=== PATIENT | male | born 1955 | race Caucasian/White ===

== ENCOUNTER 2017-09-20 00:07 | Observation (INO) | payer MEDICARE, OTHER ==
[2017-09-20] MEDS ORDERED: SODIUM CHLORIDE 0.9% 1000 ML INFUS.BAG IV PRN (01:44)
--- NOTE | 2017-09-20 01:44 | PDOC ---
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 The patient reports developing a cough, increased wheezing, and a fever yesterday. The patient denies taking any medication for his fever, however, reportedly took robitussin from his for his cough yesterday with minimal relief. He denies chest pain, shortness of breath, headache and dizziness. He denies chills, nausea, vomit, diarrhea and constipation. He denies dysuria, frequency, urgency and hematuria. Allergies: NKDA <Franny Hilton - Last Filed: 09/20/17 02:02> - General History Source: Spouse <Guy Sahu - Last Filed: 09/20/17 02:47> - General Chief Complaint: SIRS, Suspected/Possible Stated Complaint: FEVER Time Seen by Provider: 09/20/17 01:40 Past History <Franny Hilton - Last Filed: 09/20/17 02:02> - Past Medical History Anemia: No Asthma: Yes Cancer: No Cardiac Disorders: Yes CVA: Yes (APHASIC) COPD: No CHF: No Dementia: No Diabetes: Yes GI Disorders: No Disorders: No HTN: Yes Hypercholesterolemia: No Liver Disease: No Psychiatric Problems: Yes (anxiety) Seizures: Yes Thyroid Disease: No - Surgical History Abdominal Surgery: No Cardiac Surgery: Yes (PACEMAKER) - Suicide/Smoking/Psychosocial Hx Smoking Status: No Smoking History: Never smoked Have you smoked in the past 12 months: No Number of Cigarettes Smoked Daily: 0 If you are a former smoker, when did you quit?: 45YRS Cigars Per Day: 0 Information on smoking cessation initiated: No Hx Alcohol Use: No Drug/Substance Use Hx: No Substance Use Type: None Hx Substance Use Treatment: No <Guy Sahu - Last Filed: 09/20/17 02:47> - Past Medical History Allergies/Adverse Reactions: Allergies Allergy/AdvReac Type Severity Reaction Status Date / Time No Known Allergies Allergy Verified 09/20/17 00:46 Home Medications: Ambulatory Orders Blood Sugar Diagnostic [Truetrack Test Strip] 1 each MC DAILY #60 strip Blood Sugar Diagnostic [True Metrix Glucose Test Strip] 1 each MC DAILY #50 strip 12/28/16 Acetaminophen with Codeine [Tylenol with Codeine #4 Tablet] 1 each PO BID #60 tablet MDD 2 04/25/17 Miscellaneous Medical Supply [Lancets] 1 each MARION ASDIR #1 box 05/16/17 Alcohol Antiseptic Pads [Caretouch Alcohol Prep Pad] 1 each TP BID #1 box Blood Sugar Diagnostic [Contour Next] 1 each MC BID #60 strip 06/27/17 Digoxin Oral Solution [Lanoxin Oral Solution -] 125 mcg PO DAILY #75 ml Erythromycin 0.5% Eye Ointment [Erythromycin 0.5% Eye Ointment -] 1 applic DAILY #1 tube 06/27/17 Fluticasone/Salmeterol [Advair 250-50 Diskus] 1 each IH DAILY #30 blst.w.dev 07/04 Furosemide [Lasix -] 20 mg PO DAILY #30 tablet 06/27/17 Levetiracetam [Keppra -] 750 mg PO BID #60 tablet 06/27/17 Metoprolol Succinate [Toprol XL -] 25 mg PO BID #60 tab.sr.24h 06/27/17 Lorazepam 0.5 mg PO HS PRN #90 tablet MDD 1.5mg 08/09/17 Paroxetine HCl [Paxil -] 10 mg PO DAILY #30 tablet 08/09/17 Abacavir/Dolutegravir/Lamivudi [Triumeq Tablet] 1 each PO DAILY #30 tablet 08/22 Amoxicillin/Potassium Clav [Augmentin 875-125 Tablet] 1 each PO DAILY #14 tablet 08/22/17 Dextromethorphan HBr [Robitussin] 15 mg PO TID #60 capsule 08/22/17 Multivitamins [Multivit ([facility] Formulary)] 1 tab PO DAILY #30 tab 08/29/17 Abacavir/Dolutegravir/Lamivudi [Triumeq Tablet] 1 each PO DAILY #30 tablet 09/19 Bacitracin - [Bacitracin Topical Ointment -] 1 applic TP TID #1 tube 09/19/17 Clotrimazole [Lotrimin 1% Cream -] 1 applic TP BID #1 tube 09/19/17 Guaifenesin Dm [Robitussin Dm] 1 - 2 tsp PO Q4H #1 bottle MDD 8 09/19/17 Levofloxacin [Levaquin -] 500 mg PO DAILY #7 tablet 09/19/17 Multivitamin,Therapeutic [Oncovite] 1 each PO DAILY #30 tablet 09/19/17 Review of Systems - Review of Systems Able to Perform ROS?: Yes Comments:: 09/20/17 02:02 CONSTITUTIONAL: (+) fever, Absent: chills, diaphoresis, generalized weakness, malaise, loss of appetite HEENT: Absent: rhinorrhea, nasal congestion, throat pain, throat swelling, difficulty swallowing, mouth swelling, ear pain, eye pain, visual Changes CARDIOVASCULAR: Absent: chest pain, syncope, palpitations, irregular heart rate, lightheadedness , peripheral edema RESPIRATORY: (+) cough, wheezing, Absent: shortness of breath, dyspnea with exertion, orthopnea,stridor, hemoptysis GASTROINTESTINAL: Absent: abdominal pain, abdominal distension, nausea, vomiting, diarrhea, constipation, melena, hematochezia GENITOURINARY: Absent: dysuria, frequency, urgency, hesitancy, hematuria, flank pain, genital pain MUSCULOSKELETAL: Absent: myalgia, arthralgia, joint swelling SKIN: Absent: rash, itching, pallor HEMATOLOGIC/IMMUNOLOGIC: Absent: easy bleeding, easy bruising, lymphadenopathy, frequent infections ENDOCRINE: Absent: unexplained weight gain, unexplained weight loss, heat intolerance, cold intolerance NEUROLOGIC: Absent: headache, focal weakness or paresthesias, dizziness, unsteady gait, seizure, mental status changes, bladder or bowel incontinence PSYCHIATRIC: Absent: anxiety, depression, suicidal or homicidal ideation, hallucinations. <Franny Hilton - Last Filed: 09/20/17 02:02> *Physical Exam - Vital Signs Last Vital Signs Temp Pulse Resp BP Pulse Ox 101.7 F H 84 14 121/73 94 L 09/20/17 00:47 09/20/17 00:47 09/20/17 00:47 09/20/17 00:47 09/20/17 00:47 - Physical Exam Comments: 09/20/17 02:03 GENERAL: Well developed, well nourished. Awake and alert. No acute distress. HEENT: Normocephalic, atraumatic. PERRLA, EOMI. No conjunctival pallor. Sclera are non- icteric. Moist mucous membranes. Oropharynx is clear. NECK: Supple. Full ROM. No JVD. Carotid pulses 2+ and symmetric, without bruits. No thyromegaly. No lymphadenopathy. CARDIOVASCULAR: (+) tachycardic rate and normal rhythm. No murmurs, rubs, or gallops. Distal pulses are 2+ and symmetric. PULMONARY: (+) wheezing and rhonchi bilaterally (Left greater than right), decreased breath sounds at bilateral bases. No rales. ABDOMINAL: Soft. Non-tender. Non-distended. No rebound or guarding. No organomegaly. Normoactive bowel sounds. MUSCULOSKELETAL Normal range of motion at all joints. No bony deformities or tenderness. No CVA tenderness. EXTREMITIES: No cyanosis. No clubbing. No edema. No calf tenderness. SKIN: Warm and dry. Normal capillary refill. No rashes. No jaundice. NEUROLOGICAL: (+) right upper and lower extremity weakness, 3/5 muscle strength on right versus 5/5 muscle strength on the left upper and lower extremities. Alert, awake , appropriate. Cranial nerves 2-12 intact. Normoreflexic in the upper and lower extremities. Normal speech. Toes are down-going bilaterally. Gait is normal without ataxia. PSYCHIATRIC: Cooperative. Good eye contact. Appropriate mood and affect. <Franny Hilton - Last Filed: 09/20/17 02:02> - Vital Signs Last Vital Signs Temp Pulse Resp BP Pulse Ox 101.7 F H 84 14 121/73 94 L 09/20/17 00:47 09/20/17 00:47 09/20/17 00:47 09/20/17 00:47 09/20/17 00:47 <Guy Sahu - Last Filed: 09/20/17 02:47> ED Treatment Course - LABORATORY CBC & Chemistry Diagram: 09/20/17 01:50 09/20/17 01:50 - ADDITIONAL ORDERS Additional order review: Laboratory Results 09/20/17 01:50 VBG pH 7.43 H POC VBG pCO2 36.4 L D POC VBG pO2 59.1 H D Mixed VBG HCO3 23.5 - Medications Given in the ED: ED Medications Discontinued Medications Generic Name Dose Route Start Last Admin Trade Name Shala PRN Reason Stop Dose Admin Acetaminophen 1,000 mg 09/20/17 01:45 09/20/17 01:54 Ofirmev Injection - IVPB 09/20/17 01:46 1,000 mg ONCE ONE Administration <Franny Hilton - Last Filed: 09/20/17 02:02> - LABORATORY CBC & Chemistry Diagram: 09/20/17 01:50 09/20/17 01:50 <Guy Sahu - Last Filed: 09/20/17 02:47> Medical Decision Making - Medical Decision Making 09/20/17 02:41 Dr. Sahu: The scribe's documentation has been prepared under my direction and personally reviewed by me in its entirery. I confirm that the note above accurately reflects all work, treatment, procedures, and medical decision making performed by me. Pt HIV+ and DM presents with recurrence of bronchitis. Pt's only gave him one dose of antibiotic as he just saw the pcp yesterday. Will admit Rx Levaquin 750mg IVPB <Guy Sahu - Last Filed: 09/20/17 02:47> *DC/Admit/Observation/Transfer - Attestations Scribe Attestion: 09/20/17 02:06 Documentation prepared by Franny Hilton, acting as medical receptionist medical assistant for Guy Sahu DO <Franny Hilton - Last Filed: 09/20/17 02:02> - Discharge Dispostion Admit: Yes <Guy Sahu - Last Filed: 09/20/17 02:47> Diagnosis at time of Disposition: HIV (human immunodeficiency virus infection), Diabetes 1.5, managed as type 2 Acute bronchitis Qualifiers: Bronchitis organism: unspecified organism Qualified Code(s): J20.9 - Acute bronchitis, unspecified - Discharge Dispostion Condition at time of disposition: Stable - Referrals Referrals: Dickson Suazo MD [Primary Care Provider] - - Patient Instructions - Post Discharge Activity
[2017-09-20] MEDS ORDERED: ACETAMINOPHEN 1000 MG/100 ML VIAL (NON FORMULARY) IVPB ONE (01:45)
[2017-09-20] MEDS ORDERED: ACETAMINOPHEN INJECTION 100 ML IVPB ONE (01:55)
[2017-09-20 01:57] LABS: BASO % 0.1 % (0-2.0); EOS % 0.1 % (0-4.5); HEMOGLOBIN 11.6 GM/dL (11.7-16.9); LYMPH % 7.4 % (8-40); MCH 32.6 pg (25.7-33.7); MCHC 34.1 g/dl (32.0-35.9); MEAN CELL VOLUME 95.7 fl (80-96); MEAN PLT VOLUME 7.5 fl (7.5-11.1); NEUT % 83.4 % (42.8-82.8); PLATELET COUNT 107 K/MM3 (134-434); RBC 3.55 M/mm3 (4.00-5.60); RDW 13.9 % (11.9-15.9); WHITE BLOOD COUNT 4.8 K/mm3 (4.0-10.0)
[2017-09-20 01:58] LABS: VENOUS PC02 36.4 mmHg (38-52); VENOUS PH 7.43 (7.32-7.42); VENOUS PO2 59.1 mmHg (28-48)
[2017-09-20 02:09] LABS: INR 1.3 (0.82-1.09); PROTHROMBIN TIME (PATIENT) 14.7 SEC (9.98-11.88)
[2017-09-20 02:12] LABS: ACTIVATED PTT 42.4 SECONDS (26.9-34.4)
[2017-09-20 02:18] LABS: ALBUMIN 3.5 g/dl (3.4-5.0); ANION GAP 10 (8-16); BILIRUBIN,TOTAL 0.9 mg/dL (0.2-1.0); BLOOD UREA NITROGEN 24 mg/dL (7-18); CALCIUM 8.2 mg/dL (8.5-10.1); CHLORIDE 104 mmol/L (98-107); CO2 23 mmol/L (21-32); CREATININE 1.2 mg/dL (0.7-1.3); GLUCOSE,RANDOM 189 mg/dL (74-106); SGOT/AST 30 U/L (15-37); SGPT/ALT 21 U/L (12-78); SODIUM 137 mmol/L (136-145); TOT PROT 7.4 g/dl (6.4-8.2)
[2017-09-20 02:21] LABS: ALK PHOS 97 U/L (45-117)
[2017-09-20] MEDS ORDERED: LEVOFLOXACIN 750 MG IVPB 750 MG/150 ML BAG IVPB ONE ×2 (02:40→02:49)
--- NOTE | 2017-09-20 02:44 | PN ---
Teaching Attending Note Name of Resident: Alcon Pickard ATTENDING PHYSICIAN STATEMENT I saw and evaluated the patient. I reviewed the resident's note and discussed the case with the resident. I agree with the resident's findings and plan as documented. SUBJECTIVE: 62 M with hx. of HIV (CD4 517), Afib (Not on A/C due to fall hx as per ), HTN s/p PPM, DM, Stroke with r. sided hemipheresis and aphasia, and seizure do who presents with cough X2 weeks in duration. Notes fever at home. States he took Robitussin with minimall relief. States his cough has improved. OBJECTIVE: Physical: VS: Vital Signs Period Temp Pulse Resp BP Sys/Barrientos Pulse Ox Last 24 Hr 101.7 F 84 14 121/73 94 GEN: NAD, resting in bed, AA0X3, Aphasic HEENT: NCAT, L. Pupil reactive, throat without erythema or exudates CARD: RRR S1, S2 RESP: Decreased at bases ABD: Bsx4, NTD to palpation EXT: - C/C/E CBCD WBC 4.8 K/mm3 (4.0-10.0) 09/20/17 01:50 RBC 3.55 M/mm3 (4.00-5.60) L 09/20/17 01:50 Hgb 11.6 GM/dL (11.7-16.9) L D 09/20/17 01:50 Hct 34.0 % (35.4-49) L D 09/20/17 01:50 MCV 95.7 fl (80-96) 09/20/17 01:50 MCHC 34.1 g/dl (32.0-35.9) 09/20/17 01:50 RDW 13.9 % (11.9-15.9) 09/20/17 01:50 Plt Count 107 K/MM3 (134-434) L 09/20/17 01:50 MPV 7.5 fl (7.5-11.1) D 09/20/17 01:50 CMP Sodium 137 mmol/L (136-145) 09/20/17 01:50 Potassium 4.0 mmol/L (3.5-5.1) 09/20/17 01:50 Chloride 104 mmol/L (98-107) 09/20/17 01:50 Carbon Dioxide 23 mmol/L (21-32) 09/20/17 01:50 Anion Gap 10 (8-16) 09/20/17 01:50 BUN 24 mg/dL (7-18) H D 09/20/17 01:50 Creatinine 1.2 mg/dL (0.7-1.3) D 09/20/17 01:50 Creat Clearance w eGFR > 60 (>60) 09/20/17 01:50 Random Glucose 189 mg/dL (74-106) H D 09/20/17 01:50 Calcium 8.2 mg/dL (8.5-10.1) L 09/20/17 01:50 Total Bilirubin 0.9 mg/dL (0.2-1.0) 09/20/17 01:50 AST 30 U/L (15-37) D 09/20/17 01:50 ALT 21 U/L (12-78) D 09/20/17 01:50 Alkaline Phosphatase 97 U/L (45-117) 09/20/17 01:50 Total Protein 7.4 g/dl (6.4-8.2) 09/20/17 01:50 Albumin 3.5 g/dl (3.4-5.0) 09/20/17 01:50 CARDIAC ENZYMES Creatine Kinase 146 IU/L (39-308) 09/20/17 01:50 Troponin I < 0.02 ng/ml (0.00-0.05) 09/20/17 01:50 Home Medications Medication Instructions Recorded Acetaminophen with Codeine 1 each PO BID #60 tablet MDD 2 04/25/17 [Tylenol with Codeine #4 Tablet] Digoxin Oral Solution [Lanoxin 125 mcg PO DAILY #75 ml 06/27/17 Oral Solution -] Erythromycin 0.5% Eye Ointment 1 applic DAILY #1 tube 06/27/17 [Erythromycin 0.5% Eye Ointment -] Fluticasone/Salmeterol [Advair 1 each IH DAILY #30 blst.w.dev 06/27/17 250-50 Diskus] Furosemide [Lasix -] 20 mg PO DAILY #30 tablet 06/27/17 Levetiracetam [Keppra -] 750 mg PO BID #60 tablet 06/27/17 Metoprolol Succinate [Toprol XL -] 25 mg PO BID #60 tab.sr.24h 06/27/17 Lorazepam 0.5 mg PO HS PRN #90 tablet MDD 08/09/17 1.5mg Paroxetine HCl [Paxil -] 10 mg PO DAILY #30 tablet 08/09/17 Multivitamins [Multivit ([facility] 1 tab PO DAILY #30 tab 08/29/17 Formulary)] Abacavir/Dolutegravir/Lamivudi 1 each PO DAILY #30 tablet 09/19/17 [Triumeq Tablet] Guaifenesin Dm [Robitussin Dm] 1 - 2 tsp PO Q4H #1 bottle MDD 8 09/19/17 Multivitamin,Therapeutic [Oncovite] 1 each PO DAILY #30 tablet 09/19/17 EKG: Afib 63 CXR- No acute process ASSESSMENT AND PLAN: 62 M with hx. of HIV, HTN s/p PPM, DM, Stroke with r. sided hemipheresis and aphasia, and seizure do who presents with cough X2 weeks in duration, being admitted for Community Aquired Pneumonia 1.) Fever and Cough- Most likely Early Pneumonia vs. Bronchitis - C/W Levaquin - Sputum Cx- - Flu negative - Urine Ags - ID consult - Tylenol for fever 2.) Hx. OF CVA - Recc ASA 3.) HIV - C/W current meds 4.) DM - Fs - RAISS - Diabetic diet 5.) Dvt Ppx - Scds Place in Obs
--- NOTE | 2017-09-20 02:47 | HP ---
CHIEF COMPLAINT:fever, cough PCP: HISTORY OF PRESENT ILLNESS: 62 year old male with PMH of HiV, DMII, HTN, Afib, S/P pacemaker , stroke ( aphasia with right side weakness), seizure , PEG tube who presented to ED with one week h/o productive cough, sob, wheezing and today fever 103.3 (per ) was admitted for further evaluation and treatment. Symptoms started one month ago and he was given Augmentine by his and achieve some improvement. last week suffer from cold weather at home that worsen his cough and start to product white phlegm , tea spoon in amount. She saw Dr.Berky TESFAYE today and she was given Levaquin 500 mg PO daily . Patient developed fever 103.3 around 9 pm that prompted the to bring him to ED. he reports some chest pain and sore throat. but denies any dyspnea or orthopnea. he denies any headache, blurry vision, abdominal pain, N/V/D/C. He denies any leg swelling or urinary symptoms. ER course was notable for: (1) CXR negative for acute process (2)Levaquin 750 IVBP once (3)NS 1L bolus , 50 cc maintenance Recent Travel:denies , denies any sick contact. PAST MEDICAL HISTORY: as per HPI PAST SURGICAL HISTORY: prosthetic left eye, Pacemaker, PEG tube. Social History: Smoking: as teenage 2-3 cig /day Alcohol:sochially 1-2 beer week Drugs: denies Family History: Allergies No Known Allergies Allergy (Verified 09/20/17 00:46) HOME MEDICATIONS: Home Medications Medication Instructions Recorded Acetaminophen with Codeine 1 each PO BID #60 tablet MDD 2 04/25/17 [Tylenol with Codeine #4 Tablet] Digoxin Oral Solution [Lanoxin 125 mcg PO DAILY #75 ml 06/27/17 Oral Solution -] Erythromycin 0.5% Eye Ointment 1 applic DAILY #1 tube 06/27/17 [Erythromycin 0.5% Eye Ointment -] Fluticasone/Salmeterol [Advair 1 each IH DAILY #30 blst.w.dev 06/27/17 250-50 Diskus] Furosemide [Lasix -] 20 mg PO DAILY #30 tablet 06/27/17 Levetiracetam [Keppra -] 750 mg PO BID #60 tablet 06/27/17 Metoprolol Succinate [Toprol XL -] 25 mg PO BID #60 tab.sr.24h 06/27/17 Lorazepam 0.5 mg PO HS PRN #90 tablet MDD 08/09/17 1.5mg Paroxetine HCl [Paxil -] 10 mg PO DAILY #30 tablet 08/09/17 Multivitamins [Multivit ([facility] 1 tab PO DAILY #30 tab 08/29/17 Formulary)] Abacavir/Dolutegravir/Lamivudi 1 each PO DAILY #30 tablet 09/19/17 [Triumeq Tablet] Guaifenesin Dm [Robitussin Dm] 1 - 2 tsp PO Q4H #1 bottle MDD 8 09/19/17 Multivitamin,Therapeutic [Oncovite] 1 each PO DAILY #30 tablet 09/19/17 REVIEW OF SYSTEMS CONSTITUTIONAL: Absent: fever, chills, diaphoresis, generalized weakness, malaise, loss of appetite, weight change HEENT: Absent: rhinorrhea, nasal congestion, throat pain, throat swelling, difficulty swallowing, mouth swelling, ear pain, eye pain, visual changes CARDIOVASCULAR: Absent: chest pain, syncope, palpitations, irregular heart rate, lightheadedness , peripheral edema RESPIRATORY: Absent: cough, shortness of breath, dyspnea with exertion, orthopnea, wheezing, stridor, hemoptysis GASTROINTESTINAL: Absent: abdominal pain, abdominal distension, nausea, vomiting, diarrhea, constipation, melena, hematochezia GENITOURINARY: Absent: dysuria, frequency, urgency, hesitancy, hematuria, flank pain, genital pain MUSCULOSKELETAL: Absent: myalgia, arthralgia, joint swelling, back pain, neck pain SKIN: Absent: rash, itching, pallor HEMATOLOGIC/IMMUNOLOGIC: Absent: easy bleeding, easy bruising, lymphadenopathy, frequent infections ENDOCRINE: Absent: unexplained weight gain, unexplained weight loss, heat intolerance, cold intolerance NEUROLOGIC: Absent: headache, focal weakness or paresthesias, dizziness, unsteady gait, seizure, mental status changes, bladder or bowel incontinence PSYCHIATRIC: Absent: anxiety, depression, suicidal or homicidal ideation, hallucinations. PHYSICAL EXAMINATION Vital Signs - 24 hr 09/20/17 00:47 Temperature 101.7 F H Pulse Rate 84 Respiratory 14 Rate Blood Pressure 121/73 O2 Sat by Pulse 94 L Oximetry (%) GENERAL: Awake, alert, and fully oriented, in no acute distress with aphasia HEAD: Normal with prosthetic left eye and scar of an old trauma . EYES:right Pupils equal, round and reactive to light, right extraocular movements intact,right sclera anicteric, conjunctiva clear. EARS, NOSE, THROAT: Ears normal, nares patent, oropharynx clear without exudates. Moist mucous membranes. NECK: Normal range of motion, supple without lymphadenopathy, JVD, LUNGS: Breath sounds equal, clear to auscultation bilaterally. mild wheezes, and no crackles. No accessory muscle use. HEART: Regular rate and rhythm, normal S1 and S2 without murmur, rub or gallop. ABDOMEN: Soft, nontender, not distended, normoactive bowel sounds, no guarding, no rebound, UPPER EXTREMITIES: 2+ pulses, warm, well-perfused. No cyanosis. No clubbing. No peripheral edema.right side 2/5 strength, left side 5/5 strength LOWER EXTREMITIES: 2+ pulses, warm, well-perfused. No calf tenderness. No peripheral edema. right side 2/5 strength, left side 5/5 strength , right side skin hyperpegmentation with exfoliation. NEUROLOGICAL: aphasia , sensation intact, gait not observed PSYCHIATRIC: Cooperative. Good eye contact. SKIN: Warm, dry, no rashes or lesions noted, Laboratory Results - last 24 hr 09/20/17 09/20/17 09/20/17 01:50 01:50 01:50 WBC 4.8 RBC 3.55 L Hgb 11.6 L D Hct 34.0 L D MCV 95.7 MCH 32.6 MCHC 34.1 RDW 13.9 Plt Count 107 L MPV 7.5 D Neutrophils % 83.4 H D Lymphocytes % 7.4 L D Monocytes % 9.0 Eosinophils % 0.1 D Basophils % 0.1 PT with INR 14.70 H INR 1.30 H PTT (Actin FS) 42.4 H VBG pH 7.43 H POC VBG pCO2 36.4 L D POC VBG pO2 59.1 H D Mixed VBG HCO3 23.5 Sodium Potassium Chloride Carbon Dioxide Anion Gap BUN Creatinine Creat Clearance w eGFR Random Glucose Lactic Acid Calcium Total Bilirubin AST ALT Alkaline Phosphatase Creatine Kinase Troponin I Total Protein Albumin Digoxin 09/20/17 09/20/17 09/20/17 01:50 01:50 01:50 WBC RBC Hgb Hct MCV MCH MCHC RDW Plt Count MPV Neutrophils % Lymphocytes % Monocytes % Eosinophils % Basophils % PT with INR INR PTT (Actin FS) VBG pH POC VBG pCO2 POC VBG pO2 Mixed VBG HCO3 Sodium 137 Potassium 4.0 Chloride 104 Carbon Dioxide 23 Anion Gap 10 BUN 24 H D Creatinine 1.2 D Creat Clearance w eGFR > 60 Random Glucose 189 H D Lactic Acid 1.6 Calcium 8.2 L Total Bilirubin 0.9 AST 30 D ALT 21 D Alkaline Phosphatase 97 Creatine Kinase 146 Troponin I < 0.02 Total Protein 7.4 Albumin 3.5 Digoxin 0.6633 L CBC, BMP 09/20/17 01:50 Current Medications Generic Name Dose Route Start Last Admin Trade Name Freq PRN Reason Stop Dose Admin Aspirin 81 mg 09/20/17 10:00 Asa - PEG DAILY [facility] Budesonide/Formoterol Fumarate 2 puff 09/20/17 10:00 Symbicort 80/4.5mcg - IH BID DUNIA Digoxin 0.125 mg 09/20/17 10:00 Lanoxin - PO DAILY DUNIA Furosemide 20 mg 09/20/17 10:00 Lasix - PO DAILY [facility] Sodium Chloride 1,000 mls @ 50 mls/hr 09/20/17 04:30 09/20/17 04:31 Normal Saline - IV 09/21/17 04:22 50 mls/hr ASDIR DUNIA Administration Insulin Aspart 0 vial 09/20/17 07:00 Novolog Vial Sliding Scale - SQ ACHS DUNIA Protocol Levetiracetam 750 mg 09/20/17 10:00 Keppra - PO BID DUNIA Lorazepam 0.5 mg 09/20/17 03:22 Ativan - PO HS PRN ANXIETY Metoprolol Succinate 25 mg 09/20/17 10:00 Toprol Xl - PO BID DUNIA Multivitamins/Minerals/Vitamin C 1 tab 09/20/17 10:00 Tab-A-Vit - PO DAILY [facility] Non-Formulary Medication 1 each 09/20/17 10:00 Abacavir/Dolutegravir/Lamivudi [Triumeq Tablet] PO DAILY DUNIA Paroxetine HCl 10 mg 09/20/17 10:00 Paxil - PO DAILY DUN[facility] Sodium Chloride 1,000 ml 09/20/17 01:44 09/20/17 01:54 Normal Saline - IV 1,000 ml Q20M PRN Administration MAP<65mm Hg OR SBP <90 CBC, BMP 09/20/17 01:50 09/20/17 01:50 CXR : No acute process EKG: Afib with frequent ventricular pacing rhythm ASSESSMENT/PLAN: 62 year old male with PMH of HiV, DMII, HTN, Afib, S/P pacemaker , stroke ( aphasia with right side weakness), seizure , PEG tube who presented to ED with one week h/o productive cough, sob, wheezing and today fever 103.3 (per ) was admitted for further evaluation and treatment(R/O pneumonia ) # Fever and productive cough likely Acute Bronchitis vcs early Pneumonia * Levaquin 750 IVBP once , * Id consult * CXR no acute process * Influenza A,B negative * urine legionella antigen * Incentive spectrometry * Blood cx, urine cx, sputum cx # HIV * Cd4 count 482 , Viral Load <20 * Continue home meds # Mild JUAN R * BUN/Cr 24/1.2 base line cr 0.6 * Likely 2/2 dehydration 2/2 low oral intake * hold lasix 20 mg today * IV fluids NS @ 50 CC/hr * repeat CMP in AM H/O Afib , * In no acute episode * pacing rhythm * stable * continue home meds Toprol XL 25 mg BID through PEG * hold Lasix for now * # Anemia likely anemia of chronic disease * Low H/H 11.6/34.0 * monitor * No active bleeding * # Thrombocytopenia * PLt 107 on admission * monitor * No active bleeding # Seizure , * continue keppra 750 mg BID # depression, * continue paroxetin 20 mg PO daily # FEN * F: NS @ 50CC/hr * E:WNL , monitor * N: NPO, Dietitian consult , PEG tube # Proph * DVT : SCDs both legs ,ASA 81 mg daily , NO AC due to frequent fall * GI : no need for now # Dispo * Admit to Observation
[2017-09-20] MEDS ORDERED: LORazepam 0.5 MG TABLET PO PRN (03:22)
[2017-09-20] MEDS ORDERED: SODIUM CHLORIDE 1,000 ML IV SCH (04:30)
[2017-09-20 04:53] LABS: ALLENS TEST POSITIVE; ARTERIAL BLOOD GAS PCO2 41.5 mmHg (35-45); ARTERIAL BLOOD GAS PO2 71.4 mmHg (80-100); ARTERIAL BLOOD GAS pH 7.37 (7.35-7.45)
[2017-09-20 05:55] VITALS: BMI 30.9
[2017-09-20] MEDS: INSULIN SLIDING SCALE (NOVOLOG) 1 VIAL SQ SCH ×4 (06:45→23:35)
[2017-09-20] MEDS: ASPIRIN 81 MG CHEWABLE TABLETS PEG SCH (09:43)
[2017-09-20] MEDS: levETIRAcetam 250 MG TABLET (FP) PO SCH ×2 (09:44→23:25)
[2017-09-20] MEDS: MULTIVITAMINS (DAILY MVI) TABLET (FP) PO SCH (09:44)
[2017-09-20] MEDS: BUDESONIDE/FORMETEROL FUMARATE 80/4.5 mcg INHALER IH SCH ×2 (09:44→23:26)
[2017-09-20] MEDS: METOPROLOL SUCCINATE 25 MG TAB.SR.24H (FP) PO SCH ×2 (09:45→23:25)
[2017-09-20] MEDS: PARoxetine HCL 10 MG TABLET (FP) PO SCH (09:45)
[2017-09-20] MEDS: DIGOXIN 0.125 MG TABLET (FP) PO SCH (09:45)
[2017-09-20] MEDS ORDERED: MULTIVITAMIN THERAPEUTIC PO SCH (10:00)
[2017-09-20] MEDS ORDERED: FUROSEMIDE 20 MG TABLET (FP) PO SCH (10:00)
[2017-09-20 10:30] LABS: BASO % 0.2 % (0-2.0); EOS % 0.2 % (0-4.5); HEMATOCRIT 34.3 % (35.4-49); HEMOGLOBIN 11.3 GM/dL (11.7-16.9); LYMPH % 19.4 % (8-40); MCH 31.9 pg (25.7-33.7); MCHC 32.9 g/dl (32.0-35.9); MEAN CELL VOLUME 96.9 fl (80-96); MEAN PLT VOLUME 7.7 fl (7.5-11.1); MONO % 7.9 % (3.8-10.2); NEUT % 72.3 % (42.8-82.8); PLATELET COUNT 102 K/MM3 (134-434); RBC 3.54 M/mm3 (4.00-5.60); RDW 13.8 % (11.9-15.9); WHITE BLOOD COUNT 3.9 K/mm3 (4.0-10.0)
[2017-09-20 10:49] LABS: ALBUMIN 3.4 g/dl (3.4-5.0); ANION GAP 12 (8-16); BLOOD UREA NITROGEN 24 mg/dL (7-18); CHLORIDE 103 mmol/L (98-107); CO2 25 mmol/L (21-32); CREATININE 1.1 mg/dL (0.7-1.3); GLUCOSE,RANDOM 111 mg/dL (74-106); POTASSIUM 3.9 mmol/L (3.5-5.1); SGOT/AST 34 U/L (15-37); SGPT/ALT 24 U/L (12-78); SODIUM 140 mmol/L (136-145)
[2017-09-20 10:51] LABS: ALK PHOS 81 U/L (45-117); BILIRUBIN,TOTAL 0.8 mg/dL (0.2-1.0); TOT PROT 7.4 g/dl (6.4-8.2)
[2017-09-20 13:10] LABS: URINE APPEARANCE CLEAR; URINE BILIRUBIN NEGATIVE (NEGATIVE); URINE BLOOD NEGATIVE (NEGATIVE); URINE COLOR AMBER; URINE GLUCOSE (UA) NEGATIVE (NEGATIVE); URINE KETONE NEGATIVE (NEGATIVE); URINE LEUK ESTERASE NEGATIVE (NEGATIVE); URINE NITRITE NEGATIVE (NEGATIVE); URINE PROTEIN NEGATIVE (NEGATIVE); URINE UROBILINOGEN 4.0 E.U/dl mg/dL (0.2-1.0)
--- NOTE | 2017-09-20 13:11 | PN ---
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 (short form) - Note 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: ID consult dictated [email or web address] 62 year old man stable HIV-cd4 517 history of cva- aphasia and right hemiparesis recent bronchitis in August - treated with Augmentin now with recurrent cough, wheezing and fever- seen at the [facility] and started on Levaquin yesterday, later developed fever and came to ED received levaquin early this am cxray no infiltrate, influenza screen negative now feeling much better bronchitis-improved, f/u cultures, continue po levaquin, reduce dose to 500 mg daily for 7 days stable HIV- we dont have triumeq- will give the components history of CVA with aphasia and right hemiiparesis NIDDM Problem List - Problems (1) Acute bronchitis Code(s): J20.9 - ACUTE BRONCHITIS, UNSPECIFIED Qualifiers: Bronchitis organism: unspecified organism Qualified Code(s): J20.9 - Acute bronchitis, unspecified (2) HIV (human immunodeficiency virus infection) Code(s): Z21 - ASYMPTOMATIC HUMAN IMMUNODEFICIENCY VIRUS INFECTION STATUS (3) Diabetes 1.5, managed as type 2 Code(s): E10.9 - TYPE 1 DIABETES MELLITUS WITHOUT COMPLICATIONS (4) CVA (cerebral vascular accident) Code(s): I63.9 - CEREBRAL INFARCTION, UNSPECIFIED
--- NOTE | 2017-09-20 13:17 | EKG ---
Test Reason : Blood Pressure : / mmHG Vent. Rate : 067 BPM Atrial Rate : 277 BPM P-R Int : 000 ms QRS Dur : 110 ms QT Int : 404 ms P-R-T Axes : 000 008 002 degrees QTc Int : 426 ms ATRIAL FIBRILLATION WITH FREQUENT ventricular-paced complexes RIGHT BUNDLE BRANCH BLOCK T WAVE ABNORMALITY, CONSIDER LATERAL ISCHEMIA ABNORMAL ECG WHEN COMPARED WITH ECG OF 07-MAR-2017 10:24, ELECTRONIC VENTRICULAR PACEMAKER HAS REPLACED ATRIAL FIBRILLATION Confirmed by DREA MURRAY MD ([id number]) on 09/20/2017 1:17:26 PM Referred By: Confirmed By:DREA MURRAY MD
[2017-09-20] MEDS: ACETAMINOPHEN 325 MG TABLET (FP) PO PRN ×3 (13:21→23:26)
[2017-09-20] MEDS ORDERED: lamiVUDine 150 MG TABLET PO SCH (13:33)
--- NOTE | 2017-09-20 14:19 | CONS ---
DATE OF CONSULTATION: DATE OF DICTATION: 09/20/2017 INFECTIOUS DISEASE CONSULTATION REQUESTING PHYSICIAN: The hospitalist service. HISTORY OF PRESENT ILLNESS: This is a 62-year-old man with stable HIV disease. T-cells are 517. 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 He was brought to the emergency room by his last night. He had gone to the [facility] earlier in the day, complaining of a cough that was productive and had been persistent over the last several days. They apparently had had a heating issue in their apartment and had heat only in the bedroom for several days, and the patient began coughing, which has been persistent. He had a similar episode earlier in August, for which he was treated with Augmentin. Yesterday, when he was seen in clinic, he had no fever or chills and was otherwise well. He was given Levaquin and cough medicine, which she states she gave him yesterday. Last night she noticed his face was red. He was coughing more and wheezing. She brought him to the emergency room, where he was noted to have fever, and he was admitted for further evaluation. He was given a dose of Levaquin early this morning. He had a chest x-ray that shows no infiltrate. Currently he is resting comfortably. His fever has resolved, and his cough has subsided. PAST MEDICAL HISTORY: Notable for CVA. He has expressive aphasia. He also has a history of diabetes and hypertension. He has right-sided weakness from his CVA. He has a history of seizures. He is status post pacemaker. [id number] diabetes and hypertension. He has a history of asthma in the past, as well as anxiety. He has had 2 prior feeding tubes and a tracheostomy, all of which have been removed. He also appears to have had some other abdominal surgery of unclear etiology. ALLERGIES: He has no known drug allergies. MEDICATIONS: His medications as an outpatient include Advair, Lasix, Keppra, metoprolol, lorazepam, Paxil, Triumeq, Robitussin, multivitamins, and he was started on Levaquin yesterday. SOCIAL HISTORY: He lives with his significant other. There is no history of any substance use. REVIEW OF SYSTEMS: He apparently has had some dental pain. He saw his dentist recently and is scheduled for extractions. He has no abdominal pain or chest pain at this time, and his cough is improved. There is no history of any travel. PHYSICAL EXAMINATION: General: He is awake and alert Vital Signs: Maximum temperature is 101. Current temperature is 98.9. Pulse 60. Blood pressure 106/62. Respiratory rate is 18. He is saturating 96% on room air. HEENT: He is normocephalic. His eyes are anicteric. He has very poor dentition, with multiple broken teeth. Neck: Supple. Lungs: Clear. Heart: Regular rate and rhythm. Abdomen: Soft and nontender. He has a well-healed midline incision. He has 2 other scars, which were the G-tube sites. Extremities: He has bilateral venous stasis changes. He has multiple scars on his lower legs. He has no edema. DIAGNOSTIC STUDIES: His labs are notable for a white count of 3.9. Hemoglobin is 11.3. Platelets are 102. BUN 24, creatinine 1.1. LFTs are normal. Urinalysis is pending. His T-cells are 517, from June, with a viral load of 170. Influenza screen was done and is negative. Blood cultures are pending. Chest x-ray is negative for acute infiltrate. ASSESSMENT: In summary, this is a 62-year-old man with: 1. Bronchitis, appears improved. Would follow up his cultures. Continue oral Levaquin. Can reduce the dose to 500 a day for 7 days. 2. Stable human immunodeficiency virus. We do not have his current medications, but the components are available, which have been ordered. 3. History of cerebrovascular accident with aphasia and right hemiparesis. 4. [id number] diabetes. Further recommendations to follow. Jodie [id number]
[2017-09-20] MEDS: DOLUTEGRAVIR SODIUM 50 MG TABLET PO SCH (17:40)
[2017-09-20] MEDS: ABACAVIR SULFATE 300 MG TABLET PO SCH (17:41)
--- NOTE | 2017-09-20 18:17 | PN ---
Teaching Attending Note Name of Resident: Charity Paul ATTENDING PHYSICIAN STATEMENT Time of evaluation: 2:30 PM I saw and evaluated the patient. I reviewed the resident's note and discussed the case with the resident. I agree with the resident's findings and plan as documented. SUBJECTIVE: patient seen and examined, aphasic, but able to answer few questions, denies any dyspnea, Reports some vague pain right lateral abdominal area. No toothache currently. OBJECTIVE: Vital Signs Period Temp Pulse Resp BP Sys/Barrientos Pulse Ox Last 24 Hr 98.9 F-101.7 F 60-84 14-22 103-121/62-73 94-96 Intake & Output 09/17/17 09/18/17 09/19/17 09/20/17 23:59 23:59 23:59 23:59 Intake Total 680 Balance 680 Weight 209 lb 0.4 oz General: lying in bed in no acute distress CVS:S1S2 regular Chest: decreased effort, unable to appreciate rales or wheezing abdomen soft, Right lateral tenderness?variable response with exam, no voluntary or involuntary guarding or rigidity, neg Childers's sign, no CVA tenderness Neuro: aphasic, right hemiparesis, RUE 3/5, RLE 4/5 Active Medications Generic Name Dose Route Start Last Admin Trade Name Freq PRN Reason Stop Dose Admin Abacavir Sulfate 600 mg 09/20/17 13:15 09/20/17 17:41 Ziagen - PO 600 mg DAILY DUNIA Administration Acetaminophen 650 mg 09/20/17 13:06 09/20/17 17:41 Tylenol - PO 650 mg Q4H PRN Administration FEVER OR PAIN Aspirin 81 mg 09/20/17 10:00 09/20/17 09:43 Asa - PEG 81 mg DAILY DUNIA Administration Budesonide/Formoterol Fumarate 2 puff 09/20/17 10:00 09/20/17 09:44 Symbicort 80/4.5mcg - IH 2 puff BID DUNIA Administration Digoxin 0.125 mg 09/20/17 10:09/20/17 09:45 Lanoxin - PO 0.125 mg DAILY DUNIA Administration Sodium Chloride 1,000 mls @ 50 mls/hr 09/20/17 04:30 09/20/17 04:31 Normal Saline - IV 09/21/17 04:22 50 mls/hr ASDIR DUNIA Administration Insulin Aspart 1 vial 09/20/17 07:00 09/20/17 17:40 Novolog Vial Sliding Scale - SQ Not Given ACHS [facility] Protocol Lamivudine 300 mg 09/20/17 13:33 Epivir - PO DAILY DUNIA Levetiracetam 750 mg 09/20/17 10:00 09/20/17 09:44 Keppra - PO 750 mg BID DUNIA Administration Levofloxacin 500 mg 09/21/17 07:00 Levaquin - PO AM DUNIA Lorazepam 0.5 mg 09/20/17 03:22 Ativan - PO HS PRN ANXIETY Metoprolol Succinate 25 mg 09/20/17 10:00 09/20/17 09:45 Toprol Xl - PO 25 mg BID DUNIA Administration Multivitamins/Minerals/Vitamin C 1 tab 09/20/17 10:00 09/20/17 09:44 Tab-A-Vit - PO 1 tab DAILY DUNIA Administration Paroxetine HCl 10 mg 09/20/17 10:00 09/20/17 09:45 Paxil - PO 10 mg DAILY DUNIA Administration Sodium Chloride 1,000 ml 09/20/17 01:44 09/20/17 01:54 Normal Saline - IV 1,000 ml Q20M PRN Administration MAP<65mm Hg OR SBP <90 Laboratory Results - last 24 hr 09/20/17 09/20/17 09/20/17 01:50 01:50 01:50 WBC 4.8 RBC 3.55 L Hgb 11.6 L D Hct 34.0 L D MCV 95.7 MCH 32.6 MCHC 34.1 RDW 13.9 Plt Count 107 L MPV 7.5 D Neutrophils % 83.4 H D Lymphocytes % 7.4 L D Monocytes % 9.0 Eosinophils % 0.1 D Basophils % 0.1 PT with INR 14.70 H INR 1.30 H PTT (Actin FS) 42.4 H Puncture Site ABG pH ABG pCO2 at Pt Temp ABG pO2 at Pt Temp ABG HCO3 ABG O2 Sat (Measured) ABG O2 Content ABG Base Excess Saulo Test VBG pH 7.43 H POC VBG pCO2 36.4 L D POC VBG pO2 59.1 H D Mixed VBG HCO3 23.5 Oxygen Flow Rate Sodium Potassium Chloride Carbon Dioxide Anion Gap BUN Creatinine Creat Clearance w eGFR POC Glucometer Random Glucose Lactic Acid Calcium Total Bilirubin AST ALT Alkaline Phosphatase Creatine Kinase Troponin I Total Protein Albumin Urine Color Urine Appearance Urine pH Ur Specific [place] Urine Protein Urine Glucose (UA) Urine Ketones Urine Blood Urine Nitrite Urine Bilirubin Urine Urobilinogen Ur Leukocyte Esterase Digoxin Blood Type Antibody Screen 09/20/17 09/20/17 09/20/17 01:50 01:50 01:50 WBC RBC Hgb Hct MCV MCH MCHC RDW Plt Count MPV Neutrophils % Lymphocytes % Monocytes % Eosinophils % Basophils % PT with INR INR PTT (Actin FS) Puncture Site ABG pH ABG pCO2 at Pt Temp ABG pO2 at Pt Temp ABG HCO3 ABG O2 Sat (Measured) ABG O2 Content ABG Base Excess Saulo Test VBG pH POC VBG pCO2 POC VBG pO2 Mixed VBG HCO3 Oxygen Flow Rate Sodium 137 Potassium 4.0 Chloride 104 Carbon Dioxide 23 Anion Gap 10 BUN 24 H D Creatinine 1.2 D Creat Clearance w eGFR > 60 POC Glucometer Random Glucose 189 H D Lactic Acid 1.6 Calcium 8.2 L Total Bilirubin 0.9 AST 30 D ALT 21 D Alkaline Phosphatase 97 Creatine Kinase 146 Troponin I < 0.02 Total Protein 7.4 Albumin 3.5 Urine Color Urine Appearance Urine pH Ur Specific [place] Urine Protein Urine Glucose (UA) Urine Ketones Urine Blood Urine Nitrite Urine Bilirubin Urine Urobilinogen Ur Leukocyte Esterase Digoxin Blood Type O POSITIVE Antibody Screen Negative 09/20/17 09/20/17 09/20/17 01:50 02:41 06:35 WBC RBC Hgb Hct MCV MCH MCHC RDW Plt Count MPV Neutrophils % Lymphocytes % Monocytes % Eosinophils % Basophils % PT with INR INR PTT (Actin FS) Puncture Site Left brachial ABG pH 7.37 ABG pCO2 at Pt Temp 41.5 ABG pO2 at Pt Temp 71.4 L ABG HCO3 23.6 ABG O2 Sat (Measured) 95.0 ABG O2 Content 14.2 L ABG Base Excess -1.0 Saulo Test Positive VBG pH POC VBG pCO2 POC VBG pO2 Mixed VBG HCO3 Oxygen Flow Rate Room air Sodium Potassium Chloride Carbon Dioxide Anion Gap BUN Creatinine Creat Clearance w eGFR POC Glucometer 86 Random Glucose Lactic Acid Calcium Total Bilirubin AST ALT Alkaline Phosphatase Creatine Kinase Troponin I Total Protein Albumin Urine Color Urine Appearance Urine pH Ur Specific [place] Urine Protein Urine Glucose (UA) Urine Ketones Urine Blood Urine Nitrite Urine Bilirubin Urine Urobilinogen Ur Leukocyte Esterase Digoxin 0.6633 L Blood Type Antibody Screen 09/20/17 09/20/17 09/20/17 10:00 10:00 12:00 WBC 3.9 L RBC 3.54 L Hgb 11.3 L Hct 34.3 L MCV 96.9 H MCH 31.9 MCHC 32.9 RDW 13.8 Plt Count 102 L MPV 7.7 Neutrophils % 72.3 Lymphocytes % 19.4 D Monocytes % 7.9 Eosinophils % 0.2 D Basophils % 0.2 PT with INR INR PTT (Actin FS) Puncture Site ABG pH ABG pCO2 at Pt Temp ABG pO2 at Pt Temp ABG HCO3 ABG O2 Sat (Measured) ABG O2 Content ABG Base Excess Saulo Test VBG pH POC VBG pCO2 POC VBG pO2 Mixed VBG HCO3 Oxygen Flow Rate Sodium 140 Potassium 3.9 Chloride 103 Carbon Dioxide 25 Anion Gap 12 BUN 24 H Creatinine 1.1 Creat Clearance w eGFR > 60 POC Glucometer 97 Random Glucose 111 H D Lactic Acid Calcium 8.0 L Total Bilirubin 0.8 AST 34 ALT 24 Alkaline Phosphatase 81 Creatine Kinase Troponin I Total Protein 7.4 Albumin 3.4 Urine Color Urine Appearance Urine pH Ur Specific [place] Urine Protein Urine Glucose (UA) Urine Ketones Urine Blood Urine Nitrite Urine Bilirubin Urine Urobilinogen Ur Leukocyte Esterase Digoxin Blood Type Antibody Screen 09/20/17 09/20/17 12:30 17:24 WBC RBC Hgb Hct MCV MCH MCHC RDW Plt Count MPV Neutrophils % Lymphocytes % Monocytes % Eosinophils % Basophils % PT with INR INR PTT (Actin FS) Puncture Site ABG pH ABG pCO2 at Pt Temp ABG pO2 at Pt Temp ABG HCO3 ABG O2 Sat (Measured) ABG O2 Content ABG Base Excess Saulo Test VBG pH POC VBG pCO2 POC VBG pO2 Mixed VBG HCO3 Oxygen Flow Rate Sodium Potassium Chloride Carbon Dioxide Anion Gap BUN Creatinine Creat Clearance w eGFR POC Glucometer 105 Random Glucose Lactic Acid Calcium Total Bilirubin AST ALT Alkaline Phosphatase Creatine Kinase Troponin I Total Protein Albumin Urine Color Chery Urine Appearance Clear Urine pH 5.0 Ur Specific [place] 1.020 Urine Protein Negative Urine Glucose (UA) Negative Urine Ketones Negative Urine Blood Negative Urine Nitrite Negative Urine Bilirubin Negative Urine Urobilinogen 4.0 e.u/dl Ur Leukocyte Esterase Negative Digoxin Blood Type Antibody Screen Microbiology 09/20/17 12:30 Urine For Antigen Detection Legionella Antigen - Final 09/20/17 12:30 Urine For Antigen Detection Streptococcus pneumoniae Antigen (M - Final 09/20/17 03:00 Nasopharyngeal Swab Influenza Types A,B Antigen (QUIN) - Final 09/20/17 03:00 Nasopharyngeal Swab - Final ASSESSMENT AND PLAN: 62 yom with HIV on HAART, CVA with aphasia and right hemiparesis, DM, Afib s/p PPM, HTN admitted with acute bronchitis vs early pNA -Acute bronchitis vs early PNA -Right lateral abdominal pain -HIV on HAART -CVA with aphasic/right hemiparesis -DM -Afib s/p PPM -HTN PlanL ID input appreciated, emma. Follow up blood cultures Abdominal exam benign, LFTs unremarkable, u/a wnl, no CVA tenderness, monitor for now. Continue HAART and home meds D/c in 24 hours if no further fevers or new events.
[2017-09-20] MEDS ORDERED: PT OWN MED DRAWER 7, Y5N ONE (19:02)
--- NOTE | 2017-09-20 20:06 | PN ---
Physical Exam: SUBJECTIVE: Patient seen and examined. Pt is aphasic, but can answer yes/no questions. Pt denies chest pain, abdominal pain, sob. Pt afebrile after initial presentation. Pt c/o toothache, relieved with Tylenol. Pt reports having an outpt appt to f/u for toothache. OBJECTIVE: Vital Signs Period Temp Pulse Resp BP Sys/Barrientos Pulse Ox Last 24 Hr 98.9 F-101.7 F 60-84 14-22 103-121/62-73 94-96 GENERAL: The patient is aphasic, awake, alert, and fully oriented, in no acute distress. HEAD: Normal with no signs of trauma. LUNGS: Breath sounds equal, clear to auscultation bilaterally, no wheezes, no crackles, no accessory muscle use. HEART: Regular rate and rhythm, S1, S2 without murmur, rub or gallop. ABDOMEN: Soft, nontender, nondistended, no guarding. EXTREMITIES: Warm, well-perfused, no edema. NEUROLOGICAL: Aphasic, Right hemiparesis, RUE 3/5, RLE 4/5. PSYCH: Normal mood, normal affect. SKIN: Warm, dry, normal turgor, no rashes or lesions noted Laboratory Results - last 24 hr 09/20/17 09/20/17 09/20/17 01:50 01:50 01:50 WBC 4.8 RBC 3.55 L Hgb 11.6 L D Hct 34.0 L D MCV 95.7 MCH 32.6 MCHC 34.1 RDW 13.9 Plt Count 107 L MPV 7.5 D Neutrophils % 83.4 H D Lymphocytes % 7.4 L D Monocytes % 9.0 Eosinophils % 0.1 D Basophils % 0.1 PT with INR 14.70 H INR 1.30 H PTT (Actin FS) 42.4 H Puncture Site ABG pH ABG pCO2 at Pt Temp ABG pO2 at Pt Temp ABG HCO3 ABG O2 Sat (Measured) ABG O2 Content ABG Base Excess Saulo Test VBG pH 7.43 H POC VBG pCO2 36.4 L D POC VBG pO2 59.1 H D Mixed VBG HCO3 23.5 Oxygen Flow Rate Sodium Potassium Chloride Carbon Dioxide Anion Gap BUN Creatinine Creat Clearance w eGFR POC Glucometer Random Glucose Lactic Acid Calcium Total Bilirubin AST ALT Alkaline Phosphatase Creatine Kinase Troponin I Total Protein Albumin Urine Color Urine Appearance Urine pH Ur Specific [place] Urine Protein Urine Glucose (UA) Urine Ketones Urine Blood Urine Nitrite Urine Bilirubin Urine Urobilinogen Ur Leukocyte Esterase Digoxin Blood Type Antibody Screen 09/20/17 09/20/17 09/20/17 01:50 01:50 01:50 WBC RBC Hgb Hct MCV MCH MCHC RDW Plt Count MPV Neutrophils % Lymphocytes % Monocytes % Eosinophils % Basophils % PT with INR INR PTT (Actin FS) Puncture Site ABG pH ABG pCO2 at Pt Temp ABG pO2 at Pt Temp ABG HCO3 ABG O2 Sat (Measured) ABG O2 Content ABG Base Excess Saulo Test VBG pH POC VBG pCO2 POC VBG pO2 Mixed VBG HCO3 Oxygen Flow Rate Sodium 137 Potassium 4.0 Chloride 104 Carbon Dioxide 23 Anion Gap 10 BUN 24 H D Creatinine 1.2 D Creat Clearance w eGFR > 60 POC Glucometer Random Glucose 189 H D Lactic Acid 1.6 Calcium 8.2 L Total Bilirubin 0.9 AST 30 D ALT 21 D Alkaline Phosphatase 97 Creatine Kinase 146 Troponin I < 0.02 Total Protein 7.4 Albumin 3.5 Urine Color Urine Appearance Urine pH Ur Specific [place] Urine Protein Urine Glucose (UA) Urine Ketones Urine Blood Urine Nitrite Urine Bilirubin Urine Urobilinogen Ur Leukocyte Esterase Digoxin Blood Type O POSITIVE Antibody Screen Negative 09/20/17 09/20/17 09/20/17 01:50 02:41 06:35 WBC RBC Hgb Hct MCV MCH MCHC RDW Plt Count MPV Neutrophils % Lymphocytes % Monocytes % Eosinophils % Basophils % PT with INR INR PTT (Actin FS) Puncture Site Left brachial ABG pH 7.37 ABG pCO2 at Pt Temp 41.5 ABG pO2 at Pt Temp 71.4 L ABG HCO3 23.6 ABG O2 Sat (Measured) 95.0 ABG O2 Content 14.2 L ABG Base Excess -1.0 Saulo Test Positive VBG pH POC VBG pCO2 POC VBG pO2 Mixed VBG HCO3 Oxygen Flow Rate Room air Sodium Potassium Chloride Carbon Dioxide Anion Gap BUN Creatinine Creat Clearance w eGFR POC Glucometer 86 Random Glucose Lactic Acid Calcium Total Bilirubin AST ALT Alkaline Phosphatase Creatine Kinase Troponin I Total Protein Albumin Urine Color Urine Appearance Urine pH Ur Specific [place] Urine Protein Urine Glucose (UA) Urine Ketones Urine Blood Urine Nitrite Urine Bilirubin Urine Urobilinogen Ur Leukocyte Esterase Digoxin 0.6633 L Blood Type Antibody Screen 09/20/17 09/20/17 09/20/17 10:00 10:00 12:00 WBC 3.9 L RBC 3.54 L Hgb 11.3 L Hct 34.3 L MCV 96.9 H MCH 31.9 MCHC 32.9 RDW 13.8 Plt Count 102 L MPV 7.7 Neutrophils % 72.3 Lymphocytes % 19.4 D Monocytes % 7.9 Eosinophils % 0.2 D Basophils % 0.2 PT with INR INR PTT (Actin FS) Puncture Site ABG pH ABG pCO2 at Pt Temp ABG pO2 at Pt Temp ABG HCO3 ABG O2 Sat (Measured) ABG O2 Content ABG Base Excess Saulo Test VBG pH POC VBG pCO2 POC VBG pO2 Mixed VBG HCO3 Oxygen Flow Rate Sodium 140 Potassium 3.9 Chloride 103 Carbon Dioxide 25 Anion Gap 12 BUN 24 H Creatinine 1.1 Creat Clearance w eGFR > 60 POC Glucometer 97 Random Glucose 111 H D Lactic Acid Calcium 8.0 L Total Bilirubin 0.8 AST 34 ALT 24 Alkaline Phosphatase 81 Creatine Kinase Troponin I Total Protein 7.4 Albumin 3.4 Urine Color Urine Appearance Urine pH Ur Specific [place] Urine Protein Urine Glucose (UA) Urine Ketones Urine Blood Urine Nitrite Urine Bilirubin Urine Urobilinogen Ur Leukocyte Esterase Digoxin Blood Type Antibody Screen 09/20/17 09/20/17 12:30 17:24 WBC RBC Hgb Hct MCV MCH MCHC RDW Plt Count MPV Neutrophils % Lymphocytes % Monocytes % Eosinophils % Basophils % PT with INR INR PTT (Actin FS) Puncture Site ABG pH ABG pCO2 at Pt Temp ABG pO2 at Pt Temp ABG HCO3 ABG O2 Sat (Measured) ABG O2 Content ABG Base Excess Saulo Test VBG pH POC VBG pCO2 POC VBG pO2 Mixed VBG HCO3 Oxygen Flow Rate Sodium Potassium Chloride Carbon Dioxide Anion Gap BUN Creatinine Creat Clearance w eGFR POC Glucometer 105 Random Glucose Lactic Acid Calcium Total Bilirubin AST ALT Alkaline Phosphatase Creatine Kinase Troponin I Total Protein Albumin Urine Color Chery Urine Appearance Clear Urine pH 5.0 Ur Specific [place] 1.020 Urine Protein Negative Urine Glucose (UA) Negative Urine Ketones Negative Urine Blood Negative Urine Nitrite Negative Urine Bilirubin Negative Urine Urobilinogen 4.0 e.u/dl Ur Leukocyte Esterase Negative Digoxin Blood Type Antibody Screen Active Medications Generic Name Dose Route Start Last Admin Trade Name Freq PRN Reason Stop Dose Admin Abacavir Sulfate 600 mg 09/20/17 13:15 09/20/17 17:41 Ziagen - PO 600 mg DAILY DUNIA Administration Acetaminophen 650 mg 09/20/17 13:06 09/20/17 17:41 Tylenol - PO 650 mg Q4H PRN Administration FEVER OR PAIN Aspirin 81 mg 09/20/17 10:00 09/20/17 09:43 Asa - PEG 81 mg DAILY DUNIA Administration Budesonide/Formoterol Fumarate 2 puff 09/20/17 10:00 09/20/17 09:44 Symbicort 80/4.5mcg - IH 2 puff BID DUNIA Administration Digoxin 0.125 mg 09/20/17 10:00 09/20/17 09:45 Lanoxin - PO 0.125 mg DAILY DUNIA Administration Sodium Chloride 1,000 mls @ 50 mls/hr 09/20/17 04:30 09/20/17 04:31 Normal Saline - IV 09/21/17 04:22 50 mls/hr ASDIR DUNIA Administration Insulin Aspart 1 vial 09/20/17 07:00 09/20/17 17:40 Novolog Vial Sliding Scale - SQ Not Given ACHS [facility] Protocol Lamivudine 300 mg 09/20/17 13:33 Epivir - PO DAILY DUNIA Levetiracetam 750 mg 09/20/17 10:00 09/20/17 09:44 Keppra - PO 750 mg BID DUNIA Administration Levofloxacin 500 mg 09/21/17 07:00 Levaquin - PO AM DUNIA Lorazepam 0.5 mg 09/20/17 03:22 Ativan - PO HS PRN ANXIETY Metoprolol Succinate 25 mg 09/20/17 10:00 09/20/17 09:45 Toprol Xl - PO 25 mg BID DUNIA Administration Multivitamins/Minerals/Vitamin C 1 tab 09/20/17 10:00 09/20/17 09:44 Tab-A-Vit - PO 1 tab DAILY DUNIA Administration Paroxetine HCl 10 mg 09/20/17 10:00 09/20/17 09:45 Paxil - PO 10 mg DAILY DUNIA Administration Sodium Chloride 1,000 ml 09/20/17 01:44 09/20/17 01:54 Normal Saline - IV 1,000 ml Q20M PRN Administration MAP<65mm Hg OR SBP <90 IMAGIN09/20/17 CXR -> no acute pulmonary pathology ASSESSMENT/PLAN: 62M with PMH of HIV, htn, afib s/p PPM, DM, CVA with residual Right-sided hemipharesis and aphasia, seizure, presents with fever and cough x 2 weeks, admitted to Observation for Community Acquired Pneumonia. # fever and cough - likely 2/2 early pneumonia vs bronchitis - Levaquin po daily - ID Consult - Influenza A&B (-), Legionella and Strep pneumonia (-) - f/u blood and urine cultures - Tylenol prn for pain or fever - Symbicort BID # afib - continue home meds of Digoxin and Metoprolol for rate control # DM - BGMs - Novolog SSI # htn - continue home med of Metoprolol # Seizure - continue home med of Keppra # CVA - ASA # HIV - continue home medications of Ziagen and Epivir # FEN - Fluids: NS @ 50 ml/hr - Electrolytes: wnl, continue to monitor - Nutrition: diabetic diet # Prophylaxis - DVT ppx with nimisha SCDs, hold pharmalogic ppx 2/2 his of falls Visit type - Emergency Visit Emergency Visit: Yes ED Registration Date: 09/20/17 Care time: The patient presented to the Emergency Department on the above date and was hospitalized for further evaluation of their emergent condition. - New Patient This patient is new to me today: Yes Date on this admission: 09/20/17 - Critical Care Critical Care patient: No
[2017-09-20] MEDS ORDERED: INSULIN (NOVOLOG) ASPART 100 UNITS/ML 10ML VIAL ONE (23:11)
[2017-09-21] MEDS ORDERED: LEVOFLOXACIN 250 MG TABLET (FP) PO SCH (06:00)
[2017-09-21] MEDS: INSULIN SLIDING SCALE (NOVOLOG) 1 VIAL SQ SCH ×2 (06:19→12:05)
[2017-09-21] MEDS: ACETAMINOPHEN 325 MG TABLET (FP) PO PRN ×2 (06:22→11:04)
[2017-09-21] MEDS ORDERED: LEVOFLOXACIN 500 MG TABLET (FP) PO SCH (07:00)
[2017-09-21 07:15] LABS: HEMATOCRIT 37.3 % (35.4-49); HEMOGLOBIN 12.1 GM/dL (11.7-16.9); MCH 31.8 pg (25.7-33.7); MCHC 32.3 g/dl (32.0-35.9); MEAN CELL VOLUME 98.4 fl (80-96); MEAN PLT VOLUME 7.7 fl (7.5-11.1); PLATELET COUNT 99 K/MM3 (134-434); RBC 3.79 M/mm3 (4.00-5.60); RDW 13.8 % (11.9-15.9); WHITE BLOOD COUNT 3.9 K/mm3 (4.0-10.0)
[2017-09-21 07:43] LABS: ANION GAP 7 (8-16); BLOOD UREA NITROGEN 17 mg/dL (7-18); CALCIUM 8.3 mg/dL (8.5-10.1); CHLORIDE 108 mmol/L (98-107); CO2 27 mmol/L (21-32); GLUCOSE,RANDOM 162 mg/dL (74-106); POTASSIUM 4.1 mmol/L (3.5-5.1); SODIUM 142 mmol/L (136-145)
[2017-09-21 08:13] LABS: ALBUMIN 3.2 g/dl (3.4-5.0); BILIRUBIN,DIRECT 0.2 mg/dL (0.0-0.2); BILIRUBIN,TOTAL 0.5 mg/dL (0.2-1.0); TOT PROT 7.3 g/dl (6.4-8.2)
[2017-09-21] MEDS ORDERED: PT OWN MED DRAWER 7, Y5N ONE (09:22)
[2017-09-21] MEDS: DIGOXIN 0.125 MG TABLET (FP) PO SCH (09:41)
[2017-09-21] MEDS: ASPIRIN 81 MG CHEWABLE TABLETS PEG SCH (09:42)
[2017-09-21] MEDS: MULTIVITAMINS (DAILY MVI) TABLET (FP) PO SCH (09:42)
[2017-09-21] MEDS: PARoxetine HCL 10 MG TABLET (FP) PO SCH (09:42)
[2017-09-21] MEDS: levETIRAcetam 250 MG TABLET (FP) PO SCH (09:42)
[2017-09-21] MEDS: METOPROLOL SUCCINATE 25 MG TAB.SR.24H (FP) PO SCH (09:42)
[2017-09-21] MEDS: BUDESONIDE/FORMETEROL FUMARATE 80/4.5 mcg INHALER IH SCH (09:45)
[2017-09-21 09:46] VITALS: PULSE 60
--- NOTE | 2017-09-21 11:35 | PN ---
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 (short form) - Note 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: ID Clinical improvement still couphing Levofloxacin Selected Entries 09/21/17 09/21/17 09/21/17 04:00 06:00 09:41 Temperature 99.0 F Pulse Rate 60 Respiratory 20 Rate Blood Pressure 140/81 O2 Sat by Pulse 97 Oximetry (%) LUng Rhonchi bilaterally Cor S1S2 RR Ext NO CCE Microbiology 09/20/17 12:30 Urine For Antigen Detection Legionella Antigen - Final 09/20/17 12:30 Urine For Antigen Detection Streptococcus pneumoniae Antigen (M - Final 09/20/17 12:30 Urine - Urine Clean Catch Urine Culture - Final NO GROWTH OBTAINED 09/20/17 03:00 Nasopharyngeal Swab Influenza Types A,B Antigen (QUIN) - Final 09/20/17 03:00 Nasopharyngeal Swab - Final 09/20/17 02:00 Blood - Peripheral Venous Blood Culture - Preliminary NO GROWTH OBTAINED AFTER 24 HOURS, INCUBATION TO CONTINUE FOR 4 DAYS. 09/20/17 01:50 Blood - Peripheral Venous Blood Culture - Preliminary NO GROWTH OBTAINED AFTER 24 HOURS, INCUBATION TO CONTINUE FOR 4 DAYS. Laboratory Tests 09/21/17 09/21/17 07:05 07:05 WBC 3.9 L Hgb 12.1 Hct 37.3 Plt Count 99 L BUN 17 D Creatinine 1.0 Assessment Acute bronchitis and HIV positive Plan Discharge planning Gabriele DONAHUE
[2017-09-21] MEDS: ABACAVIR SULFATE 300 MG TABLET PO SCH (12:11)
[2017-09-21] MEDS: DOLUTEGRAVIR SODIUM 50 MG TABLET PO SCH (12:11)
--- NOTE | 2017-09-21 12:56 | PN ---
Teaching Attending Note Name of Resident: Charity Paul ATTENDING PHYSICIAN STATEMENT Time of evaluation: 10:30 AM I saw and evaluated the patient. I reviewed the resident's note and discussed the case with the resident. I agree with the resident's findings and plan as documented. SUBJECTIVE: Patient seen and examined. no complaints today, eager to go home. OBJECTIVE: Vital Signs Period Temp Pulse Resp BP Sys/Barrientos Pulse Ox Last 24 Hr 97.6 F-99.2 F 60-62 20-22 100-140/64-81 97-97 Intake & Output 09/18/17 09/19/17 09/20/17 09/21/17 23:59 23:59 23:59 23:59 Intake Total 1280 450 Balance 1280 450 Weight 209 lb 0.4 oz General: sitting in bed, in no acute distress CVS:S1s2 regular Abdomen: soft, obese, NT, no CVA tenderness, no voluntary or involuntary guarding or rigidity Extremities: no edema Chest: no rales or wheezing, good air entry bilaterally Active Medications Generic Name Dose Route Start Last Admin Trade Name Freq PRN Reason Stop Dose Admin Abacavir Sulfate 600 mg 09/20/17 13:15 09/21/17 12:11 Ziagen - PO 600 mg DAILY DUNIA Administration Acetaminophen 650 mg 09/20/17 13:06 09/21/17 11:04 Tylenol - PO 650 mg Q4H PRN Administration FEVER OR PAIN Aspirin 81 mg 09/20/17 10:00 09/21/17 09:42 Asa - PEG 81 mg DAILY DUNIA Administration Budesonide/Formoterol Fumarate 2 puff 09/20/17 10:00 09/21/17 09:45 Symbicort 80/4.5mcg - IH 2 puff BID DUNIA Administration Digoxin 0.125 mg 09/20/17 10:00 09/21/17 09:41 Lanoxin - PO 0.125 mg DAILY DUNIA Administration Insulin Aspart 1 vial 09/20/17 07:00 09/21/17 12:05 Novolog Vial Sliding Scale - SQ Not Given ACHS DUNIA Protocol Lamivudine 300 mg 09/20/17 13:33 09/21/17 09:45 Epivir - PO 300 mg DAILY DUNIA Administration Levetiracetam 750 mg 09/20/17 10:00 09/21/17 09:42 Keppra - PO 750 mg BID DUNIA Administration Levofloxacin 500 mg 09/21/17 07:00 09/21/17 06:16 Levaquin - PO 500 mg AM DUNIA Administration Lorazepam 0.5 mg 09/20/17 03:22 09/20/17 23:25 Ativan - PO 0.5 mg HS PRN Administration ANXIETY Metoprolol Succinate 25 mg 09/20/17 10:00 09/21/17 09:42 Toprol Xl - PO 25 mg BID DUNIA Administration Multivitamins/Minerals/Vitamin C 1 tab 09/20/17 10:00 09/21/17 09:42 Tab-A-Vit - PO 1 tab DAILY DUNIA Administration Paroxetine HCl 10 mg 09/20/17 10:00 09/21/17 09:42 Paxil - PO 10 mg DAILY DUNIA Administration Sodium Chloride 1,000 ml 09/20/17 01:44 09/20/17 01:54 Normal Saline - IV 1,000 ml Q20M PRN Administration MAP<65mm Hg OR SBP <90 Laboratory Results - last 24 hr 09/20/17 09/20/17 09/20/17 12:30 17:24 23:31 WBC RBC Hgb Hct MCV MCH MCHC RDW Plt Count MPV Sodium Potassium Chloride Carbon Dioxide Anion Gap BUN Creatinine POC Glucometer 105 114 Random Glucose Calcium Total Bilirubin Direct Bilirubin AST ALT Alkaline Phosphatase Total Protein Albumin Urine Color Chery Urine Appearance Clear Urine pH 5.0 Ur Specific [place] 1.020 Urine Protein Negative Urine Glucose (UA) Negative Urine Ketones Negative Urine Blood Negative Urine Nitrite Negative Urine Bilirubin Negative Urine Urobilinogen 4.0 e.u/dl Ur Leukocyte Esterase Negative 09/21/17 09/21/17 09/21/17 06:14 07:05 07:05 WBC 3.9 L RBC 3.79 L Hgb 12.1 Hct 37.3 MCV 98.4 H MCH 31.8 MCHC 32.3 RDW 13.8 Plt Count 99 L MPV 7.7 Sodium 142 Potassium 4.1 Chloride 108 H Carbon Dioxide 27 Anion Gap 7 L BUN 17 D Creatinine 1.0 POC Glucometer 194 Random Glucose 162 H D Calcium 8.3 L Total Bilirubin Direct Bilirubin AST ALT Alkaline Phosphatase Total Protein Albumin Urine Color Urine Appearance Urine pH Ur Specific [place] Urine Protein Urine Glucose (UA) Urine Ketones Urine Blood Urine Nitrite Urine Bilirubin Urine Urobilinogen Ur Leukocyte Esterase 09/21/17 09/21/17 07:05 11:59 WBC RBC Hgb Hct MCV MCH MCHC RDW Plt Count MPV Sodium Potassium Chloride Carbon Dioxide Anion Gap BUN Creatinine POC Glucometer 128 Random Glucose Calcium Total Bilirubin 0.5 D Direct Bilirubin 0.2 D AST 30 ALT 24 Alkaline Phosphatase 111 D Total Protein 7.3 Albumin 3.2 L Urine Color Urine Appearance Urine pH Ur Specific [place] Urine Protein Urine Glucose (UA) Urine Ketones Urine Blood Urine Nitrite Urine Bilirubin Urine Urobilinogen Ur Leukocyte Esterase Microbiology 09/20/17 12:30 Urine - Urine Clean Catch Urine Culture - Final NO GROWTH OBTAINED 09/20/17 01:50 Blood - Peripheral Venous Blood Culture - Preliminary NO GROWTH OBTAINED AFTER 24 HOURS, INCUBATION TO CONTINUE FOR 4 DAYS. 09/20/17 02:00 Blood - Peripheral Venous Blood Culture - Preliminary NO GROWTH OBTAINED AFTER 24 HOURS, INCUBATION TO CONTINUE FOR 4 DAYS. 09/20/17 12:30 Urine For Antigen Detection Legionella Antigen - Final 09/20/17 12:30 Urine For Antigen Detection Streptococcus pneumoniae Antigen (M - Final 09/20/17 03:00 Nasopharyngeal Swab Influenza Types A,B Antigen (QUIN) - Final 09/20/17 03:00 Nasopharyngeal Swab - Final ASSESSMENT AND PLAN: 62 yom with HIV on HAART, CVA with aphasia and right hemiparesis, DM, Afib s/p PPM, HTN admitted with acute bronchitis vs early pNA -Acute bronchitis vs early PNA -Right lateral abdominal pain -HIV on HAART -CVA with aphasic/right hemiparesis -DM -Afib s/p PPM -HTN PlanL Clinically improved, afebriles, cultures neg so far. NO respiratory or abdominal concerns. Discussed with Dr. Suazo, Terryaquin for a week course. Discussed with , resume home levaquin 500 mg. Dc home today. PLan discussed with patient and in detail, all questions answered.
[2017-09-21 16:12] VITALS: BP 116/72; TEMP 98.4
--- NOTE | 2017-09-21 18:46 | DS ---
Physical Exam: SUBJECTIVE: Patient seen and examined. Pt is aphasic, but can answer yes/no questions. Pt denies chest pain, abdominal pain, sob. Pt feeling better and ready to go home. OBJECTIVE: Vital Signs Period Temp Pulse Resp BP Sys/Barrientos Pulse Ox Last 24 Hr 97.6 F-99.0 F 60-62 18-20 104-140/67-81 97-98 PHYSICAL EXAM GENERAL: The patient is aphasic, awake, alert, and fully oriented, in no acute distress. LUNGS: Breath sounds equal, clear to auscultation bilaterally, no wheezes, no crackles, no accessory muscle use. HEART: Regular rate and rhythm, S1, S2 without murmur, rub or gallop. ABDOMEN: Soft, nontender, nondistended. EXTREMITIES: Warm, well-perfused, no edema. PSYCH: Normal mood, normal affect. SKIN: Warm, dry, normal turgor, no rashes LABS Laboratory Results - last 24 hr 09/20/17 09/21/17 09/21/17 23:31 06:14 07:05 WBC 3.9 L RBC 3.79 L Hgb 12.1 Hct 37.3 MCV 98.4 H MCH 31.8 MCHC 32.3 RDW 13.8 Plt Count 99 L MPV 7.7 Sodium Potassium Chloride Carbon Dioxide Anion Gap BUN Creatinine POC Glucometer 114 194 Random Glucose Calcium Total Bilirubin Direct Bilirubin AST ALT Alkaline Phosphatase Total Protein Albumin 09/21/17 09/21/17 09/21/17 07:05 07:05 11:59 WBC RBC Hgb Hct MCV MCH MCHC RDW Plt Count MPV Sodium 142 Potassium 4.1 Chloride 108 H Carbon Dioxide 27 Anion Gap 7 L BUN 17 D Creatinine 1.0 POC Glucometer 128 Random Glucose 162 H D Calcium 8.3 L Total Bilirubin 0.5 D Direct Bilirubin 0.2 D AST 30 ALT 24 Alkaline Phosphatase 111 D Total Protein 7.3 Albumin 3.2 L HOSPITAL COURSE: Date of Admission:09/20/17 Date of Discharge: 09/21/17 62M with PMH of HIV, htn, afib s/p PPM, DM, CVA with residual Right-sided hemipharesis and aphasia, seizure, presents with fever and cough x 2 weeks, admitted to Observation for Community Acquired Pneumonia. Pt taking po antibiotics and continued home medications for chronic conditions. 09/20/17 CXR -> no acute pulmonary pathology Microbiology 09/20/17 12:30 Urine - Urine Clean Catch Urine Culture - Final NO GROWTH OBTAINED 09/20/17 01:50 Blood - Peripheral Venous Blood Culture - Preliminary NO GROWTH OBTAINED AFTER 24 HOURS, INCUBATION TO CONTINUE FOR 4 DAYS. 09/20/17 02:00 Blood - Peripheral Venous Blood Culture - Preliminary NO GROWTH OBTAINED AFTER 24 HOURS, INCUBATION TO CONTINUE FOR 4 DAYS. 09/20/17 12:30 Urine For Antigen Detection Legionella Antigen - Final 09/20/17 12:30 Urine For Antigen Detection Streptococcus pneumoniae Antigen (M - Final 09/20/17 03:00 Nasopharyngeal Swab Influenza Types A,B Antigen (QUIN) - Final 09/20/17 03:00 Nasopharyngeal Swab - Final Pt walked 300 ft with PT. Pt is stable for discharge home with . Minutes to complete discharge: 35 Discharge Summary Reason For Visit: TYPE 2 DIABETES MELITUS,HUMAN IMMUNODEFIENCY VIRUS Current Active Problems Laceration of penis (Acute) Condition: Improved - Instructions Diet, Activity, Other Instructions: You were treated for pneumonia. Please continue your antibiotic, Levaquin 500mg , once daily for 4 more days (end on 09/25/17). Your blood cultures were sent which are negative so far. But final report takes upto 5 days. Please have your doctor follow up on the same. You will be notified of abnormal results. Please continue your other home medications as prescribed. Follow-ups: - with your Primary Care Doctor (Dr. Suazo) in 1 week. Please return to the hospital immediately if you experience persistent or increased fever, difficulty breathing, or for any medical emergency. Referrals: Dickson Suazo MD [Primary Care Provider] - Disposition: HOME - Home Medications Comprehensive Discharge Medication List: Ambulatory Orders Acetaminophen with Codeine [Tylenol with Codeine #4 Tablet] 1 each PO BID #60 tablet MDD 2 04/25/17 Digoxin Oral Solution [Lanoxin Oral Solution -] 125 mcg PO DAILY #75 ml Erythromycin 0.5% Eye Ointment [Erythromycin 0.5% Eye Ointment -] 1 applic DAILY #1 tube 06/27/17 Fluticasone/Salmeterol [Advair 250-50 Diskus] 1 each IH DAILY #30 blst.w.dev 07/04 Furosemide [Lasix -] 20 mg PO DAILY #30 tablet 06/27/17 Levetiracetam [Keppra -] 750 mg PO BID #60 tablet 06/27/17 Metoprolol Succinate [Toprol XL -] 25 mg PO BID #60 tab.sr.24h 06/27/17 Lorazepam 0.5 mg PO HS PRN #90 tablet MDD 1.5mg 08/09/17 Paroxetine HCl [Paxil -] 10 mg PO DAILY #30 tablet 08/09/17 Abacavir/Dolutegravir/Lamivudi [Triumeq Tablet] 1 each PO DAILY #30 tablet 09/19 Guaifenesin Dm [Robitussin Dm -] 1 - 2 tsp PO Q4H #1 bottle MDD 8 09/19/17 Multivitamin,Therapeutic [Oncovite] 1 each PO DAILY #30 tablet 09/19/17 Acetaminophen [Tylenol .Regular Strength -] 650 mg PO Q4H PRN tablet 09/21/17 Aspirin [ASA -] 81 mg PEG DAILY tab.chew 09/21/17 Levofloxacin [Levaquin -] 500 mg PO AM tablet 09/21/17 This patient is new to me today: No Emergency Visit: Yes ED Registration Date: 09/20/17 Care time: The patient presented to the Emergency Department on the above date and was hospitalized for further evaluation of their emergent condition. Critical Care patient: No - Discharge Referral Referred to [facility] No
== END 2017-09-21 14:19 | disposition home or self-care (01) ==
LOC: JER 00:07 → JERBED 02:39 → J5S 05:19
PROVIDERS: ADMIT Internal Medicine; ATTEND Hospitalist
PROC: 3E03329 Introduction of Other Anti-infective into Peripheral Vein, Percutaneous Approach (ICD-10-PCS; principal; 2017-09-20)
PROC: 3E033GC Introduction of Other Therapeutic Substance into Peripheral Vein, Percutaneous Approach (ICD-10-PCS; 2017-09-20)
PROC: 3E0337Z Introduction of Electrolytic and Water Balance Substance into Peripheral Vein, Percutaneous Approach (ICD-10-PCS; 2017-09-20)
PROC: 3E0F7GC Introduction of Other Therapeutic Substance into Respiratory Tract, Via Natural or Artificial Opening (ICD-10-PCS; 2017-09-20)
DX: J20.9 Acute bronchitis, unspecified (principal); Z21 Asymptomatic human immunodeficiency virus [HIV] infection status; E13.9 Other specified diabetes mellitus without complications; R10.9 Unspecified abdominal pain; N17.9 Acute kidney failure, unspecified; D64.9 Anemia, unspecified; D69.6 Thrombocytopenia, unspecified; I48.91 Unspecified atrial fibrillation; I10 Essential (primary) hypertension; I69.351 Hemiplegia and hemiparesis following cerebral infarction affecting right dominant side; I69.320 Aphasia following cerebral infarction; J45.909 Unspecified asthma, uncomplicated; F41.9 Anxiety disorder, unspecified; G40.909 Epilepsy, unspecified, not intractable, without status epilepticus; Z95.0 Presence of cardiac pacemaker
CPT/HCPCS: 36415; 36600; 71045-TC; 80048; 80053; 80076; 80162; 81003; 82550; 82803; 83605; 84484; 85025; 85027; 85610; 85730; 86850; 86900; 86901; 87040; 87086; 87804; 87899; 93005; 93010; 94640; 96361; 96365; 96375; 97116-GP; 97161-GP; 99285-25; G0378

== ENCOUNTER 2019-10-21 10:50 | Inpatient (IN) | payer SELFPAY ==
--- NOTE | 2019-10-21 12:53 | PDOC ---
History of Present Illness - General Stated Complaint: VOMITING/FEVER/CHILLS Time Seen by Provider: 10/21/19 12:31 - History of Present Illness Initial Comments: History obtained via as pt is non verbal. Mr. Dong is a 64 y/o male with PMH significant for HIV, HTN, HLD, s/p stroke with resulting verbal/right hand/right leg deficits, presenting today with nausea, vomiting, diarrhea for the past week. Reports fever a few days ago. Seen PCP last Monday and last Monday. No blood in the stool. No blood in vomit. Reports chest pain and diffuse abdominal pain. brought him in today because she feels he is not getting any better and getting dehydrated. Past History - Past Medical History Allergies/Adverse Reactions: Allergies Allergy/AdvReac Type Severity Reaction Status Date / Time No Known Allergies Allergy Verified 10/21/19 11:41 Home Medications: Ambulatory Orders Metformin HCl [Glucophage] 1,000 mg PO BID 04/05/18 Digoxin Oral Solution [Lanoxin Oral Solution -] 125 mcg PO DAILY #75 ml Fluticasone/Salmeterol [Advair 250-50 Diskus] 1 each IH DAILY #30 blst.w.dev 01/03 Furosemide [Lasix] 20 mg PO DAILY #30 tablet 06/21/18 Metoprolol Succinate [Toprol XL -] 25 mg PO BID #60 tab.sr.24h 06/21/18 Glyburide 2.5 mg PO DAILY 03/28/19 levETIRAcetam [Keppra -] 500 mg PO BID 03/28/19 Aspirin [ASA -] 81 mg PEG DAILY #30 tab.chew 09/05/19 Multivitamin,Therapeutic [Oncovite] 1 each PO DAILY #30 tablet 09/05/19 Abacavir/Dolutegravir/Lamivudi [Triumeq 600-50-300 mg Tablet] 1 each PO DAILY # 30 tablet 09/17/19 Paroxetine HCl [Paxil -] 10 mg PO DAILY #30 tablet 10/02/19 Lorazepam [Ativan] 0.5 mg PO AM #90 tablet MDD 1 10/10/19 Atorvastatin Ca [Lipitor] 20 mg PO HS 10/21/19 Clotrimazole [Lotrimin 1% Cream -] 1 applic TP DAILY 10/21/19 Anemia: No Asthma: Yes Cancer: No Cardiac Disorders: (PACEMAKER) CVA: Yes (STROKE 2013) COPD: No CHF: No Dementia: No Diabetes: Yes GI Disorders: No Disorders: No HTN: Yes Hypercholesterolemia: Yes Liver Disease: No Psychiatric Problems: (ANXIETY) Seizures: Yes Thyroid Disease: No - Surgical History Abdominal Surgery: No Cardiac Surgery: Yes (PACEMAKER) Neurologic Surgery: No - Immunization History Immunization Up to Date: Yes - Psycho Social/Smoking Cessation Hx Smoking Status: No Smoking History: Never smoked Have you smoked in the past 12 months: No Number of Cigarettes Smoked Daily: 0 If you are a former smoker, when did you quit?: 45YRS Cigars Per Day: 0 Information on smoking cessation initiated: No Hx Alcohol Use: No Drug/Substance Use Hx: No Substance Use Type: None Hx Substance Use Treatment: No Review of Systems - Review of Systems Comments:: GENERAL/CONSTITUTIONAL: Reports fever. Reports generalized weakness. CARDIOVASCULAR: Reports chest pain. Denies shortness of breath. RESPIRATORY: Denies cough, hemoptysis_ GASTROINTESTINAL: Reports nausea, vomiting, diarrhea. GENITOURINARY: No change in urination. SKIN: No rash_ NEUROLOGIC: No headache. HEMATOLOGIC/LYMPHATIC: No anemia, easy bleeding, or history of blood clots._ ALLERGIC/IMMUNOLOGIC: No hives or skin allergy._ *Physical Exam - Vital Signs Last Vital Signs Temp Pulse Resp BP Pulse Ox 97.8 F 86 19 121/82 97 10/21/19 11:36 10/21/19 11:36 10/21/19 11:36 10/21/19 11:36 10/21/19 11:36 - Physical Exam GENERAL: Awake, alert, non verbal, in no apparent acute distress_ HEAD: No signs of trauma, normocephalic, atraumatic _ EYES: PERRLA, EOMI, sclera anicteric, conjunctiva clear_ ENT: nares patent, oropharynx clear without exudates. No uvular deviation. Moist mucosa_ NECK: Normal ROM, supple, no lymphadenopathy, JVD, or masses_ LUNGS: No distress, speaks in full sentences, clear to auscultation bilaterally _ HEART: Regular rate and rhythm, normal S1 and S2, no murmurs appreciated, peripheral pulses normal and equal bilaterally._ CHEST: No bruising, rash, lesions, or TTP. ABDOMEN: Soft, diffuse TTP, normoactive bowel sounds. No guarding, no rebound. No masses_ EXTREMITIES: Normal inspection, Normal range of motion, no edema. No clubbing or cyanosis_ NEUROLOGICAL: Cranial nerves II through XII grossly intact. Normal speech, normal gait, no focal sensorimotor deficits _ SKIN: Warm, Dry, normal turgor, no rashes or lesions noted_ ED Treatment Course - LABORATORY CBC & Chemistry Diagram: 10/21/19 13:36 10/21/19 13:36 Medical Decision Making - Medical Decision Making 10/21/19 13:25 64M hx of HIV, s/p stroke, nonverbal, RUE/RLE deficits, brought in by for nausea, vomiting, diarrhea. -cbc, cmp, lactic, lipase -ekg, trop, cxr -ua, ucx -ct abd w/o contrast -fluids 10/21/19 15:28 CXR shows pacemaker and enlarged heart otherwise no acute intrathoracic pathology. EKG shows afib, 77 bpm, LAD, no ST elevation. 10/21/19 15:48 NG tube placed. Rpt CXR ordered. 10/21/19 16:08 D/w the hospitalist team who accepts the patient for admission. Labs reviewed. Laboratory Tests 10/21/19 10/21/19 10/21/19 13:36 13:36 13:36 WBC 9.8 RBC 4.65 Hgb 15.2 Hct 44.5 MCV 95.7 MCH 32.8 MCHC 34.2 RDW 12.9 Plt Count 218 MPV 8.0 Absolute Neuts (auto) 7.4 Neutrophils % 75.3 Lymphocytes % 15.6 Monocytes % 8.6 Eosinophils % 0.4 D Basophils % 0.1 Nucleated RBC % 0 Sodium 126 L Potassium 4.0 Chloride 84 L Carbon Dioxide 33 H Anion Gap 10 BUN 56.4 H Creatinine 2.0 H Est GFR (CKD-EPI)AfAm 39.42 Est GFR (CKD-EPI)NonAf 34.01 Random Glucose 201 H Lactic Acid Calcium 9.2 Total Bilirubin 1.4 H AST 53 H ALT 31 Alkaline Phosphatase 96 Creatine Kinase 65 Troponin I < 0.02 Total Protein 8.9 H Albumin 3.7 Lipase 220 10/21/19 13:36 WBC RBC Hgb Hct MCV MCH MCHC RDW Plt Count MPV Absolute Neuts (auto) Neutrophils % Lymphocytes % Monocytes % Eosinophils % Basophils % Nucleated RBC % Sodium Potassium Chloride Carbon Dioxide Anion Gap BUN Creatinine Est GFR (CKD-EPI)AfAm Est GFR (CKD-EPI)NonAf Random Glucose Lactic Acid 2.3 H* Calcium Total Bilirubin AST ALT Alkaline Phosphatase Creatine Kinase Troponin I Total Protein Albumin Lipase 10/21/19 17:06 CT abd show high grade SBO. 10/21/19 17:07 CXR shows NG tube D/w Dr. Acosta who agrees to evaluate the patient. Discharge - Discharge Information Problems reviewed: Yes Clinical Impression/Diagnosis: Small bowel obstruction Condition: Stable - Admission Yes - Follow up/Referral - Patient Discharge Instructions - Post Discharge Activity
[2019-10-21] MEDS ORDERED: SODIUM CHLORIDE 0.9% 500 ML INFUS.BAG IV ONE (13:09)
[2019-10-21] MEDS ORDERED: ONDANSETRON 4 MG/2 ML VIAL ONE (14:06)
[2019-10-21] MEDS ORDERED: FAMOTIDINE 20 MG/50 ML IVPB 20 MG/50 ML MG IVPB ONE ×2 (14:09→17:11)
[2019-10-21] MEDS ORDERED: ONDANSETRON 4 MG/2 ML VIAL IVPUSH ONE (14:09)
[2019-10-21 14:33] LABS: BASO % 0.1 % (0-2.0); EOS % 0.4 % (0-4.5); HEMATOCRIT 44.5 % (35.4-49); HEMOGLOBIN 15.2 GM/dL (11.7-16.9); LYMPH % 15.6 % (8-40); MCH 32.8 pg (25.7-33.7); MCHC 34.2 g/dl (32.0-35.9); MEAN CELL VOLUME 95.7 fl (80-96); MONO % 8.6 % (3.8-10.2); NEUT % 75.3 % (42.8-82.8); PLATELET COUNT 218 K/MM3 (134-434); RBC 4.65 M/mm3 (4.00-5.60); RDW 12.9 % (11.9-15.9); WHITE BLOOD COUNT 9.8 K/mm3 (4.0-10.0)
[2019-10-21 15:01] LABS: ALBUMIN 3.7 g/dl (3.4-5.0); BILIRUBIN,TOTAL 1.4 mg/dL (0.2-1); BLOOD UREA NITROGEN 56.4 mg/dL (7-18); CALCIUM 9.2 mg/dL (8.5-10.1); TOT PROT 8.9 g/dl (6.4-8.2)
[2019-10-21] MEDS ORDERED: SODIUM CHLORIDE 0.9% 1000 ML INFUS.BAG IV ONE (15:07)
--- NOTE | 2019-10-21 15:20 | PDOC ---
Documentation entered by Demi De La Cruz SCRIBE, acting as scribe for Patricia Christine DO. Patricia Christine DO: This documentation has been prepared by the Jono mathis Nirvannie, SCRIBE, under my direction and personally reviewed by me in its entirety. I confirm that the documentation accurately reflects all work, treatment, procedures, and medical decision making performed by me. Attending Attestation - Resident Resident Name: Ang Gomez - ED Attending Attestation I have performed the following: I have examined & evaluated the patient, The case was reviewed & discussed with the resident, I agree w/resident's findings & plan, Exceptions are as noted - HPI HPI: 10/21/19 13:57 he patient is a year old male, with a significant past medical history of CVA ( aphasia, right hand, and RLE deficit), HIV, HTN, HLD, who presents to the emergency department with 1 week of nausea, vomiting, and diarrhea. Patient was evaluated by Dr. Shields 10/17 for his symptoms at which time on lab work he was found to have a 1.7 Creatinine. notes his vomiting resolved but, diarrhea persisted with decreased PO intake, prompting their arrival to the ED. Patients notes one episode of a tactile, subjective fever. denies any recent headache or dizziness. denies any recent chest pain or shortness of breath. denies any recent dysuria, frequency, urgency or hematuria. Allergies: NKDA - Physicial Exam PE: 10/21/19 13:58 Constitutional: +Generally weak-appearing. Awake, alert, oriented. No acute distress. Head: Normocephalic. Atraumatic Eyes: PERRL. EOMI. Conjunctivae are not pale. ENT: + Mucous membranes are dry. Posterior pharynx without exudates or erythema. Uvula midline. Neck: Supple. Full ROM. No lymphadenopathy. Cardiovascular: Regular rate. Regular rhythm. S1, S2 regular. Distal pulses are 2+ and symmetric. Pulmonary/Chest: No evidence of respiratory distress. Clear to auscultation bilaterally No wheezing, rales or rhonchi. Abdominal: +Incisional hernia, easily reducible. No acute tenderness. Soft and non-distended. There is no tenderness. No rebound, guarding or rigidity. No organomegaly. No palpable masses. Good bowel sounds. Back: No CVA tenderness. Musculoskeletal: No edema. No cyanosis. No clubbing. Full range of motion in all extremities. No calf tenderness. Radial/pedal pulses are intact and 2+ bilaterally Skin: Skin is warm and dry. No petechiae. No purpura. Neurological: Alert and oriented to person, place, and time. Cranial nerves II -XII are grossly intact. Normal speech. Strength is grossly symmetric. No sensory deficits. Psychiatric: Good eye contact. Normal interaction, affect and behavior. - Medical Decision Making 10/21/19 15:09 a/p: 64yo male with hx of HIV with a week of n/v/d -pt with vomiting in the ER -c/o abd pain -diffuse mild pain on palpation, reducible incisional hernia -pt nonverbal -pt seen by dr. shields and had labs that showed ekaterina on 10/17 -pt with vomiting of the water he is drinking -will send labs, ivf hydration, ct abd/pelvis 10/21/19 15:19 pt with ekaterina and dehydration pt with sbo on ct pending official read will place NGT pt will need admission 10/21/19 15:55 resident has placed ngt microblog sent for admission 10/21/19 16:08 resident discussed the case with bernabe who accepts pt to service Heart Score/ECG Review - ECG Intrepretation Comment:: 10/21/19 15:20 afib at 77, l axis, bipasic t wave v3, abnl ekg
[2019-10-21] MEDS ORDERED: SODIUM CHLORIDE 1,000 ML IV SCH (17:15)
[2019-10-21] MEDS ORDERED: ACETAMINOPHEN 1000 MG/100 ML VIAL (NON FORMULARY) IVPB PRN (17:22)
--- NOTE | 2019-10-21 17:39 | HP ---
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, Other (dysphagia and dysphasia) Cardiovascular: Yes: AFIB, Other (s/p PPM) Gastrointestinal: Yes: Other (s/p PEG) Infectious Disease: Yes: HIV - Smoking History Smoking history: Never smoked Have you smoked in the past 12 months: No Aproximately how many cigarettes per day: 0 If you are a former smoker, when did you quit?: 45YRS - Alcohol/Substance Use Hx Alcohol Use: No History of Substance Use: reports: None - Social History Usual Living Arrangement: Yes: With Spouse ADL: Support Services Home Medications - Allergies Allergies/Adverse Reactions: Allergies Allergy/AdvReac Type Severity Reaction Status Date / Time No Known Allergies Allergy Verified 10/21/19 11:41 - Home Medications Home Medications: Ambulatory Orders Metformin HCl [Glucophage] 1,000 mg PO BID 04/05/18 Digoxin Oral Solution [Lanoxin Oral Solution -] 125 mcg PO DAILY #75 ml Fluticasone/Salmeterol [Advair 250-50 Diskus] 1 each IH DAILY #30 blst.w.dev 01/03 Furosemide [Lasix] 20 mg PO DAILY #30 tablet 06/21/18 Metoprolol Succinate [Toprol XL -] 25 mg PO BID #60 tab.sr.24h 06/21/18 Ketoconazole 2% Shampoo [Nizoral 2% Shampoo -] 1 applic TP Q72H #1 bottle Atorvastatin Ca [Lipitor] 03/28/19 Glyburide 2.5 mg PO 03/28/19 levETIRAcetam [Keppra -] 500 mg PO BID 03/28/19 Aspirin [ASA -] 81 mg PEG DAILY #30 tab.chew 09/05/19 Multivitamin,Therapeutic [Oncovite] 1 each PO DAILY #30 tablet 09/05/19 Abacavir/Dolutegravir/Lamivudi [Triumeq 600-50-300 mg Tablet] 1 each PO DAILY # 30 tablet 09/17/19 Acetaminophen [Tylenol] 650 mg PO TID PRN #60 tablet 09/17/19 Cefuroxime Axetil [Ceftin -] 500 mg PO Q12H #20 tablet 09/17/19 Guaifenesin/Dextromethorphan [Diabetic Tussin Dm Liquid] 10 ml PO Q6H #1 liquid 09/17/19 LORazepam [Ativan] 0.5 mg PO DAILY #90 tablet MDD 1 10/02/19 Paroxetine HCl [Paxil -] 10 mg PO DAILY #30 tablet 10/02/19 Lorazepam [Ativan] 0.5 mg PO AM #90 tablet MDD 1 10/10/19 Family Medical History Family History: Unable to Obtain Review of Systems Unable to obtain ROS, reason: non verbal, hx from - Review of Systems Constitutional: reports: Fever, Other (as per 1 day ago) Gastrointestinal: reports: Abdominal Pain, Diarrhea, Vomiting Physical Examination Vital Signs: Vital Signs Temperature 97.8 F 10/21/19 11:36 Pulse Rate 86 10/21/19 11:36 Respiratory Rate 19 10/21/19 11:36 Blood Pressure 121/82 10/21/19 11:36 O2 Sat by Pulse Oximetry (%) 97 10/21/19 11:36 Constitutional: Yes: Well Nourished, No Distress, Calm, Mild Distress ( secomdary to abdominal pain) Eyes: Yes: WNL, Conjunctiva Clear, EOM Intact HENT: Yes: WNL, Atraumatic, Normocephalic Neck: Yes: WNL, Supple, Trachea Midline Cardiovascular: Yes: Regular Rate and Rhythm Respiratory: Yes: WNL, Regular, CTA Bilaterally Gastrointestinal: Yes: Soft, Distention (mild distension), Hypoactive Bowel Sounds, Tenderness (TTP diffusely), Vomiting, Other (NHT to right nares to LIWS) ...Rectal Exam: Yes: Deferred Renal/: Yes: Incontinence Breast(s): Yes: WNL Musculoskeletal: Yes: WNL Extremities: Yes: Other (venous statis to LE BL) Peripheral Pulses WNL: Yes Peripheral Pulses: Left Radial: 2+, Right Radial: 2+, Left Doralis Pedis: 2+, Right Dorsalis Pedis: 2+, Left Femoral: 2+, Right Femoral: 2+ Integumentary: Yes: Venous Stasis Changes (BL LE) Neurological: Yes: Aphasia, Weakness (right hemiparesis), Other ...Motor Strength: RUE (wekness sedcondary to CVA, moving LE BL) Psychiatric: Yes: Alert Labs: CBC, BMP 10/21/19 13:36 10/21/19 13:36 Imaging - Results Chest X-ray: Image Reviewed (no acute pathology, NGT notes in stomach) Cat Scan: Report Reviewed (a/p CT: SBO-high grade, no pneumoperitenum) EKG: Image Reviewed (V paced with underlyinf Afib) Problem List - Problems (1) HIV (human immunodeficiency virus infection) Assessment/Plan: HIV + followed by Dr Bautista in [facility] hold antivirals given SBO will resume when able to take PO Code(s): B20 - HUMAN IMMUNODEFICIENCY VIRUS [HIV] DISEASE (2) HTN (hypertension) Assessment/Plan: BP nprmal to low hold metoprolol PO can give IV prn Code(s): I10 - ESSENTIAL (PRIMARY) HYPERTENSION (3) Nausea & vomiting Assessment/Plan: NPO IVF @ 125cc zofran PRN Code(s): R11.2 - NAUSEA WITH VOMITING, UNSPECIFIED (4) Small bowel obstruction Assessment/Plan: SBO with transition point seen on CT scan NGT inserted nitesh LIWS maintain NPO Dr Dave Brooks Sx consulted will convert meds to IV if available Code(s): K56.609 - UNSP INTESTNL OBST, UNSP TO PARTIAL VERSUS COMPLETE OBST (5) AF Atrial fibrillation Assessment/Plan: AF on EKG dig converted to IV while NPO no AC at home sq heparin now Code(s): I48.91 - UNSPECIFIED ATRIAL FIBRILLATION (6) CVA (cerebral vascular accident) Assessment/Plan: right hemeparesis r/t CVA PT requested OOB as tolerated with assistance Code(s): I63.9 - CEREBRAL INFARCTION, UNSPECIFIED (7) Diabetes Assessment/Plan: BGM AC/HS novolog sliding scale NPO Code(s): E11.9 - TYPE 2 DIABETES MELLITUS WITHOUT COMPLICATIONS (8) Seizure disorder Assessment/Plan: on keppra at home will convert to IV BID Code(s): G40.909 - EPILEPSY, UNSP, NOT INTRACTABLE, WITHOUT STATUS EPILEPTICUS (9) HLD (hyperlipidemia) Assessment/Plan: hold statin until taking PO Code(s): E78.5 - HYPERLIPIDEMIA, UNSPECIFIED (10) Pacemaker Assessment/Plan: PPM as per report V paced with underlying AF on EKG Code(s): Z95.0 - PRESENCE OF CARDIAC PACEMAKER (11) Hypothyroid Assessment/Plan: c/w synthroid will convert to IV dose Code(s): E03.9 - HYPOTHYROIDISM, UNSPECIFIED Visit type - Emergency Visit Emergency Visit: Yes Care time: The patient presented to the Emergency Department on the above date and was hospitalized for further evaluation of their emergent condition. - New Patient This patient is new to me today: Yes Date on this admission: 10/21/19 - Critical Care Critical Care patient: No
[2019-10-21] MEDS ORDERED: ONDANSETRON 4 MG/2 ML VIAL IVPUSH PRN (17:55)
[2019-10-21] MEDS: SODIUM CHLORIDE 1,000 ML IV SCH (19:26)
[2019-10-21] MEDS: HEPARIN NA (PORCINE) 5,000 UNITS/ML 1ML VIAL SQ SCH (23:31)
[2019-10-21] MEDS: INSULIN SLIDING SCALE (NOVOLOG) 1 VIAL SQ SCH (23:31)
[2019-10-21] MEDS: levETIRAcetam 500 MG/5 ML INJECTION VIAL IVPB SCH (23:31)
[2019-10-22] MEDS: INSULIN SLIDING SCALE (NOVOLOG) 1 VIAL SQ SCH ×4 (06:45→21:24)
[2019-10-22 08:14] LABS: BASO % 0.2 % (0-2.0); EOS % 0.1 % (0-4.5); HEMATOCRIT 38.4 % (35.4-49); HEMOGLOBIN 13.1 GM/dL (11.7-16.9); LYMPH % 11.4 % (8-40); MCH 32.5 pg (25.7-33.7); MCHC 34.2 g/dl (32.0-35.9); MEAN PLT VOLUME 7.5 fl (7.5-11.1); MONO % 6.6 % (3.8-10.2); NEUT % 81.7 % (42.8-82.8); PLATELET COUNT 180 K/MM3 (134-434); RBC 4.04 M/mm3 (4.00-5.60); RDW 13.2 % (11.9-15.9); WHITE BLOOD COUNT 6.9 K/mm3 (4.0-10.0)
[2019-10-22] MEDS: SODIUM CHLORIDE 1,000 ML IV SCH ×3 (08:18→22:21)
[2019-10-22 08:28] LABS: INR 1.22 (0.83-1.09); PROTHROMBIN TIME (PATIENT) 14.4 SEC (9.7-13.0)
[2019-10-22 08:30] LABS: BILIRUBIN,TOTAL 1.1 mg/dL (0.2-1); BLOOD UREA NITROGEN 40.4 mg/dL (7-18); CALCIUM 8.1 mg/dL (8.5-10.1); CREATININE 1.2 mg/dL (0.55-1.3); POTASSIUM 3.3 mmol/L (3.5-5.1); TOT PROT 7.3 g/dl (6.4-8.2)
--- NOTE | 2019-10-22 09:27 | EKG ---
Test Reason : Blood Pressure : / mmHG Vent. Rate : 077 BPM Atrial Rate : 300 BPM P-R Int : 000 ms QRS Dur : 100 ms QT Int : 476 ms P-R-T Axes : 000 -41 106 degrees QTc Int : 538 ms POOR DATA QUALITY, INTERPRETATION MAY BE ADVERSELY AFFECTED ATRIAL FIBRILLATION LEFT AXIS DEVIATION ABNORMAL ECG WHEN COMPARED WITH ECG OF 20-SEP-2017 01:51, ATRIAL FIBRILLATION HAS REPLACED ELECTRONIC VENTRICULAR PACEMAKER Confirmed by Ang Peter MD ([id number]) on 10/22/2019 9:27:11 AM Referred By: Confirmed By:Ang Peter MD
[2019-10-22] MEDS ORDERED: LEVOTHYROXINE SODIUM 100 MCG VIAL IVPUSH SCH (10:00)
--- NOTE | 2019-10-22 10:20 | CONSULT ---
- Consultation REQUESTING PROVIDER: Junaid Leyva TECHNICAL LEAD CONSULT REQUEST: We have been asked to surgically evaluate this patient for nausea and vomiting and abdominal pain.. PCP:Destiny Cano NP HISTORY OF PRESENT ILLNESS:AILYN who is a 64 year old male who presents to the [facility] ED with 1 week of nausea, vomiting, and ?diarrhea?. Patient was evaluated by Dr. Shields 10/17 for his symptoms at which time on lab work he was found to have a 1.7 Creatinine. notes his vomiting resolved but, diarrhea persisted with decreased PO intake, prompting their arrival to the ED. Patient s notes one episode of a tactile, subjective fever. He cannot provide a hx. PMHx: CVA/HTN/HIV/HLD/seiure disorder/NIDDM PSHx: open gastrostomy Home Medications Medication Instructions Recorded Metformin HCl [Glucophage] 1,000 mg PO BID 04/05/18 Digoxin Oral Solution [Lanoxin 125 mcg PO DAILY #75 ml 06/21/18 Oral Solution -] Fluticasone/Salmeterol [Advair 1 each IH DAILY #30 blst.w.dev 06/21/18 250-50 Diskus] Furosemide [Lasix] 20 mg PO DAILY #30 tablet 06/21/18 Metoprolol Succinate [Toprol XL -] 25 mg PO BID #60 tab.sr.24h 06/21/18 Glyburide 2.5 mg PO DAILY 03/28/19 levETIRAcetam [Keppra -] 500 mg PO BID 03/28/19 Aspirin [ASA -] 81 mg PEG DAILY #30 tab.chew 09/05/19 Multivitamin,Therapeutic [Oncovite] 1 each PO DAILY #30 tablet 09/05/19 Abacavir/Dolutegravir/Lamivudi 1 each PO DAILY #30 tablet 09/17/19 [Triumeq 600-50-300 mg Tablet] Paroxetine HCl [Paxil -] 10 mg PO DAILY #30 tablet 10/02/19 Lorazepam [Ativan] 0.5 mg PO AM #90 tablet MDD 1 10/10/19 Atorvastatin Ca [Lipitor] 20 mg PO HS 10/21/19 Clotrimazole [Lotrimin 1% Cream -] 1 applic TP DAILY 10/21/19 Allergies Allergy/AdvReac Type Severity Reaction Status Date / Time No Known Allergies Allergy Verified 10/21/19 11:41 REVIEW OF SYSTEMS:unable to provide PHYSICAL EXAM: GENERAL: Awake, alert, and fully oriented, in no acute distress. HEAD: Normal with no signs of trauma. EYES: sclera anicteric, conjunctiva clear. NECK: Normal ROM, supple without lymphadenopathy, JVD, or masses. ABDOMEN: Soft, nontender,slightly distended and tympanitic, normoactive bowel sounds, no guarding, no rebound, no masses. No organomegaly. Healed upper midline scar. MUSCULOSKELETAL: Abormal ROM at all joints. No bony deformities or tenderness. No CVA tenderness. UPPER EXTREMITIES: 2+ pulses, warm, well-perfused. No cyanosis. Cap refill <2 seconds. No peripheral edema. LOWER EXTREMITIES: 2+ pulses, warm, well-perfused. No calf tenderness. No peripheral edema. NEUROLOGICAL: Abnormal speech, gait not observed. PSYCH: Cooperative. Good eye contact. Appropriate mood and affect. SKIN: Warm, dry, normal turgor, no rashes or lesions noted. Vital Signs Temperature 99.4 F 10/22/19 06:00 Pulse Rate 88 10/22/19 06:00 Respiratory Rate 18 10/22/19 06:00 Blood Pressure 124/83 10/22/19 06:00 O2 Sat by Pulse Oximetry (%) 93 L 10/21/19 23:00 Lab Results WBC 6.9 K/mm3 (4.0-10.0) 10/22/19 07:28 RBC 4.04 M/mm3 (4.00-5.60) 10/22/19 07:28 Hgb 13.1 GM/dL (11.7-16.9) 10/22/19 07:28 Hct 38.4 % (35.4-49) 10/22/19 07:28 MCV 95.0 fl (80-96) 10/22/19 07:28 MCHC 34.2 g/dl (32.0-35.9) 10/22/19 07:28 RDW 13.2 % (11.9-15.9) 10/22/19 07:28 Plt Count 180 K/MM3 (134-434) 10/22/19 07:28 Sodium 136 mmol/L (136-145) 10/22/19 07:28 Potassium 3.3 mmol/L (3.5-5.1) L 10/22/19 07:28 Chloride 96 mmol/L (98-107) L 10/22/19 07:28 Carbon Dioxide 33 mmol/L (21-32) H 10/22/19 07:28 Anion Gap 7 MMOL/L (8-16) L 10/22/19 07:28 BUN 40.4 mg/dL (7-18) H 10/22/19 07:28 Creatinine 1.2 mg/dL (0.55-1.3) 10/22/19 07:28 Random Glucose 121 mg/dL (74-106) H 10/22/19 07:28 Calcium 8.1 mg/dL (8.5-10.1) L 10/22/19 07:28 INR 1.22 (0.83-1.09) H 10/22/19 07:28 CT scan a/p reviewed and abdominal xrays from today reviewed. IMP: SBO PLAN: NPO/NGT/IVF/correct potassium; serial exams and abdominal xrays; will f/u. Rohan Acosta MD FACS
[2019-10-22] MEDS ORDERED: KCL 10 MEQ IVPB 10 MEQ/100 ML INFUS.BAG IVPB SCH (11:00)
--- NOTE | 2019-10-22 11:00 | PN ---
Physical Exam: SUBJECTIVE: Patient seen and examined at the bedside. in no acute distress. OBJECTIVE: Patient is a 64 year old male with a significant past medical history of CVA ( aphasia, right hand, and RLE deficit), HIV, HTN, HLD, who presents to the ED on 10/21/2019 with 1 week of nausea, vomiting, and diarrhea. Patient was evaluated by Dr. Shields 10/17 for his symptoms at which time on lab work he was found to have a 1.7 Creatinine. notes his vomiting resolved but, diarrhea persisted with decreased PO intake, prompting their arrival to the ED. Patient s notes one episode of a tactile, subjective fever. Vital Signs Period Temp Pulse Resp BP Sys/Barrientos Pulse Ox Last 24 Hr 97.8 F-99.7 F 77-88 18-20 116-134/72-83 90-97 GENERAL: The patient is awake, alert, in no acute distress. HEAD: Normal with no signs of trauma. ngt in place to low int suction. EYES: PERRL, extraocular movements intact, sclera anicteric, conjunctiva clear. No ptosis. ENT: Ears normal, nares patent, oropharynx clear without exudates, moist mucous membranes. NECK: Trachea midline, full range of motion, supple. LUNGS: Breath sounds equal, clear to auscultation bilaterally HEART: Regular rate and rhythm ABDOMEN: soft, non tender, non distended, +hypoactive bowel sounds, on ngt to low int suction. EXTREMITIES: hyperpigmentation of right lower leg, dry slough skin. NEUROLOGICAL: right sided deficity. right arm contracted, right hand contracted Laboratory Results - last 24 hr 10/21/19 10/21/19 10/21/19 13:36 13:36 13:36 WBC 9.8 RBC 4.65 Hgb 15.2 Hct 44.5 MCV 95.7 MCH 32.8 MCHC 34.2 RDW 12.9 Plt Count 218 MPV 8.0 Absolute Neuts (auto) 7.4 Neutrophils % 75.3 Lymphocytes % 15.6 Monocytes % 8.6 Eosinophils % 0.4 D Basophils % 0.1 Nucleated RBC % 0 PT with INR INR Sodium 126 L Potassium 4.0 Chloride 84 L Carbon Dioxide 33 H Anion Gap 10 BUN 56.4 H Creatinine 2.0 H Est GFR (CKD-EPI)AfAm 39.42 Est GFR (CKD-EPI)NonAf 34.01 POC Glucometer Random Glucose 201 H Lactic Acid Calcium 9.2 Magnesium Total Bilirubin 1.4 H AST 53 H ALT 31 Alkaline Phosphatase 96 Creatine Kinase 65 Troponin I < 0.02 Total Protein 8.9 H Albumin 3.7 Lipase 220 10/21/19 10/21/19 10/21/19 13:36 19:46 19:50 WBC RBC Hgb Hct MCV MCH MCHC RDW Plt Count MPV Absolute Neuts (auto) Neutrophils % Lymphocytes % Monocytes % Eosinophils % Basophils % Nucleated RBC % PT with INR INR Sodium Potassium Chloride Carbon Dioxide Anion Gap BUN Creatinine Est GFR (CKD-EPI)AfAm Est GFR (CKD-EPI)NonAf POC Glucometer 187 Random Glucose Lactic Acid 2.3 H* 1.9 Calcium Magnesium Total Bilirubin AST ALT Alkaline Phosphatase Creatine Kinase Troponin I Total Protein Albumin Lipase 10/21/19 10/22/19 10/22/19 23:08 06:34 07:28 WBC 6.9 RBC 4.04 Hgb 13.1 Hct 38.4 MCV 95.0 MCH 32.5 MCHC 34.2 RDW 13.2 Plt Count 180 MPV 7.5 Absolute Neuts (auto) 5.7 Neutrophils % 81.7 Lymphocytes % 11.4 D Monocytes % 6.6 Eosinophils % 0.1 Basophils % 0.2 Nucleated RBC % 0 PT with INR INR Sodium Potassium Chloride Carbon Dioxide Anion Gap BUN Creatinine Est GFR (CKD-EPI)AfAm Est GFR (CKD-EPI)NonAf POC Glucometer 155 113 Random Glucose Lactic Acid Calcium Magnesium Total Bilirubin AST ALT Alkaline Phosphatase Creatine Kinase Troponin I Total Protein Albumin Lipase 10/22/19 10/22/19 07:28 07:28 WBC RBC Hgb Hct MCV MCH MCHC RDW Plt Count MPV Absolute Neuts (auto) Neutrophils % Lymphocytes % Monocytes % Eosinophils % Basophils % Nucleated RBC % PT with INR 14.40 H INR 1.22 H Sodium 136 Potassium 3.3 L Chloride 96 L Carbon Dioxide 33 H Anion Gap 7 L BUN 40.4 H Creatinine 1.2 Est GFR (CKD-EPI)AfAm 73.11 Est GFR (CKD-EPI)NonAf 63.08 POC Glucometer Random Glucose 121 H Lactic Acid Calcium 8.1 L Magnesium 2.0 Total Bilirubin 1.1 H AST 39 H ALT 27 Alkaline Phosphatase 75 Creatine Kinase Troponin I Total Protein 7.3 Albumin 3.0 L Lipase Active Medications Generic Name Dose Route Start Last Admin Trade Name Freq PRN Reason Stop Dose Admin Acetaminophen 1,000 mg 10/21/19 17:22 Ofirmev Injection - IVPB Q8H PRN PAIN LEVEL 4 - 6 Heparin Sodium (Porcine) 5,000 unit 10/21/19 22:00 10/21/19 23:31 Heparin - SQ 5,000 unit BID DUNIA Administration Sodium Chloride 1,000 mls @ 125 mls/hr 10/21/19 17:57 10/22/19 08:18 Normal Saline - IV 125 mls/hr ASDIR DUNIA Administration Potassium Chloride 10 meq in 100 mls @ 100 mls/hr 10/22/19 11:00 Potassium Chloride 10 Meq Premix Ivpb - IVPB 10/22/19 11:59 Q60M DUNIA Insulin Aspart 1 vial 10/21/19 22:00 10/22/19 06:45 Novolog Vial Sliding Scale - SQ Not Given ACHS [facility] Protocol Levetiracetam 500 mg 10/21/19 22:00 10/21/19 23:31 Keppra Injection - IVPB 500 mg BID DUNIA Administration Levothyroxine Sodium 62.5 mcg 10/22/19 10:00 Synthroid Injection - IVPUSH DAILY DUNIA Lorazepam 0.25 mg 10/21/19 17:22 Ativan Injection - IVPUSH BID PRN AGITATION Ondansetron HCl 4 mg 10/21/19 17:55 Zofran Injection IVPUSH Q8H PRN NAUSEA ASSESSMENT/PLAN: Problem List - Problems (1) Small bowel obstruction Assessment/Plan: SBO with transition point seen on CT scan NGT inserted to LIWS maintain NPO Dr Dave Brooks Sx consulted ad following monitor output Code(s): K56.609 - UNSP INTESTNL OBST, UNSP TO PARTIAL VERSUS COMPLETE OBST (2) HIV (human immunodeficiency virus infection) Assessment/Plan: hold HAART therapy while NPO, ID following. Code(s): B20 - HUMAN IMMUNODEFICIENCY VIRUS [HIV] DISEASE (3) HLD (hyperlipidemia) Assessment/Plan: continue home meds when not NPO Code(s): E78.5 - HYPERLIPIDEMIA, UNSPECIFIED (4) HTN (hypertension) Assessment/Plan: stable Code(s): I10 - ESSENTIAL (PRIMARY) HYPERTENSION (5) Nausea & vomiting Assessment/Plan: resolved with ngt placement found to have SBO Code(s): R11.2 - NAUSEA WITH VOMITING, UNSPECIFIED (6) CVA (cerebral vascular accident) Code(s): I63.9 - CEREBRAL INFARCTION, UNSPECIFIED (7) Diabetes Assessment/Plan: monitor bgms while npo Code(s): E11.9 - TYPE 2 DIABETES MELLITUS WITHOUT COMPLICATIONS (8) Eye globe prosthesis Assessment/Plan: supportive care Code(s): Z97.0 - PRESENCE OF ARTIFICIAL EYE (9) HIV (human immunodeficiency virus infection) Assessment/Plan: hiv meds on hold while npo Code(s): Z21 - ASYMPTOMATIC HUMAN IMMUNODEFICIENCY VIRUS INFECTION STATUS (10) Prophylactic measure Code(s): Z29.9 - ENCOUNTER FOR PROPHYLACTIC MEASURES, UNSPECIFIED (11) AF Atrial fibrillation Assessment/Plan: has been off anticoagulation since 2012 secondary to an acute head bleed per . on digoxin for rate control will get digoxin levels on heparin bid Code(s): I48.91 - UNSPECIFIED ATRIAL FIBRILLATION Visit type - Emergency Visit Emergency Visit: Yes ED Registration Date: 10/21/19 Care time: The patient presented to the Emergency Department on the above date and was hospitalized for further evaluation of their emergent condition. - New Patient This patient is new to me today: Yes Date on this admission: 10/22/19 - Critical Care Critical Care patient: No - Discharge Referral Referred to [facility] Med P.C.: No
[2019-10-22] MEDS: levETIRAcetam 500 MG/5 ML INJECTION VIAL IVPB SCH ×2 (11:01→21:13)
[2019-10-22] MEDS: HEPARIN NA (PORCINE) 5,000 UNITS/ML 1ML VIAL SQ SCH ×2 (11:01→21:13)
[2019-10-22] MEDS ORDERED: MINERAL OIL/PETROLAT/WATER TOPICAL CREAM 113 GM JAR TP PRN (11:02)
[2019-10-22 12:40] LABS: HYALINE CASTS 1 /lpf (0-8); PH,URINE 5.5 (5.0-8.0); URINE APPEARANCE CLEAR; URINE BACTERIA 1.5 /hpf (NEGATIVE); URINE BILIRUBIN NEGATIVE (NEGATIVE); URINE COLOR DK YELLOW; URINE GLUCOSE (UA) NEGATIVE (NEGATIVE); URINE KETONE 1+ (NEGATIVE); URINE LEUK ESTERASE NEGATIVE (NEGATIVE); URINE NITRITE NEGATIVE (NEGATIVE); URINE PROTEIN 1+ (NEGATIVE); URINE RBC 1 /hpf (0-4); URINE UROBILINOGEN 0.2 mg/dL (0.2-1.0); URINE WBC 1 /hpf (0-5)
--- NOTE | 2019-10-22 17:15 | PN ---
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 for vomiting diarrhea she brought him to the [facility] on diarrhea had stopped, vomiting had resolved that am was taking clears they were advised er evaluation if vomiting recurred as we could not do any xrays at the clinic she reports he improved over the weekend but got worse Monday am and she brought him to the ER SBO HIV- hold meds s/p CVA secondary to fall and bleed history of afib- was followed in the past by dr moody at [facility] management per surgery Problem List - Problems (1) Small bowel obstruction Code(s): K56.609 - UNSP INTESTNL OBST, UNSP TO PARTIAL VERSUS COMPLETE OBST (2) HIV (human immunodeficiency virus infection) Code(s): B20 - HUMAN IMMUNODEFICIENCY VIRUS [HIV] DISEASE (3) CVA (cerebral vascular accident) Code(s): I63.9 - CEREBRAL INFARCTION, UNSPECIFIED
--- NOTE | 2019-10-22 19:44 | CONS ---
INFECTIOUS DISEASE CONSULTATION DATE OF CONSULTATION: DATE OF DICTATION: 10/22/2019 REQUESTING PHYSICIAN: The hospitalist service. This is a 64-year-old man who I see at the [facility] for HIV care. He gets his routine healthcare at the [facility], and he comes to me for his HIV care. He is a 64-year-old man who lives at home with his . She is his employment representative. 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 He is HIV positive, and he is on medications. He came to clinic last . The had brought him to his primary care provider on Monday for evaluation for diarrhea and vomiting and was told to give him Gatorade and see how he did. His diarrhea resolved, but he continued to vomit, and she brought him to the [facility] on for another opinion. At that time, his vomiting had resolved since early that morning. She was giving him clear Gatorade which he was tolerating. He had normal vital signs. I advised the at that time that if his symptoms recurred or persisted, she needed to take him to the ER as we did not have any imaging modality available at the clinic. Apparently he improved somewhat over the weekend, was tolerating Gatorade until Monday morning when again he started vomiting. She elected to bring him to the hospital where he was found to have a small- bowel obstruction. I am asked to see him for his HIV disease. He has a history of hypertension. 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 He has a history of seizures. He is HIV positive. He has a pacemaker in place. He has had a right ankle fracture, a left foot fracture. He had a G tube and tracheostomy which were all removed. There is a history of asthma in the past. He has a history of coronary artery disease and is on digoxin. He has a history of atrial fibrillation, and he follows up with Dr. Fontana at [facility]. MEDICATIONS AN OUTPATIENT: Include Triumeq, Keppra, Paxil, Oncovite, Toprol, Glucophage, Ativan, glyburide, Lasix, Advair, Lipitor, aspirin. LABORATORY DATA: His labs are notable for a CD4 count most recently was 212 with the viral load of 30. His last TB test in February was negative. SOCIAL HISTORY: He lives at home with his who is now retired and is his primary employment representative. REVIEW OF SYSTEMS: reports that since the NG tube was placed he has been doing much better and is quite comfortable. She reports he has fevers at home, but he has had none in the hospital. PHYSICAL EXAMINATION: General: He is awake and alert. He is resting comfortably. He has an NG tube in place that is draining brown fluid. Vital Signs: His temperature is 99.4. Pulse of 96, blood pressure 120/80. Respiratory rate is 18. He is saturating 93% on room air. HEENT: He is normocephalic. His eyes are anicteric. Lungs: Clear to auscultation. Heart: Regular rate and rhythm. Abdomen: Protuberant, but soft and nontender. Extremities: Without edema. LABORATORY DATA: His white count is 6.9, hemoglobin is 13.1, platelets are 180. BUN is 40 and creatinine 1.2. Urinalysis is negative. T cells were as previously described. IMAGING STUDIES: He had a CT of his abdomen and pelvis done on admission, that showed high-grade small-bowel obstruction, and there was no evidence of pneumoperitoneum or intraabdominal abscess. Cholelithiasis was noted as well. His chest x-ray shows an NG tube with no pathology in the chest, and a left- sided pacemaker. There are no infiltrates. In summary, this is a 64-year-old man admitted with a small-bowel obstruction. Regarding his HIV, would hold his medications. 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 He has a history of atrial fibrillation. Management per Surgery and would hold HIV medicines at present. KELLY RICHARDSON M.D. [id number] [facility] MEM[facility]IAL HOSPITALGopal
[2019-10-23] MEDS: INSULIN SLIDING SCALE (NOVOLOG) 1 VIAL SQ SCH ×4 (06:37→22:48)
[2019-10-23] MEDS: SODIUM CHLORIDE 1,000 ML IV SCH (07:41)
--- NOTE | 2019-10-23 08:47 | PN ---
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 (short form) - Note 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: 64yo M h/o SBO, pt seen and examined at bedside. Pt currently has NGT in place , which has been putting out a lot of bilious drainage. Pt complains of some mild abd pain. afebrile Vital Signs Temp 99.0 F 10/23/19 06:00 Pulse 87 10/23/19 06:00 Resp 18 10/23/19 06:00 BP 122/85 10/23/19 06:00 Pulse Ox 90 L 10/22/19 21:00 Intake & Output 10/22/19 10/22/19 10/23/19 11:59 23:59 11:59 Intake Total 975 1350 1300 Output Total 300 1850 950 Balance 675 -500 350 Weight 198 lb 12.8 oz Intake: IV 875 1350 1200 Normal Saline - 1,000 ml 200 @ 100 mls/hr IV ASDIR DUNIA Rx#:[id number] Normal Saline - 1,000 ml 875 1150 1200 @ 125 mls/hr IV ASDIR DUNIA Rx#:[id number] IVPB 100 100 Oral 0 Output: Gastric Drainage 300 1300 950 Urine 550 Void 550 Other: Voiding Method Urinal Urinal # Unmeasured Voids Void 1 1 1 Bowel Movement No No No Weight Measurement Method Standing Scale CBC, BMP 10/22/19 07:28 10/22/19 07:28 PE: Gen: Alert and oriented to voice Resp: breathing comfortably Abd; NGT in place with bilious drainage, abd soft, nondistended, mild diffuse tenderness. Problem List - Problems (1) Small bowel obstruction Assessment/Plan: Plan -pt continues to appear obstructed, continue npo, NGT, IV fluids -abd x-ray this am -serial abd exams -will follow Code(s): K56.609 - UNSP INTESTNL OBST, UNSP TO PARTIAL VERSUS COMPLETE OBST
[2019-10-23] MEDS ORDERED: KCL 10 MEQ IVPB 10 MEQ/100 ML INFUS.BAG IVPB SCH (09:30)
[2019-10-23] MEDS ORDERED: DIGOXIN 250 MCG/5 ML LIQUID PO SCH (10:00)
--- NOTE | 2019-10-23 11:59 | CON.CARD ---
Consult Consult Specialty:: Cardiology Referred by:: Richie Reason for Consultation:: afib, PPM, preop evaluation - History of Present Illness Chief Complaint: abdominal pain History of Present Illness: Patient is a 64 year old male with a medical history of CVA (aphasia, right hand , and RLE deficit), chronic atrial fibrillation not on AC due to fall and bleed , HIV on HAART, HTN, HLD, who was admitted on 10/21/2019 with 1 week of nausea, vomiting, and diarrhea. Found to have SBO, may need surgery. He cannot give a history. 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, Other (dysphagia and dysphasia) Cardio/Vascular: Yes: AFIB, Other (s/p PPM) Gastrointestinal: Yes: Other (s/p PEG) Infectious Disease: Yes: HIV - Alcohol/Substance Use Hx Alcohol Use: No History of Substance Use: reports: None - Smoking History Smoking history: Never smoked Have you smoked in the past 12 months: No Aproximately how many cigarettes per day: 0 If you are a former smoker, when did you quit?: 45YRS - Social History Usual Living Arrangement: With Significant Other ADL: Support Services Home Medications - Allergies Allergies/Adverse Reactions: Allergies Allergy/AdvReac Type Severity Reaction Status Date / Time No Known Allergies Allergy Verified 10/21/19 11:41 - Home Medications Home Medications: Ambulatory Orders Metformin HCl [Glucophage] 1,000 mg PO BID 04/05/18 Digoxin Oral Solution [Lanoxin Oral Solution -] 125 mcg PO DAILY #75 ml Fluticasone/Salmeterol [Advair 250-50 Diskus] 1 each IH DAILY #30 blst.w.dev 01/03 Furosemide [Lasix] 20 mg PO DAILY #30 tablet 06/21/18 Metoprolol Succinate [Toprol XL -] 25 mg PO BID #60 tab.sr.24h 06/21/18 Glyburide 2.5 mg PO DAILY 03/28/19 levETIRAcetam [Keppra -] 500 mg PO BID 03/28/19 Aspirin [ASA -] 81 mg PEG DAILY #30 tab.chew 09/05/19 Multivitamin,Therapeutic [Oncovite] 1 each PO DAILY #30 tablet 09/05/19 Abacavir/Dolutegravir/Lamivudi [Triumeq 600-50-300 mg Tablet] 1 each PO DAILY # 30 tablet 09/17/19 Paroxetine HCl [Paxil -] 10 mg PO DAILY #30 tablet 10/02/19 Lorazepam [Ativan] 0.5 mg PO AM #90 tablet MDD 1 10/10/19 Atorvastatin Ca [Lipitor] 20 mg PO HS 10/21/19 Clotrimazole [Lotrimin 1% Cream -] 1 applic TP DAILY 10/21/19 Vital Signs: Vital Signs Temperature 99.0 F 10/23/19 06:00 Pulse Rate 87 10/23/19 06:00 Respiratory Rate 18 10/23/19 06:00 Blood Pressure 122/85 10/23/19 06:00 O2 Sat by Pulse Oximetry (%) 90 L 10/22/19 21:00 Constitutional: Yes: No Distress, Calm Eyes: Yes: Conjunctiva Clear, EOM Intact HENT: Yes: Atraumatic, Normocephalic Neck: Yes: Trachea Midline Respiratory: Yes: CTA Bilaterally Gastrointestinal: Yes: Tenderness (diffuse) Cardiovascular: Yes: Pulse Irregular JVD: No Carotid Bruit: No PMI: Non-Displaced Heart Sounds: Yes: S1, S2 Extremities: Yes: WNL Edema: No Peripheral Pulses WNL: Yes - Other Data Labs, Other Data: CBC, BMP 10/22/19 07:28 10/22/19 07:28 INR, PTT INR 1.22 (0.83-1.09) H 10/22/19 07:28 Imaging - Results Chest X-ray: Report Reviewed (rajinder ngt) X-ray: Report Reviewed EKG: Report Reviewed (afib lad) Assessment/Plan Patient is a 64 year old male with a medical history of CVA (aphasia, right hand , and RLE deficit), chronic atrial fibrillation not on AC due to fall and bleed , HIV on HAART, HTN, HLD, who was admitted on 10/21/2019 with 1 week of nausea, vomiting, and diarrhea. Found to have SBO, may need surgery. No chest pain, orthopnea, PND or edema. Preop Cardiac Evaluation -there are no cardiac contraindications to surgery. He is medically optimized and at intermediate risk. PPM -try to get old records, but needs a magnet placed over the pulse generator during surgery. Use unipolar bovie if possible (not crucial) and place bovie pad as far as possible from the pulse generator. Chronic atrial fibrillation -defer AC for now. -rates are controlled.
[2019-10-23] MEDS: HEPARIN NA (PORCINE) 5,000 UNITS/ML 1ML VIAL SQ SCH ×2 (12:05→21:04)
[2019-10-23] MEDS: levETIRAcetam 500 MG/5 ML INJECTION VIAL IVPB SCH ×2 (12:05→21:04)
[2019-10-23] MEDS ORDERED: PT OWN MED DRAWER 7, Y5N ONE (12:19)
--- NOTE | 2019-10-23 12:25 | PN ---
Physical Exam: SUBJECTIVE: Patient seen and examined at the bedside. OBJECTIVE: Patient is a 64 year old male with a significant past medical history of CVA ( aphasia, right hand, and RLE deficit), atiral fibrillation (not on a/c), HIV, HTN, HLD, who presents to the ED on 10/21/2019 with 1 week of nausea, vomiting, and diarrhea. Patient was evaluated by Dr. Shields 10/17 for his symptoms at which time on lab work he was found to have a 1.7 Creatinine. cardiology evaluation for pre op clearance if patient was deemed to have surgery. start on clinimax for prolonged NPO imaging: abdomen flat/upright 10/23/2019: small bowel or high grade partial small bowel obstruction. there is fluid and gas distended bowel loops anterir to the righ hepatic lobe and kidney limiting exam. abdomen u/s 10/23/2019: limited study, non specific echogenic liver parencyma suggestive of fatty infiltration. Vital Signs Period Temp Pulse Resp BP Sys/Barrientos Pulse Ox Last 24 Hr 97.8 F-100.4 F 87-92 18-18 122-145/74-95 90 GENERAL: The patient is awake, alert, in no acute distress. HEAD: Normal with no signs of trauma. ngt in place to low int suction. EYES: PERRL, extraocular movements intact, sclera anicteric, conjunctiva clear. No ptosis. ENT: Ears normal, nares patent, oropharynx clear without exudates, moist mucous membranes. NECK: Trachea midline, full range of motion, supple. LUNGS: Breath sounds equal, clear to auscultation bilaterally HEART: Regular rate and rhythm ABDOMEN: soft, non tender, non distended, +hypoactive bowel sounds, on ngt to low int suction. EXTREMITIES: hyperpigmentation of right lower leg, dry slough skin. NEUROLOGICAL: right sided deficit. right arm contracted, right hand contracted Laboratory Results - last 24 hr 10/22/19 10/22/19 10/22/19 12:00 16:48 21:22 POC Glucometer 146 137 Urine Color Dk yellow Urine Appearance Clear Urine pH 5.5 Ur Specific [place] 1.025 Urine Protein 1+ H Urine Glucose (UA) Negative Urine Ketones 1+ H Urine Blood Negative Urine Nitrite Negative Urine Bilirubin Negative Urine Urobilinogen 0.2 Ur Leukocyte Esterase Negative Urine WBC (Auto) 1 Urine RBC (Auto) 1 Urine Casts (Auto) 1 U Epithel Cells (Auto) 1.0 Urine Bacteria (Auto) 1.5 10/23/19 05:05 POC Glucometer 134 Urine Color Urine Appearance Urine pH Ur Specific [place] Urine Protein Urine Glucose (UA) Urine Ketones Urine Blood Urine Nitrite Urine Bilirubin Urine Urobilinogen Ur Leukocyte Esterase Urine WBC (Auto) Urine RBC (Auto) Urine Casts (Auto) U Epithel Cells (Auto) Urine Bacteria (Auto) Active Medications Generic Name Dose Route Start Last Admin Trade Name Freq PRN Reason Stop Dose Admin Acetaminophen 1,000 mg 10/21/19 17:22 Ofirmev Injection - IVPB Q8H PRN PAIN LEVEL 4 - 6 Digoxin 0.125 mg 10/23/19 10:00 Lanoxin Injection - IVPB DAILY DUNIA Heparin Sodium (Porcine) 5,000 unit 10/21/19 22:00 10/23/19 12:05 Heparin - SQ 5,000 unit BID DUNIA Administration Sodium Chloride 1,000 mls @ 125 mls/hr 10/21/19 17:57 10/23/19 07:41 Normal Saline - IV 125 mls/hr ASDIR DUNIA Administration Insulin Aspart 1 vial 10/21/19 22:00 10/23/19 06:37 Novolog Vial Sliding Scale - SQ Not Given ACHS [facility] Protocol Levetiracetam 500 mg 10/21/19 22:00 10/23/19 12:05 Keppra Injection - IVPB 500 mg BID DUNIA Administration Lorazepam 0.25 mg 10/21/19 17:22 Ativan Injection - IVPUSH BID PRN AGITATION Multi-Ingredient Lotion 1 applic 10/22/19 11:02 Eucerin (Small Jar) - TP BID PRN DRY SKIN Ondansetron HCl 4 mg 10/21/19 17:55 Zofran Injection IVPUSH Q8H PRN NAUSEA ASSESSMENT/PLAN: Problem List - Problems (1) Small bowel obstruction Assessment/Plan: SBO with transition point seen on CT scan NGT inserted to LIWS maintain NPO Dr Dave Brooks Sx consulted and following monitor output abd xray with persistent SBO start on clinimax for prolonged NPO Code(s): K56.609 - UNSP INTESTNL OBST, UNSP TO PARTIAL VERSUS COMPLETE OBST (2) HIV (human immunodeficiency virus infection) Assessment/Plan: hold HAART therapy while NPO, ID following. Code(s): B20 - HUMAN IMMUNODEFICIENCY VIRUS [HIV] DISEASE (3) HLD (hyperlipidemia) Assessment/Plan: continue home meds when not NPO Code(s): E78.5 - HYPERLIPIDEMIA, UNSPECIFIED (4) HTN (hypertension) Assessment/Plan: stable Code(s): I10 - ESSENTIAL (PRIMARY) HYPERTENSION (5) Nausea & vomiting Assessment/Plan: resolved with ngt placement found to have SBO Code(s): R11.2 - NAUSEA WITH VOMITING, UNSPECIFIED (6) CVA (cerebral vascular accident) Code(s): I63.9 - CEREBRAL INFARCTION, UNSPECIFIED (7) Diabetes Assessment/Plan: monitor bgms while npo Code(s): E11.9 - TYPE 2 DIABETES MELLITUS WITHOUT COMPLICATIONS (8) Eye globe prosthesis Assessment/Plan: supportive care Code(s): Z97.0 - PRESENCE OF ARTIFICIAL EYE (9) HIV (human immunodeficiency virus infection) Assessment/Plan: hiv meds on hold while npo Code(s): Z21 - ASYMPTOMATIC HUMAN IMMUNODEFICIENCY VIRUS INFECTION STATUS (10) AF Atrial fibrillation Assessment/Plan: has been off anticoagulation since 2012 secondary to an acute head bleed per . on digoxin for rate control will get digoxin levels on heparin bid Code(s): I48.91 - UNSPECIFIED ATRIAL FIBRILLATION (11) Hyponatremia Assessment/Plan: resolved Code(s): E87.1 - HYPO-OSMOLALITY AND HYPONATREMIA (12) Prophylactic measure Code(s): Z29.9 - ENCOUNTER FOR PROPHYLACTIC MEASURES, UNSPECIFIED Visit type - Emergency Visit Emergency Visit: Yes ED Registration Date: 10/21/19 Care time: The patient presented to the Emergency Department on the above date and was hospitalized for further evaluation of their emergent condition. - New Patient This patient is new to me today: No - Critical Care Critical Care patient: No - Discharge Referral Referred to [facility] Med P.C.: No
[2019-10-23] MEDS: DIGOXIN 0.5 MG/2 ML AMPUL IVPB SCH (13:32)
[2019-10-23] MEDS: AMINO ACIDS 4.25%/D5W 1,000 ML IV SCH (16:09)
--- NOTE | 2019-10-23 17:49 | PN ---
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 (short form) - Note 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: seen earlier today at noon awake NGT with continued drainage Vital Signs Period Temp Pulse Resp BP Sys/Barrientos Pulse Ox Last 24 Hr 97.8 F-99.5 F 75-92 18-18 122-145/75-95 90-96 cor-rrr lungs clear abd soft,mild discomfort to palpation ext no edema CBC, BMP 10/22/19 07:28 10/22/19 07:28 a/p SBO- per surgery HIV- hold meds s/p CVA secondary to fall and bleed history of afib- was followed in the past by dr moody at [facility] d/w hospitalist Problem List - Problems (1) Small bowel obstruction Code(s): K56.609 - UNSP INTESTNL OBST, UNSP TO PARTIAL VERSUS COMPLETE OBST (2) HIV (human immunodeficiency virus infection) Code(s): B20 - HUMAN IMMUNODEFICIENCY VIRUS [HIV] DISEASE (3) CVA (cerebral vascular accident) Code(s): I63.9 - CEREBRAL INFARCTION, UNSPECIFIED
[2019-10-23 20:54] LABS: BASO % 0.3 % (0-2.0); EOS % 0.9 % (0-4.5); HEMATOCRIT 35.1 % (35.4-49); HEMOGLOBIN 11.9 GM/dL (11.7-16.9); LYMPH % 20.6 % (8-40); MCH 33.3 pg (25.7-33.7); MCHC 33.9 g/dl (32.0-35.9); MEAN PLT VOLUME 7.7 fl (7.5-11.1); MONO % 10.5 % (3.8-10.2); NEUT % 67.7 % (42.8-82.8); PLATELET COUNT 132 K/MM3 (134-434); RBC 3.58 M/mm3 (4.00-5.60); RDW 13.1 % (11.9-15.9)
[2019-10-23 21:19] LABS: ALBUMIN 2.5 g/dl (3.4-5.0); BILIRUBIN,TOTAL 0.8 mg/dL (0.2-1); BLOOD UREA NITROGEN 21.5 mg/dL (7-18); CREATININE 0.8 mg/dL (0.55-1.3); MAGNESIUM 1.8 mg/dL (1.8-2.4); POTASSIUM 3.2 mmol/L (3.5-5.1); TOT PROT 6.5 g/dl (6.4-8.2)
[2019-10-24] MEDS: KCL 10 MEQ IVPB 10 MEQ/100 ML INFUS.BAG IVPB SCH ×2 (00:54→02:24)
[2019-10-24] MEDS: AMINO ACIDS 4.25%/D5W 1,000 ML IV SCH ×3 (02:27→12:54)
[2019-10-24] MEDS: INSULIN SLIDING SCALE (NOVOLOG) 1 VIAL SQ SCH ×4 (06:01→23:18)
--- NOTE | 2019-10-24 07:47 | PN ---
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 (short form) - Note 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: 64yo M h/o SBO, pt seen and examined at bedside. Pt currently has NGT in place , which has been putting out less drainage, 300ml overnight according to RN. Pt also having multiple watery episodes of diarrhea yesterday. Pt denies any abdominal pain today. Last Vital Signs Temp Pulse Resp BP Pulse Ox 98.4 F 70 20 137/59 L 90 L 10/24/19 06:00 10/24/19 06:00 10/24/19 06:00 10/24/19 06:00 10/23/19 21:00 CBC, BMP 10/23/19 19:45 10/23/19 19:45 PE: Gen: Alert and oriented to voice Resp: breathing comfortably Abd: NGT in place with minimal bilious drainage, abd soft, nondistended, nontender. Problem List - Problems (1) Small bowel obstruction Assessment/Plan: Plan -f/up AM abd x-ray if improved, will consider removing NGT and starting on clears -IVF -correct electrolytes -will follow Code(s): K56.609 - UNSP INTESTNL OBST, UNSP TO PARTIAL VERSUS COMPLETE OBST
[2019-10-24] MEDS ORDERED: PT OWN MED DRAWER 7, Y5N ONE (10:13)
[2019-10-24 10:42] LABS: BASO % 0.3 % (0-2.0); EOS % 0.6 % (0-4.5); HEMOGLOBIN 12.9 GM/dL (11.7-16.9); LYMPH % 19.6 % (8-40); MCH 32.8 pg (25.7-33.7); MEAN CELL VOLUME 96.5 fl (80-96); MEAN PLT VOLUME 7.4 fl (7.5-11.1); MONO % 8.7 % (3.8-10.2); NEUT % 70.8 % (42.8-82.8); PLATELET COUNT 175 K/MM3 (134-434); RBC 3.94 M/mm3 (4.00-5.60); WHITE BLOOD COUNT 3.5 K/mm3 (4.0-10.0)
[2019-10-24 11:19] LABS: ALBUMIN 2.8 g/dl (3.4-5.0); BILIRUBIN,TOTAL 0.9 mg/dL (0.2-1); BLOOD UREA NITROGEN 17.9 mg/dL (7-18); CALCIUM 8.5 mg/dL (8.5-10.1); CREATININE 0.9 mg/dL (0.55-1.3); MAGNESIUM 1.5 mg/dL (1.8-2.4); POTASSIUM 3.3 mmol/L (3.5-5.1); TOT PROT 7.5 g/dl (6.4-8.2)
[2019-10-24] MEDS: levETIRAcetam 500 MG/5 ML INJECTION VIAL IVPB SCH ×2 (11:59→23:18)
[2019-10-24] MEDS: HEPARIN NA (PORCINE) 5,000 UNITS/ML 1ML VIAL SQ SCH ×2 (12:00→23:18)
[2019-10-24] MEDS: DIGOXIN 0.5 MG/2 ML AMPUL IVPB SCH (12:04)
--- NOTE | 2019-10-24 12:37 | PN ---
Physical Exam: SUBJECTIVE: Patient seen and examined at the bedside. ngt reinserted today. OBJECTIVE: Patient is a 64 year old male with a significant past medical history of CVA ( aphasia, right hand, and RLE deficit), atiral fibrillation (not on a/c), HIV, HTN, HLD, who presents to the ED on 10/21/2019 with 1 week of nausea, vomiting, and diarrhea. Patient was evaluated by Dr. Shields 10/17 for his symptoms at which time on lab work he was found to have a 1.7 Creatinine. cardiology evaluation for pre op clearance if patient was deemed to have surgery. start on clinimax for prolonged NPO imaging: abdomen flat/upright 10/24/2019: small bowel or high grade partial small bowel obstruction. abdomen u/s 10/23/2019: limited study, non specific echogenic liver parencyma suggestive of fatty infiltration. Vital Signs Period Temp Pulse Resp BP Sys/Barrientos Pulse Ox Last 24 Hr 98.3 F-99.5 F 61-88 18-20 102-143/47-81 90 GENERAL: The patient is awake, alert, in no acute distress. HEAD: Normal with no signs of trauma. ngt in place to low int suction. EYES: PERRL, extraocular movements intact, sclera anicteric, conjunctiva clear. No ptosis. ENT: Ears normal, nares patent, oropharynx clear without exudates, moist mucous membranes. NECK: Trachea midline, full range of motion, supple. LUNGS: Breath sounds equal, clear to auscultation bilaterally HEART: Regular rate and rhythm ABDOMEN: soft, non tender, non distended, +hypoactive bowel sounds, on ngt to low int suction. EXTREMITIES: hyperpigmentation of right lower leg, dry slough skin. NEUROLOGICAL: right sided deficit. right arm contracted, right hand contracted Laboratory Results - last 24 hr 10/23/19 10/23/19 10/23/19 16:57 19:45 19:45 WBC 4.0 RBC 3.58 L Hgb 11.9 Hct 35.1 L MCV 98.0 H MCH 33.3 MCHC 33.9 RDW 13.1 Plt Count 132 L D MPV 7.7 Absolute Neuts (auto) 2.7 Neutrophils % 67.7 Lymphocytes % 20.6 D Monocytes % 10.5 H Eosinophils % 0.9 D Basophils % 0.3 Nucleated RBC % 0 Sodium Potassium Chloride Carbon Dioxide Anion Gap BUN Creatinine Est GFR (CKD-EPI)AfAm Est GFR (CKD-EPI)NonAf POC Glucometer 156 Random Glucose Calcium Magnesium Total Bilirubin AST ALT Alkaline Phosphatase Total Protein Albumin Digoxin 1.08 10/23/19 10/23/19 10/24/19 19:45 22:44 05:28 WBC RBC Hgb Hct MCV MCH MCHC RDW Plt Count MPV Absolute Neuts (auto) Neutrophils % Lymphocytes % Monocytes % Eosinophils % Basophils % Nucleated RBC % Sodium 142 Potassium 3.2 L Chloride 104 Carbon Dioxide 35 H Anion Gap 2 L BUN 21.5 H Creatinine 0.8 Est GFR (CKD-EPI)AfAm 108.65 Est GFR (CKD-EPI)NonAf 93.74 POC Glucometer 178 185 Random Glucose 159 H Calcium 8.0 L Magnesium 1.8 Total Bilirubin 0.8 AST 21 ALT 19 Alkaline Phosphatase 57 Total Protein 6.5 Albumin 2.5 L Digoxin 10/24/19 10/24/19 10:05 10:05 WBC 3.5 L RBC 3.94 L Hgb 12.9 Hct 38.0 MCV 96.5 H MCH 32.8 MCHC 34.0 RDW 13.0 Plt Count 175 D MPV 7.4 L Absolute Neuts (auto) 2.5 Neutrophils % 70.8 Lymphocytes % 19.6 Monocytes % 8.7 Eosinophils % 0.6 Basophils % 0.3 Nucleated RBC % 0 Sodium 138 Potassium 3.3 L Chloride 101 Carbon Dioxide 32 Anion Gap 6 L BUN 17.9 Creatinine 0.9 Est GFR (CKD-EPI)AfAm 103.51 Est GFR (CKD-EPI)NonAf 89.31 POC Glucometer Random Glucose 170 H Calcium 8.5 Magnesium 1.5 L Total Bilirubin 0.9 AST 24 ALT 21 Alkaline Phosphatase 63 Total Protein 7.5 Albumin 2.8 L Digoxin Active Medications Generic Name Dose Route Start Last Admin Trade Name Freq PRN Reason Stop Dose Admin Acetaminophen 1,000 mg 10/21/19 17:22 Ofirmev Injection - IVPB Q8H PRN PAIN LEVEL 4 - 6 Digoxin 0.125 mg 10/23/19 10:00 10/24/19 12:04 Lanoxin Injection - IVPB 0.125 mg DAILY DUNIA Administration Heparin Sodium (Porcine) 5,000 unit 10/21/19 22:00 10/24/19 12:00 Heparin - SQ 5,000 unit BID DUNIA Administration Amino Acids 1,000 mls @ 84 mls/hr 10/23/19 13:00 10/24/19 05:32 Clinimix - IV 84 mls/hr Q12H DUNIA Administration Insulin Aspart 1 vial 10/21/19 22:00 10/24/19 06:01 Novolog Vial Sliding Scale - SQ 2 units ACHS DUNIA Administration Protocol Levetiracetam 500 mg 10/21/19 22:00 10/24/19 11:59 Keppra Injection - IVPB 500 mg BID DUNIA Administration Lorazepam 0.25 mg 10/21/19 17:22 Ativan Injection - IVPUSH BID PRN AGITATION Multi-Ingredient Lotion 1 applic 10/22/19 11:02 Eucerin (Small Jar) - TP BID PRN DRY SKIN Ondansetron HCl 4 mg 10/21/19 17:55 Zofran Injection IVPUSH Q8H PRN NAUSEA ASSESSMENT/PLAN: Problem List - Problems (1) Small bowel obstruction Assessment/Plan: SBO with transition point seen on CT scan NGT inserted to LIWS maintain NPO Dr Dave Brooks Sx consulted and following monitor output abd xray with persistent SBO start on clinimax for prolonged NPO Code(s): K56.609 - UNSP INTESTNL OBST, UNSP TO PARTIAL VERSUS COMPLETE OBST (2) HIV (human immunodeficiency virus infection) Assessment/Plan: hold HAART therapy while NPO, ID following. Code(s): B20 - HUMAN IMMUNODEFICIENCY VIRUS [HIV] DISEASE (3) HLD (hyperlipidemia) Assessment/Plan: continue home meds when not NPO Code(s): E78.5 - HYPERLIPIDEMIA, UNSPECIFIED (4) HTN (hypertension) Assessment/Plan: stable Code(s): I10 - ESSENTIAL (PRIMARY) HYPERTENSION (5) Nausea & vomiting Assessment/Plan: resolved with ngt placement found to have SBO Code(s): R11.2 - NAUSEA WITH VOMITING, UNSPECIFIED (6) CVA (cerebral vascular accident) Code(s): I63.9 - CEREBRAL INFARCTION, UNSPECIFIED (7) Diabetes Assessment/Plan: monitor bgms while npo Code(s): E11.9 - TYPE 2 DIABETES MELLITUS WITHOUT COMPLICATIONS (8) Eye globe prosthesis Assessment/Plan: supportive care Code(s): Z97.0 - PRESENCE OF ARTIFICIAL EYE (9) HIV (human immunodeficiency virus infection) Assessment/Plan: hiv meds on hold while npo Code(s): Z21 - ASYMPTOMATIC HUMAN IMMUNODEFICIENCY VIRUS INFECTION STATUS (10) AF Atrial fibrillation Assessment/Plan: has been off anticoagulation since 2012 secondary to an acute head bleed per . on digoxin for rate control will get digoxin levels on heparin bid Code(s): I48.91 - UNSPECIFIED ATRIAL FIBRILLATION (11) Hyponatremia Assessment/Plan: resolved Code(s): E87.1 - HYPO-OSMOLALITY AND HYPONATREMIA (12) Prophylactic measure Code(s): Z29.9 - ENCOUNTER FOR PROPHYLACTIC MEASURES, UNSPECIFIED Visit type - Emergency Visit Emergency Visit: Yes ED Registration Date: 10/21/19 Care time: The patient presented to the Emergency Department on the above date and was hospitalized for further evaluation of their emergent condition. - New Patient This patient is new to me today: No - Critical Care Critical Care patient: No - Discharge Referral Referred to [facility] Med P.C.: No
[2019-10-24] MEDS ORDERED: INSULIN (NOVOLOG) ASPART 100 UNITS/ML 10ML VIAL ONE (12:48)
--- NOTE | 2019-10-24 13:20 | PN ---
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, Physician Chief Complaint: less discomfort History of Present Illness: Patient is a 64 year old male with a medical history of CVA (aphasia, right hand , and RLE deficit), chronic atrial fibrillation not on AC due to fall and bleed , HIV on HAART, HTN, HLD, who was admitted on 10/21/2019 with 1 week of nausea, vomiting, and diarrhea. Found to have SBO, may need surgery. He cannot give a history. - Current Medication List Current Medications: Active Medications Acetaminophen (Ofirmev Injection -) 1,000 mg IVPB Q8H PRN PRN Reason: PAIN LEVEL 4 - 6 Digoxin (Lanoxin Injection -) 0.125 mg IVPB DAILY [facility] Last Admin: 10/24/19 12:04 Dose: 0.125 mg Heparin Sodium (Porcine) (Heparin -) 5,000 unit SQ BID [facility] Last Admin: 10/24/19 12:00 Dose: 5,000 unit Amino Acids (Clinimix -) 1,000 mls @ 84 mls/hr IV Q12H [facility] Last Admin: 10/24/19 12:54 Dose: 84 mls/hr Insulin Aspart (Novolog Vial Sliding Scale -) 1 vial SQ ACHS [facility]; Protocol Last Admin: 10/24/19 12:53 Dose: 4 units Levetiracetam (Keppra Injection -) 500 mg IVPB BID [facility] Last Admin: 10/24/19 11:59 Dose: 500 mg Lorazepam (Ativan Injection -) 0.25 mg IVPUSH BID PRN PRN Reason: AGITATION Multi-Ingredient Lotion (Eucerin (Small Jar) -) 1 applic TP BID PRN PRN Reason: DRY SKIN Ondansetron HCl (Zofran Injection) 4 mg IVPUSH Q8H PRN PRN Reason: NAUSEA - Objective Vital Signs: Vital Signs Temperature 98.9 F 10/24/19 10:00 Pulse Rate 88 10/24/19 12:04 Respiratory Rate 10/24/19 10:00 Blood Pressure 114/61 10/24/19 10:00 O2 Sat by Pulse Oximetry (%) 94 L 10/24/19 09:00 Constitutional: Yes: No Distress, Calm Eyes: Yes: Conjunctiva Clear, EOM Intact HENT: Yes: Atraumatic, Normocephalic Neck: Yes: Trachea Midline Cardiovascular: Yes: Pulse Irregular Respiratory: Yes: CTA Bilaterally Gastrointestinal: Yes: Soft Musculoskeletal: Yes: WNL Extremities: Yes: WNL Edema: No Labs: CBC, BMP 10/24/19 10:05 10/24/19 10:05 INR, PTT INR 1.22 (0.83-1.09) H 10/22/19 07:28 Assessment/Plan Patient is a 64 year old male with a medical history of CVA (aphasia, right hand , and RLE deficit), chronic atrial fibrillation not on AC due to fall and bleed , HIV on HAART, HTN, HLD, who was admitted on 10/21/2019 with 1 week of nausea, vomiting, and diarrhea. Found to have SBO, may need surgery. No chest pain, orthopnea, PND or edema. Preop Cardiac Evaluation -there are no cardiac contraindications to surgery. He is medically optimized and at intermediate risk. PPM -try to get old records, but needs a magnet placed over the pulse generator during surgery. Use unipolar bovie if possible (not crucial) and place bovie pad as far as possible from the pulse generator. Chronic atrial fibrillation -defer AC for now. The patient would benefit from Eliquis if there are no contraindications when stable. He has had falls and bleeding in the past. -rates are controlled. will see as needed.
[2019-10-24] MEDS: LORazepam 2 MG/ML SDV VIAL IVPUSH PRN (14:01)
[2019-10-24] MEDS ORDERED: MAGNESIUM SULF 50% (8.12 MEQ/2 ML-1 GM VIAL) IVPB ONE (16:21)
[2019-10-24] MEDS ORDERED: KCL 10 MEQ IVPB 10 MEQ/100 ML INFUS.BAG IVPB SCH (16:30)
--- NOTE | 2019-10-24 18:44 | PN ---
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 (short form) - Note 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: still with ngt Vital Signs Period Temp Pulse Resp BP Sys/Barrientos Pulse Ox Last 24 Hr 97.8 F-99.5 F 75-92 18-18 122-145/75-95 90-96 cor-rrr lungs clear abd soft,mild discomfort to palpation ext no edema CBC, BMP 10/24/19 10:05 10/24/19 10:05 Microbiology 10/23/19 19:26 Stool Clostridioides difficile Antigen - Final 10/23/19 19:26 Stool Clostridioides difficile Toxin Assay - Final 10/23/19 12:43 Blood - Peripheral Venous Blood Culture - Preliminary NO GROWTH OBTAINED AFTER 24 HOURS, INCUBATION TO CONTINUE FOR 4 DAYS. 10/23/19 12:32 Blood - Peripheral Venous Blood Culture - Preliminary NO GROWTH OBTAINED AFTER 24 HOURS, INCUBATION TO CONTINUE FOR 4 DAYS. a/p SBO- per surgery -no flatus today HIV- hold meds secondary to SBO s/p CVA secondary to fall and bleed history of afib- per cardiology d/w at bedside she is concerned he will need surgery Problem List - Problems (1) Small bowel obstruction Code(s): K56.609 - UNSP INTESTNL OBST, UNSP TO PARTIAL VERSUS COMPLETE OBST (2) HIV (human immunodeficiency virus infection) Code(s): B20 - HUMAN IMMUNODEFICIENCY VIRUS [HIV] DISEASE (3) CVA (cerebral vascular accident) Code(s): I63.9 - CEREBRAL INFARCTION, UNSPECIFIED
[2019-10-25] MEDS: AMINO ACIDS 4.25%/D5W 1,000 ML IV SCH ×2 (01:44→12:47)
[2019-10-25] MEDS: INSULIN SLIDING SCALE (NOVOLOG) 1 VIAL SQ SCH ×4 (06:50→22:38)
[2019-10-25] MEDS: HEPARIN NA (PORCINE) 5,000 UNITS/ML 1ML VIAL SQ SCH ×2 (11:15→22:38)
[2019-10-25] MEDS: levETIRAcetam 500 MG/5 ML INJECTION VIAL IVPB SCH ×2 (11:15→22:38)
[2019-10-25] MEDS: DIGOXIN 0.5 MG/2 ML AMPUL IVPB SCH (11:55)
--- NOTE | 2019-10-25 13:19 | PN ---
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 (short form) - Note 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: still with ngt resting comfortably denies abdominal pain no bm per RN Vital Signs Period Temp Pulse Resp BP Sys/Barrientos Pulse Ox Last 24 Hr 98.2 F-100.3 F 65-86 20-20 121-146/67-87 93 cor-rrr lungs clear abd soft,nt ext no edema +NGT CBC, BMP 10/24/19 10:05 10/24/19 10:05 a/p SBO- per surgery -no flatus today-still awaiting abd xray ordered this am HIV- hold meds secondary to SBO s/p CVA secondary to fall and bleed history of afib- per cardiology to call radiology to expedite the xray labs in am Problem List - Problems (1) Small bowel obstruction Code(s): K56.609 - UNSP INTESTNL OBST, UNSP TO PARTIAL VERSUS COMPLETE OBST (2) HIV (human immunodeficiency virus infection) Code(s): B20 - HUMAN IMMUNODEFICIENCY VIRUS [HIV] DISEASE (3) CVA (cerebral vascular accident) Code(s): I63.9 - CEREBRAL INFARCTION, UNSPECIFIED
[2019-10-25 14:06] LABS: BASO % 0.4 % (0-2.0); EOS % 0.9 % (0-4.5); HEMATOCRIT 36.6 % (35.4-49); HEMOGLOBIN 12.3 GM/dL (11.7-16.9); LYMPH % 26.2 % (8-40); MCH 32.8 pg (25.7-33.7); MCHC 33.7 g/dl (32.0-35.9); MEAN CELL VOLUME 97.3 fl (80-96); MEAN PLT VOLUME 7.4 fl (7.5-11.1); MONO % 11.9 % (3.8-10.2); NEUT % 60.6 % (42.8-82.8); PLATELET COUNT 153 K/MM3 (134-434); RBC 3.76 M/mm3 (4.00-5.60); WHITE BLOOD COUNT 4.8 K/mm3 (4.0-10.0)
[2019-10-25 14:37] LABS: ALBUMIN 2.6 g/dl (3.4-5.0); BILIRUBIN,TOTAL 0.8 mg/dL (0.2-1); BLOOD UREA NITROGEN 14.7 mg/dL (7-18); CALCIUM 8.2 mg/dL (8.5-10.1); CREATININE 0.7 mg/dL (0.55-1.3); MAGNESIUM 1.5 mg/dL (1.8-2.4); POTASSIUM 3.3 mmol/L (3.5-5.1)
[2019-10-25] MEDS ORDERED: TAMSULOSIN HCL 0.4 MG CAP PO SCH (16:00)
--- NOTE | 2019-10-25 17:08 | PN ---
Physical Exam: SUBJECTIVE: Patient seen and examined OBJECTIVE: Patient is a 64 year old male with a significant past medical history of CVA ( aphasia, right hand, and RLE deficit), atiral fibrillation (not on a/c), HIV, HTN, HLD, who presents to the ED on 10/21/2019 with 1 week of nausea, vomiting, and diarrhea. Patient was evaluated by Dr. Shields 10/17 for his symptoms at which time on lab work he was found to have a 1.7 Creatinine. abdomen soft, non distended, non painful. still having apx 200cc from NGT. abd xray today still shows persistent SBO Vital Signs Period Temp Pulse Resp BP Sys/Barrientos Pulse Ox Last 24 Hr 98.2 F-100.3 F 65-86 20-20 121-146/54-87 93-93 GENERAL: The patient is awake, alert, in no acute distress. HEAD: Normal with no signs of trauma. ngt in place to low int suction. EYES: PERRL, extraocular movements intact, sclera anicteric, conjunctiva clear. No ptosis. ENT: Ears normal, nares patent, oropharynx clear without exudates, moist mucous membranes. NECK: Trachea midline, full range of motion, supple. LUNGS: Breath sounds equal, clear to auscultation bilaterally HEART: Regular rate and rhythm ABDOMEN: soft, non tender, non distended, +hypoactive bowel sounds, on ngt to low int suction. EXTREMITIES: hyperpigmentation of right lower leg, dry slough skin. NEUROLOGICAL: right sided deficit. right arm contracted, right hand contracted Laboratory Results - last 24 hr 10/24/19 10/25/19 10/25/19 23:11 02:38 05:38 WBC RBC Hgb Hct MCV MCH MCHC RDW Plt Count MPV Absolute Neuts (auto) Neutrophils % Lymphocytes % Monocytes % Eosinophils % Basophils % Nucleated RBC % Sodium Potassium Chloride Carbon Dioxide Anion Gap BUN Creatinine Est GFR (CKD-EPI)AfAm Est GFR (CKD-EPI)NonAf POC Glucometer 164 176 202 Random Glucose Calcium Magnesium Total Bilirubin AST ALT Alkaline Phosphatase Total Protein Albumin 10/25/19 10/25/19 10/25/19 11:34 13:17 13:17 WBC 4.8 RBC 3.76 L Hgb 12.3 Hct 36.6 MCV 97.3 H MCH 32.8 MCHC 33.7 RDW 13.0 Plt Count 153 MPV 7.4 L Absolute Neuts (auto) 2.9 Neutrophils % 60.6 Lymphocytes % 26.2 D Monocytes % 11.9 H Eosinophils % 0.9 Basophils % 0.4 Nucleated RBC % 0 Sodium 137 Potassium 3.3 L Chloride 102 Carbon Dioxide 29 Anion Gap 6 L BUN 14.7 Creatinine 0.7 Est GFR (CKD-EPI)AfAm 114.78 Est GFR (CKD-EPI)NonAf 99.03 POC Glucometer 141 Random Glucose 145 H Calcium 8.2 L Magnesium 1.5 L Total Bilirubin 0.8 AST 30 ALT 26 Alkaline Phosphatase 65 Total Protein 7.0 Albumin 2.6 L 10/25/19 10/25/19 13:27 16:49 WBC RBC Hgb Hct MCV MCH MCHC RDW Plt Count MPV Absolute Neuts (auto) Neutrophils % Lymphocytes % Monocytes % Eosinophils % Basophils % Nucleated RBC % Sodium Potassium Chloride Carbon Dioxide Anion Gap BUN Creatinine Est GFR (CKD-EPI)AfAm Est GFR (CKD-EPI)NonAf POC Glucometer 151 179 Random Glucose Calcium Magnesium Total Bilirubin AST ALT Alkaline Phosphatase Total Protein Albumin Active Medications Generic Name Dose Route Start Last Admin Trade Name Freq PRN Reason Stop Dose Admin Acetaminophen 1,000 mg 10/21/19 17:22 Ofirmev Injection - IVPB Q8H PRN PAIN LEVEL 4 - 6 Digoxin 0.125 mg 10/23/19 10:00 10/25/19 11:55 Lanoxin Injection - IVPB 0.125 mg DAILY DUNIA Administration Heparin Sodium (Porcine) 5,000 unit 10/21/19 22:00 10/25/19 11:15 Heparin - SQ 5,000 unit BID DUNIA Administration Amino Acids 1,000 mls @ 84 mls/hr 10/23/19 13:00 10/25/19 12:47 Clinimix - IV 84 mls/hr Q12H DUNIA Administration Insulin Aspart 1 vial 10/21/19 22:00 10/25/19 11:55 Novolog Vial Sliding Scale - SQ Not Given ACHS [facility] Protocol Levetiracetam 500 mg 10/21/19 22:00 10/25/19 11:15 Keppra Injection - IVPB 500 mg BID DUNIA Administration Lorazepam 0.25 mg 10/21/19 17:22 10/24/19 14:01 Ativan Injection - IVPUSH 0.25 mg BID PRN Administration AGITATION Multi-Ingredient Lotion 1 applic 10/22/19 11:02 Eucerin (Small Jar) - TP BID PRN DRY SKIN Ondansetron HCl 4 mg 10/21/19 17:55 Zofran Injection IVPUSH Q8H PRN NAUSEA Tamsulosin HCl 0.4 mg 10/25/19 16:00 Flomax - PO DAILY@0830 [facility] ASSESSMENT/PLAN: Problem List - Problems (1) Small bowel obstruction Assessment/Plan: SBO with transition point seen on CT scan NGT inserted to LIWS maintain NPO Dr Dave Brooks Sx consulted and following monitor output abd xray with persistent SBO start on clinimax for prolonged NPO Code(s): K56.609 - UNSP INTESTNL OBST, UNSP TO PARTIAL VERSUS COMPLETE OBST (2) HIV (human immunodeficiency virus infection) Assessment/Plan: hold HAART therapy while NPO, ID following. Code(s): B20 - HUMAN IMMUNODEFICIENCY VIRUS [HIV] DISEASE (3) HLD (hyperlipidemia) Assessment/Plan: continue home meds when not NPO Code(s): E78.5 - HYPERLIPIDEMIA, UNSPECIFIED (4) HTN (hypertension) Assessment/Plan: stable Code(s): I10 - ESSENTIAL (PRIMARY) HYPERTENSION (5) Nausea & vomiting Assessment/Plan: resolved with ngt placement found to have SBO Code(s): R11.2 - NAUSEA WITH VOMITING, UNSPECIFIED (6) CVA (cerebral vascular accident) Code(s): I63.9 - CEREBRAL INFARCTION, UNSPECIFIED (7) Diabetes Assessment/Plan: monitor bgms while npo Code(s): E11.9 - TYPE 2 DIABETES MELLITUS WITHOUT COMPLICATIONS (8) Eye globe prosthesis Assessment/Plan: supportive care Code(s): Z97.0 - PRESENCE OF ARTIFICIAL EYE (9) HIV (human immunodeficiency virus infection) Assessment/Plan: hiv meds on hold while npo Code(s): Z21 - ASYMPTOMATIC HUMAN IMMUNODEFICIENCY VIRUS INFECTION STATUS (10) AF Atrial fibrillation Assessment/Plan: has been off anticoagulation since 2012 secondary to an acute head bleed per . on digoxin for rate control will get digoxin levels on heparin bid Code(s): I48.91 - UNSPECIFIED ATRIAL FIBRILLATION (11) Hyponatremia Assessment/Plan: resolved Code(s): E87.1 - HYPO-OSMOLALITY AND HYPONATREMIA (12) Prophylactic measure Code(s): Z29.9 - ENCOUNTER FOR PROPHYLACTIC MEASURES, UNSPECIFIED Visit type - Emergency Visit Emergency Visit: Yes ED Registration Date: 10/21/19 Care time: The patient presented to the Emergency Department on the above date and was hospitalized for further evaluation of their emergent condition. - New Patient This patient is new to me today: No - Critical Care Critical Care patient: No - Discharge Referral Referred to [facility] Med P.C.: No
[2019-10-26] MEDS: AMINO ACIDS 4.25%/D5W 1,000 ML IV SCH ×2 (01:40→17:53)
[2019-10-26] MEDS: INSULIN SLIDING SCALE (NOVOLOG) 1 VIAL SQ SCH ×4 (06:39→22:34)
[2019-10-26] MEDS: levETIRAcetam 500 MG/5 ML INJECTION VIAL IVPB SCH ×2 (10:44→22:01)
[2019-10-26] MEDS: HEPARIN NA (PORCINE) 5,000 UNITS/ML 1ML VIAL SQ SCH ×2 (10:45→22:34)
--- NOTE | 2019-10-26 11:02 | PN ---
Physical Exam: SUBJECTIVE: Patient seen and examined at the bed side. awake and alert. OBJECTIVE: Patient is a 64 year old male with a significant past medical history of CVA ( aphasia, right hand, and RLE deficit), atiral fibrillation (not on a/c), HIV, HTN, HLD, who presents to the ED on 10/21/2019 with 1 week of nausea, vomiting, and diarrhea. Patient was evaluated by Dr. Shields 10/17 for his symptoms at which time on lab work he was found to have a 1.7 Creatinine. clinically appears improved, no nausea/no vomiting, abdomen soft, non tender with + bowel sounds. however xray shows persistent sbo. total output from ngt 250 in last 24 hours. Vital Signs Period Temp Pulse Resp BP Sys/Barrientos Pulse Ox Last 24 Hr 97.9 F-99.6 F 60-80 20-20 110-133/54-78 94 GENERAL: The patient is awake, alert, in no acute distress. HEAD: Normal with no signs of trauma. ngt in place to low int suction. EYES: PERRL, extraocular movements intact, sclera anicteric, conjunctiva clear. No ptosis. ENT: Ears normal, nares patent, oropharynx clear without exudates, moist mucous membranes. NECK: Trachea midline, full range of motion, supple. LUNGS: Breath sounds equal, clear to auscultation bilaterally HEART: Regular rate and rhythm ABDOMEN: soft, non tender, non distended, +hypoactive bowel sounds, on ngt to low int suction. EXTREMITIES: hyperpigmentation of right lower leg, dry slough skin. NEUROLOGICAL: right sided deficit. right arm contracted, right hand contracted Laboratory Results - last 24 hr 10/25/19 10/25/19 10/25/19 11:34 13:17 13:17 WBC 4.8 RBC 3.76 L Hgb 12.3 Hct 36.6 MCV 97.3 H MCH 32.8 MCHC 33.7 RDW 13.0 Plt Count 153 MPV 7.4 L Absolute Neuts (auto) 2.9 Neutrophils % 60.6 Lymphocytes % 26.2 D Monocytes % 11.9 H Eosinophils % 0.9 Basophils % 0.4 Nucleated RBC % 0 Sodium 137 Potassium 3.3 L Chloride 102 Carbon Dioxide 29 Anion Gap 6 L BUN 14.7 Creatinine 0.7 Est GFR (CKD-EPI)AfAm 114.78 Est GFR (CKD-EPI)NonAf 99.03 POC Glucometer 141 Random Glucose 145 H Calcium 8.2 L Magnesium 1.5 L Total Bilirubin 0.8 AST 30 ALT 26 Alkaline Phosphatase 65 Total Protein 7.0 Albumin 2.6 L 10/25/19 10/25/19 10/25/19 13:27 16:49 22:10 WBC RBC Hgb Hct MCV MCH MCHC RDW Plt Count MPV Absolute Neuts (auto) Neutrophils % Lymphocytes % Monocytes % Eosinophils % Basophils % Nucleated RBC % Sodium Potassium Chloride Carbon Dioxide Anion Gap BUN Creatinine Est GFR (CKD-EPI)AfAm Est GFR (CKD-EPI)NonAf POC Glucometer 151 179 174 Random Glucose Calcium Magnesium Total Bilirubin AST ALT Alkaline Phosphatase Total Protein Albumin 10/26/19 10/26/19 10/26/19 04:12 06:36 10:36 WBC RBC Hgb Hct MCV MCH MCHC RDW Plt Count MPV Absolute Neuts (auto) Neutrophils % Lymphocytes % Monocytes % Eosinophils % Basophils % Nucleated RBC % Sodium Potassium Chloride Carbon Dioxide Anion Gap BUN Creatinine Est GFR (CKD-EPI)AfAm Est GFR (CKD-EPI)NonAf POC Glucometer 164 188 174 Random Glucose Calcium Magnesium Total Bilirubin AST ALT Alkaline Phosphatase Total Protein Albumin Active Medications Generic Name Dose Route Start Last Admin Trade Name Freq PRN Reason Stop Dose Admin Acetaminophen 1,000 mg 10/21/19 17:22 Ofirmev Injection - IVPB Q8H PRN PAIN LEVEL 4 - 6 Digoxin 0.125 mg 10/23/19 10:00 10/25/19 11:55 Lanoxin Injection - IVPB 0.125 mg DAILY DUNIA Administration Heparin Sodium (Porcine) 5,000 unit 10/21/19 22:00 10/25/19 22:38 Heparin - SQ 5,000 unit BID DUNIA Administration Amino Acids 1,000 mls @ 84 mls/hr 10/23/19 13:00 10/26/19 01:40 Clinimix - IV 84 mls/hr Q12H DUNIA Administration Insulin Aspart 1 vial 10/21/19 22:00 10/26/19 06:39 Novolog Vial Sliding Scale - SQ 2 units ACHS DUNIA Administration Protocol Levetiracetam 500 mg 10/21/19 22:00 10/25/19 22:38 Keppra Injection - IVPB 500 mg BID DUNIA Administration Lorazepam 0.25 mg 10/21/19 17:22 10/24/19 14:01 Ativan Injection - IVPUSH 0.25 mg BID PRN Administration AGITATION Multi-Ingredient Lotion 1 applic 10/22/19 11:02 Eucerin (Small Jar) - TP BID PRN DRY SKIN Ondansetron HCl 4 mg 10/21/19 17:55 Zofran Injection IVPUSH Q8H PRN NAUSEA ASSESSMENT/PLAN: Problem List - Problems (1) Small bowel obstruction Assessment/Plan: abd xray with persistent sbo for small bowel series per surgery if sbo persists for abd xray in a.m. clinically appears improved Code(s): K56.609 - UNSP INTESTNL OBST, UNSP TO PARTIAL VERSUS COMPLETE OBST (2) HIV (human immunodeficiency virus infection) Assessment/Plan: hold HAART therapy while NPO, ID following. Code(s): B20 - HUMAN IMMUNODEFICIENCY VIRUS [HIV] DISEASE (3) HLD (hyperlipidemia) Assessment/Plan: continue home meds when not NPO Code(s): E78.5 - HYPERLIPIDEMIA, UNSPECIFIED (4) HTN (hypertension) Assessment/Plan: stable Code(s): I10 - ESSENTIAL (PRIMARY) HYPERTENSION (5) Nausea & vomiting Assessment/Plan: resolved Code(s): R11.2 - NAUSEA WITH VOMITING, UNSPECIFIED (6) CVA (cerebral vascular accident) Assessment/Plan: right sided weakness. PT therapy ordered. Code(s): I63.9 - CEREBRAL INFARCTION, UNSPECIFIED (7) Diabetes Assessment/Plan: monitor bgms while npo Code(s): E11.9 - TYPE 2 DIABETES MELLITUS WITHOUT COMPLICATIONS (8) Eye globe prosthesis Assessment/Plan: supportive care Code(s): Z97.0 - PRESENCE OF ARTIFICIAL EYE (9) HIV (human immunodeficiency virus infection) Assessment/Plan: hiv meds on hold while npo Code(s): Z21 - ASYMPTOMATIC HUMAN IMMUNODEFICIENCY VIRUS INFECTION STATUS (10) AF Atrial fibrillation Assessment/Plan: has been off anticoagulation since 2012 secondary to an acute head bleed per . on digoxin for rate control will get digoxin levels on heparin bid Code(s): I48.91 - UNSPECIFIED ATRIAL FIBRILLATION (11) Hyponatremia Assessment/Plan: resolved Code(s): E87.1 - HYPO-OSMOLALITY AND HYPONATREMIA (12) Prophylactic measure Code(s): Z29.9 - ENCOUNTER FOR PROPHYLACTIC MEASURES, UNSPECIFIED Visit type - Emergency Visit Emergency Visit: Yes ED Registration Date: 10/21/19 Care time: The patient presented to the Emergency Department on the above date and was hospitalized for further evaluation of their emergent condition. - New Patient This patient is new to me today: No - Critical Care Critical Care patient: No - Discharge Referral Referred to [facility] Med P.C.: No
[2019-10-26] MEDS: DIGOXIN 0.5 MG/2 ML AMPUL IVPB SCH (11:34)
--- NOTE | 2019-10-26 11:46 | PN ---
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 (short form) - Note 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: Attending Surgeon Seen in f/u; no flatus or BM NGT is not functioning correctly VSS AF abdo-soft and tympanitic IMP:SBO PLAN: NGT made functional; AXR's tomorrow; if not improved or not clinically improved SBS 10/28/2019. Rohan Acosta MD FACS
[2019-10-26 18:29] LABS: BASO % 0.4 % (0-2.0); EOS % 1.3 % (0-4.5); HEMATOCRIT 37.1 % (35.4-49); HEMOGLOBIN 12.7 GM/dL (11.7-16.9); LYMPH % 24.8 % (8-40); MCH 33.1 pg (25.7-33.7); MCHC 34.2 g/dl (32.0-35.9); MEAN CELL VOLUME 96.8 fl (80-96); MEAN PLT VOLUME 7.9 fl (7.5-11.1); MONO % 9.7 % (3.8-10.2); NEUT % 63.8 % (42.8-82.8); PLATELET COUNT 162 K/MM3 (134-434); RBC 3.83 M/mm3 (4.00-5.60); RDW 13.1 % (11.9-15.9); WHITE BLOOD COUNT 4.8 K/mm3 (4.0-10.0)
[2019-10-26 18:39] LABS: ALBUMIN 2.6 g/dl (3.4-5.0); BILIRUBIN,TOTAL 0.9 mg/dL (0.2-1); CREATININE 0.7 mg/dL (0.55-1.3); MAGNESIUM 1.4 mg/dL (1.8-2.4); POTASSIUM 3.1 mmol/L (3.5-5.1)
[2019-10-26] MEDS ORDERED: MAGNESIUM SULF 50% (8.12 MEQ/2 ML-1 GM VIAL) IVPB ONE (18:45)
[2019-10-26] MEDS: KCL 10 MEQ IVPB 10 MEQ/100 ML INFUS.BAG IVPB SCH (20:33)
[2019-10-26] MEDS: FAT EMULSIONS 250 ML IV SCH (21:01)
[2019-10-26] MEDS ORDERED: FAT EMULSIONS 20% 250 ML PREMIX INFUS.BAG IV SCH (22:00)
[2019-10-27] MEDS: AMINO ACIDS 4.25%/D5W 1,000 ML IV SCH ×3 (01:12→13:12)
[2019-10-27] MEDS: KCL 10 MEQ IVPB 10 MEQ/100 ML INFUS.BAG IVPB SCH ×2 (01:12→02:22)
[2019-10-27] MEDS: INSULIN SLIDING SCALE (NOVOLOG) 1 VIAL SQ SCH ×4 (06:00→22:26)
[2019-10-27] MEDS ORDERED: PT OWN MED DRAWER 7, Y5N ONE ×2 (10:15→17:32)
[2019-10-27] MEDS: levETIRAcetam 500 MG/5 ML INJECTION VIAL IVPB SCH ×2 (10:21→21:01)
[2019-10-27] MEDS: HEPARIN NA (PORCINE) 5,000 UNITS/ML 1ML VIAL SQ SCH ×2 (10:22→21:01)
[2019-10-27] MEDS: DIGOXIN 0.5 MG/2 ML AMPUL IVPB SCH (10:22)
--- NOTE | 2019-10-27 12:03 | PN ---
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 (short form) - Note 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: Attending Surgeon No c/o; no flatus and/or BM VSS AF abdo-soft and non tender; slight tympany AXR today-sbo IMP: SBO PLAN: Continue same ; small bowel series tomorrow. Rohan Acosta MD FACS
--- NOTE | 2019-10-27 17:27 | PN ---
Physical Exam: SUBJECTIVE: Patient seen and examined at the bedside. in no acute distress. OBJECTIVE: Patient is a 64 year old male with a significant past medical history of CVA ( aphasia, right hand, and RLE deficit), atiral fibrillation (not on a/c), HIV, HTN, HLD, who presents to the ED on 10/21/2019 with 1 week of nausea, vomiting, and diarrhea and was found to have a small bowel obstruction. He continues to drain in the NGT as SBO persists. He is for a small bowel series in am. Vital Signs Period Temp Pulse Resp BP Sys/Barrientos Pulse Ox Last 24 Hr 98.6 F-99.3 F 60-84 20-20 102-148/59-77 92-94 GENERAL: The patient is awake, alert, in no acute distress. HEAD: Normal with no signs of trauma. ngt in place to low int suction. EYES: PERRL, extraocular movements intact, sclera anicteric, conjunctiva clear. No ptosis. ENT: Ears normal, nares patent, oropharynx clear without exudates, moist mucous membranes. NECK: Trachea midline, full range of motion, supple. LUNGS: Breath sounds equal, clear to auscultation bilaterally HEART: Regular rate and rhythm ABDOMEN: soft, non tender, non distended, +hypoactive bowel sounds, on ngt to low int suction. EXTREMITIES: hyperpigmentation of right lower leg, dry slough skin. NEUROLOGICAL: right sided deficit. right arm contracted, right hand contracted Laboratory Results - last 24 hr 10/26/19 10/26/19 10/26/19 15:05 15:05 17:42 WBC 4.8 RBC 3.83 L Hgb 12.7 Hct 37.1 MCV 96.8 H MCH 33.1 MCHC 34.2 RDW 13.1 Plt Count 162 MPV 7.9 Absolute Neuts (auto) 3.0 Neutrophils % 63.8 Lymphocytes % 24.8 Monocytes % 9.7 Eosinophils % 1.3 Basophils % 0.4 Nucleated RBC % 0 Sodium 138 Potassium 3.1 L Chloride 104 Carbon Dioxide 26 Anion Gap 7 L BUN 15.0 Creatinine 0.7 Est GFR (CKD-EPI)AfAm 114.78 Est GFR (CKD-EPI)NonAf 99.03 POC Glucometer 143 Random Glucose 141 H Calcium 8.0 L Magnesium 1.4 L Total Bilirubin 0.9 AST 32 ALT 29 Alkaline Phosphatase 61 Total Protein 7.0 Albumin 2.6 L Triglycerides 121 Cholesterol 64 Total LDL Cholesterol 32 HDL Cholesterol 21 L 10/26/19 10/27/19 10/27/19 22:26 05:39 12:51 WBC RBC Hgb Hct MCV MCH MCHC RDW Plt Count MPV Absolute Neuts (auto) Neutrophils % Lymphocytes % Monocytes % Eosinophils % Basophils % Nucleated RBC % Sodium Potassium Chloride Carbon Dioxide Anion Gap BUN Creatinine Est GFR (CKD-EPI)AfAm Est GFR (CKD-EPI)NonAf POC Glucometer 195 206 189 Random Glucose Calcium Magnesium Total Bilirubin AST ALT Alkaline Phosphatase Total Protein Albumin Triglycerides Cholesterol Total LDL Cholesterol HDL Cholesterol 10/27/19 16:53 WBC RBC Hgb Hct MCV MCH MCHC RDW Plt Count MPV Absolute Neuts (auto) Neutrophils % Lymphocytes % Monocytes % Eosinophils % Basophils % Nucleated RBC % Sodium Potassium Chloride Carbon Dioxide Anion Gap BUN Creatinine Est GFR (CKD-EPI)AfAm Est GFR (CKD-EPI)NonAf POC Glucometer 165 Random Glucose Calcium Magnesium Total Bilirubin AST ALT Alkaline Phosphatase Total Protein Albumin Triglycerides Cholesterol Total LDL Cholesterol HDL Cholesterol Active Medications Generic Name Dose Route Start Last Admin Trade Name Freq PRN Reason Stop Dose Admin Acetaminophen 1,000 mg 10/21/19 17:22 Ofirmev Injection - IVPB Q8H PRN PAIN LEVEL 4 - 6 Digoxin 0.125 mg 10/23/19 10:00 10/27/19 10:22 Lanoxin Injection - IVPB 0.125 mg DAILY DUNIA Administration Heparin Sodium (Porcine) 5,000 unit 10/21/19 22:00 10/27/19 10:22 Heparin - SQ 5,000 unit BID DUNIA Administration Amino Acids 1,000 mls @ 84 mls/hr 10/23/19 13:00 10/27/19 13:12 Clinimix - IV 84 mls/hr Q12H DUNIA Administration Fat Emulsion Intravenous 250 mls @ 20.833 mls/hr 10/26/19 22:00 10/26/19 21: 01 Intralipid - IV 20.833 mls/hr DAILY@2200 DUNIA Administration Insulin Aspart 1 vial 10/21/19 22:00 10/27/19 16:57 Novolog Vial Sliding Scale - SQ 2 units ACHS DUNIA Administration Protocol Levetiracetam 500 mg 10/21/19 22:00 10/27/19 10:21 Keppra Injection - IVPB 500 mg BID DUNIA Administration Lorazepam 0.25 mg 10/21/19 17:22 10/24/19 14:01 Ativan Injection - IVPUSH 0.25 mg BID PRN Administration AGITATION Multi-Ingredient Lotion 1 applic 10/22/19 11:02 Eucerin (Small Jar) - TP BID PRN DRY SKIN Ondansetron HCl 4 mg 10/21/19 17:55 Zofran Injection IVPUSH Q8H PRN NAUSEA ASSESSMENT/PLAN: Problem List - Problems (1) Small bowel obstruction Assessment/Plan: abd xray with persistent sbo. for small bowel series per surgery Code(s): K56.609 - UNSP INTESTNL OBST, UNSP TO PARTIAL VERSUS COMPLETE OBST (2) HIV (human immunodeficiency virus infection) Assessment/Plan: PO meds have been held since admission due to persistent SBO Code(s): B20 - HUMAN IMMUNODEFICIENCY VIRUS [HIV] DISEASE (3) HLD (hyperlipidemia) Assessment/Plan: continue home meds when not NPO Code(s): E78.5 - HYPERLIPIDEMIA, UNSPECIFIED (4) HTN (hypertension) Assessment/Plan: stable Code(s): I10 - ESSENTIAL (PRIMARY) HYPERTENSION (5) Nausea & vomiting Assessment/Plan: resolved Code(s): R11.2 - NAUSEA WITH VOMITING, UNSPECIFIED (6) CVA (cerebral vascular accident) Assessment/Plan: right sided weakness. PT therapy ordered. Code(s): I63.9 - CEREBRAL INFARCTION, UNSPECIFIED (7) Diabetes Assessment/Plan: monitor bgms while npo Code(s): E11.9 - TYPE 2 DIABETES MELLITUS WITHOUT COMPLICATIONS (8) Eye globe prosthesis Assessment/Plan: supportive care Code(s): Z97.0 - PRESENCE OF ARTIFICIAL EYE (9) HIV (human immunodeficiency virus infection) Assessment/Plan: hiv meds on hold while npo Code(s): Z21 - ASYMPTOMATIC HUMAN IMMUNODEFICIENCY VIRUS INFECTION STATUS (10) AF Atrial fibrillation Assessment/Plan: has been off anticoagulation since 2012 secondary to an acute head bleed per . on digoxin for rate control on heparin bid Code(s): I48.91 - UNSPECIFIED ATRIAL FIBRILLATION (11) Hyponatremia Assessment/Plan: resolved Code(s): E87.1 - HYPO-OSMOLALITY AND HYPONATREMIA (12) Prophylactic measure Code(s): Z29.9 - ENCOUNTER FOR PROPHYLACTIC MEASURES, UNSPECIFIED Visit type - Emergency Visit Emergency Visit: Yes ED Registration Date: 10/21/19 Care time: The patient presented to the Emergency Department on the above date and was hospitalized for further evaluation of their emergent condition. - New Patient This patient is new to me today: No - Critical Care Critical Care patient: No - Discharge Referral Referred to [facility] Med P.C.: No
[2019-10-27] MEDS: FAT EMULSIONS 250 ML IV SCH (21:00)
[2019-10-27] MEDS ORDERED: INSULIN (NOVOLOG) ASPART 100 UNITS/ML 10ML VIAL ONE (21:48)
[2019-10-28] MEDS: AMINO ACIDS 4.25%/D5W 1,000 ML IV SCH ×2 (03:21→04:03)
[2019-10-28] MEDS: INSULIN SLIDING SCALE (NOVOLOG) 1 VIAL SQ SCH ×4 (06:10→21:27)
[2019-10-28] MEDS ORDERED: PT OWN MED DRAWER 7, Y5N ONE (08:49)
[2019-10-28] MEDS: HEPARIN NA (PORCINE) 5,000 UNITS/ML 1ML VIAL SQ SCH ×2 (09:11→21:26)
[2019-10-28] MEDS: DIGOXIN 0.5 MG/2 ML AMPUL IVPB SCH (09:11)
[2019-10-28] MEDS: levETIRAcetam 500 MG/5 ML INJECTION VIAL IVPB SCH ×2 (09:27→21:26)
--- NOTE | 2019-10-28 09:42 | PN ---
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 (short form) - Note 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: still with ngt resting comfortably for small bowel series today Vital Signs Period Temp Pulse Resp BP Sys/Barrientos Pulse Ox Last 24 Hr 97.2 F-99.3 F 60-86 20-20 102-145/57-86 94-98 +NGT cor-rrr lungs clear abd soft,nt ext no edema CBC, BMP 10/26/19 15:05 10/26/19 15:05 Microbiology 10/23/19 12:43 Blood - Peripheral Venous Blood Culture - Preliminary NO GROWTH OBTAINED AFTER 96 HOURS, INCUBATION TO CONTINUE FOR 1 DAYS. 10/23/19 12:32 Blood - Peripheral Venous Blood Culture - Preliminary NO GROWTH OBTAINED AFTER 96 HOURS, INCUBATION TO CONTINUE FOR 1 DAYS. 10/23/19 19:26 Stool Clostridioides difficile Antigen - Final 10/23/19 19:26 Stool Clostridioides difficile Toxin Assay - Final a/p SBO- per surgery -no flatus today-still awaiting abd xray ordered this am HIV- hold meds secondary to SBO s/p CVA secondary to fall and bleed history of afib- per cardiology for small bowel series today per surgery Problem List - Problems (1) Small bowel obstruction Code(s): K56.609 - UNSP INTESTNL OBST, UNSP TO PARTIAL VERSUS COMPLETE OBST (2) HIV (human immunodeficiency virus infection) Code(s): B20 - HUMAN IMMUNODEFICIENCY VIRUS [HIV] DISEASE (3) CVA (cerebral vascular accident) Code(s): I63.9 - CEREBRAL INFARCTION, UNSPECIFIED
--- NOTE | 2019-10-28 12:22 | PN ---
Physical Exam: SUBJECTIVE: Patient seen and examined at the bedside. patient became restless during attempts at small bowel series and testing could not be completed. OBJECTIVE: Patient is a 64 year old male with a significant past medical history of CVA ( aphasia, right hand, and RLE deficit), atiral fibrillation (not on a/c), HIV, HTN, HLD, who presents to the ED on 10/21/2019 with 1 week of nausea, vomiting, and diarrhea and was found to have a small bowel obstruction. He continues to drain in the NGT as SBO persists. Small bowel series attempted today but patient became restless and testing not completed. Has been NPO day 7, remains on clinimax and lipids. Renal consult for start of TPN, will order central line. potassium and magnesium repleted. Vital Signs Period Temp Pulse Resp BP Sys/Barrientos Pulse Ox Last 24 Hr 97.2 F-99.3 F 60-86 20-20 102-145/57-86 94-98 GENERAL: The patient is awake, alert, in no acute distress. HEAD: Normal with no signs of trauma. ngt in place to low int suction. EYES: PERRL, extraocular movements intact, sclera anicteric, conjunctiva clear. No ptosis. ENT: Ears normal, nares patent, oropharynx clear without exudates, moist mucous membranes. NECK: Trachea midline, full range of motion, supple. LUNGS: Breath sounds equal, clear to auscultation bilaterally HEART: Regular rate and rhythm ABDOMEN: soft, non tender, non distended, +hypoactive bowel sounds, on ngt to low int suction. EXTREMITIES: hyperpigmentation of right lower leg, dry slough skin. NEUROLOGICAL: right sided deficit. right arm contracted, right hand contracted Laboratory Results - last 24 hr 10/27/19 10/27/19 10/27/19 12:51 16:53 21:27 POC Glucometer 189 165 183 10/28/19 05:32 POC Glucometer 217 Active Medications Generic Name Dose Route Start Last Admin Trade Name Freq PRN Reason Stop Dose Admin Acetaminophen 1,000 mg 10/21/19 17:22 Ofirmev Injection - IVPB Q8H PRN PAIN LEVEL 4 - 6 Digoxin 0.125 mg 10/23/19 10:00 10/28/19 09:11 Lanoxin Injection - IVPB 0.125 mg DAILY DUNIA Administration Heparin Sodium (Porcine) 5,000 unit 10/21/19 22:00 10/28/19 09:11 Heparin - SQ 5,000 unit BID DUNIA Administration Fat Emulsion Intravenous 250 mls @ 20.833 mls/hr 10/26/19 22:00 10/27/19 21: 00 Intralipid - IV 20.833 mls/hr DAILY@2200 DUNIA Administration Potassium Chloride 20 meq/ 1,010 mls @ 84 mls/hr 10/28/19 12:19 Amino Acids IVPB Q12H DUNIA Insulin Aspart 1 vial 10/21/19 22:00 10/28/19 06:10 Novolog Vial Sliding Scale - SQ 4 units ACHS DUNIA Administration Protocol Levetiracetam 500 mg 10/21/19 22:00 10/28/19 09:27 Keppra Injection - IVPB 500 mg BID DUNIA Administration Lorazepam 0.25 mg 10/21/19 17:22 10/24/19 14:01 Ativan Injection - IVPUSH 0.25 mg BID PRN Administration AGITATION Multi-Ingredient Lotion 1 applic 10/22/19 11:02 Eucerin (Small Jar) - TP BID PRN DRY SKIN Ondansetron HCl 4 mg 10/21/19 17:55 Zofran Injection IVPUSH Q8H PRN NAUSEA ASSESSMENT/PLAN: Problem List - Problems (1) Small bowel obstruction Assessment/Plan: abd xray with persistent sbo. small bowel series not completed as pt unable to tolerate. per surgery, surgical interventions now being planned with patient's . patient has been cleared for surgery by cardiology. Code(s): K56.609 - UNSP INTESTNL OBST, UNSP TO PARTIAL VERSUS COMPLETE OBST (2) HIV (human immunodeficiency virus infection) Assessment/Plan: PO meds have been held since admission due to persistent SBO Code(s): B20 - HUMAN IMMUNODEFICIENCY VIRUS [HIV] DISEASE (3) HLD (hyperlipidemia) Assessment/Plan: continue home meds when not NPO Code(s): E78.5 - HYPERLIPIDEMIA, UNSPECIFIED (4) HTN (hypertension) Assessment/Plan: stable Code(s): I10 - ESSENTIAL (PRIMARY) HYPERTENSION (5) Nausea & vomiting Assessment/Plan: resolved Code(s): R11.2 - NAUSEA WITH VOMITING, UNSPECIFIED (6) CVA (cerebral vascular accident) Assessment/Plan: right sided weakness. PT therapy ordered. Code(s): I63.9 - CEREBRAL INFARCTION, UNSPECIFIED (7) Diabetes Assessment/Plan: monitor bgms while npo Code(s): E11.9 - TYPE 2 DIABETES MELLITUS WITHOUT COMPLICATIONS (8) Eye globe prosthesis Assessment/Plan: supportive care Code(s): Z97.0 - PRESENCE OF ARTIFICIAL EYE (9) HIV (human immunodeficiency virus infection) Assessment/Plan: hiv meds on hold while npo Code(s): Z21 - ASYMPTOMATIC HUMAN IMMUNODEFICIENCY VIRUS INFECTION STATUS (10) AF Atrial fibrillation Assessment/Plan: has been off anticoagulation since 2012 secondary to an acute head bleed per . on digoxin for rate control on heparin bid cardiology notes reviewed Code(s): I48.91 - UNSPECIFIED ATRIAL FIBRILLATION (11) Hyponatremia Assessment/Plan: resolved Code(s): E87.1 - HYPO-OSMOLALITY AND HYPONATREMIA (12) Prophylactic measure Code(s): Z29.9 - ENCOUNTER FOR PROPHYLACTIC MEASURES, UNSPECIFIED (13) JUAN R (acute kidney injury) Code(s): N17.9 - ACUTE KIDNEY FAILURE, UNSPECIFIED Visit type - Emergency Visit Emergency Visit: Yes ED Registration Date: 10/21/19 Care time: The patient presented to the Emergency Department on the above date and was hospitalized for further evaluation of their emergent condition. - New Patient This patient is new to me today: No - Critical Care Critical Care patient: No - Discharge Referral Referred to [facility] Med P.C.: No
[2019-10-28 13:54] LABS: ALBUMIN 2.8 g/dl (3.4-5.0); BILIRUBIN,TOTAL 1.3 mg/dL (0.2-1); CALCIUM 8.5 mg/dL (8.5-10.1); CREATININE 0.7 mg/dL (0.55-1.3); MAGNESIUM 1.7 mg/dL (1.8-2.4); PHOSPHOROUS 3.1 mg/dL (2.5-4.9); POTASSIUM 3.1 mmol/L (3.5-5.1); TOT PROT 7.6 g/dl (6.4-8.2)
[2019-10-28] MEDS: LORazepam 2 MG/ML SDV VIAL IVPUSH PRN (13:58)
[2019-10-28] MEDS ORDERED: KCL 10 MEQ IVPB 10 MEQ/100 ML INFUS.BAG IVPB SCH (14:00)
[2019-10-28 15:17] LABS: BASO % 0.6 % (0-2.0); EOS % 1.4 % (0-4.5); HEMATOCRIT 36.3 % (35.4-49); HEMOGLOBIN 12.5 GM/dL (11.7-16.9); MCH 32.6 pg (25.7-33.7); MCHC 34.4 g/dl (32.0-35.9); MEAN CELL VOLUME 94.6 fl (80-96); MEAN PLT VOLUME 7.7 fl (7.5-11.1); MONO % 9.1 % (3.8-10.2); NEUT % 68.9 % (42.8-82.8); PLATELET COUNT 182 K/MM3 (134-434); RBC 3.84 M/mm3 (4.00-5.60); RDW 13.3 % (11.9-15.9); WHITE BLOOD COUNT 5.8 K/mm3 (4.0-10.0)
[2019-10-28] MEDS: POTASSIUM CHLORIDE 20 MEQ in AMINO ACIDS 4.25%/D5W 1,000 ML IVPB SCH (15:56)
[2019-10-28] MEDS ORDERED: MAGNESIUM SULF 50% (8.12 MEQ/2 ML-1 GM VIAL) IVPB ONE (16:20)
[2019-10-28] MEDS: FAT EMULSIONS 250 ML IV SCH (21:26)
[2019-10-29] MEDS: POTASSIUM CHLORIDE 20 MEQ in AMINO ACIDS 4.25%/D5W 1,000 ML IVPB SCH ×2 (04:11→17:35)
[2019-10-29] MEDS: INSULIN SLIDING SCALE (NOVOLOG) 1 VIAL SQ SCH ×4 (06:51→22:00)
[2019-10-29] MEDS ORDERED: INSULIN (NOVOLOG) ASPART 100 UNITS/ML 10ML VIAL ONE ×2 (07:13→21:34)
[2019-10-29] MEDS ORDERED: MAGNESIUM SULF 50% (8.12 MEQ/2 ML-1 GM VIAL) IVPB ONE (08:23)
[2019-10-29] MEDS ORDERED: KCL 10 MEQ IVPB 10 MEQ/100 ML INFUS.BAG IVPB SCH (08:30)
--- NOTE | 2019-10-29 08:32 | PN ---
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 (short form) - Note 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: GEneral Surgery: Pt with BM overnight, no abd pain Vital Signs Period Temp Pulse Resp BP Sys/Barrientos Pulse Ox Last 24 Hr 99.2 F-99.6 F 63-86 20-20 103-131/55-78 94 ngt: brown fluid: 200ml GEN: A&0x3, NAD ABD; soft, non-distended, non-tender A/p: 64 yo male with SBO XRAY ordered for this am Continue ngt decompression until XRAY reviewed, if better will remove ngt D/w. Dr. Acosta.
[2019-10-29 09:03] LABS: BASO % 0.4 % (0-2.0); EOS % 1.2 % (0-4.5); HEMATOCRIT 37.3 % (35.4-49); HEMOGLOBIN 12.9 GM/dL (11.7-16.9); LYMPH % 15.1 % (8-40); MCH 32.9 pg (25.7-33.7); MCHC 34.7 g/dl (32.0-35.9); MEAN PLT VOLUME 7.9 fl (7.5-11.1); MONO % 6.8 % (3.8-10.2); NEUT % 76.5 % (42.8-82.8); PLATELET COUNT 196 K/MM3 (134-434); RBC 3.93 M/mm3 (4.00-5.60); RDW 13.2 % (11.9-15.9); WHITE BLOOD COUNT 6.6 K/mm3 (4.0-10.0)
[2019-10-29] MEDS ORDERED: PT OWN MED DRAWER 7, Y5N ONE (09:05)
[2019-10-29] MEDS: levETIRAcetam 500 MG/5 ML INJECTION VIAL IVPB SCH ×2 (09:50→22:00)
[2019-10-29] MEDS: DIGOXIN 0.5 MG/2 ML AMPUL IVPB SCH (09:50)
[2019-10-29] MEDS: HEPARIN NA (PORCINE) 5,000 UNITS/ML 1ML VIAL SQ SCH ×2 (09:50→21:59)
[2019-10-29 10:01] LABS: ALBUMIN 2.8 g/dl (3.4-5.0); BLOOD UREA NITROGEN 16.4 mg/dL (7-18); CALCIUM 8.2 mg/dL (8.5-10.1); CREATININE 0.8 mg/dL (0.55-1.3); MAGNESIUM 1.9 mg/dL (1.8-2.4); PHOSPHOROUS 2.7 mg/dL (2.5-4.9); POTASSIUM 3.5 mmol/L (3.5-5.1); TOT PROT 7.7 g/dl (6.4-8.2)
--- NOTE | 2019-10-29 15:49 | PN ---
Physical Exam: SUBJECTIVE: Patient seen and examined at the bedside. ambulated with PT today, with a RW and steady gait, needs standby assistance. OBJECTIVE: patient had BM this am. abd xray with improvement, shows partial sbo and contrast in the colon. ngt to be removed on clears now, but having some coughing with thin liquids, changed to nectar thick will re start home meds Patient is a 64 year old male with a significant past medical history of CVA ( aphasia, right hand, and RLE deficit), atiral fibrillation (not on a/c), HIV, HTN, HLD, who presents to the ED on 10/21/2019 with 1 week of nausea, vomiting, and diarrhea and was found to have a small bowel obstruction. Abdominal xray shows improvement with a partial sbo, and contrast reaching colon. Started on clears. continue lipids and clinimas until fully tolerating meal. Vital Signs Period Temp Pulse Resp BP Sys/Barrientos Pulse Ox Last 24 Hr 98.2 F-99.6 F 61-71 18-20 103-131/55-82 94-99 GENERAL: The patient is awake, alert, in no acute distress. non verbal at baseline. HEAD: Normal with no signs of trauma. ngt in place to low int suction. EYES: PERRL, extraocular movements intact, sclera anicteric, conjunctiva clear. No ptosis. ENT: Ears normal, nares patent, oropharynx clear without exudates, moist mucous membranes. NECK: Trachea midline, full range of motion, supple. LUNGS: Breath sounds equal, clear to auscultation bilaterally HEART: Regular rate and rhythm ABDOMEN: soft, non tender, non distended, +hypoactive bowel sounds, on ngt to low int suction. EXTREMITIES: hyperpigmentation of right lower leg, dry slough skin. NEUROLOGICAL: right sided deficit. right arm contracted, right hand contracted Laboratory Results - last 24 hr 10/28/19 10/28/19 10/29/19 16:01 21:03 06:07 WBC RBC Hgb Hct MCV MCH MCHC RDW Plt Count MPV Absolute Neuts (auto) Neutrophils % Lymphocytes % Monocytes % Eosinophils % Basophils % Nucleated RBC % Sodium Potassium Chloride Carbon Dioxide Anion Gap BUN Creatinine Est GFR (CKD-EPI)AfAm Est GFR (CKD-EPI)NonAf POC Glucometer 182 197 229 Random Glucose Calcium Phosphorus Magnesium Total Bilirubin AST ALT Alkaline Phosphatase Total Protein Albumin Triglycerides Cholesterol Total LDL Cholesterol HDL Cholesterol Vitamin B12 Serum Folate 10/29/19 10/29/19 10/29/19 07:56 07:56 11:52 WBC 6.6 RBC 3.93 L Hgb 12.9 Hct 37.3 MCV 95.0 MCH 32.9 MCHC 34.7 RDW 13.2 Plt Count 196 MPV 7.9 Absolute Neuts (auto) 5.0 Neutrophils % 76.5 Lymphocytes % 15.1 D Monocytes % 6.8 Eosinophils % 1.2 Basophils % 0.4 Nucleated RBC % 0 Sodium 135 L Potassium 3.5 Chloride 102 Carbon Dioxide 25 Anion Gap 9 BUN 16.4 Creatinine 0.8 Est GFR (CKD-EPI)AfAm 108.65 Est GFR (CKD-EPI)NonAf 93.74 POC Glucometer 227 Random Glucose 234 H Calcium 8.2 L Phosphorus 2.7 Magnesium 1.9 Total Bilirubin 1.0 AST 33 ALT 41 Alkaline Phosphatase 82 Total Protein 7.7 Albumin 2.8 L Triglycerides 189 H Cholesterol 67 Total LDL Cholesterol 32 HDL Cholesterol 18 L Vitamin B12 832 Serum Folate 18 H Active Medications Generic Name Dose Route Start Last Admin Trade Name Freq PRN Reason Stop Dose Admin Acetaminophen 1,000 mg 10/21/19 17:22 Ofirmev Injection - IVPB Q8H PRN PAIN LEVEL 4 - 6 Digoxin 0.125 mg 10/23/19 10:00 10/29/19 09:50 Lanoxin Injection - IVPB 0.125 mg DAILY DUNIA Administration Heparin Sodium (Porcine) 5,000 unit 10/21/19 22:00 10/29/19 09:50 Heparin - SQ 5,000 unit BID DUNIA Administration Fat Emulsion Intravenous 250 mls @ 20.833 mls/hr 10/26/19 22:00 10/28/19 21: 26 Intralipid - IV 20.833 mls/hr DAILY@2200 DUNIA Administration Potassium Chloride 20 meq/ 1,010 mls @ 84 mls/hr 10/28/19 12:19 10/29/19 04: 11 Amino Acids IVPB 84 mls/hr Q12H DUNIA Administration Insulin Aspart 1 vial 10/21/19 22:00 10/29/19 11:55 Novolog Vial Sliding Scale - SQ 4 units ACHS DUNIA Administration Protocol Levetiracetam 500 mg 10/21/19 22:00 10/29/19 09:50 Keppra Injection - IVPB 500 mg BID DUNIA Administration Lorazepam 0.25 mg 10/21/19 17:22 10/28/19 13:58 Ativan Injection - IVPUSH 0.25 mg BID PRN Administration AGITATION Multi-Ingredient Lotion 1 applic 10/22/19 11:02 Eucerin (Small Jar) - TP BID PRN DRY SKIN Ondansetron HCl 4 mg 10/21/19 17:55 Zofran Injection IVPUSH Q8H PRN NAUSEA ASSESSMENT/PLAN: Problem List - Problems (1) Small bowel obstruction Assessment/Plan: abd xray with improvement os SBO, showing partial SBO with contrast reaching the colon. start on clears and monitor surgery following. Code(s): K56.609 - UNSP INTESTNL OBST, UNSP TO PARTIAL VERSUS COMPLETE OBST (2) HIV (human immunodeficiency virus infection) Assessment/Plan: start PO meds Code(s): B20 - HUMAN IMMUNODEFICIENCY VIRUS [HIV] DISEASE (3) HLD (hyperlipidemia) Assessment/Plan: continue home meds Code(s): E78.5 - HYPERLIPIDEMIA, UNSPECIFIED (4) HTN (hypertension) Assessment/Plan: stable Code(s): I10 - ESSENTIAL (PRIMARY) HYPERTENSION (5) Nausea & vomiting Assessment/Plan: resolved Code(s): R11.2 - NAUSEA WITH VOMITING, UNSPECIFIED (6) CVA (cerebral vascular accident) Assessment/Plan: right sided weakness. PT therapy ordered. will order speech and swallow lipitor at hs asa per cardiology, can defer AC for now, however, patient would benefit from Eliquis if there are no contraindications when stable. However, he has had falls with a head bleed in the past. PT following. Code(s): I63.9 - CEREBRAL INFARCTION, UNSPECIFIED (7) Diabetes Assessment/Plan: ac/hs with novolog Code(s): E11.9 - TYPE 2 DIABETES MELLITUS WITHOUT COMPLICATIONS (8) Eye globe prosthesis Assessment/Plan: supportive care Code(s): Z97.0 - PRESENCE OF ARTIFICIAL EYE (9) HIV (human immunodeficiency virus infection) Assessment/Plan: restart home meds Code(s): Z21 - ASYMPTOMATIC HUMAN IMMUNODEFICIENCY VIRUS INFECTION STATUS (10) AF Atrial fibrillation Assessment/Plan: has been off anticoagulation since 2013 secondary to an acute head bleed per . on digoxin for rate control on heparin bid cardiology notes reviewed Code(s): I48.91 - UNSPECIFIED ATRIAL FIBRILLATION (11) Hyponatremia Assessment/Plan: resolved Code(s): E87.1 - HYPO-OSMOLALITY AND HYPONATREMIA (12) JUAN R (acute kidney injury) Code(s): N17.9 - ACUTE KIDNEY FAILURE, UNSPECIFIED (13) Aspiration precautions Assessment/Plan: on clears, can have thin liquids per speech and swallow Code(s): Z91.89 - OTH PERSONAL RISK FACTORS, NOT ELSEWHERE CLASSIFIED (14) Prophylactic measure Assessment/Plan: heparin Code(s): Z29.9 - ENCOUNTER FOR PROPHYLACTIC MEASURES, UNSPECIFIED Visit type - Emergency Visit Emergency Visit: Yes ED Registration Date: 10/21/19 Care time: The patient presented to the Emergency Department on the above date and was hospitalized for further evaluation of their emergent condition. - New Patient This patient is new to me today: No - Critical Care Critical Care patient: No - Discharge Referral Referred to [facility] Med P.C.: No
--- NOTE | 2019-10-29 16:16 | CONSULT ---
Admitting History and Physical - Past Medical History JEWEL HOLE GAUGER: Yes: Seizure, Other (dysphagia and dysphasia) Cardiovascular: Yes: AFIB, Other (s/p PPM) Gastrointestinal: Yes: Other (s/p PEG) Infectious Disease: Yes: HIV - Smoking History Smoking history: Never smoked Have you smoked in the past 12 months: No Aproximately how many cigarettes per day: 0 If you are a former smoker, when did you quit?: 45YRS - Alcohol/Substance Use Hx Alcohol Use: No History of Substance Use: reports: None - Social History ADL: Support Services History - Admission Reason For Visit: ACUTE KIDNEY INJURY Speech Evaluation - Communication Primary Language: FAROESE Communication: Yes: Simple Responses, Language Barrier, Non-Communicable Oral Expression Ability: Yes: Severe Impairment, Non-Verbal - Speech Production Apraxia: Yes Able to Make Needs Known: Yes: Severely Impaired Intelligibility: Yes: Severely Impaired - Speech Characteristics Voice Loudness: Mildly Loud, Excessive Variation Voice Pitch: Yes: Normal Voice Phonatory-based Quality: Yes: Normal Speech Pattern: Normal Nasal Resonance: Normal Articulation: Yes: Imprecise Voice Comment: non-verbal, grunts - Language/Auditory Comprehension Follows: Yes: 1 Stage Simple Commands (wfl) Observation: Able to respond to yes/no queries: Yes (in Faroese ), Yes/No Confusion: No (in Faroese ), Comprehends Conversational Speech: Yes (in Faroese ), Benefits from Slow Speech: No (in Faroese ), Benefits from Repetiton: No (in Faroese ), Benefits from Increased Volume of Speech: No (in Faroese ) - Language/Verbal Expression Able to Respond to Simple Queries: Yes: Severely Impaired Able to Communicate Wants and Needs: Yes: Severely Impaired Functional Communication Status: Yes: Severely Impaired Aware of Errors: Yes Attempts to Correct Errors: No Use of Gestures: Yes Attention: Yes: Intact - Swallow Evaluation/Bedside Assessment Current Nutritional Intake: Clear Liquids (secondary to partial bowel obstruction) Oral Secretions: Yes: WFL Tracheostomy Present: No Patient on Ventilator: No Dentition: Yes: Adequate Facial Symmetry at Rest: Symmetrical Facial Symmetry on Retraction: Symmetrical Facial Movement: Controlled Sensation: Normal Facial Comment: appear WFL Jaw Position: Closed at Rest Against Resistance Opening: Normal Against Resistance Closing: Normal Pucker Lips: Normal Smile: Normal Lips, Comment: appears WFL Lingual Movement: Normal Lingual Speed of Movement: Normal Lingual Movement Strgth Against Opposition: Normal Lingual Movement Characteristics: Normal Lingual Comment: appears WFL Soft Palate Description: Normal Color Hard Palate Description: Normal Color Gag Reflex: Strong Bite Reflex: Present Velopharyngeal Movement: Normal Laryngeal Elevation: WFL Laryngeal Movement: Able to Palpate Needs Assistance: Yes Rate of Intake: WFL Bolus Size: WFL Labial Seal: WFL Chewing: WFL Oral Prep Time: WFL A-P Transit: WFL Timing of Swallow: WFL Coughing/Throat Clear: No Change in Voice: No Other Findings/Remarks: 64 yo male seen at bedside for swallow eval for clear liquids only secondary to partial bowel obstruction. Pt is non-verbal but vocal A&Ox2 with NGT in place. Pt given PO trials of ice chips via spoon,thick and thin liquids via cup with total assistance revealed good acceptance, adequate labial containment / bolus control and, A P transport with a timely pharyngeal swallow (1-2 second average). No change in voicing or respiration after the swallow. Recommendations - Speech Evaluation, Impression/Plan Impression: 64 yo male present with minimal s/s of dysphagia for thicken and thin liquids at bedside at this time. ASSOCIATE DEAN can re-evaluate for solids consistency when medically cleared. Fpc Goals: . Tolerate the least restrictive solid and liquid consistencies without s/s of penetration / aspiration. Short Term Goals: . Tolerate the least restrictive solid and liquid consistencies without s/s of penetration / aspiration. Recommended Frequency for Therapy: Follow Up PRN - Dysphagia Impressions/Plan Swallowing Skills: WF Dysphagia Impressions: No Impairment (for clear liquids), Risk of Aspiration *Silent aspiration: cannot be R/O at bedside Dysphagia Evaluation Summary: Trial po intake nectar thicken liquids at tolerated. Observe standard aspiration precautions. Provide oral care before and after meal meals. Results given verbally to television writer and PCP via chart. ASSOCIATE DEAN to follow up for diet tolerance. - Recommendations Diet Consistency: NPO (until medically clear for solid po trials) Medication Administration: Whole with water Liquids: [place] Thick
[2019-10-29] MEDS: ABACAVIR/DOLUTEGRAVIR/LAMIVUDI (TRIUMEQ) TABLET -NF PO SCH (17:59)
[2019-10-29] MEDS: FAT EMULSIONS 250 ML IV SCH (22:00)
[2019-10-29] MEDS: ATORVASTATIN CA 20 MG TABLET (FP) PO SCH (22:00)
[2019-10-29] MEDS: metoPROLOL SUCCINATE 25 MG TAB.SR.24H (FP) PO SCH (22:01)
[2019-10-30] MEDS: POTASSIUM CHLORIDE 20 MEQ in AMINO ACIDS 4.25%/D5W 1,000 ML IVPB SCH ×4 (06:30→18:54)
[2019-10-30] MEDS: INSULIN SLIDING SCALE (NOVOLOG) 1 VIAL SQ SCH ×4 (06:33→23:16)
--- NOTE | 2019-10-30 07:22 | PN ---
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, Physician History of Present Illness: Patient is a 64 year old male with a significant past medical history of CVA ( aphasia, right hand, and RLE deficit), atiral fibrillation (not on a/c), HIV, HTN, HLD, who presents to the ED on 10/21/2019 with 1 week of nausea, vomiting, and diarrhea and was found to have a small bowel obstruction. Abdominal xray shows improvement with a partial sbo, and contrast reaching colon. Started on clears. - Current Medication List Current Medications: Active Medications Abacavir/Dolutegravir/Lamivudine (Triumeq (Non-Formulary)) 1 each PO DAILY [facility] Last Admin: 10/29/19 17:59 Dose: 1 each Aspirin (Asa -) 81 mg PO DAILY DUNIA Atorvastatin Calcium (Lipitor -) 20 mg PO HS [facility] Last Admin: 10/29/19 22:00 Dose: 20 mg Budesonide/Formoterol Fumarate (Symbicort 80/4.5mcg -) 2 puff IH DAILY [facility] Digoxin (Lanoxin Injection -) 0.125 mg IVPB DAILY [facility] Last Admin: 10/29/19 09:50 Dose: 0.125 mg Furosemide (Lasix -) 20 mg PO DAILY [facility] Heparin Sodium (Porcine) (Heparin -) 5,000 unit SQ BID [facility] Last Admin: 10/29/19 21:59 Dose: 5,000 unit Fat Emulsion Intravenous (Intralipid -) 250 mls @ 20.833 mls/hr IV DAILY@2200 [facility] Last Admin: 10/29/19 22:00 Dose: 20.833 mls/hr Potassium Chloride 20 meq/ (Amino Acids) 1,010 mls @ 84 mls/hr IVPB Q12H [facility] Last Admin: 10/30/19 06:33 Dose: 84 mls/hr Insulin Aspart (Novolog Vial Sliding Scale -) 1 vial SQ ACHS [facility]; Protocol Last Admin: 10/30/19 06:33 Dose: 8 units Levetiracetam (Keppra Injection -) 500 mg IVPB BID [facility] Last Admin: 10/29/19 22:00 Dose: 500 mg Lorazepam (Ativan Injection -) 0.25 mg IVPUSH BID PRN PRN Reason: AGITATION Last Admin: 10/28/19 13:58 Dose: 0.25 mg Metoprolol Succinate (Toprol Xl -) 25 mg PO BID [facility] Last Admin: 10/29/19 22:01 Dose: 25 mg Multi-Ingredient Lotion (Eucerin (Small Jar) -) 1 applic TP BID PRN PRN Reason: DRY SKIN Paroxetine HCl (Paxil -) 10 mg PO DAILY [facility] - Objective Vital Signs: Vital Signs Temperature 98.3 F 10/30/19 05:00 Pulse Rate 63 10/30/19 05:00 Respiratory Rate 18 10/30/19 05:00 Blood Pressure 109/68 10/30/19 05:00 O2 Sat by Pulse Oximetry (%) 94 L 10/29/19 21:00 Labs: CBC, BMP 10/29/19 07:56 10/29/19 07:56 INR, PTT INR 1.22 (0.83-1.09) H 10/22/19 07:28 Problem List - Problems (1) HIV (human immunodeficiency virus infection) Code(s): B20 - HUMAN IMMUNODEFICIENCY VIRUS [HIV] DISEASE (2) HTN (hypertension) Code(s): I10 - ESSENTIAL (PRIMARY) HYPERTENSION (3) Nausea & vomiting Code(s): R11.2 - NAUSEA WITH VOMITING, UNSPECIFIED (4) Small bowel obstruction Code(s): K56.609 - UNSP INTESTNL OBST, UNSP TO PARTIAL VERSUS COMPLETE OBST (5) AF Atrial fibrillation Code(s): I48.91 - UNSPECIFIED ATRIAL FIBRILLATION (6) CVA (cerebral vascular accident) Code(s): I63.9 - CEREBRAL INFARCTION, UNSPECIFIED (7) Diabetes Code(s): E11.9 - TYPE 2 DIABETES MELLITUS WITHOUT COMPLICATIONS (8) Seizure disorder Code(s): G40.909 - EPILEPSY, UNSP, NOT INTRACTABLE, WITHOUT STATUS EPILEPTICUS (9) HLD (hyperlipidemia) Code(s): E78.5 - HYPERLIPIDEMIA, UNSPECIFIED (10) Pacemaker Code(s): Z95.0 - PRESENCE OF CARDIAC PACEMAKER (11) Hypothyroid Code(s): E03.9 - HYPOTHYROIDISM, UNSPECIFIED
[2019-10-30 09:43] LABS: BASO % 0.5 % (0-2.0); EOS % 1.7 % (0-4.5); HEMATOCRIT 36.6 % (35.4-49); HEMOGLOBIN 12.8 GM/dL (11.7-16.9); LYMPH % 17.3 % (8-40); MCH 33.1 pg (25.7-33.7); MCHC 34.9 g/dl (32.0-35.9); MEAN CELL VOLUME 94.8 fl (80-96); MEAN PLT VOLUME 7.9 fl (7.5-11.1); MONO % 6.6 % (3.8-10.2); NEUT % 73.9 % (42.8-82.8); PLATELET COUNT 190 K/MM3 (134-434); RBC 3.86 M/mm3 (4.00-5.60); RDW 12.9 % (11.9-15.9); WHITE BLOOD COUNT 5.7 K/mm3 (4.0-10.0)
[2019-10-30 10:17] LABS: ALBUMIN 2.8 g/dl (3.4-5.0); BILIRUBIN,TOTAL 0.9 mg/dL (0.2-1); BLOOD UREA NITROGEN 15.9 mg/dL (7-18); CALCIUM 8.4 mg/dL (8.5-10.1); CREATININE 0.8 mg/dL (0.55-1.3); MAGNESIUM 1.7 mg/dL (1.8-2.4); POTASSIUM 3.5 mmol/L (3.5-5.1); TOT PROT 7.7 g/dl (6.4-8.2)
[2019-10-30] MEDS ORDERED: PT OWN MED DRAWER 7, Y5N ONE (10:24)
[2019-10-30] MEDS: ASPIRIN 81 MG CHEWABLE TABLETS PO SCH (10:33)
[2019-10-30] MEDS: metoPROLOL SUCCINATE 25 MG TAB.SR.24H (FP) PO SCH ×2 (10:33→23:32)
[2019-10-30] MEDS: HEPARIN NA (PORCINE) 5,000 UNITS/ML 1ML VIAL SQ SCH ×2 (10:33→23:06)
[2019-10-30] MEDS: DIGOXIN 0.5 MG/2 ML AMPUL IVPB SCH (10:33)
[2019-10-30] MEDS: FUROSEMIDE 20 MG TABLET (FP) PO SCH (10:33)
[2019-10-30] MEDS: levETIRAcetam 500 MG/5 ML INJECTION VIAL IVPB SCH ×2 (10:33→23:02)
[2019-10-30] MEDS: PARoxetine HCL 10 MG TABLET PO SCH (10:35)
--- NOTE | 2019-10-30 10:38 | PN ---
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 (short form) - Note 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: GEneral Surgery: Pt with BM again this am, no abd pain Vital Signs Period Temp Pulse Resp BP Sys/Barrientos Pulse Ox Last 24 Hr 98.2 F-98.4 F 61-71 18-18 104-126/68-78 94 GEN: Alert, NAD ABD; soft, non-distended, non-tender CBC, BMP 10/30/19 08:35 10/30/19 08:35 A/p: 64 yo male with SBO, resolved may advance diet as tolerated Wean clinimax D/w. Dr. Acosta.
[2019-10-30] MEDS: ABACAVIR/DOLUTEGRAVIR/LAMIVUDI (TRIUMEQ) TABLET -NF PO SCH (10:39)
[2019-10-30] MEDS: BUDESONIDE/FORMETEROL FUMARATE 80/4.5 mcg INHALER IH SCH (10:39)
--- NOTE | 2019-10-30 16:28 | PN ---
Physical Exam: SUBJECTIVE: Patient seen and examined at the bedside. tolerating clears, mild abdominal bloating without pain or discomfort. had BM today. OBJECTIVE: discontinue lipids d/c clinimax on 10/31/2019 advance diet as tolerated Patient is a 64 year old male with a significant past medical history of CVA ( aphasia, right hand, and RLE deficit), atiral fibrillation (not on a/c), HIV, HTN, HLD, who presents to the ED on 10/21/2019 with 1 week of nausea, vomiting, and diarrhea and was found to have a small bowel obstruction. Abdominal xray 10/29/2019 shows improvement with a partial sbo, and contrast reaching colon. on clears. Vital Signs Period Temp Pulse Resp BP Sys/Barrientos Pulse Ox Last 24 Hr 98.2 F-98.9 F 60-63 18-20 104-113/68-76 94-94 GENERAL: The patient is awake, alert, in no acute distress. non verbal at baseline. HEAD: Normal with no signs of trauma. ngt removed EYES: PERRL, extraocular movements intact, sclera anicteric, conjunctiva clear. No ptosis. ENT: Ears normal, nares patent, oropharynx clear without exudates, moist mucous membranes. NECK: Trachea midline, full range of motion, supple. LUNGS: Breath sounds equal, clear to auscultation bilaterally - diminished at bases HEART: Regular rate and rhythm ABDOMEN: soft, non tender, non distended, bowel sounds + EXTREMITIES: hyperpigmentation of right lower leg, dry slough skin. NEUROLOGICAL: right sided deficit. right arm contracted, right hand contracted Laboratory Results - last 24 hr 10/29/19 10/29/19 10/30/19 17:34 21:20 06:04 WBC RBC Hgb Hct MCV MCH MCHC RDW Plt Count MPV Absolute Neuts (auto) Neutrophils % Lymphocytes % Monocytes % Eosinophils % Basophils % Nucleated RBC % Sodium Potassium Chloride Carbon Dioxide Anion Gap BUN Creatinine Est GFR (CKD-EPI)AfAm Est GFR (CKD-EPI)NonAf POC Glucometer 182 223 318 Random Glucose Calcium Magnesium Total Bilirubin AST ALT Alkaline Phosphatase Total Protein Albumin 10/30/19 10/30/19 08:35 08:35 WBC 5.7 RBC 3.86 L Hgb 12.8 Hct 36.6 MCV 94.8 MCH 33.1 MCHC 34.9 RDW 12.9 Plt Count 190 MPV 7.9 Absolute Neuts (auto) 4.2 Neutrophils % 73.9 Lymphocytes % 17.3 Monocytes % 6.6 Eosinophils % 1.7 Basophils % 0.5 Nucleated RBC % 0 Sodium 136 Potassium 3.5 Chloride 102 Carbon Dioxide 27 Anion Gap 7 L BUN 15.9 Creatinine 0.8 Est GFR (CKD-EPI)AfAm 108.65 Est GFR (CKD-EPI)NonAf 93.74 POC Glucometer Random Glucose 266 H Calcium 8.4 L Magnesium 1.7 L Total Bilirubin 0.9 AST 34 ALT 42 Alkaline Phosphatase 85 Total Protein 7.7 Albumin 2.8 L Active Medications Generic Name Dose Route Start Last Admin Trade Name Freq PRN Reason Stop Dose Admin Abacavir/Dolutegravir/Lamivudine 1 each 10/29/19 16:00 10/30/19 10:39 Triumeq (Non-Formulary) PO 1 each DAILY DUNIA Administration Aspirin 81 mg 10/30/19 10:00 10/30/19 10:33 Asa - PO 81 mg DAILY DUNIA Administration Atorvastatin Calcium 20 mg 10/29/19 22:00 10/29/19 22:00 Lipitor - PO 20 mg HS DUNIA Administration Budesonide/Formoterol Fumarate 2 puff 10/30/19 10:00 10/30/19 10:39 Symbicort 80/4.5mcg - IH 2 puff DAILY DUNIA Administration Digoxin 0.125 mg 10/23/19 10:00 10/30/19 10:33 Lanoxin Injection - IVPB 0.125 mg DAILY DUNIA Administration Furosemide 20 mg 10/30/19 10:00 10/30/19 10:33 Lasix - PO 20 mg DAILY DUNIA Administration Heparin Sodium (Porcine) 5,000 unit 10/21/19 22:00 10/30/19 10:33 Heparin - SQ 5,000 unit BID DUNIA Administration Potassium Chloride 20 meq/ 1,010 mls @ 84 mls/hr 10/28/19 12:19 10/30/19 15: 14 Amino Acids IVPB Not Given Q12H [facility] Insulin Aspart 1 vial 10/21/19 22:00 10/30/19 15:13 Novolog Vial Sliding Scale - SQ Not Given ACHS [facility] Protocol Insulin Detemir 5 units 10/30/19 22:00 Levemir Vial SQ HS DUNIA Levetiracetam 500 mg 10/21/19 22:00 10/30/19 10:33 Keppra Injection - IVPB 500 mg BID DUNIA Administration Lorazepam 0.25 mg 10/21/19 17:22 10/28/19 13:58 Ativan Injection - IVPUSH 0.25 mg BID PRN Administration AGITATION Metoprolol Succinate 25 mg 10/29/19 22:00 10/30/19 10:33 Toprol Xl - PO 25 mg BID DUNIA Administration Multi-Ingredient Lotion 1 applic 10/22/19 11:02 Eucerin (Small Jar) - TP BID PRN DRY SKIN Paroxetine HCl 10 mg 10/30/19 10:00 10/30/19 10:35 Paxil - PO 10 mg DAILY DUNIA Administration ASSESSMENT/PLAN: Problem List - Problems (1) Small bowel obstruction Assessment/Plan: abd xray with improvement of SBO, showing partial SBO with contrast reaching the colon. start on clears liquids with nectar thick fluids, advance to full liquid diet in am. on clinimax, d/c lipids surgery following. Code(s): K56.609 - UNSP INTESTNL OBST, UNSP TO PARTIAL VERSUS COMPLETE OBST (2) HIV (human immunodeficiency virus infection) Assessment/Plan: start PO meds ID following Code(s): B20 - HUMAN IMMUNODEFICIENCY VIRUS [HIV] DISEASE (3) HLD (hyperlipidemia) Assessment/Plan: continue home meds Code(s): E78.5 - HYPERLIPIDEMIA, UNSPECIFIED (4) HTN (hypertension) Assessment/Plan: stable Code(s): I10 - ESSENTIAL (PRIMARY) HYPERTENSION (5) Nausea & vomiting Assessment/Plan: resolved Code(s): R11.2 - NAUSEA WITH VOMITING, UNSPECIFIED (6) CVA (cerebral vascular accident) Assessment/Plan: right sided weakness. PT therapy ordered. will order speech and swallow lipitor at hs asa per cardiology, can defer AC for now, however, patient would benefit from Eliquis if there are no contraindications when stable. However, he has had falls with a head bleed in the past. PT following. Code(s): I63.9 - CEREBRAL INFARCTION, UNSPECIFIED (7) Diabetes Assessment/Plan: ac/hs with novolog elevated bgms now that diet has been started, added levemir 5 Code(s): E11.9 - TYPE 2 DIABETES MELLITUS WITHOUT COMPLICATIONS (8) Eye globe prosthesis Assessment/Plan: supportive care Code(s): Z97.0 - PRESENCE OF ARTIFICIAL EYE (9) HIV (human immunodeficiency virus infection) Assessment/Plan: restart home meds Code(s): Z21 - ASYMPTOMATIC HUMAN IMMUNODEFICIENCY VIRUS INFECTION STATUS (10) AF Atrial fibrillation Assessment/Plan: has been off anticoagulation since 2012 secondary to an acute head bleed per . on digoxin for rate control, on toprol on heparin bid cardiology notes reviewed Code(s): I48.91 - UNSPECIFIED ATRIAL FIBRILLATION (11) Hyponatremia Assessment/Plan: resolved Code(s): E87.1 - HYPO-OSMOLALITY AND HYPONATREMIA (12) JUAN R (acute kidney injury) Assessment/Plan: resolved Code(s): N17.9 - ACUTE KIDNEY FAILURE, UNSPECIFIED (13) Aspiration precautions Assessment/Plan: on clears Code(s): Z91.89 - OTH PERSONAL RISK FACTORS, NOT ELSEWHERE CLASSIFIED (14) Prophylactic measure Assessment/Plan: heparin physical therapy Code(s): Z29.9 - ENCOUNTER FOR PROPHYLACTIC MEASURES, UNSPECIFIED Visit type - Emergency Visit Emergency Visit: Yes ED Registration Date: 10/21/19 Care time: The patient presented to the Emergency Department on the above date and was hospitalized for further evaluation of their emergent condition. - New Patient This patient is new to me today: No - Critical Care Critical Care patient: No - Discharge Referral Referred to [facility] Med P.C.: No
--- NOTE | 2019-10-30 17:11 | PN ---
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, DIRECTOR STARS - Note 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: 64 yo male seen and examined at the bedside. tolerating clears, with reported mild abdominal bloating without pain or discomfort. Significant past medical history of CVA (aphasia, right hand, and RLE deficit), atiral fibrillation (not on a/c), HIV, HTN, HLD, who presents to the ED on 2019 with 1 week of nausea, vomiting, and diarrhea and was found to have a small bowel obstruction. Chart review indicate pt is consuming 75-100% of meals without s/s of aspiration -like behaviors. operations research manager reports good intake at this time. RE: Continue current diet of clear liquids until medically cleared of bowel obstruction Re: continue current diet as tolerated with standard aspiration precautions. Provide oral care after meals. Results given verbally to credit charge authorizer and to PCP via chart
[2019-10-30] MEDS ORDERED: INSULIN (LEVEMIR) 100 UNITS/ML UNITS SQ SCH (22:00)
[2019-10-30] MEDS: ATORVASTATIN CA 20 MG TABLET (FP) PO SCH (23:06)
[2019-10-31] MEDS: POTASSIUM CHLORIDE 20 MEQ in AMINO ACIDS 4.25%/D5W 1,000 ML IVPB SCH (06:03)
[2019-10-31] MEDS: INSULIN SLIDING SCALE (NOVOLOG) 1 VIAL SQ SCH ×4 (06:54→22:09)
--- NOTE | 2019-10-31 09:55 | PN ---
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 (short form) - Note 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: GEneral Surgery: Pt with BM yesterday. On clears. Vital Signs Period Temp Pulse Resp BP Sys/Barrientos Pulse Ox Last 24 Hr 98.1 F-98.9 F 59-62 18-20 102-120/50-76 96 GEN: Alert, NAD ABD; soft, non-distended, non-tender CBC, BMP 10/30/19 08:35 10/30/19 08:35 A/p: 64 yo male with SBO, resolved May advance diet as tolerated, full liquid for breakfast Wean clinimax D/w. Dr. Acosta.
[2019-10-31] MEDS ORDERED: PT OWN MED DRAWER 7, Y5N ONE (09:59)
[2019-10-31] MEDS: ABACAVIR/DOLUTEGRAVIR/LAMIVUDI (TRIUMEQ) TABLET -NF PO SCH (10:23)
[2019-10-31] MEDS: FUROSEMIDE 20 MG TABLET (FP) PO SCH (10:23)
[2019-10-31] MEDS: DIGOXIN 0.5 MG/2 ML AMPUL IVPB SCH (10:24)
[2019-10-31] MEDS: levETIRAcetam 500 MG/5 ML INJECTION VIAL IVPB SCH ×2 (10:28→22:05)
[2019-10-31] MEDS: HEPARIN NA (PORCINE) 5,000 UNITS/ML 1ML VIAL SQ SCH ×2 (10:28→22:05)
[2019-10-31] MEDS: PARoxetine HCL 10 MG TABLET PO SCH (10:28)
[2019-10-31] MEDS: BUDESONIDE/FORMETEROL FUMARATE 80/4.5 mcg INHALER IH SCH (10:28)
[2019-10-31] MEDS: metoPROLOL SUCCINATE 25 MG TAB.SR.24H (FP) PO SCH ×2 (10:28→22:05)
[2019-10-31] MEDS: ASPIRIN 81 MG CHEWABLE TABLETS PO SCH (10:28)
[2019-10-31 10:29] LABS: BASO % 0.5 % (0-2.0); EOS % 1.9 % (0-4.5); HEMATOCRIT 38.5 % (35.4-49); HEMOGLOBIN 13.1 GM/dL (11.7-16.9); LYMPH % 19.4 % (8-40); MCH 32.5 pg (25.7-33.7); MCHC 34.1 g/dl (32.0-35.9); MEAN CELL VOLUME 95.3 fl (80-96); MONO % 6.1 % (3.8-10.2); NEUT % 72.1 % (42.8-82.8); PLATELET COUNT 220 K/MM3 (134-434); RBC 4.04 M/mm3 (4.00-5.60); RDW 13.4 % (11.9-15.9); WHITE BLOOD COUNT 6.4 K/mm3 (4.0-10.0)
--- NOTE | 2019-10-31 10:45 | PN ---
Physical Exam: SUBJECTIVE: Patient seen and examined at the bedside. sitting up watching TV, non verbal at baseline. appears well and per primary RN, patient is tolerating full liquid diet, had 2 loose BMs today. 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 Abdominal xray 10/29/2019 shows improvement with a partial sbo, and contrast reaching colon, patient then started on clears, and advanced to full liquids today. He is tolerating diet. once fully tolerates regular diet, can be discharged home. Vital Signs Period Temp Pulse Resp BP Sys/Barrientos Pulse Ox Last 24 Hr 98.1 F-98.9 F 59-89 20-20 102-120/50-76 96 GENERAL: The patient is awake, alert, in no acute distress. non verbal at baseline. HEAD: Normal with no signs of trauma EYE: prosthetic left eye ENT: Ears normal, nares patent, oropharynx clear without exudates, moist mucous membranes. NECK: Trachea midline, full range of motion, supple. LUNGS: Breath sounds equal, clear to auscultation bilaterally - diminished at bases HEART: Regular rate and rhythm ABDOMEN: soft, non tender, non distended, bowel sounds + EXTREMITIES: hyperpigmentation of right lower leg, dry slough skin. NEUROLOGICAL: right sided deficit. right arm contracted, right hand contracted Laboratory Results - last 24 hr 10/30/19 10/31/19 10/31/19 23:13 06:09 09:37 WBC 6.4 RBC 4.04 Hgb 13.1 Hct 38.5 MCV 95.3 MCH 32.5 MCHC 34.1 RDW 13.4 Plt Count 220 MPV 8.0 Absolute Neuts (auto) 4.6 Neutrophils % 72.1 Lymphocytes % 19.4 Monocytes % 6.1 Eosinophils % 1.9 Basophils % 0.5 Nucleated RBC % 0 POC Glucometer 226 202 Active Medications Generic Name Dose Route Start Last Admin Trade Name Freq PRN Reason Stop Dose Admin Abacavir/Dolutegravir/Lamivudine 1 each 10/29/19 16:00 10/31/19 10:23 Triumeq (Non-Formulary) PO 1 each DAILY DUNIA Administration Aspirin 81 mg 10/30/19 10:00 10/31/19 10:28 Asa - PO 81 mg DAILY DUNIA Administration Atorvastatin Calcium 20 mg 10/29/19 22:00 10/30/19 23:06 Lipitor - PO 20 mg HS DUNIA Administration Budesonide/Formoterol Fumarate 2 puff 10/30/19 10:00 10/31/19 10:28 Symbicort 80/4.5mcg - IH Not Given DAILY DUNIA Digoxin 0.125 mg 10/23/19 10:00 10/31/19 10:24 Lanoxin Injection - IVPB 0.125 mg DAILY DUNIA Administration Furosemide 20 mg 10/30/19 10:00 10/31/19 10:23 Lasix - PO 20 mg DAILY DUNIA Administration Heparin Sodium (Porcine) 5,000 unit 10/21/19 22:00 10/31/19 10:28 Heparin - SQ 5,000 unit BID DUNIA Administration Insulin Aspart 1 vial 10/21/19 22:00 10/31/19 06:54 Novolog Vial Sliding Scale - SQ 4 units ACHS DUNIA Administration Protocol Insulin Detemir 5 units 10/30/19 22:00 10/30/19 23:17 Levemir Vial SQ 5 units HS DUNIA Administration Levetiracetam 500 mg 10/21/19 22:00 10/31/19 10:28 Keppra Injection - IVPB 500 mg BID DUNIA Administration Lorazepam 0.25 mg 10/21/19 17:22 10/28/19 13:58 Ativan Injection - IVPUSH 0.25 mg BID PRN Administration AGITATION Metoprolol Succinate 25 mg 10/29/19 22:00 10/31/19 10:28 Toprol Xl - PO 25 mg BID DUNIA Administration Multi-Ingredient Lotion 1 applic 10/22/19 11:02 Eucerin (Small Jar) - TP BID PRN DRY SKIN Paroxetine HCl 10 mg 10/30/19 10:00 10/31/19 10:28 Paxil - PO 10 mg DAILY DUNIA Administration ASSESSMENT/PLAN: Problem List - Problems (1) Small bowel obstruction Assessment/Plan: abd xray with improvement of SBO, showing partial SBO with contrast reaching the colon. Started on full liquids and tolerating diet. Had two bms overnight , abdomen soft, non distended, non tender. advance diet as tolerated. surgery following. Code(s): K56.609 - UNSP INTESTNL OBST, UNSP TO PARTIAL VERSUS COMPLETE OBST (2) HIV (human immunodeficiency virus infection) Assessment/Plan: start PO meds ID following Code(s): B20 - HUMAN IMMUNODEFICIENCY VIRUS [HIV] DISEASE (3) HLD (hyperlipidemia) Assessment/Plan: continue home meds Code(s): E78.5 - HYPERLIPIDEMIA, UNSPECIFIED (4) HTN (hypertension) Assessment/Plan: stable Code(s): I10 - ESSENTIAL (PRIMARY) HYPERTENSION (5) Nausea & vomiting Assessment/Plan: resolved Code(s): R11.2 - NAUSEA WITH VOMITING, UNSPECIFIED (6) CVA (cerebral vascular accident) Assessment/Plan: right sided weakness. PT therapy ordered. speech and swallow following lipitor at hs asa 81 daily per cardiology, can defer AC for now, however, patient would benefit from Eliquis if there are no contraindications when stable. However, he has had falls with a head bleed in the past. PT following. Code(s): I63.9 - CEREBRAL INFARCTION, UNSPECIFIED (7) Diabetes Assessment/Plan: ac/hs with novolog elevated bgms now that diet has been started, added levemir 5 Code(s): E11.9 - TYPE 2 DIABETES MELLITUS WITHOUT COMPLICATIONS (8) Eye globe prosthesis Assessment/Plan: supportive care Code(s): Z97.0 - PRESENCE OF ARTIFICIAL EYE (9) HIV (human immunodeficiency virus infection) Assessment/Plan: restart home meds Code(s): Z21 - ASYMPTOMATIC HUMAN IMMUNODEFICIENCY VIRUS INFECTION STATUS (10) AF Atrial fibrillation Assessment/Plan: has been off anticoagulation since 2012 secondary to an acute head bleed per . on digoxin for rate control, on toprol on heparin bid cardiology notes reviewed Code(s): I48.91 - UNSPECIFIED ATRIAL FIBRILLATION (11) Hyponatremia Assessment/Plan: resolved Code(s): E87.1 - HYPO-OSMOLALITY AND HYPONATREMIA (12) JUAN R (acute kidney injury) Assessment/Plan: resolved Code(s): N17.9 - ACUTE KIDNEY FAILURE, UNSPECIFIED (13) Aspiration precautions Assessment/Plan: diet advanced maintain aspiration precautions: hob elevated with meals, full liquid/nectar. speech and swallow following. Code(s): Z91.89 - OTH PERSONAL RISK FACTORS, NOT ELSEWHERE CLASSIFIED (14) Prophylactic measure Assessment/Plan: heparin physical therapy Code(s): Z29.9 - ENCOUNTER FOR PROPHYLACTIC MEASURES, UNSPECIFIED Visit type - Emergency Visit Emergency Visit: Yes ED Registration Date: 10/21/19 Care time: The patient presented to the Emergency Department on the above date and was hospitalized for further evaluation of their emergent condition. - New Patient This patient is new to me today: No - Critical Care Critical Care patient: No - Discharge Referral Referred to [facility] Med P.C.: No
[2019-10-31 10:51] LABS: BLOOD UREA NITROGEN 15.2 mg/dL (7-18); CREATININE 0.9 mg/dL (0.55-1.3)
[2019-10-31 10:52] LABS: ALBUMIN 2.9 g/dl (3.4-5.0); BILIRUBIN,TOTAL 0.9 mg/dL (0.2-1); CALCIUM 8.6 mg/dL (8.5-10.1); MAGNESIUM 1.8 mg/dL (1.8-2.4); TOT PROT 8.2 g/dl (6.4-8.2)
[2019-10-31] MEDS ORDERED: INSULIN (LEVEMIR) 100 UNITS/ML UNITS SQ SCH (10:58)
[2019-10-31] MEDS ORDERED: INSULIN (NOVOLOG) ASPART 100 UNITS/ML 10ML VIAL ONE (12:32)
[2019-10-31] MEDS: ATORVASTATIN CA 20 MG TABLET (FP) PO SCH (22:05)
[2019-11-01] MEDS: INSULIN SLIDING SCALE (NOVOLOG) 1 VIAL SQ SCH ×3 (06:33→17:47)
--- NOTE | 2019-11-01 07:57 | PN ---
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 Abdominal xray 10/29/2019 shows improvement with a partial sbo, and contrast reaching colon, patient then started on clears, and advanced to full liquids today. He is tolerating diet. once fully tolerates regular diet, can be discharged home. - Current Medication List Current Medications: Active Medications Abacavir/Dolutegravir/Lamivudine (Triumeq (Non-Formulary)) 1 each PO DAILY [facility] Last Admin: 10/31/19 10:23 Dose: 1 each Aspirin (Asa -) 81 mg PO DAILY [facility] Last Admin: 10/31/19 10:28 Dose: 81 mg Atorvastatin Calcium (Lipitor -) 20 mg PO HS [facility] Last Admin: 10/31/19 22:05 Dose: 20 mg Budesonide/Formoterol Fumarate (Symbicort 80/4.5mcg -) 2 puff IH DAILY [facility] Last Admin: 10/31/19 10:28 Dose: Not Given Digoxin (Lanoxin Injection -) 0.125 mg IVPB DAILY [facility] Last Admin: 10/31/19 10:24 Dose: 0.125 mg Furosemide (Lasix -) 20 mg PO DAILY [facility] Last Admin: 10/31/19 10:23 Dose: 20 mg Heparin Sodium (Porcine) (Heparin -) 5,000 unit SQ BID [facility] Last Admin: 10/31/19 22:05 Dose: 5,000 unit Insulin Aspart (Novolog Vial Sliding Scale -) 1 vial SQ [facility]; Protocol Last Admin: 11/01/19 06:33 Dose: 4 unit Insulin Detemir (Levemir Vial) 10 units SQ [facility] Last Admin: 10/31/19 22:05 Dose: 10 units Levetiracetam (Keppra Injection -) 500 mg IVPB BID [facility] Last Admin: 10/31/19 22:05 Dose: 500 mg Lorazepam (Ativan Injection -) 0.25 mg IVPUSH BID PRN PRN Reason: AGITATION Last Admin: 10/28/19 13:58 Dose: 0.25 mg Metoprolol Succinate (Toprol Xl -) 25 mg PO BID [facility] Last Admin: 10/31/19 22:05 Dose: 25 mg Multi-Ingredient Lotion (Eucerin (Small Jar) -) 1 applic TP BID PRN PRN Reason: DRY SKIN Paroxetine HCl (Paxil -) 10 mg PO DAILY [facility] Last Admin: 10/31/19 10:28 Dose: 10 mg - Objective Vital Signs: Vital Signs Temperature 98.4 F 11/01/19 06:00 Pulse Rate 59 L 11/01/19 06:00 Respiratory Rate 11/01/19 06:00 Blood Pressure 104/66 11/01/19 06:00 O2 Sat by Pulse Oximetry (%) 100 10/31/19 21:00 Integumentary: Yes: Other (hyperpigmentation of LE) Neurological: Yes: Aphasia Labs: CBC, BMP 10/31/19 09:37 10/31/19 06:00 INR, PTT INR 1.22 (0.83-1.09) H 10/22/19 07:28 Problem List - Problems (1) HIV (human immunodeficiency virus infection) Assessment/Plan: HIV + followed by Dr Bautista in [facility] hold antivirals given SBO will resume when able to take PO Code(s): B20 - HUMAN IMMUNODEFICIENCY VIRUS [HIV] DISEASE (2) HTN (hypertension) Assessment/Plan: BP nprmal to low hold metoprolol PO can give IV prn Code(s): I10 - ESSENTIAL (PRIMARY) HYPERTENSION (3) Nausea & vomiting Code(s): R11.2 - NAUSEA WITH VOMITING, UNSPECIFIED (4) Small bowel obstruction Assessment/Plan: SBO with transition point seen on CT scan NGT inserted nitesh LIWS maintain NPO Dr Dave Brooks Sx consulted will convert meds to IV if available Code(s): K56.609 - UNSP INTESTNL OBST, UNSP TO PARTIAL VERSUS COMPLETE OBST (5) AF Atrial fibrillation Assessment/Plan: AF on EKG dig converted to IV while NPO no AC at home sq heparin now Code(s): I48.91 - UNSPECIFIED ATRIAL FIBRILLATION (6) CVA (cerebral vascular accident) Assessment/Plan: right hemeparesis r/t CVA PT requested OOB as tolerated with assistance Code(s): I63.9 - CEREBRAL INFARCTION, UNSPECIFIED (7) Diabetes Assessment/Plan: BGM AC/HS novolog sliding scale NPO Code(s): E11.9 - TYPE 2 DIABETES MELLITUS WITHOUT COMPLICATIONS (8) Seizure disorder Code(s): G40.909 - EPILEPSY, UNSP, NOT INTRACTABLE, WITHOUT STATUS EPILEPTICUS (9) HLD (hyperlipidemia) Code(s): E78.5 - HYPERLIPIDEMIA, UNSPECIFIED (10) Pacemaker Code(s): Z95.0 - PRESENCE OF CARDIAC PACEMAKER (11) Hypothyroid Code(s): E03.9 - HYPOTHYROIDISM, UNSPECIFIED
[2019-11-01] MEDS: ASPIRIN 81 MG CHEWABLE TABLETS PO SCH (10:44)
[2019-11-01] MEDS: PARoxetine HCL 10 MG TABLET PO SCH (10:44)
[2019-11-01] MEDS: metoPROLOL SUCCINATE 25 MG TAB.SR.24H (FP) PO SCH (10:44)
[2019-11-01] MEDS: FUROSEMIDE 20 MG TABLET (FP) PO SCH (10:44)
[2019-11-01] MEDS: HEPARIN NA (PORCINE) 5,000 UNITS/ML 1ML VIAL SQ SCH (10:45)
[2019-11-01] MEDS: levETIRAcetam 500 MG/5 ML INJECTION VIAL IVPB SCH (10:45)
[2019-11-01] MEDS: ABACAVIR/DOLUTEGRAVIR/LAMIVUDI (TRIUMEQ) TABLET -NF PO SCH (10:45)
[2019-11-01] MEDS: DIGOXIN 0.5 MG/2 ML AMPUL IVPB SCH (11:55)
--- NOTE | 2019-11-01 13:09 | PN ---
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, ASSISTANT FOOD SERVICE DIRECTOR - Note 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: Pt advanced to soft, reg diet. His reports that he eats reg food at home, without dentures. He has dentures but is not used to them. She reports not signs of Dysphagia at home. Limited mastication but pt dunked bread in soup and tolerated it. Suggest soft, easy to chew foods.
[2019-11-01] MEDS: BUDESONIDE/FORMETEROL FUMARATE 80/4.5 mcg INHALER IH SCH (15:19)
[2019-11-01 15:26] VITALS: BP 116/81; PULSE 60; TEMP 97.7
[2019-11-01 15:32] VITALS: BMI 28.7
--- NOTE | 2019-11-01 16:55 | DS ---
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 Abdominal xray 10/29/2019 shows improvement with a partial sbo, and contrast reaching colon, patient then started on clears, and advanced to full liquids today. He is tolerating diet and is medically stable for discharge to home OBJECTIVE: Vital Signs Period Temp Pulse Resp BP Sys/Barrientos Pulse Ox Last 24 Hr 97.7 F-99.3 F 59-62 19-20 104-116/66-81 98-100 PHYSICAL EXAM GENERAL: The patient is awake, alert, in no acute distress. non verbal at baseline. HEAD: Normal with no signs of trauma EYE: prosthetic left eye ENT: Ears normal, nares patent, oropharynx clear without exudates, moist mucous membranes. NECK: Trachea midline, full range of motion, supple. LUNGS: Breath sounds equal, clear to auscultation bilaterally - diminished at bases HEART: Regular rate and rhythm ABDOMEN: soft, non tender, non distended, bowel sounds + EXTREMITIES: hyperpigmentation of right lower leg, dry slough skin. NEUROLOGICAL: right sided deficit. right arm contracted, right hand contracted LABS Laboratory Results - last 24 hr 10/31/19 10/31/19 11/01/19 18:20 21:07 06:22 POC Glucometer 171 188 155 11/01/19 11/01/19 11:45 16:40 POC Glucometer 178 153 HOSPITAL COURSE: Date of Admission:10/21/19 Date of Discharge: 11/01/19 Problem List - Problems (1) Small bowel obstruction Assessment/Plan: abd xray with improvement of SBO, showing partial SBO with contrast reaching the colon. Started on full diet and tolerating Having bms abdomen soft, non distended, non tender. Code(s): K56.609 - UNSP INTESTNL OBST, UNSP TO PARTIAL VERSUS COMPLETE OBST (2) HIV (human immunodeficiency virus infection) Assessment/Plan: c/w meds ID following Code(s): B20 - HUMAN IMMUNODEFICIENCY VIRUS [HIV] DISEASE (3) HLD (hyperlipidemia) Assessment/Plan: continue home meds Code(s): E78.5 - HYPERLIPIDEMIA, UNSPECIFIED (4) HTN (hypertension) Assessment/Plan: stable Code(s): I10 - ESSENTIAL (PRIMARY) HYPERTENSION (5) Nausea & vomiting Assessment/Plan: resolved Code(s): R11.2 - NAUSEA WITH VOMITING, UNSPECIFIED (6) CVA (cerebral vascular accident) Assessment/Plan: right sided weakness. PT therapy ordered. speech and swallow following lipitor at hs asa 81 daily per cardiology, can defer AC for now, however, patient would benefit from Eliquis if there are no contraindications when stable. However, he has had falls with a head bleed in the past. PT following. Code(s): I63.9 - CEREBRAL INFARCTION, UNSPECIFIED (7) Diabetes Assessment/Plan: ac/hs with novolog elevated bgms now that diet has been started, added levemir 5 Code(s): E11.9 - TYPE 2 DIABETES MELLITUS WITHOUT COMPLICATIONS (8) Eye globe prosthesis Assessment/Plan: supportive care Code(s): Z97.0 - PRESENCE OF ARTIFICIAL EYE (9) HIV (human immunodeficiency virus infection) Assessment/Plan: restart home meds Code(s): Z21 - ASYMPTOMATIC HUMAN IMMUNODEFICIENCY VIRUS INFECTION STATUS (10) AF Atrial fibrillation Assessment/Plan: has been off anticoagulation since 2012 secondary to an acute head bleed per . on digoxin for rate control, on toprol Code(s): I48.91 - UNSPECIFIED ATRIAL FIBRILLATION (11) Hyponatremia Assessment/Plan: resolved Code(s): E87.1 - HYPO-OSMOLALITY AND HYPONATREMIA (12) JUAN R (acute kidney injury) Assessment/Plan: resolved Code(s): N17.9 - ACUTE KIDNEY FAILURE, UNSPECIFIED (13) Aspiration precautions Assessment/Plan: diet advanced maintain aspiration precautions: hob elevated with meals, full liquid/nectar. speech and swallow following. Code(s): Z91.89 - OTH PERSONAL RISK FACTORS, NOT ELSEWHERE CLASSIFIED (14) Prophylactic measure Assessment/Plan: physical therapy Code(s): Z29.9 - ENCOUNTER FOR PROPHYLACTIC MEASURES, UNSPECIFIED Cleared for discharge to home with Mae Minutes to complete discharge: 45 Discharge Summary Problems reviewed: Yes Reason For Visit: ACUTE KIDNEY INJURY Current Active Problems JUAN R (acute kidney injury) (Acute) Aspiration precautions (Acute) HIV (human immunodeficiency virus infection) (Acute) HLD (hyperlipidemia) (Acute) HTN (hypertension) (Acute) Hyponatremia (Acute) Hypothyroid (Acute) Nausea & vomiting (Acute) Prophylactic measure (Acute) Small bowel obstruction (Acute) Hospital Course: HOSPITAL COURSE: Date of Admission:10/21/19 Date of Discharge: 11/01/19 Problem List - Problems (1) Small bowel obstruction Assessment/Plan: abd xray with improvement of SBO, showing partial SBO with contrast reaching the colon. Started on full diet and tolerating Having bms abdomen soft, non distended, non tender. Code(s): K56.609 - UNSP INTESTNL OBST, UNSP TO PARTIAL VERSUS COMPLETE OBST (2) HIV (human immunodeficiency virus infection) Assessment/Plan: c/w meds ID following Code(s): B20 - HUMAN IMMUNODEFICIENCY VIRUS [HIV] DISEASE (3) HLD (hyperlipidemia) Assessment/Plan: continue home meds Code(s): E78.5 - HYPERLIPIDEMIA, UNSPECIFIED (4) HTN (hypertension) Assessment/Plan: stable Code(s): I10 - ESSENTIAL (PRIMARY) HYPERTENSION (5) Nausea & vomiting Assessment/Plan: resolved Code(s): R11.2 - NAUSEA WITH VOMITING, UNSPECIFIED (6) CVA (cerebral vascular accident) Assessment/Plan: right sided weakness. PT therapy ordered. speech and swallow following lipitor at hs asa 81 daily per cardiology, can defer AC for now, however, patient would benefit from Eliquis if there are no contraindications when stable. However, he has had falls with a head bleed in the past. PT following. Code(s): I63.9 - CEREBRAL INFARCTION, UNSPECIFIED (7) Diabetes Assessment/Plan: ac/hs with novolog elevated bgms now that diet has been started, added levemir 5 Code(s): E11.9 - TYPE 2 DIABETES MELLITUS WITHOUT COMPLICATIONS (8) Eye globe prosthesis Assessment/Plan: supportive care Code(s): Z97.0 - PRESENCE OF ARTIFICIAL EYE (9) HIV (human immunodeficiency virus infection) Assessment/Plan: restart home meds Code(s): Z21 - ASYMPTOMATIC HUMAN IMMUNODEFICIENCY VIRUS INFECTION STATUS (10) AF Atrial fibrillation Assessment/Plan: has been off anticoagulation since 2012 secondary to an acute head bleed per . on digoxin for rate control, on toprol Code(s): I48.91 - UNSPECIFIED ATRIAL FIBRILLATION (11) Hyponatremia Assessment/Plan: resolved Code(s): E87.1 - HYPO-OSMOLALITY AND HYPONATREMIA (12) JUAN R (acute kidney injury) Assessment/Plan: resolved Code(s): N17.9 - ACUTE KIDNEY FAILURE, UNSPECIFIED (13) Aspiration precautions Assessment/Plan: diet advanced maintain aspiration precautions: hob elevated with meals, full liquid/nectar. speech and swallow following. Code(s): Z91.89 - OTH PERSONAL RISK FACTORS, NOT ELSEWHERE CLASSIFIED (14) Prophylactic measure Assessment/Plan: physical therapy Code(s): Z29.9 - ENCOUNTER FOR PROPHYLACTIC MEASURES, UNSPECIFIED Cleared for discharge to home with Mae Condition: Improved - Instructions Diet, Activity, Other Instructions: DISCHARGE YOUR VISIT You came to the hospital because you had a bowel obstruction. You were placed on bowel rest. Xrays were done and slowly improved. Your diet was advanced and you are now tolerating regualr food. The speech pathologist saw you are there are no changes made in your diet. Follow up with Dr Shields in the clinic. MEDICATIONS Please continue to take your home medications as prescribed. There was no changes DIET Continue your home diet ADDITIONAL CARE Please make an appointment to see your primary care provider, Dr Shields 1 week from today. ADDITIONAL INFORMATION Please call 911 or come directly to the emergency department if you experience unusual headache, vision change, shortness of breath, chest pain, numbness, tingling, loss of alertness/awareness, loss of function, unusual bleeding or any alarming symptoms. Thank you for allowing me to care for you. Kimani Henao, MAL, [facility] [phone] Referrals: Laila Shields MD [Primary Care Provider] - 1 Week (call for appointment) Disposition: HOME - Home Medications Comprehensive Discharge Medication List: Ambulatory Orders Metformin HCl [Glucophage] 1,000 mg PO BID 04/05/18 Digoxin Oral Solution [Lanoxin Oral Solution -] 125 mcg PO DAILY #75 ml Fluticasone/Salmeterol [Advair 250-50 Diskus] 1 each IH DAILY #30 blst.w.dev 01/03 Furosemide [Lasix] 20 mg PO DAILY #30 tablet 06/21/18 Metoprolol Succinate [Toprol XL -] 25 mg PO BID #60 tab.sr.24h 06/21/18 Glyburide 2.5 mg PO DAILY 03/28/19 levETIRAcetam [Keppra -] 500 mg PO BID 03/28/19 Aspirin [ASA -] 81 mg PEG DAILY #30 tab.chew 09/05/19 Multivitamin,Therapeutic [Oncovite] 1 each PO DAILY #30 tablet 09/05/19 Abacavir/Dolutegravir/Lamivudi [Triumeq 600-50-300 mg Tablet] 1 each PO DAILY # 30 tablet 09/17/19 Paroxetine HCl [Paxil -] 10 mg PO DAILY #30 tablet 10/02/19 Lorazepam [Ativan] 0.5 mg PO AM #90 tablet MDD 1 10/10/19 Atorvastatin Ca [Lipitor] 20 mg PO HS 10/21/19 Clotrimazole [Lotrimin -] 1 applic TP DAILY 10/21/19 Budesonide/Formeterol Fumarate [SYMBICORT 80/4.5mcg -] 2 puff IH DAILY inhaler 11/01/19 Digoxin [Lanoxin -] 0.125 mg PO DAILY tablet 11/01/19 Metoprolol Succinate [Toprol XL -] 25 mg PO BID tab.sr.24h 11/01/19 levETIRAcetam [Keppra -] 500 mg PO BID tablet 11/01/19 Prescription Drug Monitoring Program (I-STOP) results: I-STOP reviewed and no issues identified Problem List - Problems (1) HIV (human immunodeficiency virus infection) Code(s): B20 - HUMAN IMMUNODEFICIENCY VIRUS [HIV] DISEASE (2) HTN (hypertension) Code(s): I10 - ESSENTIAL (PRIMARY) HYPERTENSION (3) Nausea & vomiting Code(s): R11.2 - NAUSEA WITH VOMITING, UNSPECIFIED (4) Small bowel obstruction Code(s): K56.609 - UNSP INTESTNL OBST, UNSP TO PARTIAL VERSUS COMPLETE OBST (5) AF Atrial fibrillation Code(s): I48.91 - UNSPECIFIED ATRIAL FIBRILLATION (6) CVA (cerebral vascular accident) Code(s): I63.9 - CEREBRAL INFARCTION, UNSPECIFIED (7) Diabetes Code(s): E11.9 - TYPE 2 DIABETES MELLITUS WITHOUT COMPLICATIONS (8) Seizure disorder Code(s): G40.909 - EPILEPSY, UNSP, NOT INTRACTABLE, WITHOUT STATUS EPILEPTICUS (9) HLD (hyperlipidemia) Code(s): E78.5 - HYPERLIPIDEMIA, UNSPECIFIED (10) Pacemaker Code(s): Z95.0 - PRESENCE OF CARDIAC PACEMAKER (11) Hypothyroid Code(s): E03.9 - HYPOTHYROIDISM, UNSPECIFIED This patient is new to me today: No Emergency Visit: Yes ED Registration Date: 10/21/19 Care time: The patient presented to the Emergency Department on the above date and was hospitalized for further evaluation of their emergent condition. Critical Care patient: No - Discharge Referral Referred to [facility] Med [facility] No
[2019-11-01] MEDS ORDERED: levETIRAcetam 500 MG TABLET (FP) PO SCH (22:00)
[2019-11-02] MEDS ORDERED: DIGOXIN 0.125 MG TABLET (FP) PO SCH (10:00)
== END 2019-11-01 18:40 | disposition home or self-care (01) | DRG 247 ==
LOC: SUPCPDRO 10:50 → JER 10:50 → JERBED 15:07 → J5S 21:58
PROVIDERS: ATTEND Nurse Practitioner Acute Care
PROC: 0D9670Z Drainage of Stomach with Drainage Device, Via Natural or Artificial Opening (ICD-10-PCS; principal; 2019-10-22)
DX: K56.609 Unspecified intestinal obstruction, unspecified as to partial versus complete obstruction (principal); R11.2 Nausea with vomiting, unspecified; E78.5 Hyperlipidemia, unspecified; G81.91 Hemiplegia, unspecified affecting right dominant side; N17.9 Acute kidney failure, unspecified; E87.1 Hypo-osmolality and hyponatremia; I10 Essential (primary) hypertension; G40.909 Epilepsy, unspecified, not intractable, without status epilepticus; I48.91 Unspecified atrial fibrillation; Z21 Asymptomatic human immunodeficiency virus [HIV] infection status; I69.320 Aphasia following cerebral infarction; E11.9 Type 2 diabetes mellitus without complications; E03.9 Hypothyroidism, unspecified; Z97.0 Presence of artificial eye; Z95.0 Presence of cardiac pacemaker
CPT/HCPCS: 36415; 71045-TC-FY; 74019-TC-FY; 74176-TC; 74250-TC-FY; 76705-TC; 80053; 80061; 80162; 81003; 82550; 82607; 82746; 82962; 83605; 83690; 83721; 83735; 84100; 84484; 85025; 85610; 87040; 87324; 87449; 93005; 93010; 97116-GP; 97162-GP; 99284-25; J1644; J7030

== ENCOUNTER 2019-11-08 14:00 | Emergency (ER) | payer SELFPAY ==
[2019-11-08] MEDS ORDERED: SODIUM CHLORIDE 1,000 ML IV STA (14:15)
--- NOTE | 2019-11-08 14:15 | PDOC ---
Rapid Medical Evaluation Time Seen by Provider: 11/08/19 14:12 Medical Evaluation: Allergies Allergy/AdvReac Type Severity Reaction Status Date / Time No Known Allergies Allergy Verified 10/21/19 11:41 11/08/19 14:12 CC: No BM x1 week; d/c'd on 11/01 for SBO PE: tympanic abdomen. firm upper abdomen Orders: labs, CTAP, urine Patient will proceed to ED for evaluation. Discharge Disposition - Diagnosis Constipation - Referrals - Patient Instructions - Post Discharge Activity
[2019-11-08 14:17] VITALS: BMI 30.1
--- NOTE | 2019-11-08 14:42 | PDOC ---
History of Present Illness - General Chief Complaint: Constipation Stated Complaint: SENT BY PCP Time Seen by Provider: 11/08/19 14:12 History Source: Significant Other Exam Limitations: Physical Impairment (aphasic) - History of Present Illness Initial Comments: 64M PMH Seizures, AF (not on AC), CVA (aphasic), HTN, HLD, DM, HIV (on HAART) sent from [facility] for evaluation of lack of BMs since 11/01 when he was dc'd from [facility] for SBO (nonsurgically managed). Hx per at bedside; pt able to respond yes/no w/ nods/shake. Small loose nonbloody nonmelanotic stool on 11/06. DC'd with bowel rest and progressive diet; has been eating clear liquids and pureed food w/o issue. No n/v, abd pain, f/c. +passing flatus. Denies cp/sob. Past History - Past Medical History Allergies/Adverse Reactions: Allergies Allergy/AdvReac Type Severity Reaction Status Date / Time No Known Allergies Allergy Verified 11/08/19 14:17 Home Medications: Ambulatory Orders Metformin HCl [Glucophage] 1,000 mg PO BID 04/05/18 Digoxin Oral Solution [Lanoxin Oral Solution -] 125 mcg PO DAILY #75 ml Fluticasone/Salmeterol [Advair 250-50 Diskus] 1 each IH DAILY #30 blst.w.dev 01/03 Furosemide [Lasix] 20 mg PO DAILY #30 tablet 06/21/18 Metoprolol Succinate [Toprol XL -] 25 mg PO BID #60 tab.sr.24h 06/21/18 Glyburide 2.5 mg PO DAILY 03/28/19 levETIRAcetam [Keppra -] 500 mg PO BID 03/28/19 Aspirin [ASA -] 81 mg PEG DAILY #30 tab.chew 09/05/19 Multivitamin,Therapeutic [Oncovite] 1 each PO DAILY #30 tablet 09/05/19 Abacavir/Dolutegravir/Lamivudi [Triumeq 600-50-300 mg Tablet] 1 each PO DAILY # 30 tablet 09/17/19 Paroxetine HCl [Paxil -] 10 mg PO DAILY #30 tablet 10/02/19 Lorazepam [Ativan] 0.5 mg PO AM #90 tablet MDD 1 10/10/19 Atorvastatin Ca [Lipitor] 20 mg PO HS 10/21/19 Clotrimazole [Lotrimin -] 1 applic TP DAILY 10/21/19 Budesonide/Formeterol Fumarate [SYMBICORT 80/4.5mcg -] 2 puff IH DAILY inhaler 11/01/19 Digoxin [Lanoxin -] 0.125 mg PO DAILY tablet 11/01/19 Metoprolol Succinate [Toprol XL -] 25 mg PO BID tab.sr.24h 11/01/19 levETIRAcetam [Keppra -] 500 mg PO BID tablet 11/01/19 Anemia: No Asthma: Yes Cancer: No Cardiac Disorders: (PACEMAKER) CVA: Yes (STROKE 2012) COPD: No CHF: No Dementia: No Diabetes: Yes GI Disorders: No Disorders: No HTN: Yes Hypercholesterolemia: Yes Liver Disease: No Psychiatric Problems: (ANXIETY) Seizures: Yes Thyroid Disease: No - Surgical History Abdominal Surgery: No Cardiac Surgery: Yes (PACEMAKER) Neurologic Surgery: No - Immunization History Immunization Up to Date: Yes - Psycho Social/Smoking Cessation Hx Smoking Status: No Smoking History: Never smoked Have you smoked in the past 12 months: No Number of Cigarettes Smoked Daily: 0 If you are a former smoker, when did you quit?: 45YRS Cigars Per Day: 0 Information on smoking cessation initiated: No Hx Alcohol Use: No Drug/Substance Use Hx: No Substance Use Type: None Hx Substance Use Treatment: No Review of Systems - Review of Systems Able to Perform ROS?: Yes Comments:: CONSTITUTIONAL: Denies F / C HEENT: Aphasic. Denies difficulty swallowing RESP: Denies SOB CARD: Denies chest pain GI: Endorses constipation. Denies N / V / D, abdominal pain, inability to tolerate PO : Denies dysuria SKIN: Denies rashes NEURO: Denies numbness, tingling, weakness MSK: Denies back pain *Physical Exam - Vital Signs Last Vital Signs Temp Pulse Resp BP Pulse Ox 97.8 F 60 18 100/68 98 11/08/19 14:14 11/08/19 14:14 11/08/19 14:14 11/08/19 14:14 11/08/19 14:14 - Physical Exam GEN: Well appearing, NAD, comfortable. AAOx3. HEENT: NC/AT, left eye prosthesis. Supple neck w/ FROM. CV: S1/S2, RRR, no m/r/g LUNG: CTAB, no wheezes, crackles, rales, rhonchi. GI: Soft, ndnt, +BS, no guarding, no rebound. No masses. MSK: No LE edema. No obvious deformities of all extremities. SKIN: Warm, dry, no rashes appreciated. PSYCH: Normal mood and affect. NEURO: Moving all extremities well. ED Treatment Course - LABORATORY CBC & Chemistry Diagram: 11/08/19 15:20 11/08/19 15:20 Medical Decision Making - Medical Decision Making 11/08/19 14:41 64M presenting w/ constipation since 11/01 when he was dc'd for medically managed SBO; passed small BM on 11/06. Passing gas, tolerating PO, no pain, f/c, n/v. DDx - ileus, obstruction, constipation; alternatively pt may not have a significant amount of stool 2/2 pureed diet. - RME Labs, CT - f/u 11/08/19 19:02 CT A/P Persistent although improved distal small bowel obstruction is noted in comparison to a CT exam of 10/21/2019. Interval development of mildly increased fluid is seen within the length of the colon - ? current diarrheal illness. The remainder of the exam appears unchanged. Cholelithiasis. Choledocholithiasis. Possible diffuse hepatic steatosis. Mild splenomegaly. Small midline epigastric ventral hernia containing fat only. Bibasilar discoid atelectasis/scarring. There is partial imaging of an approximately 0.8 cm right lower lobe parenchymal cyst with possible mild wall thickening. Correlation with a dedicated chest CT exam is suggested. Cardiomegaly. Transvenous cardiac pacemaker in place. Discharge home w/ PCP f/u Discharge - Discharge Information Problems reviewed: Yes Clinical Impression/Diagnosis: Constipation Qualifiers: Constipation type: unspecified constipation type Qualified Code(s): K59.00 - Constipation, unspecified Condition: Stable Disposition: HOME - Admission No - Follow up/Referral Referrals: Tami Arce NP [Primary Care Provider] - Ang Portillo MD [Staff Physician] - - Patient Discharge Instructions Patient Printed Discharge Instructions: DI for Small Bowel Obstruction, DI for Constipation Additional Instructions: The CAT scan report was given to you. Progress your diet as tolerated. The lack of bowel movement is likely due to the liquid / soft diet you have been having. Follow up with your primary care doctor in the next 5-7 days. Continue your home medications as prescribed. Return to the nearest Emergency Department if you experience abdominal pain, nausea/vomiting, fevers, lack of gas, or anything that concerns you. You requested the name of an ophthalmology, we referred you to Dr. Portillo. See the information below to schedule an appointment. - Post Discharge Activity
[2019-11-08 15:51] LABS: BASO % 0.6 % (0-2.0); EOS % 2.4 % (0-4.5); HEMATOCRIT 33.8 % (35.4-49); HEMOGLOBIN 11.5 GM/dL (11.7-16.9); LYMPH % 19.2 % (8-40); MCH 32.4 pg (25.7-33.7); MCHC 34.2 g/dl (32.0-35.9); MEAN CELL VOLUME 94.9 fl (80-96); MEAN PLT VOLUME 7.8 fl (7.5-11.1); MONO % 6.6 % (3.8-10.2); NEUT % 71.2 % (42.8-82.8); PLATELET COUNT 216 K/MM3 (134-434); RBC 3.56 M/mm3 (4.00-5.60); RDW 13.3 % (11.9-15.9); WHITE BLOOD COUNT 4.7 K/mm3 (4.0-10.0)
--- NOTE | 2019-11-08 15:57 | PDOC ---
Documentation entered by Danuta Henriquez SCRIBE, acting as scribe for Joie Baxter MD. Joie Baxter MD: This documentation has been prepared by the Florence mathis Adrianna, SCRIBE, under my direction and personally reviewed by me in its entirety. I confirm that the documentation accurately reflects all work, treatment, procedures, and medical decision making performed by me. Attending Attestation - Resident Resident Name: Hermes Li - ED Attending Attestation I have performed the following: I have examined & evaluated the patient, The case was reviewed & discussed with the resident, I agree w/resident's findings & plan, Exceptions are as noted - HPI HPI: 64 year old male, PMH Seizures, Afib (s/p pacemaker, not on AC), CVA (aphasic), HTN, HLD, DM, HIV (on HAART), asthma, and anxiety, presents with constipation for 7 days. Patient was recently discharged from [facility] for non-operative SBO management. He had one small, loose, non-bloody stool 2 days ago, and has been able to pass flatulence. Patient has been able to eat pureed food and drink clear liquids without any complaints. He was seen at the [facility] today for this complaint , and was advised to come to the ED for further evaluation. concerned for recurrent sbo. Allergies: NKA, NKDA Surgical History: pacemaker Social History: Former smoker (quit 45 years ago). No toxic habits PCP: Tami Arce 11/08/19 15:55 - Physicial Exam PE: 11/08/19 15:56 awake alert lungs clear bilat heart rrr no mrg abd soft mult abd scars. no rebound no guarding. ext wwp. no edema. no calf tenderness. upper ext right contracted. - Medical Decision Making 11/08/19 15:56 64 yo male h/o cva hiv htn DM recent sbo here with decreased bm plan ct a/p r/o sbo. labs pt was hypoglycemic in office earlier. repeat gluc here in ED.
[2019-11-08 16:22] LABS: ALBUMIN 3.2 g/dl (3.4-5.0); BILIRUBIN,TOTAL 0.8 mg/dL (0.2-1); BLOOD UREA NITROGEN 11.9 mg/dL (7-18); CALCIUM 8.4 mg/dL (8.5-10.1); CREATININE 1.2 mg/dL (0.55-1.3); POTASSIUM 5.7 mmol/L (3.5-5.1); TOT PROT 8.2 g/dl (6.4-8.2)
[2019-11-08 18:46] VITALS: BP 110/65; PULSE 64; TEMP 98.6
--- NOTE | 2019-11-08 18:58 | PDOC ---
*Physical Exam - Vital Signs Last Vital Signs Temp Pulse Resp BP Pulse Ox 98.6 F 64 18 110/65 96 11/08/19 18:45 11/08/19 18:45 11/08/19 18:45 11/08/19 18:45 11/08/19 18:45 ED Treatment Course - LABORATORY CBC & Chemistry Diagram: 11/08/19 15:20 11/08/19 15:20 - ADDITIONAL ORDERS Additional order review: Laboratory Results 11/08/19 15:20 Sodium 133 L Potassium 5.7 H Chloride 97 L Carbon Dioxide 30 Anion Gap 7 L BUN 11.9 Creatinine 1.2 Est GFR (CKD-EPI)AfAm 73.11 Est GFR (CKD-EPI)NonAf 63.08 Random Glucose 64 L Calcium 8.4 L Total Bilirubin 0.8 AST 91 H ALT 40 Alkaline Phosphatase 211 H Total Protein 8.2 Albumin 3.2 L Lipase 225 11/08/19 15:20 RBC 3.56 L MCV 94.9 MCHC 34.2 RDW 13.3 MPV 7.8 Neutrophils % 71.2 Lymphocytes % 19.2 Monocytes % 6.6 Eosinophils % 2.4 Basophils % 0.6 - Medications Given in the ED: ED Medications Discontinued Medications Generic Name Dose Route Start Last Admin Trade Name Freq PRN Reason Stop Dose Admin Sodium Chloride 1,000 mls @ 1,000 mls/hr 11/08/19 14:15 11/08/19 15:44 Normal Saline - IV 11/08/19 15:14 1,000 mls/hr ASDIR STA Administration Medical Decision Making - Medical Decision Making 11/08/19 18:56 Patient seen as pre-attending with Dr. Li (PGY-1) and Drs. Baxter/Evon ( Attendings) 64 y/o male with PMHx of SBO (non-operative management) as well as DM, HIV, AFib with no BM (+ flatuence) for 7 days Day team ordered CT scan to r/o SBO Patient assessed @ bedside, well appearing, belly soft, (+) bowel sounds 11/08/19 19:21 CT negative for SBO; shows a 0.8 cm R Lower lobe cyst- patient should follow-up as outpatient, given copy of CT scan. Return precautions and d/c Discharge - Discharge Information Problems reviewed: Yes Clinical Impression/Diagnosis: Constipation Qualifiers: Constipation type: unspecified constipation type Qualified Code(s): K59.00 - Constipation, unspecified Condition: Stable Disposition: HOME - Follow up/Referral Referrals: Tami Arce NP [Primary Care Provider] - Ang Portillo MD [Staff Physician] - - Patient Discharge Instructions Patient Printed Discharge Instructions: DI for Small Bowel Obstruction, DI for Constipation Additional Instructions: The CAT scan report was given to you. Progress your diet as tolerated. The lack of bowel movement is likely due to the liquid / soft diet you have been having. Follow up with your primary care doctor in the next 5-7 days. Continue your home medications as prescribed. Return to the nearest Emergency Department if you experience abdominal pain, nausea/vomiting, fevers, lack of gas, or anything that concerns you. You requested the name of an ophthalmology, we referred you to Dr. Portillo. See the information below to schedule an appointment. - Post Discharge Activity
[2019-11-08 21:43] LABS: PH,URINE 5.5 (5.0-8.0); URINE APPEARANCE CLEAR; URINE BILIRUBIN NEGATIVE (NEGATIVE); URINE COLOR YELLOW; URINE GLUCOSE (UA) NEGATIVE (NEGATIVE); URINE KETONE NEGATIVE (NEGATIVE); URINE LEUK ESTERASE NEGATIVE (NEGATIVE); URINE NITRITE NEGATIVE (NEGATIVE); URINE PROTEIN NEGATIVE (NEGATIVE)
== END 2019-11-08 19:56 | disposition home or self-care (01) ==
LOC: JER 14:00
PROC: 3E0337Z Introduction of Electrolytic and Water Balance Substance into Peripheral Vein, Percutaneous Approach (ICD-10-PCS; principal; 2019-11-08)
DX: K59.00 Constipation, unspecified (principal); K56.699 Other intestinal obstruction unspecified as to partial versus complete obstruction; I10 Essential (primary) hypertension; I48.91 Unspecified atrial fibrillation; G40.909 Epilepsy, unspecified, not intractable, without status epilepticus; E11.9 Type 2 diabetes mellitus without complications; Z79.84 Long term (current) use of oral hypoglycemic drugs; E78.5 Hyperlipidemia, unspecified; I69.820 Aphasia following other cerebrovascular disease; J45.909 Unspecified asthma, uncomplicated; F41.9 Anxiety disorder, unspecified; Z95.0 Presence of cardiac pacemaker; Z87.891 Personal history of nicotine dependence; Z87.19 Personal history of other diseases of the digestive system; Z21 Asymptomatic human immunodeficiency virus [HIV] infection status
CPT/HCPCS: 36415; 74177-TC; 80053; 81003; 83690; 85025; 87086; 99285-25; J7030; Q9967

== ENCOUNTER 2020-03-25 13:45 | Inpatient (IN) | payer SELFPAY ==
--- NOTE | 2020-03-25 13:54 | PDOC ---
Rapid Medical Evaluation Chief Complaint: Abnormal Lab Results (Outside) Time Seen by Provider: 03/25/20 13:49 Medical Evaluation: Allergies Allergy/AdvReac Type Severity Reaction Status Date / Time No Known Allergies Allergy Verified 03/25/20 13:49 Vital Signs Temp Pulse Resp BP Pulse Ox 102.4 F H 71 18 114/64 97 03/25/20 13:46 03/25/20 13:46 03/25/20 13:46 03/25/20 13:46 03/25/20 13:46 03/25/20 13:49 I have performed a brief in-person evaluation of this patient. The patient presents with a chief complaint of:Sent by pmd for elevated LFTs. Family also reports T of 102. Pt s/p CVA w/ R sided deficit and non-verbal, HTN, DM, seizure, PPM. Pertinent physical exam findings:T 102.4 I have ordered the following:labs The patient will proceed to the ED for further evaluation. Discharge Disposition - Diagnosis Fever Qualifiers: Fever type: unspecified Qualified Code(s): R50.9 - Fever, unspecified - Referrals - Patient Instructions - Post Discharge Activity
[2020-03-25] MEDS ORDERED: ACETAMINOPHEN 1000 MG/100 ML VIAL (NON FORMULARY) IVPB ONE (14:43)
[2020-03-25] MEDS ORDERED: ACETAMINOPHEN INJECTION 100 ML IVPB ONE (15:59)
--- NOTE | 2020-03-25 16:05 | PDOC ---
History of Present Illness - General Chief Complaint: Abnormal Lab Results (Outside) Stated Complaint: FEVER/ABN LAB RESULTS Time Seen by Provider: 03/25/20 13:49 History Source: Patient Exam Limitations: No Limitations - History of Present Illness Initial Comments: Pt is a 64 yo M, with PMH of HIV (CD4 152), HTN, DM, CVA (R-deficits, aphasic), Afib (no AC, with pacemaker), who is presenting from home by referral from ID doctor (Dr. Shields) for elevated LFTs. Pt is accompanied by his , who states he had loose stool since last night, and has been urinating on himself, which is different from his baseline. Pt has been tolerating PO intake as usual. Pts partner denies any fevers, syncope, SOB, cough, vomiting, rash, or leg swelling. Allergies: NKDA PCP: Dr. Arce ID: Dr. Shields/Dr. Suazo Social: No cigarette, alcohol, or drug use. No recent travel or sick contacts. Surgical: pacemaker placement Family: no relevant history. 03/25/20 17:45 Past History - Travel History Traveled outside of the country in the last 30 days: No Close contact w/someone who was outside of country & ill: No - Medical History Allergies/Adverse Reactions: Allergies Allergy/AdvReac Type Severity Reaction Status Date / Time No Known Allergies Allergy Verified 03/25/20 13:49 Home Medications: Ambulatory Orders Metformin HCl [Glucophage] 1,000 mg PO BID 04/05/18 Digoxin Oral Solution [Lanoxin Oral Solution -] 125 mcg PO DAILY #75 ml 06/21/18 Fluticasone/Salmeterol [Advair 250-50 Diskus] 1 each IH DAILY #30 blst.w.dev 06/21/18 Furosemide [Lasix] 20 mg PO DAILY #30 tablet 06/21/18 Metoprolol Succinate [Toprol XL -] 25 mg PO BID #60 tab.sr.24h 06/21/18 Glyburide 2.5 mg PO DAILY 03/28/19 levETIRAcetam [Keppra -] 500 mg PO BID 03/28/19 Aspirin [ASA -] 81 mg PEG DAILY #30 tab.chew 09/05/19 Atorvastatin Ca [Lipitor] 20 mg PO HS 10/21/19 Clotrimazole [Lotrimin -] 1 applic TP DAILY 10/21/19 Budesonide/Formeterol Fumarate [SYMBICORT 80/4.5mcg -] 2 puff IH DAILY inhaler 11/01/19 Metoprolol Succinate [Toprol XL -] 25 mg PO BID tab.sr.24h 11/01/19 Albuterol Sulfate Inhaler - [Ventolin HFA Inhaler -] 1 - 2 inh PO QID #1 inhaler 12/11/19 Guaifenesin [Tussin Chest Congestion] 10 ml PO QID #1 bottle 12/11/19 Multivitamin,Therapeutic [Oncovite] 1 each PO DAILY #30 tablet 12/11/19 Acetaminophen [Tylenol -] 2 tab PO Q8H #100 tablet 12/25/19 Albuterol 0.083% Nebulizer Yazmin [Ventolin 0.083% Nebulizer Soln -] 1 neb NEB Q4H #1 box 12/25/19 Alcohol Antiseptic Pads [Alcohol Prep Pads] 1 each TP DAILY #1 box 12/25/19 Nebulizer Accessories [A.i.r.s. Nebulizer] 1 each MC DAILY #1 kit 12/25/19 Nebulizer and Compressor [[place] Choice Nebulizer] 1 each MC DAILY #1 each 12/25/19 Guaifenesin [Tussin Chest Congestion] 10 ml PO QID #1 liquid 01/02/20 Guaifenesin/D-Methorphan Hb [Diabetic Tussin Dm Liquid] 10 ml PO Q6H PRN #120 ml 01/09/20 Abacavir/Dolutegravir/Lamivudi [Triumeq 600-50-300 mg Tablet] 1 each PO DAILY #30 tablet 02/19/20 Polyethylene Glycol 3350 [Miralax (For Daily Use) -] 17 gm PO DAILY PRN #1 bottle 02/20/20 Lorazepam [Ativan] 0.5 mg PO AM #30 tablet MDD 1 02/27/20 Paroxetine HCl [Paxil -] 10 mg PO DAILY #30 tablet 02/27/20 Anemia: No Asthma: Yes Cancer: No Cardiac Disorders: (PACEMAKER) CVA: Yes (2012) COPD: No CHF: No Dementia: No Diabetes: Yes GI Disorders: No Disorders: No HTN: Yes Hypercholesterolemia: Yes Liver Disease: No Psychiatric Problems: (ANXIETY) Seizures: Yes Thyroid Disease: No Other medical history: left eye blindness, non verbal - Surgical History Abdominal Surgery: No Cardiac Surgery: Yes (PACEMAKER) Neurologic Surgery: No - Immunization History Immunization Up to Date: Yes - Psycho-Social/Smoking History Smoking Status: No Smoking History: Never smoked Have you smoked in the past 12 months: No Number of Cigarettes Smoked Daily: 0 If you are a former smoker, when did you quit?: 45YRS Cigars Per Day: 0 - Substance Abuse Hx (Audit-C & DAST Scrn) How often the patient has a drink containing alcohol: Never Score: In Men: 4 or > Positive; In Women: 3 or > Positive: 0 Screen Result (Pos requires Nsg. Audit-10AR): Negative Review of Systems - Review of Systems Able to Perform ROS?: No (see HPI, nonverbal) Is the patient limited Ghanaian proficient: No *Physical Exam - Vital Signs Last Vital Signs Temp Pulse Resp BP Pulse Ox 102.4 F H 71 18 114/64 97 03/25/20 13:46 03/25/20 13:46 03/25/20 13:46 03/25/20 13:46 03/25/20 13:46 - Physical Exam Vitals stable, febrile. Pt in NAD, obese body habitus. Pt alert and nods head appropriately to questions. 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 No midline spinal tenderness, step-offs, or crepitus. Head normocephalic, atraumatic. Eyes PERRLA, EOMI. Oropharynx without erythema or exudates, no LAD b/l. No nasal congestion. Hearing intact. Clear heart sounds, S1/S2, no JVD, b/l pedal edema, or heart murmur. Diminished lung sounds at bio respiratory distress, wheezes, crackles, or accessory muscle use. No abdominal or CVA tenderness to palpation, no rebound, no guarding. Abdomen soft, non-distended, and with normoactive bowel sounds. Pt urinated on his clothing. No penile lesions or discharge. Skin without jaundice or rash. Hyperpigmentation RLE (chronic) 03/25/20 18:07 ED Treatment Course - LABORATORY CBC & Chemistry Diagram: 03/25/20 15:20 03/25/20 15:20 - RADIOLOGY Radiology Studies Ordered: Category Date Time Status ABDOMEN & PELVIS CT WITH CONTR [CT] Stat CT Scan 03/25/20 15:09 Ordered CHEST PA & LAT [RAD] Stat Radiology 03/25/20 14:43 Ordered Medical Decision Making - Medical Decision Making Pt was seen at bedside, also will be seen by attending Dr. Murillo. Pt presenting with fever, immunocompromised, recent loose stool, urinary incontinence, elevated LFTs from baseline. Considering COVID vs pneumonia/legionella vs cholangitis vs UTI Provided ofirmev for improvement of fever. Will continue to reassess pt and monitor for symptomatic improvement. ECG: Ventricular-paced rhythm. No TWIs or significant ST segment changes. No significant changes from prior ECG. 03/25/20 18:12 CMP shows improved LFTs from yesterday (element of hemolysis?) Chest x-ray shows RLL pneumonia -- providing rocephin and azithro Pt has been unable to urinate, will provide straight cath 03/25/20 18:25 Pt was taken for CT abd/pelvis, pending read for admission. Pt was signed out to night team for follow-up and admission (Dr. Lombardi) 03/26/20 08:33 Discharge - Discharge Information Problems reviewed: Yes Clinical Impression/Diagnosis: Choledocholithiasis Fever Qualifiers: Fever type: unspecified Qualified Code(s): R50.9 - Fever, unspecified Pneumonia Qualifiers: Pneumonia type: due to unspecified organism Laterality: right Lung location: lower lobe of lung Qualified Code(s): J18.9 - Pneumonia, unspecified organism Condition: Stable - Admission Yes - Follow up/Referral - Patient Discharge Instructions - Post Discharge Activity
--- NOTE | 2020-03-25 16:26 | PDOC ---
Documentation entered by Demi De La Cruz SCRIBE, acting as scribe for Americo Murillo MD. Americo Murillo MD: This documentation has been prepared by the Theo mathis Nirvannie, SCRIBE, under my direction and personally reviewed by me in its entirety. I confirm that the documentation accurately reflects all work, treatment, procedures, and medical decision making performed by me. Attending Attestation - Resident Resident Name: Makayla Sharma - ED Attending Attestation I have performed the following: I have examined & evaluated the patient, The case was reviewed & discussed with the resident, I agree w/resident's findings & plan, Exceptions are as noted - HPI HPI: 03/25/20 15:37 The patient is a 64 year old male with a significant past medical history of Seizures, Afib (s/p pacemaker), CVA (aphasic), HTN, HLD, DM, HIV (on HAART), asthma, and anxiety who presents to the ED with elevated LFTs on outpatient labs. As per patients family, he is also febrile. Allergies: NKDA Primary Care Physician: Dr. Tami Arce - Physicial Exam PE: 03/25/20 16:23 Awake and alert, ill-appearing, in no significant distress Right hemiparesis, a phasic, responds appropriately by nodding Dry mucous membranes Decreased breath sounds at the bases bilaterally RRR Abdomen is soft, nontender, nondistended Right lower extremity hyperpigmentation (old) - Medical Decision Making 03/25/20 16:25 64-year-old male with history of HIV/AIDS, CD4 count of 153, presents with fever and abnormal LFTs. Differential diagnosis includes urosepsis versus pneumonia versus Legionella pneumonia versus COVID versus cholangitis versus hepatitis. Will obtain chest x-ray, CT of abdomen pelvis. Will obtain blood and urine cultures. Will administer appropriate antibiotics, likely admission. Discharge - Discharge Information Problems reviewed: Yes Clinical Impression/Diagnosis: Fever Qualifiers: Fever type: unspecified Qualified Code(s): R50.9 - Fever, unspecified - Follow up/Referral Referrals: Tami Arce, DRY CANS BACK TENDER [Primary Care Provider] - - Patient Discharge Instructions - Post Discharge Activity
[2020-03-25 16:42] LABS: BASO % 0.1 % (0-2.0); EOS % 0.1 % (0-4.5); HEMATOCRIT 35.6 % (35.4-49); HEMOGLOBIN 11.8 GM/dL (11.7-16.9); MCH 32.2 pg (25.7-33.7); MCHC 33.1 g/dl (32.0-35.9); MEAN PLT VOLUME 8.1 fl (7.5-11.1); MONO % 4.5 % (3.8-10.2); NEUT % 88.3 % (42.8-82.8); PLATELET COUNT 88 K/MM3 (134-434); RBC 3.67 M/mm3 (4.00-5.60); RDW 14.9 % (11.9-15.9); WHITE BLOOD COUNT 4.6 K/mm3 (4.0-10.0)
[2020-03-25 17:11] LABS: ALBUMIN 3.4 g/dl (3.4-5.0); BILIRUBIN,TOTAL 2.4 mg/dL (0.2-1); BLOOD UREA NITROGEN 10.7 mg/dL (7-18); CALCIUM 8.4 mg/dL (8.5-10.1); CREATININE 1.2 mg/dL (0.55-1.3); POTASSIUM 3.4 mmol/L (3.5-5.1); TOT PROT 7.8 g/dl (6.4-8.2)
[2020-03-25] MEDS ORDERED: AZITHROMYCIN IVPB 500 MG in DEXTROSE 5%-WATER - 250 ML IVPB ONE (18:25)
[2020-03-25] MEDS ORDERED: CEFTRIAXONE 1,000 MG in DEXTROSE 5%-WATER - 50 ML IVPB ONE (18:25)
[2020-03-25] MEDS ORDERED: AZITHROMYCIN IVPB 500 MG/250 ML BAG IVPB ONE (18:59)
[2020-03-25] MEDS ORDERED: CEFTRIAXONE 1 GM/50 ML BAG ONE (18:59)
--- NOTE | 2020-03-25 19:23 | PDOC ---
*Physical Exam - Vital Signs Last Vital Signs Temp Pulse Resp BP Pulse Ox 102.4 F H 71 18 114/64 97 03/25/20 13:46 03/25/20 13:46 03/25/20 13:46 03/25/20 13:46 03/25/20 13:46 ED Treatment Course - LABORATORY CBC & Chemistry Diagram: 03/25/20 15:20 03/25/20 15:20 - ADDITIONAL ORDERS Additional order review: Laboratory Results 03/25/20 15:20 Sodium 137 Potassium 3.4 L Chloride 102 Carbon Dioxide 27 Anion Gap 8 BUN 10.7 Creatinine 1.2 Est GFR (CKD-EPI)AfAm 73.11 Est GFR (CKD-EPI)NonAf 63.08 Random Glucose 262 H Calcium 8.4 L Total Bilirubin 2.4 H AST 107 H ALT 120 H Alkaline Phosphatase 123 H Creatine Kinase 385 H Creatine Kinase Index 0.7 CK-MB (CK-2) 3.0 Troponin I 0.02 Total Protein 7.8 Albumin 3.4 Lipase 111 03/25/20 15:20 RBC 3.67 L MCV 97.0 H MCHC 33.1 RDW 14.9 MPV 8.1 Neutrophils % 88.3 H Lymphocytes % 7.0 L D Monocytes % 4.5 Eosinophils % 0.1 Basophils % 0.1 - Medications Given in the ED: ED Medications Discontinued Medications Generic Name Dose Route Start Last Admin Trade Name Freq PRN Reason Stop Dose Admin Acetaminophen 1,000 mg 03/25/20 14:43 03/25/20 16:04 Ofirmev Injection - IVPB 03/25/20 14:44 1,000 mg ONCE ONE Administration Ceftriaxone Sodium 1,000 mg/ 50 mls @ 100 mls/hr 03/25/20 18:25 03/25/20 19:06 Dextrose IVPB 03/25/20 18:54 100 mls/hr ONCE ONE Administration Medical Decision Making - Medical Decision Making 03/25/20 19:[address] Sharma. Patient is a 64M with PMH HIV last CD4 152, CVA c/b non-verbal/aphasia, AFIB, sent by Dr. Shields for fever and elevated LFTs for admission. CXR shows RLL infiltrate, being treated with ceftriaxone and azithromycin for PNA. Given Ofirmev. CTAP shows fatty liver, splenomegaly, cholelithiasis with suspected choledocholithiasis, no other acute abdominal pathology. LFTs elevated but not to the extent of yesterday's labs. Concern for GB pathology, getting RUQ US. Plan for admission to hospitalist service for PNA and further MRCP for suspected GB pathology. 03/25/20 21:57 US shows cholelithiasis with CBD dilation to 9mm without visible obstructing stone, concerned for choledocholithiasis but no obvious signs of cholecystitis. Consulting GI, plan to admit for ERCP and further ID evaluation. Per nurse patient a bit hypotensive, giving 1L IV NS, otherwise in NAD. Patient's abdomen remains non-tender and negative Childers's sign. 03/26/20 01:22 Discussed case with PARTITION MAKING MACHINE OPERATOR chiqui Solis for admit to Med/Surg under Dr. Youngblood, plan for AM GI eval. Discharge - Discharge Information Problems reviewed: Yes Clinical Impression/Diagnosis: Choledocholithiasis Fever Qualifiers: Fever type: unspecified Qualified Code(s): R50.9 - Fever, unspecified Condition: Stable - Admission Yes - Follow up/Referral - Patient Discharge Instructions - Post Discharge Activity
[2020-03-25] MEDS ORDERED: SODIUM CHLORIDE 0.9% 500 ML INFUS.BAG IV ONE (20:46)
[2020-03-25 22:07] LABS: URINE COLOR YELLOW
[2020-03-25 22:08] LABS: PH,URINE 5.5 (5.0-8.0); URINE APPEARANCE HAZY; URINE BILIRUBIN SMALL (NEGATIVE); URINE KETONE NEGATIVE (NEGATIVE); URINE NITRITE NEGATIVE (NEGATIVE); URINE PROTEIN TRACE (NEGATIVE)
[2020-03-25 22:09] LABS: EPI CELLS 1.7 /uL (0-25.1); URINE BACTERIA 0.9 /uL (0-1359); URINE LEUK ESTERASE NEGATIVE (NEGATIVE); URINE RBC 7.8 /uL (0-23.9); URINE WBC 2.6 /uL (0-25.8)
--- NOTE | 2020-03-25 23:58 | HP ---
Admitting History and Physical - Primary Care Physician PCP: Tami Arce - Admission Chief Complaint: Abnormal Lab Values, Weakness History of Present Illness: 64 y/o male with a significant PMHx of HIV (CD4 152), HTN, DM, CVA (R-deficits, aphasic), Afib (no AC, s/p Pacemaker), who is presents to the ED from home by referral from ID doctor (Dr. Shields) for elevated LFTs. Per the spouse who is at bedside, patient has been incontinent to stool, urine and generalized weakness x last night which is not his baseline. She reports patient is tolerating PO intake. She denies patient having fever, chills, cough, SOB, dizziness, CARROLL, CP, palpitations, AP, N/V, constipation, dysuria. She denies patient having recent sick contacts or travel. 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, Other (dysphagia and dysphasia) Cardiovascular: Yes: AFIB, Other (s/p PPM) Gastrointestinal: Yes: Other (s/p PEG) Infectious Disease: Yes: HIV - Past Surgical History Past Surgical History: Yes: Permanent Pacemaker - Smoking History Smoking history: Former smoker Have you smoked in the past 12 months: No Aproximately how many cigarettes per day: 0 If you are a former smoker, when did you quit?: 45YRS - Alcohol/Substance Use Hx Alcohol Use: No History of Substance Use: reports: None - Social History Usual Living Arrangement: Yes: With Spouse ADL: Family Assistance History of Recent Travel: No Home Medications - Allergies Allergies/Adverse Reactions: Allergies Allergy/AdvReac Type Severity Reaction Status Date / Time No Known Allergies Allergy Verified 03/25/20 13:49 - Home Medications Home Medications: Ambulatory Orders Metformin HCl [Glucophage] 1,000 mg PO BID 04/05/18 Digoxin Oral Solution [Lanoxin Oral Solution -] 125 mcg PO DAILY #75 ml 06/21/18 Fluticasone/Salmeterol [Advair 250-50 Diskus] 1 each IH DAILY #30 blst.w.dev 06/21/18 Furosemide [Lasix] 20 mg PO DAILY #30 tablet 06/21/18 Metoprolol Succinate [Toprol XL -] 25 mg PO BID #60 tab.sr.24h 06/21/18 Glyburide 2.5 mg PO DAILY 03/28/19 levETIRAcetam [Keppra -] 500 mg PO BID 03/28/19 Aspirin [ASA -] 81 mg PEG DAILY #30 tab.chew 09/05/19 Atorvastatin Ca [Lipitor] 20 mg PO HS 10/21/19 Clotrimazole [Lotrimin -] 1 applic TP DAILY 10/21/19 Budesonide/Formeterol Fumarate [SYMBICORT 80/4.5mcg -] 2 puff IH DAILY inhaler 11/01/19 Digoxin [Lanoxin -] 0.125 mg PO DAILY tablet 11/01/19 Metoprolol Succinate [Toprol XL -] 25 mg PO BID tab.sr.24h 11/01/19 levETIRAcetam [Keppra -] 500 mg PO BID tablet 11/01/19 Albuterol Sulfate Inhaler - [Ventolin HFA Inhaler -] 1 - 2 inh PO QID #1 inhaler 12/11/19 Guaifenesin [Tussin Chest Congestion] 10 ml PO QID #1 bottle 12/11/19 Multivitamin,Therapeutic [Oncovite] 1 each PO DAILY #30 tablet 12/11/19 Acetaminophen [Tylenol -] 2 tab PO Q8H #100 tablet 12/25/19 Albuterol 0.083% Nebulizer Yazmin [Ventolin 0.083% Nebulizer Soln -] 1 neb NEB Q4H #1 box 12/25/19 Alcohol Antiseptic Pads [Alcohol Prep Pads] 1 each TP DAILY #1 box 12/25/19 Azithromycin [Zithromax] 500 mg PO DAILY #6 tablet 12/25/19 Nebulizer Accessories [A.i.r.s. Nebulizer] 1 each MC DAILY #1 kit 12/25/19 Nebulizer and Compressor [[place] Choice Nebulizer] 1 each MC DAILY #1 each 12/25/19 Guaifenesin [Tussin Chest Congestion] 10 ml PO QID #1 liquid 01/02/20 Guaifenesin/D-Methorphan Hb [Diabetic Tussin Dm Liquid] 10 ml PO Q6H PRN #120 ml 01/09/20 Abacavir/Dolutegravir/Lamivudi [Triumeq 600-50-300 mg Tablet] 1 each PO DAILY #30 tablet 02/19/20 Polyethylene Glycol 3350 [Miralax (For Daily Use) -] 17 gm PO DAILY PRN #1 bottle 02/20/20 Lorazepam [Ativan] 0.5 mg PO AM #30 tablet MDD 1 02/27/20 Paroxetine HCl [Paxil -] 10 mg PO DAILY #30 tablet 02/27/20 Family Medical History Family Hx Cancer: Mother (Unknown, ) Review of Systems Unable to obtain ROS, reason: Clinical Condition Physical Examination Vital Signs: Vital Signs Temperature 99.2 F 03/25/20 20:44 Pulse Rate 61 03/25/20 20:44 Respiratory Rate 16 03/25/20 20:44 Blood Pressure 91/60 03/25/20 20:44 O2 Sat by Pulse Oximetry (%) 100 03/25/20 20:44 Constitutional: Yes: No Distress, Calm, Obese Eyes: Yes: Conjunctiva Clear (R- eye), PERRL (R-eye), Other (Left eye-blindness) HENT: Yes: Atraumatic, Normocephalic, Other (Dry Mucous Membranes) Neck: Yes: WNL, Supple, Trachea Midline Cardiovascular: Yes: Regular Rate and Rhythm, S1, S2 Respiratory: Yes: Diminished (R-base), Rhonchi (scattered) Gastrointestinal: Yes: Normal Bowel Sounds, Soft, Abdomen, Obese, Other (surgical scar- well healed) Renal/: Yes: Incontinence Breast(s): Yes: WNL Musculoskeletal: Yes: WNL Edema: No Peripheral Pulses WNL: Yes Integumentary: Yes: Venous Stasis Changes Neurological: Yes: Alert, Aphasia, Pre-Existing Deficit Psychiatric: Yes: Alert Labs: CBC, BMP 03/25/20 15:20 03/25/20 15:20 Laboratory Results - last 24 hr 03/25/20 03/25/20 03/25/20 15:20 15:20 21:35 WBC 4.6 RBC 3.67 L Hgb 11.8 Hct 35.6 MCV 97.0 H MCH 32.2 MCHC 33.1 RDW 14.9 Plt Count 88 L D MPV 8.1 Absolute Neuts (auto) 4.0 Neutrophils % 88.3 H Lymphocytes % 7.0 L D Monocytes % 4.5 Eosinophils % 0.1 Basophils % 0.1 Nucleated RBC % 0 Sodium 137 Potassium 3.4 L Chloride 102 Carbon Dioxide 27 Anion Gap 8 BUN 10.7 Creatinine 1.2 Est GFR (CKD-EPI)AfAm 73.11 Est GFR (CKD-EPI)NonAf 63.08 Random Glucose 262 H Calcium 8.4 L Total Bilirubin 2.4 H Direct Bilirubin 1.5 H AST 107 H ALT 120 H Alkaline Phosphatase 123 H Creatine Kinase 385 H Creatine Kinase Index 0.7 CK-MB (CK-2) 3.0 Troponin I 0.02 Total Protein 7.8 Albumin 3.4 Lipase 111 Urine Color Yellow Urine Appearance Hazy Urine pH 5.5 Ur Specific [place] 1.047 H Urine Protein Trace Urine Glucose (UA) 1000 mg/dl Urine Ketones Negative Urine Blood Negative Urine Nitrite Negative Urine Bilirubin Small Urine Urobilinogen 1.0 Ur Leukocyte Esterase Negative Urine WBC (Auto) 2.6 Urine RBC (Auto) 7.8 U Epithel Cells (Auto) 1.7 Urine Bacteria (Auto) 0.9 Intake & Output 03/23/20 03/24/20 03/25/20 03/26/20 23:59 23:59 23:59 23:59 Weight 99.79 kg Imaging - Results Chest X-ray: Report Reviewed, Image Reviewed Cat Scan: Report Reviewed, Image Reviewed Ultrasound: Report Reviewed, Image Reviewed EKG: Image Reviewed Problem List - Problems (1) Pneumonia Code(s): J18.9 - PNEUMONIA, UNSPECIFIED ORGANISM (2) Choledocholithiasis Code(s): K80.50 - CALCULUS OF BILE DUCT W/O CHOLANGITIS OR CHOLECYST W/O OBST (3) HIV (human immunodeficiency virus infection) Code(s): B20 - HUMAN IMMUNODEFICIENCY VIRUS [HIV] DISEASE (4) Suspected 2019 novel coronavirus infection Code(s): Z20.828 - CONTACT W AND EXPOSURE TO OTH VIRAL COMMUNICABLE DISEASES (5) HLD (hyperlipidemia) Code(s): E78.5 - HYPERLIPIDEMIA, UNSPECIFIED (6) HTN (hypertension) Code(s): I10 - ESSENTIAL (PRIMARY) HYPERTENSION (7) AF Atrial fibrillation Code(s): I48.91 - UNSPECIFIED ATRIAL FIBRILLATION (8) CVA (cerebral vascular accident) Code(s): I63.9 - CEREBRAL INFARCTION, UNSPECIFIED (9) Diabetes Code(s): E11.9 - TYPE 2 DIABETES MELLITUS WITHOUT COMPLICATIONS (10) Seizure disorder Code(s): G40.909 - EPILEPSY, UNSP, NOT INTRACTABLE, WITHOUT STATUS EPILEPTICUS Assessment/Plan 64 y/o male with a PMHx of HIV (CD4 152), HTN, DM, CVA (R-deficits, aphasic), Afib (no AC, s/p Pacemaker). Admitted to M/S for Pneumonia, Cholelithiasis, Transaminitis, Generalized Weakness for further evaluation of their emergent condition. 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 CBD dilatation 9mm Appreciate GI consult Will likely need ERCP Monitor CBC, CMP Digoxin level in am Keppra level NPO Monitor vitals BGMs Gentle IVF Hold po meds for now Keppra IV Lopressor IV Digoxin IV Seizure Precautions Fall Precautions DVT ppx- SCDs Dispo: Requires Inpatient Care Visit type - Emergency Visit Emergency Visit: Yes ED Registration Date: 03/25/20 Care time: The patient presented to the Emergency Department on the above date and was hospitalized for further evaluation of their emergent condition. - New Patient This patient is new to me today: Yes Date on this admission: 03/25/20 - Critical Care Critical Care patient: No
[2020-03-26] MEDS ORDERED: ACETAMINOPHEN 1000 MG/100 ML VIAL (NON FORMULARY) IVPB ONE (01:20)
[2020-03-26 01:56] LABS: BILIRUBIN,DIRECT 1.5 mg/dL (0.0-0.2)
[2020-03-26] MEDS ORDERED: KCL 10 MEQ IVPB 10 MEQ/100 ML INFUS.BAG IVPB SCH ×2 (04:45→14:45)
[2020-03-26] MEDS ORDERED: KCL 10 MEQ IVPB 10 MEQ/100 ML INFUS.BAG IVPB ONE (04:49)
[2020-03-26] MEDS: DEXTROSE 5%-0.45% SALINE 1,000 ML IV SCH (07:27)
[2020-03-26] MEDS ORDERED: levETIRAcetam 500 MG/5 ML INJECTION VIAL IVPB ONE (08:04)
[2020-03-26] MEDS: levETIRAcetam 500 MG/5 ML INJECTION VIAL IVPB SCH ×2 (09:02→22:07)
[2020-03-26] MEDS ORDERED: CEFTRIAXONE 1 GM/50 ML BAG ONE (09:29)
[2020-03-26] MEDS ORDERED: AZITHROMYCIN IVPB 500 MG/250 ML BAG IVPB ONE (09:50)
[2020-03-26] MEDS ORDERED: CEFTRIAXONE 1 GM in DEXTROSE 5%-WATER - 50 ML IVPB SCH (10:00)
[2020-03-26] MEDS ORDERED: AZITHROMYCIN IVPB 500 MG in DEXTROSE 5%-WATER - 250 ML IVPB SCH (10:00)
--- NOTE | 2020-03-26 11:51 | EKG ---
Test Reason : Blood Pressure : / mmHG Vent. Rate : 060 BPM Atrial Rate : 062 BPM P-R Int : 000 ms QRS Dur : 192 ms QT Int : 526 ms P-R-T Axes : 000 002 119 degrees QTc Int : 526 ms Ventricular-paced rhythm WITH OCCASIONAL supraventricular complexes ABNORMAL ECG WHEN COMPARED WITH ECG OF 21-OCT-2019 15:12, ELECTRONIC VENTRICULAR PACEMAKER HAS REPLACED ATRIAL FIBRILLATION Confirmed by RYLEE VILLATORO MD ([id number]) on 03/26/2020 11:50:50 AM Referred By: Confirmed By:RYLEE VILLATORO MD
--- NOTE | 2020-03-26 12:32 | CON.GI ---
Consult Consult Specialty:: GI - History of Present Illness History of Present Illness: 64 y/o male with PMH of HIV (CD4 152), HTN, DM, CVA (R-deficits, aphasic), Afib (no AC, with pacemaker) was sent to ER because of elevated liver enzymes, change in mental status, diarrhea, urinary and fecal incontinence. CT and abdominal ultrasound noted to have dilated CBD suspected to have CBD stone, suggested MRCP . 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, Other (dysphagia and dysphasia) Cardio/Vascular: Yes: AFIB, Other (s/p PPM) Gastrointestinal: Yes: Other (s/p PEG) Infectious Disease: Yes: HIV - Past Surgical History Past Surgical History: Yes: Permanent Pacemaker - Alcohol/Substance Use Hx Alcohol Use: No History of Substance Use: reports: None - Smoking History Smoking history: Former smoker Have you smoked in the past 12 months: No Aproximately how many cigarettes per day: 0 If you are a former smoker, when did you quit?: 45YRS - Social History Usual Living Arrangement: With Significant Other ADL: Family Assistance History of Recent Travel: No Home Medications - Allergies Allergies/Adverse Reactions: Allergies Allergy/AdvReac Type Severity Reaction Status Date / Time No Known Allergies Allergy Verified 03/26/20 09:06 - Home Medications Home Medications: Ambulatory Orders Metformin HCl [Glucophage] 1,000 mg PO BID 04/05/18 Digoxin Oral Solution [Lanoxin Oral Solution -] 125 mcg PO DAILY #75 ml 06/21/18 Fluticasone/Salmeterol [Advair 250-50 Diskus] 1 each IH DAILY #30 blst.w.dev 06/21/18 Furosemide [Lasix] 20 mg PO DAILY #30 tablet 06/21/18 Metoprolol Succinate [Toprol XL -] 25 mg PO BID #60 tab.sr.24h 06/21/18 Glyburide 2.5 mg PO DAILY 03/28/19 levETIRAcetam [Keppra -] 500 mg PO BID 03/28/19 Aspirin [ASA -] 81 mg PEG DAILY #30 tab.chew 09/05/19 Atorvastatin Ca [Lipitor] 20 mg PO HS 10/21/19 Clotrimazole [Lotrimin -] 1 applic TP DAILY 10/21/19 Budesonide/Formeterol Fumarate [SYMBICORT 80/4.5mcg -] 2 puff IH DAILY inhaler 11/01/19 Metoprolol Succinate [Toprol XL -] 25 mg PO BID tab.sr.24h 11/01/19 Albuterol Sulfate Inhaler - [Ventolin HFA Inhaler -] 1 - 2 inh PO QID #1 inhaler 12/11/19 Guaifenesin [Tussin Chest Congestion] 10 ml PO QID #1 bottle 12/11/19 Multivitamin,Therapeutic [Oncovite] 1 each PO DAILY #30 tablet 12/11/19 Acetaminophen [Tylenol -] 2 tab PO Q8H #100 tablet 12/25/19 Albuterol 0.083% Nebulizer Yazmin [Ventolin 0.083% Nebulizer Soln -] 1 neb NEB Q4H #1 box 12/25/19 Alcohol Antiseptic Pads [Alcohol Prep Pads] 1 each TP DAILY #1 box 12/25/19 Nebulizer Accessories [A.i.r.s. Nebulizer] 1 each MC DAILY #1 kit 12/25/19 Nebulizer and Compressor [[place] Choice Nebulizer] 1 each MC DAILY #1 each 12/25/19 Guaifenesin [Tussin Chest Congestion] 10 ml PO QID #1 liquid 01/02/20 Guaifenesin/D-Methorphan Hb [Diabetic Tussin Dm Liquid] 10 ml PO Q6H PRN #120 ml 01/09/20 Abacavir/Dolutegravir/Lamivudi [Triumeq 600-50-300 mg Tablet] 1 each PO DAILY #30 tablet 02/19/20 Polyethylene Glycol 3350 [Miralax (For Daily Use) -] 17 gm PO DAILY PRN #1 bottle 02/20/20 Lorazepam [Ativan] 0.5 mg PO AM #30 tablet MDD 1 03/26/20 Paroxetine HCl [Paxil -] 10 mg PO DAILY #30 tablet 03/26/20 Physical Exam-GI Vital Signs: Vital Signs Temperature 100.6 F H 03/26/20 09:59 Pulse Rate 63 03/26/20 09:59 Respiratory Rate 20 03/26/20 09:59 Blood Pressure 126/73 03/26/20 09:59 O2 Sat by Pulse Oximetry (%) 97 03/26/20 09:59 Constitutional: Yes: Other (not in distress) Eyes: Yes: Sclera Icterus HENT: Yes: Atraumatic Neck: Yes: Supple Cardiovascular: Yes: Regular Rate and Rhythm Respiratory: Yes: CTA Bilaterally ...Palpate: Yes: Soft. No: Firm/Rigid, Guarding, Hepatomegaly, Mass, Pulsatile Mass, Splenomegaly Labs: CBC, BMP 03/25/20 15:20 03/25/20 15:20 CBCD WBC 4.6 K/mm3 (4.0-10.0) 03/25/20 15:20 RBC 3.67 M/mm3 (4.00-5.60) L 03/25/20 15:20 Hgb 11.8 GM/dL (11.7-16.9) 03/25/20 15:20 Hct 35.6 % (35.4-49) 03/25/20 15:20 MCV 97.0 fl (80-96) H 03/25/20 15:20 MCHC 33.1 g/dl (32.0-35.9) 03/25/20 15:20 RDW 14.9 % (11.9-15.9) 03/25/20 15:20 Plt Count 88 K/MM3 (134-434) L D 03/25/20 15:20 MPV 8.1 fl (7.5-11.1) 03/25/20 15:20 CMP Sodium 137 mmol/L (136-145) 03/25/20 15:20 Potassium 3.4 mmol/L (3.5-5.1) L 03/25/20 15:20 Chloride 102 mmol/L (98-107) 03/25/20 15:20 Carbon Dioxide 27 mmol/L (21-32) 03/25/20 15:20 Anion Gap 8 MMOL/L (8-16) 03/25/20 15:20 BUN 10.7 mg/dL (7-18) 03/25/20 15:20 Creatinine 1.2 mg/dL (0.55-1.3) 03/25/20 15:20 Calcium 8.4 mg/dL (8.5-10.1) L 03/25/20 15:20 Total Bilirubin 2.4 mg/dL (0.2-1) H 03/25/20 15:20 AST 107 U/L (15-37) H 03/25/20 15:20 ALT 120 U/L (13-61) H 03/25/20 15:20 Alkaline Phosphatase 123 U/L (45-117) H 03/25/20 15:20 Total Protein 7.8 g/dl (6.4-8.2) 03/25/20 15:20 Albumin 3.4 g/dl (3.4-5.0) 03/25/20 15:20 Problem List - Problems (1) Dilated cbd, acquired Assessment/Plan: R>repeat LFTS in am for possible ERCP pending COVID status will need medical clearance keep NPO Dr Narvaez will follow in am Code(s): K83.8 - OTHER SPECIFIED DISEASES OF BILIARY TRACT
[2020-03-26] MEDS ORDERED: ACETAMINOPHEN 325 MG TABLET (FP) PO PRN (12:35)
--- NOTE | 2020-03-26 12:49 | PN ---
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 (short form) - Note 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: ID consult dictated imp/reccd seen in clinic yesterday for routine labs reported fever at home no other localizing signs covid pcr and routine labs sent found to have abnl lfts, called and advised ER evaluation covid pcr is negative ct scan abd/pelvis, us- +gall stones, ?CBD dilatation BASE OF LUNGS ARE CLEAR biliary sepsis/possible choledocholithiasis ?passed stone with improvement of lfts switch to zosyn d/c rocephin/zith can d/c isolation covid pcr is negative GI f/u- has PPM cannot have MRCP stable HIV- continue triumeq (available in the formulary ) when able to take PO d/w hospitalist Problem List - Problems (1) Biliary sepsis Code(s): K83.09 - OTHER CHOLANGITIS (2) Choledocholithiasis Code(s): K80.50 - CALCULUS OF BILE DUCT W/O CHOLANGITIS OR CHOLECYST W/O OBST (3) HIV (human immunodeficiency virus infection) Code(s): B20 - HUMAN IMMUNODEFICIENCY VIRUS [HIV] DISEASE
[2020-03-26] MEDS ORDERED: ACETAMINOPHEN 1000 MG/100 ML VIAL (NON FORMULARY) IVPB PRN (12:50)
--- NOTE | 2020-03-26 13:09 | CON.CARD ---
Consult Consult Specialty:: Cardiology Reason for Consultation:: Pre-procedure evaluation - History of Present Illness History of Present Illness: This is a 64 year old male with a PMH of HIV on HAART, HTN, DM, CVA with right sided defects, AFIB not on AC, and PPM. He presented with LFT abnormalities and was found to have a CBD stone and may require an ERCP. Presently he is hemodynamically stable and without cardiac complaints. 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, Other (dysphagia and dysphasia) Cardio/Vascular: Yes: AFIB, Other (s/p PPM) Gastrointestinal: Yes: Other (s/p PEG) Infectious Disease: Yes: HIV - Past Surgical History Past Surgical History: Yes: Permanent Pacemaker - Alcohol/Substance Use Hx Alcohol Use: No History of Substance Use: reports: None - Smoking History Smoking history: Former smoker Have you smoked in the past 12 months: No Aproximately how many cigarettes per day: 0 If you are a former smoker, when did you quit?: 45YRS - Social History Usual Living Arrangement: With Significant Other ADL: Family Assistance History of Recent Travel: No Home Medications - Allergies Allergies/Adverse Reactions: Allergies Allergy/AdvReac Type Severity Reaction Status Date / Time No Known Allergies Allergy Verified 03/26/20 09:06 - Home Medications Home Medications: Ambulatory Orders Metformin HCl [Glucophage] 1,000 mg PO BID 04/05/18 Digoxin Oral Solution [Lanoxin Oral Solution -] 125 mcg PO DAILY #75 ml 06/21/18 Fluticasone/Salmeterol [Advair 250-50 Diskus] 1 each IH DAILY #30 blst.w.dev 06/21/18 Furosemide [Lasix] 20 mg PO DAILY #30 tablet 06/21/18 Metoprolol Succinate [Toprol XL -] 25 mg PO BID #60 tab.sr.24h 06/21/18 Glyburide 2.5 mg PO DAILY 03/28/19 levETIRAcetam [Keppra -] 500 mg PO BID 03/28/19 Aspirin [ASA -] 81 mg PEG DAILY #30 tab.chew 09/05/19 Atorvastatin Ca [Lipitor] 20 mg PO HS 10/21/19 Clotrimazole [Lotrimin -] 1 applic TP DAILY 10/21/19 Budesonide/Formeterol Fumarate [SYMBICORT 80/4.5mcg -] 2 puff IH DAILY inhaler 11/01/19 Metoprolol Succinate [Toprol XL -] 25 mg PO BID tab.sr.24h 11/01/19 Albuterol Sulfate Inhaler - [Ventolin HFA Inhaler -] 1 - 2 inh PO QID #1 inhaler 12/11/19 Guaifenesin [Tussin Chest Congestion] 10 ml PO QID #1 bottle 12/11/19 Multivitamin,Therapeutic [Oncovite] 1 each PO DAILY #30 tablet 12/11/19 Acetaminophen [Tylenol -] 2 tab PO Q8H #100 tablet 12/25/19 Albuterol 0.083% Nebulizer Yazmin [Ventolin 0.083% Nebulizer Soln -] 1 neb NEB Q4H #1 box 12/25/19 Alcohol Antiseptic Pads [Alcohol Prep Pads] 1 each TP DAILY #1 box 12/25/19 Nebulizer Accessories [A.i.r.s. Nebulizer] 1 each MC DAILY #1 kit 12/25/19 Nebulizer and Compressor [[place] Choice Nebulizer] 1 each MC DAILY #1 each 12/25/19 Guaifenesin [Tussin Chest Congestion] 10 ml PO QID #1 liquid 01/02/20 Guaifenesin/D-Methorphan Hb [Diabetic Tussin Dm Liquid] 10 ml PO Q6H PRN #120 ml 01/09/20 Abacavir/Dolutegravir/Lamivudi [Triumeq 600-50-300 mg Tablet] 1 each PO DAILY #30 tablet 02/19/20 Polyethylene Glycol 3350 [Miralax (For Daily Use) -] 17 gm PO DAILY PRN #1 bottle 02/20/20 Lorazepam [Ativan] 0.5 mg PO AM #30 tablet MDD 1 03/26/20 Paroxetine HCl [Paxil -] 10 mg PO DAILY #30 tablet 03/26/20 Vital Signs: Vital Signs Temperature 100.6 F H 03/26/20 09:59 Pulse Rate 63 03/26/20 09:59 Respiratory Rate 20 03/26/20 09:59 Blood Pressure 126/73 03/26/20 09:59 O2 Sat by Pulse Oximetry (%) 97 03/26/20 09:59 Constitutional: Yes: No Distress Eyes: Yes: WNL HENT: Yes: WNL Neck: Yes: WNL Respiratory: Yes: CTA Bilaterally Gastrointestinal: Yes: Soft Cardiovascular: Yes: Regular Rate and Rhythm Heart Sounds: Yes: S1, S2 Edema: No Neurological: Yes: Alert - Other Data Labs, Other Data: CBC, BMP 03/25/20 15:20 03/25/20 15:20 Troponin, BNP 03/25/20 15:20 Troponin I 0.02 Troponin, BNP 03/25/20 15:20 Troponin I 0.02 Assessment/Plan 64 year old male with a PMH of HIV on HAART, HTN, DM, CVA with right sided defects, AFIB not on AC, and PPM. He presented with LFT abnormalities and was found to have a CBD stone and may require an ERCP. Presently he is hemodynamically stable and without cardiac complaints. K+ is 3.4 Trop negative EKG is V-Paced with underlying Pre-procedure evaulation There are no cardiac contraindications to GI procedures or surgical interventions. Would replete K+ Would continue metoprolol at his at home dose of 25 mg daily PPM only needs to be checked post op if an electrical cautery or similar device is used near the PPM Unless his PPM can be specifically confirmed to be MRI compatible, would not do an MRI
[2020-03-26] MEDS: INSULIN SLIDING SCALE (NOVOLOG) 1 VIAL SQ SCH ×3 (13:45→22:07)
--- NOTE | 2020-03-26 14:39 | PN ---
Physical Exam: SUBJECTIVE: Patient seen and examined at the beside. he is awake, alert, speech is garbled but appears to be his baseline. having fevers OBJECTIVE: Patient is a 64 year old male with a significant past medical history of CVA (aphasia, right hand, and RLE deficit), stroke traumatic hemorrhage s/p craniotomy residual aphasia and hemiparesis right, atiral fibrillation (not on a/c), HIV, HTN, HLD, who presents to the ED from home by referral from ID doctor (Dr. Shields) for elevated LFTs. A ct scan abd/pelvis and ultrasound shows gall stones, CBD dilatation. Patient being admitted for billiary sepsis. blood and urine cultures pending. covid PCR: negative as of 03/24/2020 (see outpatient emr) imaging: CTAP- cholelithiasis, ?choledolcholithiasis Gallbladder US- cholelithiasis with no definitive choledocholithiasis. CBD dilatation 9mm Vital Signs Period Temp Pulse Resp BP Sys/Barrientos Pulse Ox Last 24 Hr 99.2 F-102.4 F 61-92 16-20 91-156/60-96 95-100 GENERAL: The patient is awake, alert, in no acute distress. non verbal at baseline. HEAD: Normal with no signs of trauma EYE: prosthetic left eye ENT: Ears normal, nares patent, oropharynx clear without exudates, moist mucous membranes. NECK: Trachea midline, full range of motion, supple. LUNGS: Breath sounds equal, clear to auscultation bilaterally - diminished at bases HEART: Regular rate and rhythm ABDOMEN: soft, non tender, non distended, bowel sounds + EXTREMITIES: hyperpigmentation of right lower leg, dry slough skin. NEUROLOGICAL: right sided deficit. right arm contracted, right hand contracted Laboratory Results - last 24 hr 03/25/20 03/25/20 03/25/20 15:20 15:20 21:35 WBC 4.6 RBC 3.67 L Hgb 11.8 Hct 35.6 MCV 97.0 H MCH 32.2 MCHC 33.1 RDW 14.9 Plt Count 88 L D MPV 8.1 Absolute Neuts (auto) 4.0 Neutrophils % 88.3 H Lymphocytes % 7.0 L D Monocytes % 4.5 Eosinophils % 0.1 Basophils % 0.1 Nucleated RBC % 0 Sodium 137 Potassium 3.4 L Chloride 102 Carbon Dioxide 27 Anion Gap 8 BUN 10.7 Creatinine 1.2 Est GFR (CKD-EPI)AfAm 73.11 Est GFR (CKD-EPI)NonAf 63.08 POC Glucometer Random Glucose 262 H Calcium 8.4 L Total Bilirubin 2.4 H Direct Bilirubin 1.5 H AST 107 H ALT 120 H Alkaline Phosphatase 123 H Creatine Kinase 385 H Creatine Kinase Index 0.7 CK-MB (CK-2) 3.0 Troponin I 0.02 Total Protein 7.8 Albumin 3.4 Lipase 111 Urine Color Yellow Urine Appearance Hazy Urine pH 5.5 Ur Specific [place] 1.047 H Urine Protein Trace Urine Glucose (UA) 1000 mg/dl Urine Ketones Negative Urine Blood Negative Urine Nitrite Negative Urine Bilirubin Small Urine Urobilinogen 1.0 Ur Leukocyte Esterase Negative Urine WBC (Auto) 2.6 Urine RBC (Auto) 7.8 U Epithel Cells (Auto) 1.7 Urine Bacteria (Auto) 0.9 Digoxin 03/26/20 03/26/20 03/26/20 07:37 09:09 13:38 WBC RBC Hgb Hct MCV MCH MCHC RDW Plt Count MPV Absolute Neuts (auto) Neutrophils % Lymphocytes % Monocytes % Eosinophils % Basophils % Nucleated RBC % Sodium Potassium Chloride Carbon Dioxide Anion Gap BUN Creatinine Est GFR (CKD-EPI)AfAm Est GFR (CKD-EPI)NonAf POC Glucometer 137 145 Random Glucose Calcium Total Bilirubin Direct Bilirubin AST ALT Alkaline Phosphatase Creatine Kinase Creatine Kinase Index CK-MB (CK-2) Troponin I Total Protein Albumin Lipase Urine Color Urine Appearance Urine pH Ur Specific [place] Urine Protein Urine Glucose (UA) Urine Ketones Urine Blood Urine Nitrite Urine Bilirubin Urine Urobilinogen Ur Leukocyte Esterase Urine WBC (Auto) Urine RBC (Auto) U Epithel Cells (Auto) Urine Bacteria (Auto) Digoxin 0.61 L Active Medications Generic Name Dose Route Start Last Admin Trade Name Freq PRN Reason Stop Dose Admin Acetaminophen 1,000 mg 03/26/20 12:50 03/26/20 13:29 Ofirmev Injection - IVPB 03/27/20 12:49 1,000 mg Q6H PRN Administration PAIN LEVEL 6-10 Ceftriaxone Sodium 1 gm/ 50 mls @ 100 mls/hr 03/26/20 10:00 03/26/20 09:37 Dextrose IVPB 100 mls/hr DAILY DUNIA Administration Protocol Dextrose/Sodium Chloride 1,000 mls @ 42 mls/hr 03/26/20 05:45 03/26/20 07:27 D5-1/2ns - IV 42 mls/hr ASDIR DUNIA Administration Piperacillin Sod/Tazobactam 50 mls @ 100 mls/hr 03/26/20 18:00 Sod 3.375 gm/ Dextrose IVPB Q8H-IV DUNIA Protocol Insulin Aspart 1 vial 03/26/20 11:00 03/26/20 13:45 Novolog Vial Sliding Scale - SQ Not Given ACHS DUNIA Protocol Levetiracetam 500 mg 03/26/20 10:00 03/26/20 09:02 Keppra Injection - IVPB 500 mg BID DUNIA Administration ASSESSMENT/PLAN: Problem List - Problems (1) Sepsis Assessment/Plan: biliary sepsis/possible choledocholithiasis on zosyn Code(s): A41.9 - SEPSIS, UNSPECIFIED ORGANISM (2) Choledocholithiasis Assessment/Plan: no leukocytosis, +neutrophilia. having high grade fevers. On ceftriaxone, azithromycin TMax 103 Appreciate ID consult T Bili 2.4 CTAP- cholelithiasis, ?choledolcholithiasis Gallbladder US- cholelithiasis with no definitive choledocholithiasis. CBD dilatation 9mm Appreciate GI consult Will likely need ERCP Code(s): K80.50 - CALCULUS OF BILE DUCT W/O CHOLANGITIS OR CHOLECYST W/O OBST (3) Dilated cbd, acquired Code(s): K83.8 - OTHER SPECIFIED DISEASES OF BILIARY TRACT (4) Elevated LFTs Assessment/Plan: ct scan abd/pelvis, us- +gall stones, ?CBD dilatation. presented with elevated LFTs. continue to trend, GI following + Transaminitis likely due to choledocholithiasis T Bili 2.4 Code(s): R79.89 - OTHER SPECIFIED ABNORMAL FINDINGS OF BLOOD CHEMISTRY (5) Fever Assessment/Plan: high grade fevers today, avoid tylenol since LFTS elevated. Code(s): R50.9 - FEVER, UNSPECIFIED Qualifiers: Fever type: unspecified Qualified Code(s): R50.9 - Fever, unspecified (6) Dysphagia Assessment/Plan: aspiration precautions maintained Code(s): R13.10 - DYSPHAGIA, UNSPECIFIED (7) Diabetes 1.5, managed as type 2 Assessment/Plan: on novolog SS, monitor BGMs Code(s): E10.9 - TYPE 1 DIABETES MELLITUS WITHOUT COMPLICATIONS (8) HIV (human immunodeficiency virus infection) Assessment/Plan: patient NPO, hold antivirals being followed by Dr. Shields Code(s): B20 - HUMAN IMMUNODEFICIENCY VIRUS [HIV] DISEASE (9) CVA (cerebral vascular accident) Code(s): I63.9 - CEREBRAL INFARCTION, UNSPECIFIED (10) AF Atrial fibrillation Assessment/Plan: has been off anticoagulation since 2012 secondary to an acute head bleed. on digoxin for rate control do not anticoagulate with heparin as pt will likely need surgical intervention. cardiology notes reviewed Code(s): I48.91 - UNSPECIFIED ATRIAL FIBRILLATION (11) CVA (cerebral vascular accident) Assessment/Plan: right sided weakness. PT therapy ordered. Code(s): I63.9 - CEREBRAL INFARCTION, UNSPECIFIED (12) Eye globe prosthesis Assessment/Plan: supportive care Code(s): Z97.0 - PRESENCE OF ARTIFICIAL EYE (13) DVT prophylaxis Assessment/Plan: SCDs Code(s): Z29.9 - ENCOUNTER FOR PROPHYLACTIC MEASURES, UNSPECIFIED Visit type - Emergency Visit Emergency Visit: Yes ED Registration Date: 03/25/20 Care time: The patient presented to the Emergency Department on the above date and was hospitalized for further evaluation of their emergent condition. - New Patient This patient is new to me today: Yes Date on this admission: 03/27/20 - Critical Care Critical Care patient: No - Discharge Referral Referred to [facility] Med P.C.: No
[2020-03-26] MEDS ORDERED: PIPERACILLIN/TAZOBACTAM 3.375 GM VIAL IVPB ONE (18:12)
[2020-03-26] MEDS ORDERED: DEXTROSE 5%-WATER - 50 ML IVPB ONE (18:12)
[2020-03-26] MEDS: PIPERACILLIN/TAZOB 3.375 GM 3.375 GM in DEXTROSE 5%-WATER - 50 ML IVPB SCH (18:23)
[2020-03-27] MEDS ORDERED: PIPERACILLIN/TAZOBACTAM 3.375 GM VIAL IVPB ONE ×2 (02:19→09:26)
[2020-03-27] MEDS ORDERED: DEXTROSE 5%-WATER - 50 ML IVPB ONE ×2 (02:20→09:27)
[2020-03-27] MEDS: PIPERACILLIN/TAZOB 3.375 GM 3.375 GM in DEXTROSE 5%-WATER - 50 ML IVPB SCH ×2 (02:27→09:30)
[2020-03-27] MEDS: DEXTROSE 5%-0.45% SALINE 1,000 ML IV SCH (06:26)
[2020-03-27] MEDS: INSULIN SLIDING SCALE (NOVOLOG) 1 VIAL SQ SCH ×4 (06:40→21:42)
[2020-03-27] MEDS: levETIRAcetam 500 MG/5 ML INJECTION VIAL IVPB SCH ×2 (09:30→21:43)
[2020-03-27 09:38] LABS: BASO % 0.3 % (0-2.0); EOS % 1.4 % (0-4.5); HEMATOCRIT 33.7 % (35.4-49); HEMOGLOBIN 11.4 GM/dL (11.7-16.9); LYMPH % 16.5 % (8-40); MCH 32.2 pg (25.7-33.7); MCHC 33.8 g/dl (32.0-35.9); MEAN CELL VOLUME 95.3 fl (80-96); MONO % 10.2 % (3.8-10.2); NEUT % 71.6 % (42.8-82.8); PLATELET COUNT 71 K/MM3 (134-434); RBC 3.53 M/mm3 (4.00-5.60); RDW 15.1 % (11.9-15.9); WHITE BLOOD COUNT 2.3 K/mm3 (4.0-10.0)
[2020-03-27] MEDS ORDERED: METOPROLOL TARTRATE 5 MG/5 ML VIAL IVPB PRN (10:03)
[2020-03-27 10:08] LABS: ALBUMIN 2.8 g/dl (3.4-5.0); BILIRUBIN,TOTAL 1.2 mg/dL (0.2-1); BLOOD UREA NITROGEN 7.9 mg/dL (7-18); CREATININE 0.7 mg/dL (0.55-1.3); MAGNESIUM 1.7 mg/dL (1.8-2.4); POTASSIUM 3.8 mmol/L (3.5-5.1); TOT PROT 6.5 g/dl (6.4-8.2)
[2020-03-27] MEDS ORDERED: MAGNESIUM SULF 50% (8.12 MEQ/2 ML-1 GM VIAL) IVPB ONE (11:00)
[2020-03-27] MEDS ORDERED: fentaNYL CITRATE 250 MCG/5 ML VIAL ONE (11:16)
[2020-03-27 11:40] LABS: INR 1.32 (0.83-1.09); PROTHROMBIN TIME (PATIENT) 15.6 SEC (9.7-13.0)
[2020-03-27] MEDS ORDERED: IOHEXOL 300 MG/ML INFUS..BTL IV ONE (12:15)
--- NOTE | 2020-03-27 13:36 | PN ---
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 (short form) - Note 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: GI Procedure NOte ( covering the [facility] GI service) : Please see scanned ERCP report. A large proximal common bile duct stone was found. After a sphincterotomy was made attempts were made to extract the stone but it proved too large so a 7Fr x 7cm length double pigtail stent was inserted. I spoke with his and advised that she arrange a consultation with Dr Zack Carmichael at [facility] who can perform ultrasonic lithotripsy. He should have a cholecystectomy in the interim. Need to observe for pancreatitis. Avoid anticoagulation for at least 72 hours.
[2020-03-27] MEDS ORDERED: PHYTONADIONE 10 MG/1 ML AMP IVPB ONE (13:37)
[2020-03-27] MEDS ORDERED: LACTATED RINGERS SOLUTION 1,000 ML/1,000 ML INFUS.BAG IV SCH ×2 (14:15→20:00)
[2020-03-27] MEDS ORDERED: PT OWN MED DRAWER 7, Y5N ONE (14:29)
[2020-03-27] MEDS: DIGOXIN 0.5 MG/2 ML AMPUL IVPB SCH (14:34)
[2020-03-27 14:52] VITALS: BMI 32.2
--- NOTE | 2020-03-27 16:53 | CONSULT ---
- Consultation REQUESTING PROVIDER: Destiny Cano [employer]INEER[employer] PROFESSOR CONSULT REQUEST: We have been asked to surgically evaluate this patient for cholecystectomy. PCP:Destiny Cano NP HISTORY OF PRESENT ILLNESS: AILYN who is a 64 y/o male who was here in 10/2019 w/an SBO which resolved spontaneously w/conservative tx.; he recently was found to have an elevated temp. and LFT's as an outpatient and was admitted an a dx. w/u was done revealing cholelithiasis and choledocholithiasis; he underwent ERCP and related procedures today; a single stone in his CBD was NOT able to be removed; sphincterotomy and stenting were done. ERCP report and w/u to date are reviewed. Hx. obtained from his . PMHx: NIDDM/A fib/COPD/HTN/CHF/seizure disorder/HIV/mood disorder PSHx: h/o TBI/open and percutaneous G-tube(s) Home Medications Medication Instructions Recorded Metformin HCl [Glucophage] 1,000 mg PO BID 04/05/18 Digoxin Oral Solution [Lanoxin 125 mcg PO DAILY #75 ml 06/21/18 Oral Solution -] Fluticasone/Salmeterol [Advair 1 each IH DAILY #30 blst.w.dev 06/21/18 250-50 Diskus] Furosemide [Lasix] 20 mg PO DAILY #30 tablet 06/21/18 Metoprolol Succinate [Toprol XL -] 25 mg PO BID #60 tab.sr.24h 06/21/18 Glyburide 2.5 mg PO DAILY 03/28/19 levETIRAcetam [Keppra -] 500 mg PO BID 03/28/19 Aspirin [ASA -] 81 mg PEG DAILY #30 tab.chew 09/05/19 Atorvastatin Ca [Lipitor] 20 mg PO HS 10/21/19 Clotrimazole [Lotrimin -] 1 applic TP DAILY 10/21/19 Budesonide/Formeterol Fumarate 2 puff IH DAILY inhaler 11/01/19 [SYMBICORT 80/4.5mcg -] Metoprolol Succinate [Toprol XL -] 25 mg PO BID tab.sr.24h 11/01/19 Albuterol Sulfate Inhaler - 1 - 2 inh PO QID #1 inhaler 12/11/19 [Ventolin HFA Inhaler -] Guaifenesin [Tussin Chest 10 ml PO QID #1 bottle 12/11/19 Congestion] Multivitamin,Therapeutic [Oncovite] 1 each PO DAILY #30 tablet 12/11/19 Acetaminophen [Tylenol -] 2 tab PO Q8H #100 tablet 12/25/19 Albuterol 0.083% Nebulizer Yazmin 1 neb NEB Q4H #1 box 12/25/19 [Ventolin 0.083% Nebulizer Soln -] Alcohol Antiseptic Pads [Alcohol 1 each TP DAILY #1 box 12/25/19 Prep Pads] Nebulizer Accessories [A.i.r.s. 1 each MC DAILY #1 kit 12/25/19 Nebulizer] Nebulizer and Compressor [Logan 1 each MC DAILY #1 each 12/25/19 Choice Nebulizer] Guaifenesin [Tussin Chest 10 ml PO QID #1 liquid 01/02/20 Congestion] Guaifenesin/D-Methorphan Hb 10 ml PO Q6H PRN #120 ml 01/09/20 [Diabetic Tussin Dm Liquid] Abacavir/Dolutegravir/Lamivudi 1 each PO DAILY #30 tablet 02/19/20 [Triumeq 600-50-300 mg Tablet] Polyethylene Glycol 3350 [Miralax 17 gm PO DAILY PRN #1 bottle 02/20/20 (For Daily Use) -] Lorazepam [Ativan] 0.5 mg PO AM #30 tablet MDD 1 03/26/20 Paroxetine HCl [Paxil -] 10 mg PO DAILY #30 tablet 03/26/20 Allergies Allergy/AdvReac Type Severity Reaction Status Date / Time No Known Allergies Allergy Verified 03/26/20 09:06 REVIEW OF SYSTEMS: CONSTITUTIONAL: Present: fever, chills, Absent: diaphoresis, generalized weakness, malaise, loss of appetite, weight change CARDIOVASCULAR: Absent: chest pain, syncope, palpitations, irregular heart rate, lightheadedness, peripheral edema RESPIRATORY: Absent: cough, shortness of breath, dyspnea with exertion, wheezing, stridor, hemoptysis GASTROINTESTINAL: Present: abdominal pain, abdominal distension, nausea, vomiting, Absent: diarrhea, constipation, melena, hematochezia GENITOURINARY: Absent: dysuria, frequency, urgency, hesitancy, hematuria, flank pain, genital pain MUSCULOSKELETAL: Absent: myalgia, arthralgia, joint swelling, back pain, neck pain SKIN: Absent: rash, itching, pallor HEMATOLOGIC/IMMUNOLOGIC: Absent: easy bleeding, easy bruising, lymphadenopathy NEUROLOGIC: Absent: headache, Present: focal weakness, paresthesias, dizziness, unsteady gait, seizure, mental status changes, bladder or bowel incontinence PSYCHIATRIC: Absent: anxiety, depression, suicidal or homicidal ideation, hallucinations. PHYSICAL EXAM: GENERAL: Awake, alert, and not fully oriented, in no acute distress. HEAD: Normal with evidence of old head trauma. EYES: sclera anicteric, conjunctiva clear. NECK: Normal ROM, supple without lymphadenopathy, JVD, or masses. LUNGS: Clear to auscultation bilat anteriorly. No wheezes, and no crackles. No accessory muscle use. HEART: Regular rate and rhythm. No murmurs ABDOMEN: Soft, nontender, not distended, normoactive bowel sounds, no guarding, no rebound, no masses. No organomegaly. Healed upper midline scar w/reducible hernia; old GT scars. MUSCULOSKELETAL: Normal ROM at all joints. No bony deformities or tenderness. No CVA tenderness. UPPER EXTREMITIES: 2+ pulses, warm, well-perfused. No cyanosis. Cap refill <2 seconds. No peripheral edema. LOWER EXTREMITIES: 2+ pulses, warm, well-perfused. No calf tenderness. No peripheral edema. NEUROLOGICAL: No verbal, gait not observed. PSYCH: Cooperative. Good eye contact. Appropriate mood and affect. SKIN: Warm, dry, normal turgor, no rashes or lesions noted. Vital Signs Temperature 98.1 F 03/27/20 15:00 Pulse Rate 88 03/27/20 15:00 Respiratory Rate 18 03/27/20 15:00 Blood Pressure 123/80 03/27/20 15:00 O2 Sat by Pulse Oximetry (%) 98 03/27/20 13:55 Lab Results WBC 2.3 K/mm3 (4.0-10.0) L 03/27/20 09:05 RBC 3.53 M/mm3 (4.00-5.60) L 03/27/20 09:05 Hgb 11.4 GM/dL (11.7-16.9) L 03/27/20 09:05 Hct 33.7 % (35.4-49) L 07/10/20 09:05 MCV 95.3 fl (80-96) 03/27/20 09:05 MCHC 33.8 g/dl (32.0-35.9) 03/27/20 09:05 RDW 15.1 % (11.9-15.9) 03/27/20 09:05 Plt Count 71 K/MM3 (134-434) L 03/27/20 09:05 INR 1.32 (0.83-1.09) H 03/27/20 10:33 Sodium 134 mmol/L (136-145) L 03/27/20 09:05 Potassium 3.8 mmol/L (3.5-5.1) 03/27/20 09:05 Chloride 103 mmol/L (98-107) 03/27/20 09:05 Carbon Dioxide 23 mmol/L (21-32) 03/27/20 09:05 Anion Gap 8 MMOL/L (8-16) 03/27/20 09:05 BUN 7.9 mg/dL (7-18) 03/27/20 09:05 Creatinine 0.7 mg/dL (0.55-1.3) 03/27/20 09:05 Random Glucose 206 mg/dL (74-106) H 03/27/20 09:05 Calcium 8.0 mg/dL (8.5-10.1) L 03/27/20 09:05 Blood Type O POSITIVE 03/27/20 10:33 Antibody Screen Negative 03/27/20 10:33 Imaging w/u to date reviewed. IMP: cholelithiasis/choledocholithiasis/s/p ERCP and related procedures. PLAN: Lap oksana possible open 03/30/2020; r/b/t/a's d/w the patients including conversion to an open procedure. Rohan Acosta MD FACS
[2020-03-27] MEDS ORDERED: PIPERACILLIN/TAZOBACTAM 4.5 GM VIAL IVPB ONE (17:58)
[2020-03-27] MEDS ORDERED: DEXTROSE 5%-WATER 100 ML IVPB ONE (17:59)
[2020-03-27] MEDS: PIPERACILLIN/TAZOB 4.5 GM 4.5 GM in DEXTROSE 5%-WATER 100 ML IVPB SCH (18:09)
--- NOTE | 2020-03-27 19:12 | PN ---
Physical Exam: SUBJECTIVE: Patient seen and examined at the bedside. comfortable at rest. OBJECTIVE: Patient is a 64 year old male with a significant past medical history of CVA (aphasia, right hand, and RLE deficit), stroke traumatic hemorrhage s/p craniotomy residual aphasia and hemiparesis right, atiral fibrillation (not on a/c), HIV, HTN, HLD, who presents to the ED on 03/25/2020 from home by referral from ID doctor (Dr. Shields) for elevated LFTs. A ct scan abd/pelvis and ultrasound shows gall stones, CBD dilatation. Patient being admitted for billiary sepsis. blood and urine cultures pending. s/p ERCP today, stone too large to be removed, double pigtail stent placed. patient for possible cholecystectomy per surgery. covid PCR: negative as of 03/24/2020 (see outpatient emr). repeat covid pending imaging: CTAP- cholelithiasis, ?choledolcholithiasis Gallbladder US- cholelithiasis with no definitive choledocholithiasis. CBD dilatation 9mm Period Temp Pulse Resp BP Sys/Barrientos Pulse Ox Last 24 Hr 97.7 F-100 F 61-90 18-19 119-149/76-85 96-100 GENERAL: The patient is awake, alert, in no acute distress. non verbal at baseline. HEAD: Normal with no signs of trauma EYE: prosthetic left eye ENT: Ears normal, nares patent, oropharynx clear without exudates, moist mucous membranes. NECK: Trachea midline, full range of motion, supple. LUNGS: Breath sounds equal, clear to auscultation bilaterally - diminished at bases HEART: Regular rate and rhythm ABDOMEN: soft, non tender, non distended, bowel sounds + EXTREMITIES: hyperpigmentation of right lower leg, dry slough skin. NEUROLOGICAL: right sided deficit. right arm contracted, right hand contracted Laboratory Results - last 24 hr 03/26/20 03/27/20 03/27/20 21:53 06:24 09:05 WBC 2.3 L RBC 3.53 L Hgb 11.4 L Hct 33.7 L MCV 95.3 MCH 32.2 MCHC 33.8 RDW 15.1 Plt Count 71 L MPV 8.0 Absolute Neuts (auto) 1.7 Neutrophils % 71.6 Lymphocytes % 16.5 D Monocytes % 10.2 D Eosinophils % 1.4 D Basophils % 0.3 Nucleated RBC % 0 PT with INR INR Sodium Potassium Chloride Carbon Dioxide Anion Gap BUN Creatinine Est GFR (CKD-EPI)AfAm Est GFR (CKD-EPI)NonAf POC Glucometer 153 211 Random Glucose Calcium Magnesium Total Bilirubin AST ALT Alkaline Phosphatase Total Protein Albumin Blood Type Antibody Screen 03/27/20 03/27/20 03/27/20 09:05 10:33 10:33 WBC RBC Hgb Hct MCV MCH MCHC RDW Plt Count MPV Absolute Neuts (auto) Neutrophils % Lymphocytes % Monocytes % Eosinophils % Basophils % Nucleated RBC % PT with INR 15.60 H INR 1.32 H Sodium 134 L Potassium 3.8 Chloride 103 Carbon Dioxide 23 Anion Gap 8 BUN 7.9 Creatinine 0.7 Est GFR (CKD-EPI)AfAm 114.78 Est GFR (CKD-EPI)NonAf 99.03 POC Glucometer Random Glucose 206 H Calcium 8.0 L Magnesium 1.7 L Total Bilirubin 1.2 H AST 44 H ALT 61 Alkaline Phosphatase 83 Total Protein 6.5 Albumin 2.8 L Blood Type O POSITIVE Antibody Screen Negative 03/27/20 16:53 WBC RBC Hgb Hct MCV MCH MCHC RDW Plt Count MPV Absolute Neuts (auto) Neutrophils % Lymphocytes % Monocytes % Eosinophils % Basophils % Nucleated RBC % PT with INR INR Sodium Potassium Chloride Carbon Dioxide Anion Gap BUN Creatinine Est GFR (CKD-EPI)AfAm Est GFR (CKD-EPI)NonAf POC Glucometer 196 Random Glucose Calcium Magnesium Total Bilirubin AST ALT Alkaline Phosphatase Total Protein Albumin Blood Type Antibody Screen Active Medications Generic Name Dose Route Start Last Admin Trade Name Freq PRN Reason Stop Dose Admin Abacavir/Dolutegravir/Lamivudine 1 each 03/28/20 10:00 Triumeq (Non-Formulary) PO DAILY DUNIA Digoxin 0.125 mg 03/27/20 10:15 03/27/20 14:34 Lanoxin Injection - IVPB 0.125 mg DAILY DUNIA Administration Furosemide 20 mg 03/28/20 10:00 Lasix - PO DAILY DUNIA Lactated Ringer's 1,000 ml in 1,000 mls @ 200 mls/hr 03/27/20 14:15 03/27/20 14:36 Lactated Ringers Solution IV 03/27/20 20:00 200 mls/hr ASDIR DUNIA Administration Lactated Ringer's 1,000 ml in 1,000 mls @ 175 mls/hr 03/27/20 20:00 Lactated Ringers Solution IV 03/28/20 02:00 ASDIR DUNIA Lactated Ringer's 1,000 ml in 1,000 mls @ 150 mls/hr 03/28/20 02:00 Lactated Ringers Solution IV 03/28/20 10:00 ASDIR DUNIA Lactated Ringer's 1,000 ml in 1,000 mls @ 125 mls/hr 03/28/20 10:00 Lactated Ringers Solution IV ASDIR DUNIA Piperacillin Sod/Tazobactam 100 mls @ 200 mls/hr 03/27/20 18:00 03/27/20 18:09 Sod 4.5 gm/ Dextrose IVPB 200 mls/hr Q8H-IV DUNIA Administration Protocol Insulin Aspart 1 vial 03/26/20 11:00 03/27/20 17:10 Novolog Vial Sliding Scale - SQ 2 unit ACHS DUNIA Administration Protocol Levetiracetam 500 mg 03/26/20 10:00 03/27/20 09:30 Keppra Injection - IVPB 500 mg BID DUNIA Administration Metoprolol Succinate 25 mg 03/27/20 22:00 Toprol Xl - PO BID DUNIA ASSESSMENT/PLAN: Problem List - Problems (1) Sepsis Assessment/Plan: biliary sepsis/possible choledocholithiasis on zosyn per ID monitor fever curve Code(s): A41.9 - SEPSIS, UNSPECIFIED ORGANISM (2) Choledocholithiasis Assessment/Plan: s/p ERCP today, stone too large to be removed, double pigtail stent placed. patient for possible cholecystectomy per surgery. Dr. Acosta following for surgery Code(s): K80.50 - CALCULUS OF BILE DUCT W/O CHOLANGITIS OR CHOLECYST W/O OBST (3) Dilated cbd, acquired Code(s): K83.8 - OTHER SPECIFIED DISEASES OF BILIARY TRACT (4) Elevated LFTs Assessment/Plan: improving. + Transaminitis likely due to choledocholithiasis T Bili 2.4>1.2 Code(s): R79.89 - OTHER SPECIFIED ABNORMAL FINDINGS OF BLOOD CHEMISTRY (5) Fever Assessment/Plan: fever curve improving. Code(s): R50.9 - FEVER, UNSPECIFIED Qualifiers: Fever type: unspecified Qualified Code(s): R50.9 - Fever, unspecified (6) Dysphagia Assessment/Plan: aspiration precautions maintained Code(s): R13.10 - DYSPHAGIA, UNSPECIFIED (7) Diabetes 1.5, managed as type 2 Assessment/Plan: on novolog SS, monitor BGMs Code(s): E10.9 - TYPE 1 DIABETES MELLITUS WITHOUT COMPLICATIONS (8) HIV (human immunodeficiency virus infection) Assessment/Plan: on clears, start antivirals being followed by Dr. Shields Code(s): B20 - HUMAN IMMUNODEFICIENCY VIRUS [HIV] DISEASE (9) CVA (cerebral vascular accident) Assessment/Plan: for PT evaluation Code(s): I63.9 - CEREBRAL INFARCTION, UNSPECIFIED (10) AF Atrial fibrillation Assessment/Plan: has been off anticoagulation since 2013 secondary to an acute head bleed. on digoxin for rate control do not anticoagulate with heparin as pt will likely need surgical intervention. cardiology notes reviewed Code(s): I48.91 - UNSPECIFIED ATRIAL FIBRILLATION (11) CVA (cerebral vascular accident) Assessment/Plan: right sided weakness. PT therapy ordered. Code(s): I63.9 - CEREBRAL INFARCTION, UNSPECIFIED (12) Eye globe prosthesis Assessment/Plan: supportive care Code(s): Z97.0 - PRESENCE OF ARTIFICIAL EYE (13) DVT prophylaxis Assessment/Plan: SCDs Code(s): Z29.9 - ENCOUNTER FOR PROPHYLACTIC MEASURES, UNSPECIFIED Visit type - Emergency Visit Emergency Visit: Yes ED Registration Date: 03/25/20 Care time: The patient presented to the Emergency Department on the above date and was hospitalized for further evaluation of their emergent condition. - New Patient This patient is new to me today: No - Critical Care Critical Care patient: No - Discharge Referral Referred to [facility] No
[2020-03-27] MEDS: metoPROLOL SUCCINATE 25 MG TAB.SR.24H (FP) PO SCH (21:42)
[2020-03-27] MEDS ORDERED: HEPARIN NA (PORCINE) 5,000 UNITS/ML 1ML VIAL SQ SCH (22:00)
[2020-03-28] MEDS ORDERED: PIPERACILLIN/TAZOBACTAM 4.5 GM VIAL IVPB ONE ×3 (01:09→17:07)
[2020-03-28] MEDS ORDERED: DEXTROSE 5%-WATER 100 ML IVPB ONE ×3 (01:10→17:08)
[2020-03-28] MEDS: PIPERACILLIN/TAZOB 4.5 GM 4.5 GM in DEXTROSE 5%-WATER 100 ML IVPB SCH ×3 (01:25→17:18)
[2020-03-28] MEDS ORDERED: LACTATED RINGERS SOLUTION 1,000 ML/1,000 ML INFUS.BAG IV SCH ×2 (02:00→10:00)
[2020-03-28] MEDS: INSULIN SLIDING SCALE (NOVOLOG) 1 VIAL SQ SCH ×4 (06:12→21:33)
[2020-03-28 08:18] LABS: BILIRUBIN,DIRECT 0.7 mg/dL (0.0-0.2)
[2020-03-28 08:25] LABS: INR 1.1 (0.83-1.09)
[2020-03-28] MEDS ORDERED: PT OWN MED DRAWER 7, Y5N ONE (09:05)
[2020-03-28] MEDS: levETIRAcetam 500 MG/5 ML INJECTION VIAL IVPB SCH ×2 (09:34→21:34)
[2020-03-28] MEDS: DIGOXIN 0.5 MG/2 ML AMPUL IVPB SCH (09:35)
[2020-03-28] MEDS: metoPROLOL SUCCINATE 25 MG TAB.SR.24H (FP) PO SCH ×2 (09:36→21:33)
[2020-03-28] MEDS: ABACAVIR/DOLUTEGRAVIR/LAMIVUDI (TRIUMEQ) TABLET -NF PO SCH (09:36)
[2020-03-28] MEDS ORDERED: FUROSEMIDE 20 MG TABLET (FP) PO SCH (10:00)
--- NOTE | 2020-03-28 10:06 | PN ---
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 (short form) - Note 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: Attending Surgeon No c/o; tolerating clear liquids VSS AF abdo-soft; non tender IMP; stable PLAN: For lap oksana possible open 03/30/2020 Rohan Acosta MD FACS
--- NOTE | 2020-03-28 11:04 | PN ---
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 (short form) - Note 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: Denies abdominal pain; when asked if he wants to eat, nods yes. Abdomen soft, no tenderness appreciated. WBC normal: CBC WBC 2.3 K/mm3 (4.0-10.0) L 03/27/20 09:05 RBC 3.53 M/mm3 (4.00-5.60) L 03/27/20 09:05 Hgb 11.4 GM/dL (11.7-16.9) L 03/27/20 09:05 Hct 33.7 % (35.4-49) L 03/27/20 09:05 MCV 95.3 fl (80-96) 03/27/20 09:05 MCH 32.2 pg (25.7-33.7) 03/27/20 09:05 MCHC 33.8 g/dl (32.0-35.9) 03/27/20 09:05 RDW 15.1 % (11.9-15.9) 03/27/20 09:05 Plt Count 71 K/MM3 (134-434) L 03/27/20 09:05 MPV 8.0 fl (7.5-11.1) 03/27/20 09:05 Absolute Neuts (auto) 1.7 K/mm3 (1.5-8.0) 03/27/20 09:05 Neutrophils % 71.6 % (42.8-82.8) 03/27/20 09:05 Lymphocytes % 16.5 % (8-40) D 03/27/20 09:05 Monocytes % 10.2 % (3.8-10.2) D 03/27/20 09:05 Eosinophils % 1.4 % (0-4.5) D 03/27/20 09:05 Basophils % 0.3 % (0-2.0) 03/27/20 09:05 Nucleated RBC % 0 % (0-0) 03/27/20 09:05 Amylase, lipase, normal, bilirubin down (liver chemistries pending tdoay): Hepatic Panel Total Bilirubin 1.2 mg/dL (0.2-1) H 03/27/20 09:05 Direct Bilirubin 0.7 mg/dL (0.0-0.2) H 03/28/20 07:00 AST 44 U/L (15-37) H 03/27/20 09:05 ALT 61 U/L (13-61) 03/27/20 09:05 Alkaline Phosphatase 83 U/L (45-117) 03/27/20 09:05 Albumin 2.8 g/dl (3.4-5.0) L 03/27/20 09:05 Amylase 37, lipase 158. Impression: No sign of post-ERCP pancreatitis. To advance diet.
--- NOTE | 2020-03-28 11:35 | EKG ---
Test Reason : Blood Pressure : / mmHG Vent. Rate : 082 BPM Atrial Rate : 227 BPM P-R Int : 000 ms QRS Dur : 110 ms QT Int : 368 ms P-R-T Axes : 000 -72 002 degrees QTc Int : 429 ms ATRIAL FIBRILLATION LEFT ANTERIOR FASCICULAR BLOCK T WAVE ABNORMALITY, CONSIDER ANTERIOR ISCHEMIA ABNORMAL ECG WHEN COMPARED WITH ECG OF 25-MAR-2020 15:54, ATRIAL FIBRILLATION HAS REPLACED ELECTRONIC VENTRICULAR PACEMAKER Confirmed by IRVING DONAHUE, RYLEE ([id number]) on 03/28/2020 11:35:26 AM Referred By: Confirmed By:RYLEE VILLATORO MD
[2020-03-28 11:47] LABS: BASO % 0.4 % (0-2.0); EOS % 3.5 % (0-4.5); HEMATOCRIT 33.1 % (35.4-49); LYMPH % 22.4 % (8-40); MCHC 33.3 g/dl (32.0-35.9); MEAN CELL VOLUME 96.1 fl (80-96); MEAN PLT VOLUME 8.3 fl (7.5-11.1); MONO % 12.2 % (3.8-10.2); NEUT % 61.5 % (42.8-82.8); PLATELET COUNT 73 K/MM3 (134-434); RBC 3.44 M/mm3 (4.00-5.60); RDW 14.7 % (11.9-15.9); WHITE BLOOD COUNT 2.8 K/mm3 (4.0-10.0)
[2020-03-28 12:09] LABS: ALBUMIN 2.6 g/dl (3.4-5.0); BILIRUBIN,TOTAL 1.1 mg/dL (0.2-1); BLOOD UREA NITROGEN 6.2 mg/dL (7-18); CALCIUM 7.8 mg/dL (8.5-10.1); CREATININE 0.9 mg/dL (0.55-1.3); MAGNESIUM 1.9 mg/dL (1.8-2.4); POTASSIUM 3.4 mmol/L (3.5-5.1); TOT PROT 6.2 g/dl (6.4-8.2)
[2020-03-28] MEDS ORDERED: POTASSIUM CHLORIDE TABS 20 MEQ TABLET.ER (FP) PO ONE (13:17)
--- NOTE | 2020-03-28 13:27 | PN ---
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, Physician History of Present Illness: Seen and examined at bedside. Able to shake his head no and nod yes t questions. Afebrile. Denies pain nausea vomiting fever chills chest pain or SOB. LFTs improving Bili trending down Plts increasing although minimal. Leukopenic. ANC 1.7 Advanced to diabetic diet and tolerating it well. no post ERCP pancreatitis. - Current Medication List Current Medications: Active Medications Abacavir/Dolutegravir/Lamivudine (Triumeq (Non-Formulary)) 1 each PO DAILY [facility] Last Admin: 03/28/20 09:36 Dose: 1 each Documented by: Digoxin (Lanoxin Injection -) 0.125 mg IVPB DAILY [facility] Last Admin: 03/28/20 09:35 Dose: 0.125 mg Documented by: Furosemide (Lasix -) 20 mg PO DAILY [facility] Last Admin: 03/28/20 09:36 Dose: 20 mg Documented by: Piperacillin Sod/Tazobactam (Sod 4.5 gm/ Dextrose) 100 mls @ 200 mls/hr IVPB Q8H-IV DUNIA; Protocol Last Admin: 03/28/20 09:36 Dose: 200 mls/hr Documented by: Insulin Aspart (Novolog Vial Sliding Scale -) 1 vial SQ ACHS [facility]; Protocol Last Admin: 03/28/20 11:33 Dose: 6 unit Documented by: Levetiracetam (Keppra Injection -) 500 mg IVPB BID [facility] Last Admin: 03/28/20 09:34 Dose: 500 mg Documented by: Metoprolol Succinate (Toprol Xl -) 25 mg PO BID [facility] Last Admin: 03/28/20 09:36 Dose: 25 mg Documented by: Potassium Chloride (K-Dur -) 40 meq PO ONCE ONE Stop: 03/28/20 13:18 - Objective Vital Signs: Vital Signs Temperature 98.4 F 03/28/20 08:23 Pulse Rate 65 03/28/20 09:35 Respiratory Rate 18 03/28/20 09:00 Blood Pressure 97/55 L 03/28/20 08:23 O2 Sat by Pulse Oximetry (%) 100 03/28/20 09:00 Constitutional: Yes: Well Nourished, No Distress, Calm Eyes: Yes: EOM Intact HENT: Yes: Atraumatic, Other (moist mucous membranes). No: Thrush Neck: Yes: Supple Cardiovascular: Yes: Pulse Irregular Respiratory: Yes: Regular, CTA Bilaterally Gastrointestinal: Yes: Normal Bowel Sounds, Soft, Abdomen, Obese, Hernia (supraumbilical) Extremities: Yes: Other (stasis dermatitis) Edema: Yes Edema: LLE: 1+, RLE: 1+ Neurological: Yes: Aphasia Psychiatric: Yes: Alert Labs: CBC, BMP 03/28/20 10:50 03/28/20 10:50 INR, PTT INR 1.10 (0.83-1.09) H 03/28/20 07:00 Impression/Plan Impression/Plan: Sepsis in the setting of choledocholithiasis /ascending cholangitis POD#1 s/p ER CP with stent placed and sphincterotomy. stone extraction in proximal CBD was not possible as stone was too large. on zosyn per ID monitor fever curve-afebrile Cholecystectomy monday Will need tertiary care center follow up in 3 months for cholangioscopy and lithotripsy with repeat ERCP leukopenic today ANC 1.7 Cultures negative thus far transaminemia/hyperbilirubinemia secondary to above Improving Thrombocytopenia secondary to sepsis should continue to improve. Seems as though the platelets were the lowest yesterday at 71,000 and should start to recover as sepsis resolves/improves Hypokalemia replete now recheck in AM hold Lasix for now HLD restart statin Dysphagia aspiration precautions maintained tolerating diet Diabetes 1.5, managed as type 2 give a one time dose of levemir 4 units now and reasses fingersticks for BGM ISS BGM ACHS diabetic sodium controlled diet HIV (human immunodeficiency virus infection) Continue HAART-On Triumeq daily history of hemorrhagic CVA not on AC for A fib now PT eval Atrial fibrillation s/p PPM has been off anticoagulation since 2012 secondary to hemorrhagic CVA on digoxin and metoprolol for rate control-controlled do not anticoagulate with heparin as pt will likely need surgical intervention. cardiology consult noted and appreciated Eye globe prosthesis outpt follow up Visit type - Emergency Visit Emergency Visit: Yes ED Registration Date: 03/25/20 Care time: The patient presented to the Emergency Department on the above date and was hospitalized for further evaluation of their emergent condition. - New Patient This patient is new to me today: Yes Date on this admission: 03/28/20 - Critical Care Critical Care patient: No
[2020-03-28] MEDS ORDERED: INSULIN (LEVEMIR) 100 UNITS/ML UNITS SQ ONE ×2 (14:10→14:33)
[2020-03-28] MEDS: PARoxetine HCL 10 MG TABLET PO SCH (15:04)
[2020-03-28] MEDS: BUDESONIDE/FORMETEROL FUMARATE 80/4.5 mcg INHALER IH SCH (15:04)
--- NOTE | 2020-03-28 15:15 | PN ---
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 (short form) - Note 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: no complaints no abdominal pain s/p ercp for lap choly on Monday aphasic Microbiology 03/27/20 22:00 Sputum - Expectorated Gram Stain - Final 03/25/20 15:10 Blood - Peripheral Venous Blood Culture - Preliminary NO GROWTH OBTAINED AFTER 48 HOURS, INCUBATION TO CONTINUE FOR 3 DAYS. 03/25/20 15:10 Blood - Peripheral Venous Blood Culture - Preliminary NO GROWTH OBTAINED AFTER 48 HOURS, INCUBATION TO CONTINUE FOR 3 DAYS. 03/25/20 21:35 Urine - Urine Clean Catch Urine Culture - Final NO GROWTH OBTAINED 03/25/20 21:35 Urine - Urine Clean Catch Legionella Antigen - Final 03/25/20 21:35 Urine - Urine Clean Catch Streptococcus pneumoniae Antigen (M - Final Vital Signs Period Temp Pulse Resp BP Sys/Barrientos Pulse Ox Last 24 Hr 98.4 F-99.5 F 60-90 18-18 96-128/55-76 100-100 cor-rrr lungs clear abd soft,nt ext no edema CBC, BMP 03/28/20 10:50 03/28/20 10:50 imp/reccd choledocholithiasis- s/p ercp for lap choly on Monday suspect lelukopenia and thrombocytopenia secondary to biliary sepsis, repeat cbc in am continue zosyn stable hiv- continue triumeq PPM- per cardiology
[2020-03-28] MEDS: ATORVASTATIN CA 20 MG TABLET (FP) PO SCH (21:33)
[2020-03-29] MEDS ORDERED: DEXTROSE 5%-WATER 100 ML IVPB ONE ×3 (00:44→17:43)
[2020-03-29] MEDS ORDERED: PIPERACILLIN/TAZOBACTAM 4.5 GM VIAL IVPB ONE ×3 (00:44→17:43)
[2020-03-29] MEDS: PIPERACILLIN/TAZOB 4.5 GM 4.5 GM in DEXTROSE 5%-WATER 100 ML IVPB SCH ×3 (01:08→17:47)
[2020-03-29] MEDS: INSULIN SLIDING SCALE (NOVOLOG) 1 VIAL SQ SCH ×4 (06:15→21:24)
--- NOTE | 2020-03-29 09:35 | PN ---
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 (short form) - Note 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: Sleeping but easily aroused, alert. Denies abdominal pain when asked. Abdomen: nontender. Bili down to 1.1 yesterday. No fever: Vital Signs Temperature 97.3 F L 03/29/20 06:00 Pulse Rate 60 03/29/20 06:00 Respiratory Rate 18 03/29/20 06:00 Blood Pressure 106/68 03/29/20 06:00 O2 Sat by Pulse Oximetry (%) 100 03/28/20 21:00 INR improved: INR, PTT INR 1.10 (0.83-1.09) H 03/28/20 07:00 No objection to cholecystectomy tomorrow. He is at somewhat increased risk of bleeding with his thrombocytopenia: WBC 2.8 K/mm3 (4.0-10.0) L 03/28/20 10:50 RBC 3.44 M/mm3 (4.00-5.60) L 03/28/20 10:50 Hgb 11.0 GM/dL (11.7-16.9) L 03/28/20 10:50 Hct 33.1 % (35.4-49) L 03/28/20 10:50 MCV 96.1 fl (80-96) H 03/28/20 10:50 MCH 32.0 pg (25.7-33.7) 03/28/20 10:50 MCHC 33.3 g/dl (32.0-35.9) 03/28/20 10:50 RDW 14.7 % (11.9-15.9) 03/28/20 10:50 Plt Count 73 K/MM3 (134-434) L 03/28/20 10:50 MPV 8.3 fl (7.5-11.1) 03/28/20 10:50 Absolute Neuts (auto) 1.7 K/mm3 (1.5-8.0) 03/28/20 10:50 Neutrophils % 61.5 % (42.8-82.8) 03/28/20 10:50 Lymphocytes % 22.4 % (8-40) D 03/28/20 10:50 Monocytes % 12.2 % (3.8-10.2) H 03/28/20 10:50 Eosinophils % 3.5 % (0-4.5) D 03/28/20 10:50 Basophils % 0.4 % (0-2.0) 03/28/20 10:50 Nucleated RBC % 0 % (0-0) 03/28/20 10:50 Today's platelet count pending.
[2020-03-29] MEDS: BUDESONIDE/FORMETEROL FUMARATE 80/4.5 mcg INHALER IH SCH (09:51)
[2020-03-29] MEDS: PARoxetine HCL 10 MG TABLET PO SCH (09:53)
[2020-03-29] MEDS: DIGOXIN 0.5 MG/2 ML AMPUL IVPB SCH (09:54)
[2020-03-29] MEDS: levETIRAcetam 500 MG/5 ML INJECTION VIAL IVPB SCH ×2 (09:54→21:24)
[2020-03-29] MEDS: metoPROLOL SUCCINATE 25 MG TAB.SR.24H (FP) PO SCH ×2 (09:55→21:24)
[2020-03-29] MEDS: ABACAVIR/DOLUTEGRAVIR/LAMIVUDI (TRIUMEQ) TABLET -NF PO SCH (09:55)
--- NOTE | 2020-03-29 10:04 | PN ---
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 (short form) - Note 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: Attending Surgeon For lap oksana possible open 03/30/2020 pending todays platelet count; I am not aware of why he is thrombocytopenic; if the plaelet count is the same or lower he will either need platelets or he will need to be xferred to [facility] where he can have surgery and the advanced biliary lithotripsy he will subsequently require; I discussed this w/his this AM. Rohan Acosta MD FACS
--- NOTE | 2020-03-29 10:26 | PN ---
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 (short form) - Note 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: no complaints no abdominal pain s/p ercp for lap choly on Monday today's labs not yet drawn- nurse notified Vital Signs Period Temp Pulse Resp BP Sys/Barrientos Pulse Ox Last 24 Hr 97.3 F-99.3 F 60-63 16-18 102-130/65-70 100 cor-rrr lungs decreased bs at bases abd soft,nt ext no edema CBC, BMP 03/28/20 10:50 03/28/20 10:50 Microbiology 03/27/20 22:00 Sputum - Expectorated Gram Stain - Final 03/27/20 22:00 Sputum - Expectorated Sputum Culture - Preliminary NORMAL RESPIRATORY MERLINE 03/25/20 15:10 Blood - Peripheral Venous Blood Culture - Preliminary NO GROWTH OBTAINED AFTER 72 HOURS, INCUBATION TO CONTINUE FOR 2 DAYS. 03/25/20 15:10 Blood - Peripheral Venous Blood Culture - Preliminary NO GROWTH OBTAINED AFTER 72 HOURS, INCUBATION TO CONTINUE FOR 2 DAYS. 03/25/20 21:35 Urine - Urine Clean Catch Urine Culture - Final NO GROWTH OBTAINED 03/25/20 21:35 Urine - Urine Clean Catch Legionella Antigen - Final 03/25/20 21:35 Urine - Urine Clean Catch Streptococcus pneumoniae Antigen (M - Final imp/reccd choledocholithiasis- s/p ercp for lap choly on Monday suspect lelukopenia and thrombocytopenia secondary to biliary sepsis, repeat cbc today continue zosyn stable hiv- continue triumeq PPM- per cardiology
--- NOTE | 2020-03-29 14:01 | PN ---
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, Physician History of Present Illness: Seen and examined at bedside. Able to shake his head no and nod yes to questions. Afebrile. Denies pain nausea vomiting fever chills chest pain or SOB. LFTs from today pending. All labs pending Tolerating diabetic diet well. Tmax 99.3 Fahrenheit - Current Medication List Current Medications: Active Medications Abacavir/Dolutegravir/Lamivudine (Triumeq (Non-Formulary)) 1 each PO DAILY [facility] Last Admin: 03/29/20 09:55 Dose: 1 each Documented by: Atorvastatin Calcium (Lipitor -) 20 mg PO HS DUNIA Last Admin: 03/28/20 21:33 Dose: 20 mg Documented by: Budesonide/Formoterol Fumarate (Symbicort 80/4.5mcg -) 2 puff IH DAILY [facility] Last Admin: 03/29/20 09:51 Dose: 2 puff Documented by: Digoxin (Lanoxin Injection -) 0.125 mg IVPB DAILY DUNIA Last Admin: 03/29/20 09:54 Dose: 0.125 mg Documented by: Furosemide (Lasix -) 20 mg PO DAILY [facility] Last Admin: 03/28/20 09:36 Dose: 20 mg Documented by: Piperacillin Sod/Tazobactam (Sod 4.5 gm/ Dextrose) 100 mls @ 200 mls/hr IVPB Q8H-IV [facility]; Protocol Last Admin: 03/29/20 09:00 Dose: 200 mls/hr Documented by: Insulin Aspart (Novolog Vial Sliding Scale -) 1 vial SQ ACHS [facility]; Protocol Last Admin: 03/29/20 11:46 Dose: 4 unit Documented by: Levetiracetam (Keppra Injection -) 500 mg IVPB BID [facility] Last Admin: 03/29/20 09:54 Dose: 500 mg Documented by: Metoprolol Succinate (Toprol Xl -) 25 mg PO BID [facility] Last Admin: 03/29/20 09:55 Dose: 25 mg Documented by: Paroxetine HCl (Paxil -) 10 mg PO DAILY [facility] Last Admin: 03/29/20 09:53 Dose: 10 mg Documented by: - Objective Vital Signs: Vital Signs Temperature 97.7 F 03/29/20 10:00 Pulse Rate 61 03/29/20 10:00 Respiratory Rate 16 03/29/20 10:00 Blood Pressure 105/70 03/29/20 10:00 O2 Sat by Pulse Oximetry (%) 100 03/29/20 09:00 Constitutional: Yes: Well Nourished, No Distress, Calm, sitting on edge of bed. Eyes: Yes: EOM Intact HENT: Yes: Atraumatic, Other (moist mucous membranes). No: Thrush Neck: Yes: Supple Cardiovascular: Yes: Pulse Irregular Respiratory: Yes: Regular, left side crackles at base. right side is clear. Gastrointestinal: Yes: Normal Bowel Sounds, Soft, Abdomen, Obese, Hernia (supraumbilical) Extremities: Yes: Other (stasis dermatitis) Edema: Yes Edema: LLE: Trace, RLE: Trace Neurological: Yes: Aphasia Psychiatric: Yes: Alert Labs: CBC, BMP 03/28/20 10:50 03/28/20 10:50 INR, PTT INR 1.10 (0.83-1.09) H 03/28/20 07:00 Impression/Plan Impression/Plan: Sepsis in the setting of choledocholithiasis /ascending cholangitis POD#2 s/p ERCP with stent placed and sphincterotomy. stone extraction in proximal CBD was not possible as stone was too large. on zosyn per ID monitor fever curve-afebrile Cholecystectomy monday. if Thrombocytopenia worsens may need pplatelets or [facility]. Will need tertiary care center follow up in 3 months for cholangioscopy and lithotripsy with repeat ERCP per GI f/u WBC count cultures NGTD transaminemia/hyperbilirubinemia secondary to above Improving Thrombocytopenia secondary to sepsis should continue to improve. Seems as though the platelets were the lowest yesterday at 71,000 and should start to recover as sepsis resolves/improves. I suspect they are on their way. f/u CBC. Hypokalemia f/u potassium level today after repletion hold Lasix for now HLD Continue statin Dysphagia aspiration precautions maintained tolerating diet Diabetes 1.5, managed as type 2 give another one time dose of levemir 4 units now as it better controlled fingersticks/BGM yesterday ISS BGM ACHS diabetic sodium controlled diet HIV (human immunodeficiency virus infection) Continue HAART-On Triumeq daily history of hemorrhagic CVA not on AC for A fib now PT eval Atrial fibrillation s/p PPM has been off anticoagulation since 2013 secondary to hemorrhagic CVA on digoxin and metoprolol for rate control-controlled do not anticoagulate with heparin as pt will likely need surgical intervention. cardiology consult noted and appreciated Eye globe prosthesis outpt follow up Visit type - Emergency Visit Emergency Visit: Yes ED Registration Date: 03/25/20 Care time: The patient presented to the Emergency Department on the above date and was hospitalized for further evaluation of their emergent condition. - New Patient This patient is new to me today: No - Critical Care Critical Care patient: No
[2020-03-29] MEDS ORDERED: INSULIN (LEVEMIR) 100 UNITS/ML UNITS SQ ONE (14:03)
[2020-03-29 15:59] LABS: BASO % 0.5 % (0-2.0); EOS % 2.7 % (0-4.5); HEMATOCRIT 33.2 % (35.4-49); HEMOGLOBIN 10.9 GM/dL (11.7-16.9); LYMPH % 25.3 % (8-40); MCH 31.1 pg (25.7-33.7); MCHC 32.8 g/dl (32.0-35.9); MEAN CELL VOLUME 94.6 fl (80-96); MEAN PLT VOLUME 8.1 fl (7.5-11.1); MONO % 10.5 % (3.8-10.2); PLATELET COUNT 83 K/MM3 (134-434); RBC 3.51 M/mm3 (4.00-5.60); RDW 14.6 % (11.9-15.9); WHITE BLOOD COUNT 3.2 K/mm3 (4.0-10.0)
[2020-03-29 16:22] LABS: ALBUMIN 2.8 g/dl (3.4-5.0); BLOOD UREA NITROGEN 8.2 mg/dL (7-18); CALCIUM 8.4 mg/dL (8.5-10.1); CREATININE 0.9 mg/dL (0.55-1.3); POTASSIUM 3.6 mmol/L (3.5-5.1); TOT PROT 6.6 g/dl (6.4-8.2)
[2020-03-29 19:04] LABS: MAGNESIUM 1.9 mg/dL (1.8-2.4)
[2020-03-29] MEDS ORDERED: INSULIN (NOVOLOG) ASPART 100 UNITS/ML 10ML VIAL ONE (20:50)
[2020-03-29] MEDS: ATORVASTATIN CA 20 MG TABLET (FP) PO SCH (21:24)
[2020-03-30] MEDS ORDERED: DEXTROSE 5%-WATER 100 ML IVPB ONE ×2 (00:47→09:00)
[2020-03-30] MEDS ORDERED: PIPERACILLIN/TAZOBACTAM 4.5 GM VIAL IVPB ONE ×2 (00:47→09:00)
[2020-03-30] MEDS: PIPERACILLIN/TAZOB 4.5 GM 4.5 GM in DEXTROSE 5%-WATER 100 ML IVPB SCH ×2 (01:11→09:29)
[2020-03-30] MEDS: INSULIN SLIDING SCALE (NOVOLOG) 1 VIAL SQ SCH ×4 (06:06→23:44)
[2020-03-30 08:46] LABS: BASO % 0.5 % (0-2.0); HEMATOCRIT 33.2 % (35.4-49); HEMOGLOBIN 10.9 GM/dL (11.7-16.9); MCH 31.2 pg (25.7-33.7); MCHC 32.9 g/dl (32.0-35.9); MEAN CELL VOLUME 94.9 fl (80-96); MEAN PLT VOLUME 8.7 fl (7.5-11.1); MONO % 9.1 % (3.8-10.2); NEUT % 62.4 % (42.8-82.8); PLATELET COUNT 106 K/MM3 (134-434); RDW 14.6 % (11.9-15.9); WHITE BLOOD COUNT 3.4 K/mm3 (4.0-10.0)
[2020-03-30 08:56] LABS: INR 1.1 (0.83-1.09)
[2020-03-30] MEDS ORDERED: PT OWN MED DRAWER 7, Y5N ONE ×2 (09:00→18:24)
[2020-03-30 09:13] LABS: BILIRUBIN,TOTAL 1.6 mg/dL (0.2-1); CALCIUM 8.5 mg/dL (8.5-10.1); CREATININE 0.8 mg/dL (0.55-1.3)
[2020-03-30] MEDS: PARoxetine HCL 10 MG TABLET PO SCH (09:31)
[2020-03-30] MEDS: metoPROLOL SUCCINATE 25 MG TAB.SR.24H (FP) PO SCH ×2 (09:31→23:45)
[2020-03-30] MEDS: DIGOXIN 0.5 MG/2 ML AMPUL IVPB SCH (09:31)
[2020-03-30] MEDS: BUDESONIDE/FORMETEROL FUMARATE 80/4.5 mcg INHALER IH SCH (09:32)
[2020-03-30] MEDS: levETIRAcetam 500 MG/5 ML INJECTION VIAL IVPB SCH ×2 (09:32→23:44)
[2020-03-30] MEDS: ABACAVIR/DOLUTEGRAVIR/LAMIVUDI (TRIUMEQ) TABLET -NF PO SCH (09:33)
[2020-03-30] MEDS ORDERED: PROPOFOL 20 ML ONE ×2 (10:14→14:24)
[2020-03-30] MEDS ORDERED: ROCURONIUM BROMIDE 50 MG/5 ML SYRINGE ONE ×3 (10:14→13:10)
[2020-03-30] MEDS ORDERED: LIDOCAINE HCL/PF 2% SDV 5ML VIAL ONE (10:14)
[2020-03-30] MEDS ORDERED: MIDAZOLAM HCL 2 MG/2 ML SINGLE DOSE VIAL ONE (10:14)
[2020-03-30] MEDS ORDERED: fentaNYL CITRATE 250 MCG/5 ML VIAL ONE (10:14)
[2020-03-30] MEDS ORDERED: BUPIVACAINE HCL/PF 0.5% (5 MG/ML) 30 ML VIAL IJ ONE (11:26)
[2020-03-30] MEDS ORDERED: ALBUTEROL SO4 HFA INHALER IH ONE (12:34)
[2020-03-30] MEDS ORDERED: DEXAMETHASONE SOD PHOSPHATE 4 MG/1 ML VIAL ONE (13:45)
[2020-03-30] MEDS ORDERED: NEOSTIGMINE METHYLSULFATE 0.5 MG/ML - 10 ML MDV ONE (13:55)
[2020-03-30] MEDS ORDERED: GLYCOPYRROLATE 0.2 MG/1 ML VIAL ONE ×3 (14:00→14:21)
[2020-03-30] MEDS ORDERED: ALBUTEROL SO4 0.083% IH SOL 2.5 MG/3 ML VIAL.NEB. NEB ONE ×2 (14:44→15:03)
[2020-03-30] MEDS ORDERED: HYDROmorphone HCl 2 MG/ML VIAL IVPB PRN (14:57)
[2020-03-30] MEDS ORDERED: ONDANSETRON 4 MG/2 ML VIAL IVPUSH PRN (15:03)
[2020-03-30] MEDS ORDERED: HYDROmorphone HCl 2 MG/ML VIAL IVPUSH PRN (15:03)
--- NOTE | 2020-03-30 15:09 | OP ---
Operative Note - Note: Operative Date: 03/30/20 Pre-Operative Diagnosis: cholelithiasis and choledocholithiasis Operation: laparoscopic converted to open cholecystectomy Findings: contracted gallbladder w/overlying adhesions of omentum and transverse colon; abnormal appearing liver parenchyma. Post-Operative Diagnosis: Same as Pre-op Surgeon: Rohan Acosta Telephone Operators Supervisor: Rissa Rubio Anesthesiologist/LABOR TRAINING MANAGER: Enrique Edmondson Anesthesia: General Specimens Removed: gallbladder and solitary stone Estimated Blood Loss (mls): 100 Drains & Tubes with Location: 10 mm ARISTEO in gallbladder fossa
--- NOTE | 2020-03-30 16:52 | SURG ---
Surgery User Support Analyst Supervisor Note User Support Analyst Supervisor: Rissa Rubio PA-C (Suzy) Date of Service: 03/30/20 Diagnosis: cholelithiasis and choledocholithiasis Procedure: laparoscopic converted to open cholecystectomy I was present for the entirety of the operative procedure. For further detail, please refer to operative report.
[2020-03-30] MEDS ORDERED: METOPROLOL TARTRATE 5 MG/5 ML VIAL IVPUSH PRN (17:54)
--- NOTE | 2020-03-30 17:55 | PN ---
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 Shields) for elevated LFTs. A ct scan abd/pelvis and ultrasound shows gall stones, CBD dilatation. Patient being admitted for billiary sepsis. blood and urine cultures pending. Patient is s/p laparoscopic converted to open cholecystectomy today with Dr. Acosta. covid PCR: negative as of 03/24/2020 (see outpatient emr). repeat covid negative imaging: CTAP- cholelithiasis, ?choledolcholithiasis Gallbladder US- cholelithiasis with no definitive choledocholithiasis. CBD dilatation 9mm Vital Signs Period Temp Pulse Resp BP Sys/Barrientos Pulse Ox Last 24 Hr 97.6 F-98.5 F 60-119 18-30 103-161/72-110 88-100 Laboratory Results - last 24 hr GENERAL: The patient is awake, alert, in no acute distress. non verbal at baseline. HEAD: Normal with no signs of trauma EYE: prosthetic left eye ENT: Ears normal, nares patent, oropharynx clear without exudates, moist mucous membranes. NECK: Trachea midline, full range of motion, supple. LUNGS: Breath sounds equal, clear to auscultation bilaterally - diminished at bases HEART: Regular rate and rhythm ABDOMEN: soft, non tender, non distended, bowel sounds + EXTREMITIES: hyperpigmentation of right lower leg, dry slough skin. NEUROLOGICAL: right sided deficit. right arm contracted, right hand contracted 03/29/20 03/29/20 03/30/20 15:24 21:21 06:02 WBC RBC Hgb Hct MCV MCH MCHC RDW Plt Count MPV Absolute Neuts (auto) Neutrophils % Lymphocytes % Monocytes % Eosinophils % Basophils % Nucleated RBC % PT with INR INR Sodium 139 Potassium 3.6 Chloride 104 Carbon Dioxide 24 Anion Gap 10 BUN 8.2 Creatinine 0.9 Est GFR (CKD-EPI)AfAm 103.51 Est GFR (CKD-EPI)NonAf 89.31 POC Glucometer 222 153 Random Glucose 182 H Calcium 8.4 L Magnesium 1.9 Total Bilirubin 1.0 AST 50 H ALT 58 Alkaline Phosphatase 108 Total Protein 6.6 Albumin 2.8 L Blood Type Antibody Screen 03/30/20 03/30/20 03/30/20 07:10 07:10 07:10 WBC 3.4 L RBC 3.50 L Hgb 10.9 L Hct 33.2 L MCV 94.9 MCH 31.2 MCHC 32.9 RDW 14.6 Plt Count 106 L D MPV 8.7 Absolute Neuts (auto) 2.1 Neutrophils % 62.4 Lymphocytes % 25.0 Monocytes % 9.1 Eosinophils % 3.0 Basophils % 0.5 Nucleated RBC % 0 PT with INR 13.00 INR 1.10 H Sodium 140 Potassium 4.0 Chloride 104 Carbon Dioxide 26 Anion Gap 9 BUN 9.0 Creatinine 0.8 Est GFR (CKD-EPI)AfAm 108.65 Est GFR (CKD-EPI)NonAf 93.74 POC Glucometer Random Glucose 166 H Calcium 8.5 Magnesium 2.0 Total Bilirubin 1.6 H AST 41 H ALT 54 Alkaline Phosphatase 112 Total Protein 7.0 Albumin 3.0 L Blood Type Antibody Screen 03/30/20 03/30/20 07:10 17:30 WBC RBC Hgb Hct MCV MCH MCHC RDW Plt Count MPV Absolute Neuts (auto) Neutrophils % Lymphocytes % Monocytes % Eosinophils % Basophils % Nucleated RBC % PT with INR INR Sodium Potassium Chloride Carbon Dioxide Anion Gap BUN Creatinine Est GFR (CKD-EPI)AfAm Est GFR (CKD-EPI)NonAf POC Glucometer 316 Random Glucose Calcium Magnesium Total Bilirubin AST ALT Alkaline Phosphatase Total Protein Albumin Blood Type O POSITIVE Antibody Screen Negative Active Medications Generic Name Dose Route Start Last Admin Trade Name Freq PRN Reason Stop Dose Admin Abacavir/Dolutegravir/Lamivudine 1 each 03/31/20 10:00 Triumeq (Non-Formulary) PO DAILY DUNIA Acetaminophen 1,000 mg 03/30/20 21:00 Ofirmev Injection - IVPB 03/31/20 14:57 Q6H DUNIA Atorvastatin Calcium 20 mg 03/30/20 22:00 Lipitor - PO HS DUNIA Budesonide/Formoterol Fumarate 2 puff 03/31/20 10:00 Symbicort 80/4.5mcg - IH DAILY DUNIA Digoxin 0.125 mg 03/31/20 10:00 Lanoxin Injection - IVPB DAILY [facility] Fentanyl 50 mcg 03/30/20 16:20 Sublimaze Injection - IVPUSH [id number] PRN PAIN-PACU ORDER X 4 DOSES ONLY Furosemide 20 mg 03/31/20 10:00 Lasix - PO DAILY [facility] Hydromorphone HCl 2 mg 03/30/20 14:57 Dilaudid Vial - IVPB Q4H PRN PAIN LEVEL 6-10 Hydromorphone HCl 0.5 mg 03/30/20 15:03 Dilaudid Vial - IVPUSH [id number] PRN PAIN LEVEL 6-10 Lactated Ringer's 1,000 mls @ 125 mls/hr 03/30/20 15:15 Lactated Ringers Solution IV ASDIR [facility] Insulin Aspart 1 vial 03/30/20 22:00 Novolog Vial Sliding Scale - SQ ACHS [facility] Protocol Levetiracetam 500 mg 03/30/20 22:00 Keppra Injection - IVPB BID [facility] Metoprolol Succinate 25 mg 03/30/20 22:00 Toprol Xl - PO BID [facility] Ondansetron HCl 4 mg 03/30/20 15:03 Zofran Injection IVPUSH Q6H PRN NAUSEA AND/OR VOMITING Paroxetine HCl 10 mg 03/31/20 10:00 Paxil - PO DAILY [facility] ASSESSMENT/PLAN: Problem List - Problems (1) Sepsis Assessment/Plan: biliary sepsis/possible choledocholithiasis on zosyn per ID monitor fever curve s/p open laparoscopic converted to open cholecystectomy with drain monitor output Code(s): A41.9 - SEPSIS, UNSPECIFIED ORGANISM (2) Choledocholithiasis Assessment/Plan: s/p ERCP, stone too large to be removed, double pigtail stent placed. s/p laparoscopic converted to open cholecystectomy Code(s): K80.50 - CALCULUS OF BILE DUCT W/O CHOLANGITIS OR CHOLECYST W/O OBST (3) Dilated cbd, acquired Code(s): K83.8 - OTHER SPECIFIED DISEASES OF BILIARY TRACT (4) Elevated LFTs Assessment/Plan: improving. + Transaminitis likely due to choledocholithiasis T Bili 2.4>1.2 Code(s): R79.89 - OTHER SPECIFIED ABNORMAL FINDINGS OF BLOOD CHEMISTRY (5) Fever Assessment/Plan: monitor vitals Code(s): R50.9 - FEVER, UNSPECIFIED Qualifiers: Fever type: unspecified Qualified Code(s): R50.9 - Fever, unspecified (6) Dysphagia Assessment/Plan: aspiration precautions maintained keep npo Code(s): R13.10 - DYSPHAGIA, UNSPECIFIED (7) Diabetes 1.5, managed as type 2 Assessment/Plan: on novolog SS, monitor BGMs Code(s): E10.9 - TYPE 1 DIABETES MELLITUS WITHOUT COMPLICATIONS (8) HIV (human immunodeficiency virus infection) Assessment/Plan: start antivirals once once cleared by surgery (s/p open oksana) being followed by Dr. Shields Code(s): B20 - HUMAN IMMUNODEFICIENCY VIRUS [HIV] DISEASE (9) CVA (cerebral vascular accident) Assessment/Plan: for PT evaluation Code(s): I63.9 - CEREBRAL INFARCTION, UNSPECIFIED (10) AF Atrial fibrillation Assessment/Plan: has been off anticoagulation since 2012 secondary to an acute head bleed. on digoxin for rate control Code(s): I48.91 - UNSPECIFIED ATRIAL FIBRILLATION (11) CVA (cerebral vascular accident) Assessment/Plan: right sided weakness. PT therapy ordered. Code(s): I63.9 - CEREBRAL INFARCTION, UNSPECIFIED (12) Eye globe prosthesis Assessment/Plan: supportive care Code(s): Z97.0 - PRESENCE OF ARTIFICIAL EYE (13) DVT prophylaxis Assessment/Plan: SCDs Code(s): Z29.9 - ENCOUNTER FOR PROPHYLACTIC MEASURES, UNSPECIFIED Visit type - Emergency Visit Emergency Visit: Yes ED Registration Date: 03/25/20 Care time: The patient presented to the Emergency Department on the above date and was hospitalized for further evaluation of their emergent condition. - New Patient This patient is new to me today: No - Critical Care Critical Care patient: No - Discharge Referral Referred to [facility] Med P.C.: No
[2020-03-30] MEDS ORDERED: METOPROLOL TARTRATE 5 MG/5 ML VIAL IVPB PRN (18:17)
[2020-03-30] MEDS: LACTATED RINGERS SOLUTION 1,000 ML IV SCH (18:27)
[2020-03-30] MEDS ORDERED: KETOROLAC TROMETHAMINE 15 MG/ML VIAL IM ONE (20:33)
[2020-03-30] MEDS: ACETAMINOPHEN 1000 MG/100 ML VIAL (NON FORMULARY) IVPB SCH ×2 (23:17→23:47)
[2020-03-30] MEDS: ATORVASTATIN CA 20 MG TABLET (FP) PO SCH (23:45)
[2020-03-30] MEDS: HYDROmorphone HCl 2 MG/ML VIAL IM PRN (23:58)
[2020-03-31] MEDS: ACETAMINOPHEN 1000 MG/100 ML VIAL (NON FORMULARY) IVPB SCH ×2 (02:57→09:27)
[2020-03-31] MEDS: LACTATED RINGERS SOLUTION 1,000 ML IV SCH ×2 (06:01→16:30)
[2020-03-31] MEDS: HYDROmorphone HCl 2 MG/ML VIAL IM PRN (06:02)
[2020-03-31] MEDS: INSULIN SLIDING SCALE (NOVOLOG) 1 VIAL SQ SCH ×4 (06:03→21:55)
[2020-03-31 08:05] LABS: ALBUMIN 2.8 g/dl (3.4-5.0); BILIRUBIN,TOTAL 1.5 mg/dL (0.2-1); BLOOD UREA NITROGEN 9.9 mg/dL (7-18); CALCIUM 8.1 mg/dL (8.5-10.1); MAGNESIUM 1.6 mg/dL (1.8-2.4); POTASSIUM 4.5 mmol/L (3.5-5.1); TOT PROT 6.8 g/dl (6.4-8.2)
--- NOTE | 2020-03-31 08:07 | PN ---
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 (short form) - Note 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: Surgery note: Pt non-verbal at baseline, lifting arms and pointing to restraints. Vital Signs Period Temp Pulse Resp BP Sys/Barrientos Pulse Ox Last 24 Hr 97.6 F-98.6 F 60-126 18-30 113-163/67-114 88-100 NGT; 200ml light brown material ARISTEO: 45ml serosangrenous GEN: Alert/non-verbal ABD; soft, non-disteded, inc tenderness LE; no calf tenderness or swelling noted b/l CBC, BMP 03/31/20 06:50 03/31/20 06:50 Hepatic Panel Total Bilirubin 1.5 mg/dL (0.2-1) H 03/31/20 06:50 Direct Bilirubin 0.7 mg/dL (0.0-0.2) H 03/28/20 07:00 AST 62 U/L (15-37) H 03/31/20 06:50 ALT 49 U/L (13-61) 03/31/20 06:50 Alkaline Phosphatase 78 U/L (45-117) 03/31/20 06:50 Albumin 2.8 g/dl (3.4-5.0) L 03/31/20 06:50 A/P 64 yo male s/p lap converted to open cholecystectomy, POD#1 s/p ERCP with stent placement and CBD stone Ngt removed, may begin clears Pain management Continue ARISTEO Pt to follow up with GI at [facility] for lithotripsy and Dr. Acosta as an outpt DVT ppx with SCDs b/l, platlets improving D/w Dr. Acosta
[2020-03-31 08:14] LABS: BASO % 0.6 % (0-2.0); HEMATOCRIT 32.3 % (35.4-49); HEMOGLOBIN 10.7 GM/dL (11.7-16.9); LYMPH % 10.6 % (8-40); MCH 31.9 pg (25.7-33.7); MCHC 33.3 g/dl (32.0-35.9); MEAN CELL VOLUME 95.9 fl (80-96); MEAN PLT VOLUME 8.5 fl (7.5-11.1); MONO % 9.2 % (3.8-10.2); NEUT % 79.6 % (42.8-82.8); PLATELET COUNT 155 K/MM3 (134-434); RBC 3.36 M/mm3 (4.00-5.60); RDW 14.8 % (11.9-15.9); WHITE BLOOD COUNT 8.8 K/mm3 (4.0-10.0)
[2020-03-31] MEDS ORDERED: MAGNESIUM SULF 50% (8.12 MEQ/2 ML-1 GM VIAL) IVPB ONE (08:54)
[2020-03-31] MEDS ORDERED: PT OWN MED DRAWER 7, Y5N ONE ×2 (09:18→12:37)
[2020-03-31] MEDS: levETIRAcetam 500 MG/5 ML INJECTION VIAL IVPB SCH ×2 (09:23→21:50)
[2020-03-31] MEDS: DIGOXIN 0.5 MG/2 ML AMPUL IVPB SCH (09:24)
[2020-03-31] MEDS: BUDESONIDE/FORMETEROL FUMARATE 80/4.5 mcg INHALER IH SCH (09:27)
--- NOTE | 2020-03-31 10:29 | PN ---
HC Provider Note Provider Note: Anesthesia Post Op Note Pt awake, non-verbal (baseline) NAD, s/p GA for open oksana d/w pt's nurse -- pain meds seem to be helping when pt agitated, no n/v, no urinary retention VSS no apparent anesthesia complications Jsoe Luis Setin.
[2020-03-31] MEDS: metoPROLOL SUCCINATE 25 MG TAB.SR.24H (FP) PO SCH ×2 (11:10→22:44)
[2020-03-31] MEDS ORDERED: METOPROLOL TARTRATE 5 MG/5 ML VIAL IVPB SCH (11:30)
[2020-03-31] MEDS: PARoxetine HCL 10 MG TABLET PO SCH (12:32)
[2020-03-31] MEDS: FUROSEMIDE 20 MG TABLET (FP) PO SCH (12:32)
[2020-03-31] MEDS: ABACAVIR/DOLUTEGRAVIR/LAMIVUDI (TRIUMEQ) TABLET -NF PO SCH (12:33)
--- NOTE | 2020-03-31 16:20 | PN ---
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 (short form) - Note 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: s/p open choly yesterday doing well OOB ambulating alert Vital Signs Period Temp Pulse Resp BP Sys/Barrientos Pulse Ox Last 24 Hr 97.7 F-98.8 F 77-126 18-18 139-163/67-114 95-98 CBC, BMP 03/31/20 06:50 03/31/20 06:50 Microbiology 03/25/20 15:10 Blood - Peripheral Venous Blood Culture - Final NO GROWTH AFTER 5 DAYS INCUBATION 03/25/20 15:10 Blood - Peripheral Venous Blood Culture - Final NO GROWTH AFTER 5 DAYS INCUBATION 03/27/20 22:00 Sputum - Expectorated Gram Stain - Final 03/27/20 22:00 Sputum - Expectorated Sputum Culture - Final NORMAL RESPIRATORY MERLINE 03/25/20 21:35 Urine - Urine Clean Catch Urine Culture - Final NO GROWTH OBTAINED 03/25/20 21:35 Urine - Urine Clean Catch Legionella Antigen - Final 03/25/20 21:35 Urine - Urine Clean Catch Streptococcus pneumoniae Antigen (M - Final imp/reccd s/p cholycystectomy pod #1 off antibiotics choledocholithiasis- s/p ercp leukopoenia and thrombocytopenia secondary to infection- resolved stable hiv- continue triumeq PPM- per cardiology d/w at bedside
--- NOTE | 2020-03-31 17:03 | PN ---
Physical Exam: SUBJECTIVE: Patient seen and examined at the bedside. denies any malaise, confused overnight. OBJECTIVE: Patient is a 64 year old male with a significant past medical history of CVA (aphasia, right hand, and RLE deficit), stroke traumatic hemorrhage s/p craniotomy residual aphasia and hemiparesis right, atiral fibrillation (not on a/c), HIV, HTN, HLD, who presents to the ED on 03/25/2020 from home by referral from ID doctor (Dr. Shields) for elevated LFTs. A ct scan abd/pelvis and ultrasound shows gall stones, CBD dilatation. Patient being admitted for billiary sepsis. blood and urine cultures pending. Patient is s/p laparoscopic converted to open cholecystectomy 03/30/[address] Acosta. covid PCR: negative as of 03/24/2020 (see outpatient emr). repeat covid negative imaging: CTAP- cholelithiasis, ?choledolcholithiasis Gallbladder US- cholelithiasis with no definitive choledocholithiasis. CBD dilatation 9mm Period Temp Pulse Resp BP Sys/Barrientos Pulse Ox Last 24 Hr 97.7 F-98.8 F 77-126 18-18 139-163/67-114 95-98 GENERAL: The patient is awake, alert, in no acute distress. non verbal at baseline. HEAD: Normal with no signs of trauma EYE: prosthetic left eye ENT: Ears normal, nares patent, oropharynx clear without exudates, moist mucous membranes. NECK: Trachea midline, full range of motion, supple. LUNGS: Breath sounds equal, clear to auscultation bilaterally - diminished at bases HEART: Regular rate and rhythm ABDOMEN: soft, non tender, non distended, bowel sounds + EXTREMITIES: hyperpigmentation of right lower leg, dry slough skin. left foot cool to touch, + pulses, right foot, cooler to touch, difficulty to feel pulse, able to move his right foot when asked to. NEUROLOGICAL: right sided deficit. right arm contracted, right hand contracted Laboratory Results - last 24 hr 03/30/20 03/30/20 03/31/20 17:30 23:13 05:47 WBC RBC Hgb Hct MCV MCH MCHC RDW Plt Count MPV Absolute Neuts (auto) Neutrophils % Lymphocytes % Monocytes % Eosinophils % Basophils % Nucleated RBC % Sodium Potassium Chloride Carbon Dioxide Anion Gap BUN Creatinine Est GFR (CKD-EPI)AfAm Est GFR (CKD-EPI)NonAf POC Glucometer 316 322 240 Random Glucose Calcium Magnesium Total Bilirubin AST ALT Alkaline Phosphatase Total Protein Albumin 03/31/20 03/31/20 03/31/20 06:50 06:50 12:30 WBC 8.8 RBC 3.36 L Hgb 10.7 L Hct 32.3 L MCV 95.9 MCH 31.9 MCHC 33.3 RDW 14.8 Plt Count 155 D MPV 8.5 Absolute Neuts (auto) 7.0 Neutrophils % 79.6 D Lymphocytes % 10.6 D Monocytes % 9.2 Eosinophils % 0.0 D Basophils % 0.6 Nucleated RBC % 0 Sodium 134 L Potassium 4.5 Chloride 101 Carbon Dioxide 24 Anion Gap 9 BUN 9.9 Creatinine 1.0 Est GFR (CKD-EPI)AfAm 91.13 Est GFR (CKD-EPI)NonAf 78.63 POC Glucometer 238 Random Glucose 253 H Calcium 8.1 L Magnesium 1.6 L Total Bilirubin 1.5 H AST 62 H ALT 49 Alkaline Phosphatase 78 Total Protein 6.8 Albumin 2.8 L Active Medications Generic Name Dose Route Start Last Admin Trade Name Freq PRN Reason Stop Dose Admin Abacavir/Dolutegravir/Lamivudine 1 each 03/31/20 10:00 03/31/20 12:33 Triumeq (Non-Formulary) PO 1 each DAILY DUNIA Administration Atorvastatin Calcium 20 mg 03/30/20 22:00 03/30/20 23:45 Lipitor - PO Not Given HS DUNIA Budesonide/Formoterol Fumarate 2 puff 03/31/20 10:00 03/31/20 09:27 Symbicort 80/4.5mcg - IH 2 puff DAILY DUNIA Administration Digoxin 0.125 mg 03/31/20 10:00 03/31/20 09:24 Lanoxin Injection - IVPB 0.125 mg DAILY DUNIA Administration Furosemide 20 mg 03/31/20 10:00 03/31/20 12:32 Lasix - PO 20 mg DAILY DUNIA Administration Hydromorphone HCl 2 mg 03/30/20 20:31 03/31/20 06:02 Dilaudid Vial - IM 2 mg Q4H PRN Administration PAIN LEVEL 7 - 10 Lactated Ringer's 1,000 mls @ 125 mls/hr 03/30/20 15:15 03/31/20 16:30 Lactated Ringers Solution IV Not Given ASDIR DUNIA Insulin Aspart 1 vial 03/30/20 22:00 03/31/20 12:33 Novolog Vial Sliding Scale - SQ 4 units ACHS DUNIA Administration Protocol Levetiracetam 500 mg 03/30/20 22:00 03/31/20 09:23 Keppra Injection - IVPB 500 mg BID DUNIA Administration Metoprolol Tartrate 5 mg 03/31/20 11:30 03/31/20 12:33 Lopressor Injection - IVPB Not Given Q4H-IV DUNIA Ondansetron HCl 4 mg 03/30/20 15:03 Zofran Injection IVPUSH Q6H PRN NAUSEA AND/OR VOMITING Paroxetine HCl 10 mg 03/31/20 10:00 03/31/20 12:32 Paxil - PO 10 mg DAILY DUNIA Administration ASSESSMENT/PLAN: Problem List - Problems (1) Sepsis Assessment/Plan: biliary sepsis/possible choledocholithiasis on zosyn per ID monitor fever curve s/p open laparoscopic converted to open cholecystectomy with drain monitor output Code(s): A41.9 - SEPSIS, UNSPECIFIED ORGANISM (2) Choledocholithiasis Assessment/Plan: s/p ERCP, stone too large to be removed, double pigtail stent placed. s/p laparoscopic converted to open cholecystectomy Code(s): K80.50 - CALCULUS OF BILE DUCT W/O CHOLANGITIS OR CHOLECYST W/O OBST (3) Dilated cbd, acquired Code(s): K83.8 - OTHER SPECIFIED DISEASES OF BILIARY TRACT (4) Elevated LFTs Assessment/Plan: improving. + Transaminitis likely due to choledocholithiasis T Bili 2.4>1.2 Code(s): R79.89 - OTHER SPECIFIED ABNORMAL FINDINGS OF BLOOD CHEMISTRY (5) Fever Assessment/Plan: monitor vitals Code(s): R50.9 - FEVER, UNSPECIFIED Qualifiers: Fever type: unspecified Qualified Code(s): R50.9 - Fever, unspecified (6) Dysphagia Assessment/Plan: aspiration precautions maintained keep npo Code(s): R13.10 - DYSPHAGIA, UNSPECIFIED (7) Diabetes 1.5, managed as type 2 Assessment/Plan: on novolog SS, monitor BGMs Code(s): E10.9 - TYPE 1 DIABETES MELLITUS WITHOUT COMPLICATIONS (8) HIV (human immunodeficiency virus infection) Assessment/Plan: start antivirals once once cleared by surgery (s/p open oksana) being followed by Dr. Shields Code(s): B20 - HUMAN IMMUNODEFICIENCY VIRUS [HIV] DISEASE (9) CVA (cerebral vascular accident) Assessment/Plan: for PT evaluation Code(s): I63.9 - CEREBRAL INFARCTION, UNSPECIFIED (10) AF Atrial fibrillation Assessment/Plan: has been off anticoagulation since 2012 secondary to an acute head bleed. on digoxin for rate control Code(s): I48.91 - UNSPECIFIED ATRIAL FIBRILLATION (11) CVA (cerebral vascular accident) Assessment/Plan: right sided weakness. PT therapy ordered. Code(s): I63.9 - CEREBRAL INFARCTION, UNSPECIFIED (12) Eye globe prosthesis Assessment/Plan: supportive care Code(s): Z97.0 - PRESENCE OF ARTIFICIAL EYE (13) DVT prophylaxis Assessment/Plan: SCDs Code(s): Z29.9 - ENCOUNTER FOR PROPHYLACTIC MEASURES, UNSPECIFIED Visit type - Emergency Visit Emergency Visit: Yes ED Registration Date: 03/25/20 Care time: The patient presented to the Emergency Department on the above date and was hospitalized for further evaluation of their emergent condition. - New Patient This patient is new to me today: No - Critical Care Critical Care patient: No - Discharge Referral Referred to [facility] Med [facility] No
--- NOTE | 2020-03-31 18:17 | PN ---
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 (short form) - Note 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: Vascular Surgery Pt seen and examined bedside with daughter. Pt walking around room. Having no pain. Pt had recent open cholecystectomy. Bilateral lower ext examined - venous stasis changes. Pt has bl DP pulses that are palpable. Pt has good motor and sensory intact. No need for any vascular intervention Gave daughter my card to treat venous insuff as outpt Hubert Montgomery DO
[2020-03-31] MEDS: ATORVASTATIN CA 20 MG TABLET (FP) PO SCH (22:44)
[2020-04-01] MEDS: INSULIN SLIDING SCALE (NOVOLOG) 1 VIAL SQ SCH ×4 (06:21→21:49)
[2020-04-01 08:19] LABS: BASO % 0.3 % (0-2.0); EOS % 0.2 % (0-4.5); HEMATOCRIT 34.4 % (35.4-49); HEMOGLOBIN 11.4 GM/dL (11.7-16.9); LYMPH % 13.1 % (8-40); MCHC 33.1 g/dl (32.0-35.9); MEAN CELL VOLUME 96.8 fl (80-96); MEAN PLT VOLUME 9.8 fl (7.5-11.1); NEUT % 79.4 % (42.8-82.8); PLATELET COUNT 133 K/MM3 (134-434); RBC 3.56 M/mm3 (4.00-5.60); RDW 15.1 % (11.9-15.9); WHITE BLOOD COUNT 10.2 K/mm3 (4.0-10.0)
[2020-04-01 08:41] LABS: ALBUMIN 2.9 g/dl (3.4-5.0); BILIRUBIN,TOTAL 1.7 mg/dL (0.2-1); BLOOD UREA NITROGEN 8.1 mg/dL (7-18); CALCIUM 8.3 mg/dL (8.5-10.1); CREATININE 0.9 mg/dL (0.55-1.3); MAGNESIUM 2.1 mg/dL (1.8-2.4); POTASSIUM 4.4 mmol/L (3.5-5.1); TOT PROT 7.2 g/dl (6.4-8.2)
[2020-04-01] MEDS ORDERED: PT OWN MED DRAWER 7, Y5N ONE (10:24)
[2020-04-01] MEDS: PARoxetine HCL 10 MG TABLET PO SCH (10:31)
[2020-04-01] MEDS: metoPROLOL SUCCINATE 25 MG TAB.SR.24H (FP) PO SCH ×2 (10:31→21:48)
[2020-04-01] MEDS: FUROSEMIDE 20 MG TABLET (FP) PO SCH (10:35)
--- NOTE | 2020-04-01 11:00 | PN ---
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 (short form) - Note 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: Surgery note: Pt non-verbal at baseline, follows commands. Vital Signs Period Temp Pulse Resp BP Sys/Barrientos Pulse Ox Last 24 Hr 97.9 F-99.6 F 65-90 18-18 137-150/83-98 93-97 ARISTEO: 150ml serosangrenous GEN: Alert/non-verbal ABD; soft, non-disteded, inc tenderness. Inc c/d/i with nidia. Aristeo removed and dry dressing applied CBC, BMP 04/01/20 07:50 04/01/20 07:50 A/P 64 yo male s/p lap converted to open cholecystectomy, POD#2 s/p ERCP with stent placement and CBD stone Tolerating clears, adv diet Pain management Pt to follow up with GI at [facility] for lithotripsy and Dr. Acosta as an outpt D/w Dr. Acosta and f/u as an oupt
[2020-04-01] MEDS: HYDROmorphone HCL 2 MG TABLET PO PRN ×2 (11:09→21:47)
[2020-04-01] MEDS: DIGOXIN 0.5 MG/2 ML AMPUL IVPB SCH (11:11)
[2020-04-01] MEDS: ABACAVIR/DOLUTEGRAVIR/LAMIVUDI (TRIUMEQ) TABLET -NF PO SCH (11:11)
[2020-04-01] MEDS: levETIRAcetam 500 MG/5 ML INJECTION VIAL IVPB SCH ×2 (11:24→11:49)
[2020-04-01] MEDS: BUDESONIDE/FORMETEROL FUMARATE 80/4.5 mcg INHALER IH SCH (11:25)
--- NOTE | 2020-04-01 11:58 | PN ---
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 (short form) - Note 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: resting comfortably ARISTEO drain removed, diet being advanced no pain Vital Signs Period Temp Pulse Resp BP Sys/Barrientos Pulse Ox Last 24 Hr 97.9 F-99.6 F 65-90 18-18 137-150/83-98 81-97 cor-rrr llungs clear abd soft,nt RUQ dressing intact ext no edema CBC, BMP 04/01/20 07:50 04/01/20 07:50 Microbiology 03/25/20 15:10 Blood - Peripheral Venous Blood Culture - Final NO GROWTH AFTER 5 DAYS INCUBATION 03/25/20 15:10 Blood - Peripheral Venous Blood Culture - Final NO GROWTH AFTER 5 DAYS INCUBATION 03/27/20 22:00 Sputum - Expectorated Gram Stain - Final 03/27/20 22:00 Sputum - Expectorated Sputum Culture - Final NORMAL RESPIRATORY MERLINE 03/25/20 21:35 Urine - Urine Clean Catch Urine Culture - Final NO GROWTH OBTAINED 03/25/20 21:35 Urine - Urine Clean Catch Legionella Antigen - Final 03/25/20 21:35 Urine - Urine Clean Catch Streptococcus pneumoniae Antigen (M - Final imp/reccd s/p open choly pod #2 doing weel s/p ercp- will need f/u at [facility] with dr mary ann lindsey hiv- continue triumeq d/w hospitalist Problem List - Problems (1) Biliary sepsis Code(s): K83.09 - OTHER CHOLANGITIS (2) Choledocholithiasis Code(s): K80.50 - CALCULUS OF BILE DUCT W/O CHOLANGITIS OR CHOLECYST W/O OBST (3) HIV (human immunodeficiency virus infection) Code(s): B20 - HUMAN IMMUNODEFICIENCY VIRUS [HIV] DISEASE
--- NOTE | 2020-04-01 12:02 | PN ---
Physical Exam: SUBJECTIVE: Patient seen and examined. feels well, sitting up. per primary RN, low oxygen sats this morning. 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 Shields) for elevated LFTs. A ct scan abd/pelvis and ultrasound shows gall stones, CBD dilatation. Patient being admitted for billiary sepsis. blood and urine cultures pending. Patient is s/p laparoscopic converted to open cholecystectomy on 03/31/[address] Acosta. covid PCR: negative as of 03/24/2020 (see outpatient emr). repeat covid negative imaging: CTAP- cholelithiasis, ?choledolcholithiasis Gallbladder US- cholelithiasis with no definitive choledocholithiasis. CBD dilatation 9mm Vital Signs Period Temp Pulse Resp BP Sys/Barrientos Pulse Ox Last 24 Hr 97.9 F-99.6 F 65-90 18-18 137-150/83-98 93-97 GENERAL: The patient is awake, alert, in no acute distress. non verbal at baseline. HEAD: Normal with no signs of trauma EYE: prosthetic left eye ENT: Ears normal, nares patent, oropharynx clear without exudates, moist mucous membranes. NECK: Trachea midline, full range of motion, supple. LUNGS: Breath sounds equal, clear to auscultation bilaterally - diminished at bases HEART: Regular rate and rhythm ABDOMEN: soft, non tender, non distended, bowel sounds + EXTREMITIES: hyperpigmentation of right lower leg, dry slough skin. left foot cool to touch, + pulses, right foot, cooler to touch, difficulty to feel pulse, able to move his right foot when asked to. seen by vascular NEUROLOGICAL: right sided deficit. right arm contracted, right hand contracted Laboratory Results - last 24 hr 03/31/20 03/31/20 03/31/20 12:30 17:26 21:48 WBC RBC Hgb Hct MCV MCH MCHC RDW Plt Count MPV Absolute Neuts (auto) Neutrophils % Lymphocytes % Monocytes % Eosinophils % Basophils % Nucleated RBC % Sodium Potassium Chloride Carbon Dioxide Anion Gap BUN Creatinine Est GFR (CKD-EPI)AfAm Est GFR (CKD-EPI)NonAf POC Glucometer 238 243 232 Random Glucose Calcium Magnesium Total Bilirubin AST ALT Alkaline Phosphatase Total Protein Albumin 04/01/20 04/01/20 04/01/20 06:18 07:50 07:50 WBC 10.2 H RBC 3.56 L Hgb 11.4 L Hct 34.4 L MCV 96.8 H MCH 32.0 MCHC 33.1 RDW 15.1 Plt Count 133 L MPV 9.8 D Absolute Neuts (auto) 8.1 H Neutrophils % 79.4 Lymphocytes % 13.1 D Monocytes % 7.0 Eosinophils % 0.2 D Basophils % 0.3 Nucleated RBC % 0 Sodium 135 L Potassium 4.4 Chloride 101 Carbon Dioxide 27 Anion Gap 7 L BUN 8.1 Creatinine 0.9 Est GFR (CKD-EPI)AfAm 103.51 Est GFR (CKD-EPI)NonAf 89.31 POC Glucometer 263 Random Glucose 249 H Calcium 8.3 L Magnesium 2.1 Total Bilirubin 1.7 H AST 78 H ALT 47 Alkaline Phosphatase 75 Total Protein 7.2 Albumin 2.9 L 04/01/20 11:26 WBC RBC Hgb Hct MCV MCH MCHC RDW Plt Count MPV Absolute Neuts (auto) Neutrophils % Lymphocytes % Monocytes % Eosinophils % Basophils % Nucleated RBC % Sodium Potassium Chloride Carbon Dioxide Anion Gap BUN Creatinine Est GFR (CKD-EPI)AfAm Est GFR (CKD-EPI)NonAf POC Glucometer 249 Random Glucose Calcium Magnesium Total Bilirubin AST ALT Alkaline Phosphatase Total Protein Albumin Active Medications Generic Name Dose Route Start Last Admin Trade Name Freq PRN Reason Stop Dose Admin Abacavir/Dolutegravir/Lamivudine 1 each 03/31/20 10:00 04/01/20 11:11 Triumeq (Non-Formulary) PO 1 each DAILY DUNIA Administration Atorvastatin Calcium 20 mg 03/30/20 22:00 03/31/20 22:44 Lipitor - PO 20 mg HS DUNIA Administration Budesonide/Formoterol Fumarate 2 puff 03/31/20 10:00 04/01/20 11:25 Symbicort 80/4.5mcg - IH 2 puff DAILY DUNIA Administration Digoxin 0.125 mg 03/31/20 10:00 04/01/20 11:11 Lanoxin Injection - IVPB 0.125 mg DAILY DUNIA Administration Furosemide 20 mg 03/31/20 10:00 04/01/20 10:35 Lasix - PO 20 mg DAILY DUNIA Administration Hydromorphone HCl 2 mg 03/31/20 17:08 04/01/20 11:09 Dilaudid - PO 2 mg Q8H PRN Administration PAIN LEVEL 7 - 10 Insulin Aspart 1 vial 03/30/20 22:00 04/01/20 11:25 Novolog Vial Sliding Scale - SQ 4 units ACHS DUNIA Administration Protocol Levetiracetam 500 mg 03/30/20 22:00 04/01/20 11:49 Keppra Injection - IVPB 500 mg BID DUNIA Administration Metoprolol Succinate 25 mg 03/31/20 22:00 04/01/20 10:31 Toprol Xl - PO 25 mg BID DUNIA Administration Ondansetron HCl 4 mg 03/30/20 15:03 Zofran Injection IVPUSH Q6H PRN NAUSEA AND/OR VOMITING Paroxetine HCl 10 mg 03/31/20 10:00 04/01/20 10:31 Paxil - PO 10 mg DAILY DUNIA Administration ASSESSMENT/PLAN: Problem List - Problems (1) Sepsis Assessment/Plan: biliary sepsis/possible choledocholithiasis on zosyn per ID monitor fever curve s/p open laparoscopic converted to open cholecystectomy with drain monitor output Code(s): A41.9 - SEPSIS, UNSPECIFIED ORGANISM (2) Choledocholithiasis Assessment/Plan: s/p ERCP, stone too large to be removed, double pigtail stent placed. s/p laparoscopic converted to open cholecystectomy Code(s): K80.50 - CALCULUS OF BILE DUCT W/O CHOLANGITIS OR CHOLECYST W/O OBST (3) Dilated cbd, acquired Code(s): K83.8 - OTHER SPECIFIED DISEASES OF BILIARY TRACT (4) Elevated LFTs Assessment/Plan: improving. + Transaminitis likely due to choledocholithiasis T Bili 2.4>1.2 Code(s): R79.89 - OTHER SPECIFIED ABNORMAL FINDINGS OF BLOOD CHEMISTRY (5) Fever Assessment/Plan: monitor vitals Code(s): R50.9 - FEVER, UNSPECIFIED Qualifiers: Fever type: unspecified Qualified Code(s): R50.9 - Fever, unspecified (6) Dysphagia Assessment/Plan: aspiration precautions maintained keep npo Code(s): R13.10 - DYSPHAGIA, UNSPECIFIED (7) Diabetes 1.5, managed as type 2 Assessment/Plan: on novolog SS, monitor BGMs Code(s): E10.9 - TYPE 1 DIABETES MELLITUS WITHOUT COMPLICATIONS (8) HIV (human immunodeficiency virus infection) Assessment/Plan: start antivirals once once cleared by surgery (s/p open oksana) being followed by Dr. Shields Code(s): B20 - HUMAN IMMUNODEFICIENCY VIRUS [HIV] DISEASE (9) CVA (cerebral vascular accident) Assessment/Plan: for PT evaluation Code(s): I63.9 - CEREBRAL INFARCTION, UNSPECIFIED (10) AF Atrial fibrillation Assessment/Plan: has been off anticoagulation since 2012 secondary to an acute head bleed. on digoxin for rate control Code(s): I48.91 - UNSPECIFIED ATRIAL FIBRILLATION (11) CVA (cerebral vascular accident) Assessment/Plan: right sided weakness. PT therapy ordered. Code(s): I63.9 - CEREBRAL INFARCTION, UNSPECIFIED (12) Eye globe prosthesis Assessment/Plan: supportive care Code(s): Z97.0 - PRESENCE OF ARTIFICIAL EYE (13) DVT prophylaxis Assessment/Plan: SCDs Code(s): Z29.9 - ENCOUNTER FOR PROPHYLACTIC MEASURES, UNSPECIFIED Visit type - Emergency Visit Emergency Visit: Yes ED Registration Date: 03/25/20 Care time: The patient presented to the Emergency Department on the above date and was hospitalized for further evaluation of their emergent condition. - New Patient This patient is new to me today: No - Critical Care Critical Care patient: No - Discharge Referral Referred to [facility] Med P.C.: No
--- NOTE | 2020-04-01 13:35 | CONSULT ---
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 Shields) for elevated LFTs. A ct scan abd/pelvis and ultrasound shows gall stones, CBD dilatation. Patient being admitted for billiary sepsis. blood and urine cultures pending. Patient is s/p laparoscopic converted to open cholecystectomy 03/30/2020 Findings: contracted gallbladder w/overlying adhesions of omentum and transverse colon; abnormal appearing liver parenchyma. Selected Entries 04/01/20 04/01/20 04/01/20 02:00 08:00 08:05 Temperature 99.6 F 98.2 F Pulse Rate 87 89 Respiratory 18 18 Rate Respiratory Depth Respiratory Effort Blood Pressure 145/90 150/83 O2 Sat by Pulse 97 81 L 95 Oximetry (%) Oxygen Delivery Room Air Nasal Cannula Method 04/01/20 04/01/20 04/01/20 11:09 11:11 12:10 Temperature Pulse Rate 89 Respiratory Rate Respiratory Normal Depth Respiratory Non-Labored Effort Blood Pressure O2 Sat by Pulse 97 97 Oximetry (%) Oxygen Delivery Room Air Room Air Method Laboratory Tests 03/31/20 04/01/20 06:50 07:50 WBC 8.8 10.2 H Laboratory Tests 03/24/20 03/27/20 12:50 18:00 COVID-19 ([facility]ENN[facility]ER) Not detected Not detected Started on clear liquids, upgraded to full liquids today. Referred by PMD for low oxygen/cough/concern for aspiration CXR New congestive changes,base infiltrates? Known to me from 2012- aspiration on thin liquid 10/2013- reported able to tolerate soft diet/thin liquids without signs of aspiration History Source: Patient Limitations to Obtaining History: Clinical Condition (Expressive Aphasia. Good comprehension,cognition) - Past Medical History [employer] A[employer]: Yes: CVA, Seizure, Other (dysphagia and dysphasia) Cardiovascular: Yes: AFIB, Other (s/p PPM) Gastrointestinal: Yes: Other (s/p PEG) Infectious Disease: Yes: HIV - Past Surgical History Past Surgical History: Yes: Permanent Pacemaker - Smoking History Smoking history: Former smoker Have you smoked in the past 12 months: No Aproximately how many cigarettes per day: 0 If you are a former smoker, when did you quit?: 45YRS - Alcohol/Substance Use Hx Alcohol Use: No History of Substance Use: reports: None - Social History ADL: Family Assistance History of Recent Travel: No History - Admission Reason For Visit: HUMAN IMMUNODEFICIENCY VIRUS (HIV) INFECTION - Diagnostics X-ray: Report Reviewed (CXR New congestive changes,base infiltrates?) - General Mental Status: Alert and Oriented (seems intact. Pointed to name on wrist to communicate his name), Awake and Alert, Able to Follow Commands Attention: Intact Ability to Follow Directions: Excellent Head/Neck Control: WFL - Hearing Hearing: Functional Hearing: Normal Speech Evaluation - Communication Primary Language: NEPALI Communication: Yes: Aphasia Oral Expression Ability: Yes: Moderate Impairment, Severe Impairment - Speech Production Apraxia: Yes Able to Make Needs Known: Yes: Moderately Impaired, Severely Impaired Intelligibility: Yes: Moderately Impaired, Severely Impaired - Speech Characteristics Voice Loudness: Normal Voice Pitch: Yes: Normal Voice Phonatory-based Quality: Yes: Normal Speech Pattern: Impaired Speech Clarity: < 25% Nasal Resonance: Hypernasal Articulation: Yes: Imprecise - Language/Auditory Comprehension Follows: Yes: 1 Stage Simple Commands Observation: Comprehends Conversational Speech: Yes (in Welsh and Macanese ) - Language/Verbal Expression Aphasia: Yes: Nonfluent, Apraxia Able to Respond to Simple Queries: Yes: Moderately Impaired, Severely Impaired Able to Communicate Wants and Needs: Yes: Moderately Impaired, Severely Impaired Functional Communication Status: Yes: Moderately Impaired, Severely Impaired - Swallow Evaluation/Bedside Assessment Current Nutritional Intake: Full Liquids Oral Secretions: Yes: WFL Dentition: Yes: Edentulous Facial Symmetry at Rest: Symmetrical Jaw Position: Open at Rest Lingual Movement: Normal, Symmetric Lingual Speed of Movement: Normal Lingual Movement Strgth Against Opposition: Normal Laryngeal Movement: Able to Palpate, Labored,delay initiation Rate of Intake: WFL Bolus Size: WFL Labial Seal: WFL Oral Prep Time: WFL A-P Transit: WFL Pocketing: None Timing of Swallow: Delayed Coughing/Throat Clear: No Change in Voice: No Recommendations - Speech Evaluation, Impression/Plan Impression: h/o aspiration in 2013, that improved, tolerating soft reg and thin during last 2019 admission. Now with sx, followed by clear liquids, developed worsening of CXR with possible basilar infiltrates. Bedside eval (-) Silent aspiration? - Dysphagia Impressions/Plan Dysphagia Impressions: Ongoing Evaluation *Silent aspiration: cannot be R/O at bedside Recommendations: Modified Barium Swallow - Recommendations Diet Consistency: Other (full fluids) Liquids: [place] Thick Supplement: Other (2 kal HN)
[2020-04-01] MEDS: levETIRAcetam 500 MG TABLET (FP) PO SCH (21:49)
[2020-04-01] MEDS: ATORVASTATIN CA 20 MG TABLET (FP) PO SCH (21:49)
[2020-04-02] MEDS: INSULIN SLIDING SCALE (NOVOLOG) 1 VIAL SQ SCH ×4 (06:35→22:09)
[2020-04-02] MEDS: HYDROmorphone HCL 2 MG TABLET PO PRN ×3 (06:36→23:17)
--- NOTE | 2020-04-02 08:26 | PN ---
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 (short form) - Note 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: POD 2, s/p lap converted to open cholecystectomy Pt seen and examined. Nonverbal, however follows commands. C/O pain at incision site. No issues overnight per RN. Vital Signs Temp 98.7 F 04/02/20 06:00 Pulse 77 04/02/20 06:00 Resp 18 04/02/20 06:00 BP 138/77 04/02/20 06:00 Pulse Ox 97 04/02/20 06:00 Intake & Output 04/01/20 04/01/20 04/02/20 11:59 23:59 11:59 Intake Total 400 400 Output Total 50 800 300 Balance 350 -400 -300 Intake: IV 300 Saline Lock 300 IVPB 100 150 Oral 250 Output: Drainage 50 Right Abdomen 50 Urine 800 300 Void 800 300 Other: Voiding Method Incontinent Incontinent # Unmeasured Voids Void 4 3 Bowel Movement No Yes Yes CBC, BMP 04/01/20 07:50 04/01/20 07:50 Gen: awake, alert, nad Resp: unlabored on RA Abdo: soft, distended, + ttp at incision sites appropriate to status, dressings saturated with sanguinous drainage. Incisions c/d/i with nidia in place. New 4x4s and abds applied A/P: 64 y/o M w/ PMHx HIV (CD4 152), HTN, DM, CVA (R-deficits, aphasic), Afib (no AC, s/p Pacemaker), sent by ID (Dr. Shields) for elevated LFTs, pt found to have cholelithiasis and choledocholithiasis, now POD 2, s/p laparoscopic converted to open cholecystectomy. Per RN pt with ?aspiration on cxr, planned for barium swallow study today -continue clears -dressing changes daily with dry 4x4s, abds -serial abdo exams -Pain management -Pt to follow up with GI at [facility] for lithotripsy and Dr. Acosta as an outpt call with questions/concerns d/w attending Dr Acosta
[2020-04-02] MEDS ORDERED: ACETAMINOPHEN 1000 MG/100 ML VIAL (NON FORMULARY) IVPB ONE (08:44)
[2020-04-02 08:57] LABS: BASO % 0.4 % (0-2.0); EOS % 0.9 % (0-4.5); HEMATOCRIT 30.2 % (35.4-49); HEMOGLOBIN 9.9 GM/dL (11.7-16.9); LYMPH % 18.8 % (8-40); MCH 31.7 pg (25.7-33.7); MCHC 32.9 g/dl (32.0-35.9); MEAN CELL VOLUME 96.4 fl (80-96); MEAN PLT VOLUME 8.2 fl (7.5-11.1); MONO % 9.2 % (3.8-10.2); NEUT % 70.7 % (42.8-82.8); PLATELET COUNT 180 K/MM3 (134-434); RBC 3.13 M/mm3 (4.00-5.60); RDW 15.2 % (11.9-15.9); WHITE BLOOD COUNT 6.4 K/mm3 (4.0-10.0)
[2020-04-02 09:22] LABS: ALBUMIN 2.6 g/dl (3.4-5.0); BILIRUBIN,TOTAL 1.3 mg/dL (0.2-1); BLOOD UREA NITROGEN 9.1 mg/dL (7-18); CALCIUM 7.9 mg/dL (8.5-10.1); CREATININE 0.8 mg/dL (0.55-1.3); MAGNESIUM 1.9 mg/dL (1.8-2.4); POTASSIUM 4.1 mmol/L (3.5-5.1); TOT PROT 6.6 g/dl (6.4-8.2)
[2020-04-02] MEDS: ABACAVIR/DOLUTEGRAVIR/LAMIVUDI (TRIUMEQ) TABLET -NF PO SCH (10:31)
[2020-04-02] MEDS: DIGOXIN 0.125 MG TABLET (FP) PO SCH (10:32)
[2020-04-02] MEDS: levETIRAcetam 500 MG TABLET (FP) PO SCH ×2 (10:32→22:08)
[2020-04-02] MEDS: PARoxetine HCL 10 MG TABLET PO SCH (10:32)
[2020-04-02] MEDS: metoPROLOL SUCCINATE 25 MG TAB.SR.24H (FP) PO SCH ×2 (10:32→22:08)
[2020-04-02] MEDS: FUROSEMIDE 20 MG TABLET (FP) PO SCH (10:33)
[2020-04-02] MEDS: BUDESONIDE/FORMETEROL FUMARATE 80/4.5 mcg INHALER IH SCH (10:34)
--- NOTE | 2020-04-02 12:58 | PN ---
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, RADIATION CONTROL SPECIALIST - Note 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: Selected Entries 04/01/20 04/01/20 04/02/20 12:00 18:05 06:00 Breakfast 50% Lunch 50% Supper 75% Temperature 98.7 F Blood Pressure 138/77 04/02/20 10:00 Breakfast Lunch Supper Temperature 98.3 F Blood Pressure 152/85 Laboratory Tests 04/02/20 07:39 WBC 6.4 Overtly tolewrating full fluids/nectar. For MBS today to r/o aspiration, upgrade diet with safety
--- NOTE | 2020-04-02 15:48 | PN ---
Physical Exam: SUBJECTIVE: Patient seen and examined at the bedside. he denies any malaise. 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 Shields) for elevated LFTs. A ct scan abd/pelvis and ultrasound shows gall stones, CBD dilatation. Patient being admitted for billiary sepsis. blood and urine cultures pending. Patient is s/p laparoscopic converted to open cholecystectomy on 03/31/[address] Acosta. covid PCR: negative as of 03/24/2020 (see outpatient emr). repeat covid negative imaging: CTAP- cholelithiasis, ?choledolcholithiasis Gallbladder US- cholelithiasis with no definitive choledocholithiasis. CBD dilatation 9mm had swallow eval, modified barium, results pending Vital Signs Period Temp Pulse Resp BP Sys/Barrientos Pulse Ox Last 24 Hr 98.2 F-98.7 F 64-80 18-18 115-152/76-95 96-97 GENERAL: The patient is awake, alert, in no acute distress. non verbal at baseline. HEAD: Normal with no signs of trauma EYE: prosthetic left eye ENT: Ears normal, nares patent, oropharynx clear without exudates, moist mucous membranes. NECK: Trachea midline, full range of motion, supple. LUNGS: Breath sounds equal, clear to auscultation bilaterally - diminished at bases HEART: Regular rate and rhythm ABDOMEN: soft, non tender, non distended, bowel sounds + EXTREMITIES: hyperpigmentation of right lower leg, dry slough skin. left foot cool to touch, + pulses, right foot, cooler to touch, difficulty to feel pulse, able to move his right foot when asked to. seen by vascular NEUROLOGICAL: right sided deficit. right arm contracted, right hand contracted Laboratory Results - last 24 hr 04/01/20 04/01/20 04/02/20 16:41 21:46 06:00 WBC RBC Hgb Hct MCV MCH MCHC RDW Plt Count MPV Absolute Neuts (auto) Neutrophils % Lymphocytes % Monocytes % Eosinophils % Basophils % Nucleated RBC % Sodium 138 Potassium 4.1 Chloride 102 Carbon Dioxide 30 Anion Gap 7 L BUN 9.1 Creatinine 0.8 Est GFR (CKD-EPI)AfAm 108.65 Est GFR (CKD-EPI)NonAf 93.74 POC Glucometer 250 211 Random Glucose 229 H Calcium 7.9 L Magnesium 1.9 Total Bilirubin 1.3 H AST 50 H ALT 40 Alkaline Phosphatase 71 Total Protein 6.6 Albumin 2.6 L 04/02/20 04/02/20 04/02/20 06:31 07:39 11:39 WBC 6.4 RBC 3.13 L Hgb 9.9 L Hct 30.2 L MCV 96.4 H MCH 31.7 MCHC 32.9 RDW 15.2 Plt Count 180 D MPV 8.2 D Absolute Neuts (auto) 4.5 Neutrophils % 70.7 Lymphocytes % 18.8 D Monocytes % 9.2 Eosinophils % 0.9 D Basophils % 0.4 Nucleated RBC % 0 Sodium Potassium Chloride Carbon Dioxide Anion Gap BUN Creatinine Est GFR (CKD-EPI)AfAm Est GFR (CKD-EPI)NonAf POC Glucometer 226 264 Random Glucose Calcium Magnesium Total Bilirubin AST ALT Alkaline Phosphatase Total Protein Albumin Active Medications Generic Name Dose Route Start Last Admin Trade Name Freq PRN Reason Stop Dose Admin Abacavir/Dolutegravir/Lamivudine 1 each 03/31/20 10:00 04/02/20 10:31 Triumeq (Non-Formulary) PO 1 each DAILY DUNIA Administration Atorvastatin Calcium 20 mg 03/30/20 22:00 04/01/20 21:49 Lipitor - PO 20 mg HS DUNIA Administration Budesonide/Formoterol Fumarate 2 puff 03/31/20 10:00 04/02/20 10:34 Symbicort 80/4.5mcg - IH 2 puff DAILY DUNIA Administration Digoxin 0.125 mg 04/02/20 10:00 04/02/20 10:32 Lanoxin - PO 0.125 mg DAILY DUNIA Administration Furosemide 20 mg 03/31/20 10:00 04/02/20 10:33 Lasix - PO 20 mg DAILY DUNIA Administration Hydromorphone HCl 2 mg 03/31/20 17:08 04/02/20 14:32 Dilaudid - PO 2 mg Q8H PRN Administration PAIN LEVEL 7 - 10 Insulin Aspart 1 vial 03/30/20 22:00 04/02/20 11:55 Novolog Vial Sliding Scale - SQ 6 units ACHS DNUIA Administration Protocol Levetiracetam 500 mg 04/01/20 22:00 04/02/20 10:32 Keppra - PO 500 mg BID DUNIA Administration Metoprolol Succinate 25 mg 03/31/20 22:00 04/02/20 10:32 Toprol Xl - PO 25 mg BID DUNIA Administration Ondansetron HCl 4 mg 03/30/20 15:03 Zofran Injection IVPUSH Q6H PRN NAUSEA AND/OR VOMITING Paroxetine HCl 10 mg 03/31/20 10:00 04/02/20 10:32 Paxil - PO 10 mg DAILY DUNIA Administration ASSESSMENT/PLAN: Problem List - Problems (1) Sepsis Assessment/Plan: biliary sepsis/possible choledocholithiasis on zosyn per ID monitor fever curve s/p open laparoscopic converted to open cholecystectomy (drain removed) Code(s): A41.9 - SEPSIS, UNSPECIFIED ORGANISM (2) Choledocholithiasis Assessment/Plan: s/p ERCP, stone too large to be removed, double pigtail stent placed. s/p laparoscopic converted to open cholecystectomy Code(s): K80.50 - CALCULUS OF BILE DUCT W/O CHOLANGITIS OR CHOLECYST W/O OBST (3) Dilated cbd, acquired Code(s): K83.8 - OTHER SPECIFIED DISEASES OF BILIARY TRACT (4) Elevated LFTs Assessment/Plan: improving. + Transaminitis likely due to choledocholithiasis T Bili 2.4>1.2 Code(s): R79.89 - OTHER SPECIFIED ABNORMAL FINDINGS OF BLOOD CHEMISTRY (5) Fever Assessment/Plan: monitor vitals Code(s): R50.9 - FEVER, UNSPECIFIED Qualifiers: Fever type: unspecified Qualified Code(s): R50.9 - Fever, unspecified (6) Dysphagia Assessment/Plan: aspiration precautions maintained keep npo Code(s): R13.10 - DYSPHAGIA, UNSPECIFIED (7) Diabetes 1.5, managed as type 2 Assessment/Plan: on novolog SS, monitor BGMs Code(s): E10.9 - TYPE 1 DIABETES MELLITUS WITHOUT COMPLICATIONS (8) HIV (human immunodeficiency virus infection) Assessment/Plan: being followed by Dr. Shields Code(s): B20 - HUMAN IMMUNODEFICIENCY VIRUS [HIV] DISEASE (9) CVA (cerebral vascular accident) Assessment/Plan: for PT evaluation Code(s): I63.9 - CEREBRAL INFARCTION, UNSPECIFIED (10) AF Atrial fibrillation Assessment/Plan: has been off anticoagulation since 2012 secondary to an acute head bleed. on digoxin for rate control Code(s): I48.91 - UNSPECIFIED ATRIAL FIBRILLATION (11) CVA (cerebral vascular accident) Assessment/Plan: right sided weakness. PT therapy ordered. Code(s): I63.9 - CEREBRAL INFARCTION, UNSPECIFIED (12) Eye globe prosthesis Assessment/Plan: supportive care Code(s): Z97.0 - PRESENCE OF ARTIFICIAL EYE (13) DVT prophylaxis Assessment/Plan: SCDs Code(s): Z29.9 - ENCOUNTER FOR PROPHYLACTIC MEASURES, UNSPECIFIED Visit type - Emergency Visit Emergency Visit: Yes ED Registration Date: 03/25/20 Care time: The patient presented to the Emergency Department on the above date and was hospitalized for further evaluation of their emergent condition. - New Patient This patient is new to me today: No - Critical Care Critical Care patient: No - Discharge Referral Referred to [facility] Med P.C.: No
[2020-04-02] MEDS: ATORVASTATIN CA 20 MG TABLET (FP) PO SCH (22:08)
[2020-04-03] MEDS ORDERED: ACETAMINOPHEN 1000 MG/100 ML VIAL (NON FORMULARY) IVPB ONE (02:54)
[2020-04-03] MEDS: INSULIN SLIDING SCALE (NOVOLOG) 1 VIAL SQ SCH ×4 (06:49→21:42)
[2020-04-03 08:43] LABS: BASO % 0.3 % (0-2.0); EOS % 0.9 % (0-4.5); HEMATOCRIT 30.7 % (35.4-49); LYMPH % 17.8 % (8-40); MCH 31.3 pg (25.7-33.7); MCHC 32.6 g/dl (32.0-35.9); MEAN PLT VOLUME 7.7 fl (7.5-11.1); MONO % 7.9 % (3.8-10.2); NEUT % 73.1 % (42.8-82.8); PLATELET COUNT 201 K/MM3 (134-434); RDW 15.1 % (11.9-15.9); WHITE BLOOD COUNT 5.9 K/mm3 (4.0-10.0)
[2020-04-03 09:04] LABS: POTASSIUM 3.4 mmol/L (3.5-5.1)
[2020-04-03 09:24] LABS: ALBUMIN 2.6 g/dl (3.4-5.0); BILIRUBIN,TOTAL 1.3 mg/dL (0.2-1); BLOOD UREA NITROGEN 7.6 mg/dL (7-18); CALCIUM 8.2 mg/dL (8.5-10.1); CREATININE 0.8 mg/dL (0.55-1.3); MAGNESIUM 1.9 mg/dL (1.8-2.4); TOT PROT 6.5 g/dl (6.4-8.2)
[2020-04-03] MEDS: PARoxetine HCL 10 MG TABLET PO SCH (10:29)
[2020-04-03] MEDS: metoPROLOL SUCCINATE 25 MG TAB.SR.24H (FP) PO SCH ×2 (10:29→21:42)
[2020-04-03] MEDS: BUDESONIDE/FORMETEROL FUMARATE 80/4.5 mcg INHALER IH SCH (10:29)
[2020-04-03] MEDS: DIGOXIN 0.125 MG TABLET (FP) PO SCH (10:29)
[2020-04-03] MEDS: levETIRAcetam 500 MG TABLET (FP) PO SCH ×2 (10:29→21:42)
[2020-04-03] MEDS: FUROSEMIDE 20 MG TABLET (FP) PO SCH (10:30)
[2020-04-03] MEDS: ABACAVIR/DOLUTEGRAVIR/LAMIVUDI (TRIUMEQ) TABLET -NF PO SCH (10:31)
--- NOTE | 2020-04-03 11:09 | PN ---
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, BOOKMAKER'S CLERK - Note 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: Selected Entries 04/02/20 04/02/20 04/02/20 06:00 10:00 14:43 Breakfast 75% Diet Tolerated Fair Lunch 75% Supper Temperature 98.7 F 98.3 F 98.3 F Blood Pressure 138/77 152/85 115/76 04/02/20 04/02/20 04/03/20 18:00 22:00 06:00 Breakfast Diet Tolerated Well Lunch Supper 75% Temperature 98.1 F 98.4 F 98.4 F Blood Pressure 130/77 130/83 04/03/20 10:57 Breakfast Diet Tolerated Lunch Supper Temperature 98 F Blood Pressure Laboratory Tests 04/03/20 08:14 WBC 5.9 MBS completed Suggest puree/thin l;iquid with chin in neutral, never extended, ideally self feeding, oob in chair for meals.
--- NOTE | 2020-04-03 12:14 | PN ---
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 (short form) - Note 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: moist cough MBS-dysphagia puree diet Vital Signs Period Temp Pulse Resp BP Sys/Barrientos Pulse Ox Last 24 Hr 98 F-98.4 F 64-86 18-18 115-148/74-109 95-97 cor-rrr lungs bilateral rhonchi abd soft, +serous drainage from the RUQ incision ext no edema CBC, BMP 04/03/20 08:14 04/03/20 08:14 Microbiology 03/25/20 15:10 Blood - Peripheral Venous Blood Culture - Final NO GROWTH AFTER 5 DAYS INCUBATION 03/25/20 15:10 Blood - Peripheral Venous Blood Culture - Final NO GROWTH AFTER 5 DAYS INCUBATION 03/27/20 22:00 Sputum - Expectorated Gram Stain - Final 03/27/20 22:00 Sputum - Expectorated Sputum Culture - Final NORMAL RESPIRATORY MERLINE 03/25/20 21:35 Urine - Urine Clean Catch Urine Culture - Final NO GROWTH OBTAINED 03/25/20 21:35 Urine - Urine Clean Catch Legionella Antigen - Final 03/25/20 21:35 Urine - Urine Clean Catch Streptococcus pneumoniae Antigen (M - Final imp/reccd s/p open choly moist cough- not hypoxic, would get cxray , no fevers, normal wbc s/p ercp- will need f/u at [facility] with dr mary ann lindsey hiv- continue triumeq d/w hospitalist Problem List - Problems (1) Biliary sepsis Code(s): K83.09 - OTHER CHOLANGITIS (2) Choledocholithiasis Code(s): K80.50 - CALCULUS OF BILE DUCT W/O CHOLANGITIS OR CHOLECYST W/O OBST (3) HIV (human immunodeficiency virus infection) Code(s): B20 - HUMAN IMMUNODEFICIENCY VIRUS [HIV] DISEASE
--- NOTE | 2020-04-03 12:37 | PN ---
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 (short form) - Note 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: Contacted by MORALE OFFICER regarding concern for increased drainage from wounds. Pt seen and examined, nonverbal but follows commands. Reports some pain at incisions sites. Dressings removed (moderate serosanguinous drainage from distal portion of wound where fadumo was) Incisions intact with nidia in place, no erythema, no active drainage. +TTP at incision sites, appropriate to exam New 4x4s and abds placed, paper tape (only paper tape on skin-pt has two small areas of desquamation from tape) Bacitracin ordered and 4x4s and abds, change dressings daily d/w attending Dr Acosta
--- NOTE | 2020-04-03 15:52 | PN ---
Physical Exam: SUBJECTIVE: Patient seen and examined. sitting up, in no acute distress. noted to have congestion on exam. tolerating room air. 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 Shields) for elevated LFTs. A ct scan abd/pelvis and ultrasound shows gall stones, CBD dilatation. Patient admitted for billiary sepsis. Patient is s/p laparoscopic converted to open cholecystectomy on 03/31/[address] Acosta. Post op developed increased congestive changes without shortness of breath or fevers and tolerating room air. covid PCR: negative as of 03/24/2020 (see outpatient emr). repeat covid negative imaging: CTAP- cholelithiasis, ?choledolcholithiasis Gallbladder US- cholelithiasis with no definitive choledocholithiasis. CBD dilatation 9mm MBS completed:Suggest puree/thin liquid with chin in neutral, never extended, ideally self feeding, oob in chair for meals. Period Temp Pulse Resp BP Sys/Barrientos Pulse Ox Last 24 Hr 98 F-98.4 F 64-86 18-18 125-148/74-109 95-97 GENERAL: The patient is awake, alert, in no acute distress. non verbal at baseline. HEAD: Normal with no signs of trauma EYE: prosthetic left eye ENT: Ears normal, nares patent, oropharynx clear without exudates, moist mucous membranes. NECK: Trachea midline, full range of motion, supple. LUNGS: Breath sounds equal, clear to auscultation bilaterally - diminished at bases HEART: Regular rate and rhythm ABDOMEN: soft, non tender, non distended, bowel sounds + EXTREMITIES: hyperpigmentation of right lower leg, dry slough skin. left foot cool to touch, + pulses, right foot, cooler to touch, difficulty to feel pulse, able to move his right foot when asked to. seen by vascular NEUROLOGICAL: right sided deficit. right arm contracted, right hand contracted Laboratory Results - last 24 hr 04/02/20 04/02/20 04/03/20 16:12 21:51 06:47 WBC RBC Hgb Hct MCV MCH MCHC RDW Plt Count MPV Absolute Neuts (auto) Neutrophils % Lymphocytes % Monocytes % Eosinophils % Basophils % Nucleated RBC % Sodium Potassium Chloride Carbon Dioxide Anion Gap BUN Creatinine Est GFR (CKD-EPI)AfAm Est GFR (CKD-EPI)NonAf POC Glucometer 257 164 202 Random Glucose Calcium Magnesium Total Bilirubin AST ALT Alkaline Phosphatase Total Protein Albumin 04/03/20 04/03/20 04/03/20 08:14 08:14 11:55 WBC 5.9 RBC 3.20 L Hgb 10.0 L Hct 30.7 L MCV 96.0 MCH 31.3 MCHC 32.6 RDW 15.1 Plt Count 201 MPV 7.7 Absolute Neuts (auto) 4.3 Neutrophils % 73.1 Lymphocytes % 17.8 Monocytes % 7.9 Eosinophils % 0.9 Basophils % 0.3 Nucleated RBC % 0 Sodium 136 Potassium 3.4 L Chloride 99 Carbon Dioxide 30 Anion Gap 7 L BUN 7.6 Creatinine 0.8 Est GFR (CKD-EPI)AfAm 108.65 Est GFR (CKD-EPI)NonAf 93.74 POC Glucometer 208 Random Glucose 223 H Calcium 8.2 L Magnesium 1.9 Total Bilirubin 1.3 H AST 46 H ALT 42 Alkaline Phosphatase 72 Total Protein 6.5 Albumin 2.6 L Active Medications Generic Name Dose Route Start Last Admin Trade Name Freq PRN Reason Stop Dose Admin Abacavir/Dolutegravir/Lamivudine 1 each 03/31/20 10:00 04/03/20 10:31 Triumeq (Non-Formulary) PO 1 each DAILY DUNIA Administration Atorvastatin Calcium 20 mg 03/30/20 22:00 04/02/20 22:08 Lipitor - PO 20 mg HS DUNIA Administration Bacitracin 1 applic 04/04/20 10:00 Bacitracin - TP DAILY DUNIA Budesonide/Formoterol Fumarate 2 puff 03/31/20 10:00 04/03/20 10:29 Symbicort 80/4.5mcg - IH 2 puff DAILY DUNIA Administration Digoxin 0.125 mg 04/02/20 10:00 04/03/20 10:29 Lanoxin - PO 0.125 mg DAILY DUNIA Administration Furosemide 20 mg 03/31/20 10:00 04/03/20 10:30 Lasix - PO 20 mg DAILY DUNIA Administration Hydromorphone HCl 2 mg 03/31/20 17:08 04/02/20 23:17 Dilaudid - PO 2 mg Q8H PRN Administration PAIN LEVEL 7 - 10 Insulin Aspart 1 vial 03/30/20 22:00 04/03/20 12:48 Novolog Vial Sliding Scale - SQ 4 units ACHS DUNIA Administration Protocol Levetiracetam 500 mg 04/01/20 22:00 04/03/20 10:29 Keppra - PO 500 mg BID DUNIA Administration Metoprolol Succinate 25 mg 03/31/20 22:00 04/03/20 10:29 Toprol Xl - PO 25 mg BID DUNIA Administration Ondansetron HCl 4 mg 03/30/20 15:03 Zofran Injection IVPUSH Q6H PRN NAUSEA AND/OR VOMITING Paroxetine HCl 10 mg 03/31/20 10:00 04/03/20 10:29 Paxil - PO 10 mg DAILY DUNIA Administration ASSESSMENT/PLAN: Problem List - Problems (1) Infiltrate of lung present on chest x-ray Assessment/Plan: patient with increased congestion today. infiltrate seen on chest xray. no fevers, tolerating room air will monitor and repeat xray in am. if improved can be d/c home. Code(s): R91.8 - OTHER NONSPECIFIC ABNORMAL FINDING OF LUNG FIELD (2) Sepsis Assessment/Plan: s/p open laparoscopic converted to open cholecystectomy. drain removed, surgical dressing changed today. Code(s): A41.9 - SEPSIS, UNSPECIFIED ORGANISM (3) Choledocholithiasis Assessment/Plan: s/p ERCP, stone too large to be removed, double pigtail stent placed. s/p laparoscopic converted to open cholecystectomy. patient will need to follow up at [facility] on discharge. aware to follow up with Dr. Zack Carmichael at [facility] who can perform ultrasonic lithotripsy. Code(s): K80.50 - CALCULUS OF BILE DUCT W/O CHOLANGITIS OR CHOLECYST W/O OBST (4) Dilated cbd, acquired Code(s): K83.8 - OTHER SPECIFIED DISEASES OF BILIARY TRACT (5) Elevated LFTs Assessment/Plan: improving. Code(s): R79.89 - OTHER SPECIFIED ABNORMAL FINDINGS OF BLOOD CHEMISTRY (6) Fever Assessment/Plan: monitor vitals Code(s): R50.9 - FEVER, UNSPECIFIED Qualifiers: Fever type: unspecified Qualified Code(s): R50.9 - Fever, unspecified (7) Dysphagia Assessment/Plan: aspiration precautions maintained MBS completed:Suggest puree/thin liquid with chin in neutral, never extended, ideally self feeding, oob in chair for meals. Code(s): R13.10 - DYSPHAGIA, UNSPECIFIED (8) Diabetes 1.5, managed as type 2 Assessment/Plan: on novolog SS, monitor BGMs Code(s): E10.9 - TYPE 1 DIABETES MELLITUS WITHOUT COMPLICATIONS (9) HIV (human immunodeficiency virus infection) Assessment/Plan: being followed by Dr. Shields Code(s): B20 - HUMAN IMMUNODEFICIENCY VIRUS [HIV] DISEASE (10) CVA (cerebral vascular accident) Assessment/Plan: for PT evaluation Code(s): I63.9 - CEREBRAL INFARCTION, UNSPECIFIED (11) AF Atrial fibrillation Assessment/Plan: has been off anticoagulation since 2012 secondary to an acute head bleed. on digoxin for rate control Code(s): I48.91 - UNSPECIFIED ATRIAL FIBRILLATION (12) CVA (cerebral vascular accident) Assessment/Plan: right sided weakness. PT therapy ordered. Code(s): I63.9 - CEREBRAL INFARCTION, UNSPECIFIED (13) Eye globe prosthesis Assessment/Plan: supportive care Code(s): Z97.0 - PRESENCE OF ARTIFICIAL EYE (14) DVT prophylaxis Assessment/Plan: SCDs Code(s): Z29.9 - ENCOUNTER FOR PROPHYLACTIC MEASURES, UNSPECIFIED Visit type - Emergency Visit Emergency Visit: Yes ED Registration Date: 03/25/20 Care time: The patient presented to the Emergency Department on the above date and was hospitalized for further evaluation of their emergent condition. - New Patient This patient is new to me today: No - Critical Care Critical Care patient: No - Discharge Referral Referred to [facility] Med [facility].C[facility] No
[2020-04-03] MEDS: ATORVASTATIN CA 20 MG TABLET (FP) PO SCH (21:42)
[2020-04-04] MEDS: HYDROmorphone HCL 2 MG TABLET PO PRN ×3 (00:53→19:28)
[2020-04-04] MEDS: INSULIN SLIDING SCALE (NOVOLOG) 1 VIAL SQ SCH ×4 (06:21→22:08)
[2020-04-04 08:47] LABS: BASO % 0.2 % (0-2.0); EOS % 0.4 % (0-4.5); HEMATOCRIT 34.6 % (35.4-49); HEMOGLOBIN 11.2 GM/dL (11.7-16.9); MCH 31.1 pg (25.7-33.7); MCHC 32.3 g/dl (32.0-35.9); MEAN CELL VOLUME 96.1 fl (80-96); MEAN PLT VOLUME 7.9 fl (7.5-11.1); MONO % 5.7 % (3.8-10.2); NEUT % 82.7 % (42.8-82.8); PLATELET COUNT 250 K/MM3 (134-434); RDW 15.5 % (11.9-15.9); WHITE BLOOD COUNT 8.8 K/mm3 (4.0-10.0)
[2020-04-04] MEDS ORDERED: PT OWN MED DRAWER 7, Y5N ONE (09:11)
[2020-04-04 09:19] LABS: ALBUMIN 2.7 g/dl (3.4-5.0); BILIRUBIN,TOTAL 1.4 mg/dL (0.2-1); BLOOD UREA NITROGEN 9.1 mg/dL (7-18); CALCIUM 8.7 mg/dL (8.5-10.1); CREATININE 0.9 mg/dL (0.55-1.3); MAGNESIUM 2.2 mg/dL (1.8-2.4); POTASSIUM 3.6 mmol/L (3.5-5.1); TOT PROT 7.3 g/dl (6.4-8.2)
[2020-04-04] MEDS: DIGOXIN 0.125 MG TABLET (FP) PO SCH (09:22)
[2020-04-04] MEDS: BACITRACIN 15 GM TUBE TOPICAL OINTMENT TP SCH (09:23)
[2020-04-04] MEDS: metoPROLOL SUCCINATE 25 MG TAB.SR.24H (FP) PO SCH ×2 (09:23→22:08)
[2020-04-04] MEDS: levETIRAcetam 500 MG TABLET (FP) PO SCH ×2 (09:23→22:08)
[2020-04-04] MEDS: FUROSEMIDE 20 MG TABLET (FP) PO SCH (09:23)
[2020-04-04] MEDS: PARoxetine HCL 10 MG TABLET PO SCH (09:23)
[2020-04-04] MEDS: ABACAVIR/DOLUTEGRAVIR/LAMIVUDI (TRIUMEQ) TABLET -NF PO SCH (09:24)
[2020-04-04] MEDS: BUDESONIDE/FORMETEROL FUMARATE 80/4.5 mcg INHALER IH SCH (09:24)
--- NOTE | 2020-04-04 11:54 | PN ---
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, Physician Chief Complaint: Repeat chest xray results noted with persistent infiltrates, patient remains afebrile. History of Present Illness: Patient is a 64 year old male with a significant past medical history of CVA (aphasia, right hand, and RLE deficit), stroke traumatic hemorrhage s/p craniotomy residual aphasia and hemiparesis right, atiral fibrillation (not on a/c), HIV, HTN, HLD, who presents to the ED on 03/25/2020 from home by referral from ID doctor (Dr. Shields) for elevated LFTs. A ct scan abd/pelvis and ultrasound shows gall stones, CBD dilatation. Patient admitted for billiary sepsis. Patient is s/p laparoscopic converted to open cholecystectomy on 03/31/[address] Acosta. Post op developed increased congestive changes w ithout shortness of breath or fevers and tolerating room air. covid PCR: negative as of 03/24/2020 (see outpatient emr). repeat covid negative imaging: CTAP- cholelithiasis, ?choledolcholithiasis Gallbladder US- cholelithiasis with no definitive choledocholithiasis. CBD dilatation 9mm MBS completed:Suggest puree/thin liquid with chin in neutral, never extended, ideally self feeding, oob in chair for meals. - Current Medication List Current Medications: Active Medications Abacavir/Dolutegravir/Lamivudine (Triumeq (Non-Formulary)) 1 each PO DAILY [facility] Last Admin: 04/04/20 09:24 Dose: 1 each Documented by: Atorvastatin Calcium (Lipitor -) 20 mg PO HS [facility] Last Admin: 04/03/20 21:42 Dose: 20 mg Documented by: Bacitracin (Bacitracin -) 1 applic TP DAILY [facility] Last Admin: 04/04/20 09:23 Dose: 1 applic Documented by: Budesonide/Formoterol Fumarate (Symbicort 80/4.5mcg -) 2 puff IH DAILY [facility] Last Admin: 04/04/20 09:24 Dose: 2 puff Documented by: Digoxin (Lanoxin -) 0.125 mg PO DAILY [facility] Last Admin: 04/04/20 09:22 Dose: 0.125 mg Documented by: Furosemide (Lasix -) 20 mg PO DAILY [facility] Last Admin: 04/04/20 09:23 Dose: 20 mg Documented by: Hydromorphone HCl (Dilaudid -) 2 mg PO Q8H PRN PRN Reason: PAIN LEVEL 7 - 10 Last Admin: 04/04/20 10:43 Dose: 2 mg Documented by: Piperacillin Sod/Tazobactam (Sod 3.375 gm/ Dextrose) 50 mls @ 100 mls/hr IVPB Q8H-IV [facility]; Protocol Insulin Aspart (Novolog Vial Sliding Scale -) 1 vial SQ ACHS [facility]; Protocol Last Admin: 04/04/20 06:21 Dose: 4 units Documented by: Levetiracetam (Keppra -) 500 mg PO BID [facility] Last Admin: 04/04/20 09:23 Dose: 500 mg Documented by: Metoprolol Succinate (Toprol Xl -) 25 mg PO BID [facility] Last Admin: 04/04/20 09:23 Dose: 25 mg Documented by: Ondansetron HCl (Zofran Injection) 4 mg IVPUSH Q6H PRN PRN Reason: NAUSEA AND/OR VOMITING Paroxetine HCl (Paxil -) 10 mg PO DAILY [facility] Last Admin: 04/04/20 09:23 Dose: 10 mg Documented by: - Objective Vital Signs: Vital Signs Temperature 97.8 F 04/04/20 06:00 Pulse Rate 72 04/04/20 09:22 Respiratory Rate 18 04/04/20 06:00 Blood Pressure 146/76 04/04/20 06:00 O2 Sat by Pulse Oximetry (%) 95 04/04/20 06:00 Constitutional: Yes: Well Nourished, Other (Weak appearing) Eyes: Yes: WNL HENT: Yes: WNL, Atraumatic, Normocephalic Neck: Yes: WNL Cardiovascular: Yes: WNL, Regular Rate and Rhythm Respiratory: Yes: WNL, Regular, CTA Bilaterally Gastrointestinal: Yes: WNL, Normal Bowel Sounds, Soft Genitourinary: Yes: WNL Musculoskeletal: Yes: WNL, Back Pain Extremities: Yes: WNL Edema: No Peripheral Pulses WNL: Yes Integumentary: Yes: WNL Neurological: Yes: WNL, Cran Nerves II-XII Intact, Weakness Psychiatric: Yes: WNL Labs: CBC, BMP 04/04/20 07:20 04/04/20 07:20 INR, PTT INR 1.10 (0.83-1.09) H 03/30/20 07:10 - ....Imaging Chest X-ray: Report Reviewed (Decreased congestive changes but possible superimposed left basilar infiltrate) Impression/Plan Impression/Plan: ASSESSMENT/PLAN: Problem List - Problems (1) Infiltrate of lung present on chest x-ray Assessment/Plan: /patient with increased congestion yesterday 04/03. Persistent infiltrate seen on chest xray. no fevers, tolerating room air Start zosyn, send blood culture's x 2 Code(s): R91.8 - OTHER NONSPECIFIC ABNORMAL FINDING OF LUNG FIELD (2) Sepsis Assessment/Plan: s/p open laparoscopic converted to open cholecystectomy. drain removed, surg Code(s): A41.9 - SEPSIS, UNSPECIFIED ORGANISM (3) Choledocholithiasis Assessment/Plan: s/p ERCP, stone too large to be removed, double pigtail stent placed. s/p laparoscopic converted to open cholecystectomy. patient will need to follow up at [facility] on discharge. aware to follow up with Dr. Zack Carmichael at [facility] who can perform ultrasonic lithotripsy. Code(s): K80.50 - CALCULUS OF BILE DUCT W/O CHOLANGITIS OR CHOLECYST W/O OBST (4) Dilated cbd, acquired Code(s): K83.8 - OTHER SPECIFIED DISEASES OF BILIARY TRACT (5) Elevated LFTs Assessment/Plan: improving. Code(s): R79.89 - OTHER SPECIFIED ABNORMAL FINDINGS OF BLOOD CHEMISTRY (6) Fever Assessment/Plan: monitor vitals Code(s): R50.9 - FEVER, UNSPECIFIED Qualifiers: Fever type: unspecified Qualified Code(s): R50.9 - Fever, unspecified (7) Dysphagia Assessment/Plan: aspiration precautions maintained MBS completed:Suggest puree/thin liquid with chin in neutral, never extended, ideally self feeding, oob in chair for meals. Code(s): R13.10 - DYSPHAGIA, UNSPECIFIED (8) Diabetes 1.5, managed as type 2 Assessment/Plan: On novolog Insulin sliding scale, monitor BGMs Code(s): E10.9 - TYPE 1 DIABETES MELLITUS WITHOUT COMPLICATIONS (9) HIV (human immunodeficiency virus infection) Assessment/Plan: Being followed by Dr. Shields Code(s): B20 - HUMAN IMMUNODEFICIENCY VIRUS [HIV] DISEASE (10) CVA (cerebral vascular accident) Assessment/Plan: Stable neuro status Code(s): I63.9 - CEREBRAL INFARCTION, UNSPECIFIED (11) AF Atrial fibrillation Assessment/Plan: Has been off anticoagulation since 2012 secondary to an acute head bleed. on digoxin for rate control Digoxin level = .61 on March 23 Code(s): I48.91 - UNSPECIFIED ATRIAL FIBRILLATION (12) Eye globe prosthesis Assessment/Plan: supportive care Code(s): Z97.0 - PRESENCE OF ARTIFICIAL EYE (14) DVT prophylaxis Assessment/Plan: SCDs Code(s): Z29.9 - ENCOUNTER FOR PROPHYLACTIC MEASURES, UNSPECIFIED Visit type - Emergency Visit Emergency Visit: Yes ED Registration Date: 03/25/20 Care time: The patient presented to the Emergency Department on the above date and was hospitalized for further evaluation of their emergent condition. - New Patient This patient is new to me today: Yes Date on this admission: 04/04/20 - Critical Care Critical Care patient: No - Discharge Referral Referred to [facility].: No
[2020-04-04] MEDS ORDERED: HYDROmorphone HCl 2 MG/ML VIAL IVPB ONE (12:45)
[2020-04-04] MEDS ORDERED: DEXTROSE 5%-WATER - 50 ML IVPB ONE ×2 (13:16→17:32)
[2020-04-04] MEDS ORDERED: PIPERACILLIN/TAZOBACTAM 3.375 GM VIAL IVPB ONE ×2 (13:16→17:32)
[2020-04-04] MEDS: PIPERACILLIN/TAZOB 3.375 GM 3.375 GM in DEXTROSE 5%-WATER - 50 ML IVPB SCH ×2 (13:24→17:35)
--- NOTE | 2020-04-04 14:47 | OP ---
DATE OF OPERATION: 03/30/2020 PREOPERATIVE DIAGNOSIS: Cholelithiasis and choledocholithiasis. POSTOPERATIVE DIAGNOSIS: Cholelithiasis and choledocholithiasis. PROCEDURE: Laparoscopic, converted to open cholecystectomy. SURGEON: Rohan Acosta MD ALLIGATOR SHEAR OPERATOR: Rissa Rubio PA-C ANESTHESIA: General. OPERATIVE FINDINGS: There was a contracted gallbladder with overlying adhesions of omentum and transverse colon. There was abnormal-appearing liver parenchyma and evidence of previous surgery in the form of gastrostomies. There was an incisional hernia present with a defect of approximately 2 cm. The rest of the findings was unremarkable. PROCEDURE IN DETAIL: The patient was placed on the operative table in the supine position. After the induction of general anesthesia, the patient's abdomen was prepped with ChloraPrep and draped in sterile fashion. A timeout was taken, and the peritoneal cavity entered under direct vision under an open approach slightly over the umbilicus. Through the opening in the abdominal wall, a 10-mm Kain balloon port was placed, and laparoscopy carried out. An additional 12-mm subcostal port was placed, as well as 2 lateral 5-mm ports. The previously-noted findings were observed. The gallbladder could not be positively identified during initial laparoscopy. Using blunt dissection and electrocautery, adherent omentum and colon over the area of the liver where the gallbladder was most likely located was mobilized with great difficulty. After 45 minutes of dissection, the gallbladder could not be conclusively identified in the manner, and because of this, the laparoscopic portion of the procedure was terminated and conversion to an open procedure was carried out. A right subcostal incision was made with a scalpel and taken down through skin and subcutaneous tissue, and the anterior fascia divided as well as the rectus muscle using electrocautery. The peritoneal cavity was entered through the posterior sheath and peritoneum. The small bowel was packed off distally and medially and the adherent omentum and transverse colon that were adherent to the presumed location of the gallbladder were mobilized using blunt and sharp dissection and the gallbladder was visualized with the previously-noted findings. The gallbladder was grasped and taken down from the top using electrocautery. The gallbladder was entered, and a single stone identified and sent for pathological examination. At the gallbladder neck, the cystic artery was identified, mobilized and divided between right-angle clamps and ligated with 2-0 silk suture. Once down to the infundibulum, the gallbladder was amputated and sent for pathological examination. The stump of the gallbladder was then closed using continuous 2-0 locked Prolene suture. Hemostasis was secured with electrocautery and then the operative field copiously irrigated with saline. A 10-mm Dayday-Ford drain was placed through the lateral 5-mm port side into the gallbladder bed and secured to the skin with 2-0 silk suture. Hemostasis was again verified. Then the peritoneal cavity was closed with looped Maxon for the peritoneum and posterior sheath in a continuous fashion and the same suture used for the anterior rectus sheath. The subcutaneous tissue was irrigated, and the skin edges reapproximated using surgical nidia. The fascial defect just at the umbilicus was closed with a single 0 Vicryl [id number] suture. All skin edges were reapproximated subsequently at the port sites with surgical nidia, and the drain was connected to bulb self-suction. Dry, sterile dressings were placed, and the procedure terminated at this point and the patient aroused from general anesthesia and transferred to the post anesthesia care unit in stable condition awake and alert. ESTIMATED BLOOD LOSS: 100 mL REPLACEMENT: Crystalloid. DRAINS: One 10-mm Dayday-Ford in the gallbladder fossa. SPECIMEN: Gallbladder and contents to Pathology. I, Rohan Acosta MD, was physically present in the operating room from the time the patient was placed on the operating room table until he was transferred to the post anesthesia care unit with my accompaniment and at the completion of the procedure needle, instrument and sponge counts were correct. MD CHUCK Cortez/[id number] MTDD
--- NOTE | 2020-04-04 19:04 | PN ---
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, Physician History of Present Illness: AWAKE IN BED NO ACUTE DISTRESS AFEBRILE - Current Medication List Current Medications: Active Medications Abacavir/Dolutegravir/Lamivudine (Triumeq (Non-Formulary)) 1 each PO DAILY [facility] Last Admin: 04/04/20 09:24 Dose: 1 each Documented by: Atorvastatin Calcium (Lipitor -) 20 mg PO HS [facility] Last Admin: 04/03/20 21:42 Dose: 20 mg Documented by: Bacitracin (Bacitracin -) 1 applic TP DAILY [facility] Last Admin: 04/04/20 09:23 Dose: 1 applic Documented by: Budesonide/Formoterol Fumarate (Symbicort 80/4.5mcg -) 2 puff IH DAILY [facility] Last Admin: 04/04/20 09:24 Dose: 2 puff Documented by: Digoxin (Lanoxin -) 0.125 mg PO DAILY [facility] Last Admin: 04/04/20 09:22 Dose: 0.125 mg Documented by: Furosemide (Lasix -) 20 mg PO DAILY [facility] Last Admin: 04/04/20 09:23 Dose: 20 mg Documented by: Hydromorphone HCl (Dilaudid -) 2 mg PO Q8H PRN PRN Reason: PAIN LEVEL 7 - 10 Last Admin: 04/04/20 10:43 Dose: 2 mg Documented by: Piperacillin Sod/Tazobactam (Sod 3.375 gm/ Dextrose) 50 mls @ 100 mls/hr IVPB Q8H-IV [facility]; Protocol Last Admin: 04/04/20 17:35 Dose: 100 mls/hr Documented by: Insulin Aspart (Novolog Vial Sliding Scale -) 1 vial SQ ACHS [facility]; Protocol Last Admin: 04/04/20 17:08 Dose: 4 units Documented by: Levetiracetam (Keppra -) 500 mg PO BID [facility] Last Admin: 04/04/20 09:23 Dose: 500 mg Documented by: Metoprolol Succinate (Toprol Xl -) 25 mg PO BID [facility] Last Admin: 04/04/20 09:23 Dose: 25 mg Documented by: Ondansetron HCl (Zofran Injection) 4 mg IVPUSH Q6H PRN PRN Reason: NAUSEA AND/OR VOMITING Paroxetine HCl (Paxil -) 10 mg PO DAILY [facility] Last Admin: 07/18/20 09:23 Dose: 10 mg Documented by: - Objective Vital Signs: Vital Signs Temperature 98.1 F 04/04/20 18:00 Pulse Rate 85 04/04/20 18:00 Respiratory Rate 18 04/04/20 18:00 Blood Pressure 151/95 04/04/20 18:00 O2 Sat by Pulse Oximetry (%) 95 04/04/20 18:00 Constitutional: Yes: No Distress Eyes: Yes: Conjunctiva Clear Cardiovascular: Yes: Regular Rate and Rhythm, S1, S2 Respiratory: Yes: CTA Bilaterally Gastrointestinal: Yes: Normal Bowel Sounds, Soft, Other (MILD DIFFUSE TENDERNESS) Edema: No Labs: CBC, BMP 04/04/20 07:20 04/04/20 07:20 INR, PTT INR 1.10 (0.83-1.09) H 03/30/20 07:10 Assessment/Plan S/P CHOLECYSTECTOMY HIV+ CONTINUE ZOSYN
[2020-04-04] MEDS ORDERED: ACETAMINOPHEN 325 MG TABLET (FP) PO ONE (20:11)
[2020-04-04] MEDS: ATORVASTATIN CA 20 MG TABLET (FP) PO SCH (22:08)
[2020-04-05] MEDS ORDERED: PIPERACILLIN/TAZOBACTAM 3.375 GM VIAL IVPB ONE ×3 (02:12→17:21)
[2020-04-05] MEDS ORDERED: DEXTROSE 5%-WATER - 50 ML IVPB ONE ×3 (02:12→17:22)
[2020-04-05] MEDS: PIPERACILLIN/TAZOB 3.375 GM 3.375 GM in DEXTROSE 5%-WATER - 50 ML IVPB SCH ×3 (02:21→17:37)
[2020-04-05] MEDS: INSULIN SLIDING SCALE (NOVOLOG) 1 VIAL SQ SCH ×4 (06:15→21:48)
[2020-04-05] MEDS: HYDROmorphone HCL 2 MG TABLET PO PRN ×2 (08:41→16:29)
[2020-04-05 08:58] LABS: BASO % 0.4 % (0-2.0); EOS % 0.9 % (0-4.5); HEMATOCRIT 31.7 % (35.4-49); HEMOGLOBIN 10.4 GM/dL (11.7-16.9); LYMPH % 9.6 % (8-40); MCH 31.4 pg (25.7-33.7); MCHC 32.6 g/dl (32.0-35.9); MEAN CELL VOLUME 96.2 fl (80-96); MEAN PLT VOLUME 7.9 fl (7.5-11.1); MONO % 6.6 % (3.8-10.2); NEUT % 82.5 % (42.8-82.8); PLATELET COUNT 201 K/MM3 (134-434); WHITE BLOOD COUNT 7.6 K/mm3 (4.0-10.0)
[2020-04-05 09:24] LABS: BLOOD UREA NITROGEN 9.8 mg/dL (7-18); CREATININE 0.8 mg/dL (0.55-1.3); POTASSIUM 3.7 mmol/L (3.5-5.1)
[2020-04-05 09:27] LABS: ALBUMIN 2.5 g/dl (3.4-5.0); BILIRUBIN,TOTAL 1.7 mg/dL (0.2-1); CALCIUM 8.1 mg/dL (8.5-10.1); CREATININE 0.9 mg/dL (0.55-1.3); MAGNESIUM 1.8 mg/dL (1.8-2.4); POTASSIUM 3.5 mmol/L (3.5-5.1); TOT PROT 6.7 g/dl (6.4-8.2)
[2020-04-05] MEDS ORDERED: PT OWN MED DRAWER 7, Y5N ONE ×3 (09:50→21:31)
[2020-04-05] MEDS: DIGOXIN 0.125 MG TABLET (FP) PO SCH (10:06)
[2020-04-05] MEDS: metoPROLOL SUCCINATE 25 MG TAB.SR.24H (FP) PO SCH ×2 (10:06→21:48)
[2020-04-05] MEDS: PARoxetine HCL 10 MG TABLET PO SCH (10:06)
[2020-04-05] MEDS: levETIRAcetam 500 MG TABLET (FP) PO SCH ×2 (10:06→21:48)
[2020-04-05] MEDS: BUDESONIDE/FORMETEROL FUMARATE 80/4.5 mcg INHALER IH SCH (10:07)
[2020-04-05] MEDS: BACITRACIN 15 GM TUBE TOPICAL OINTMENT TP SCH (10:07)
[2020-04-05] MEDS: FUROSEMIDE 20 MG TABLET (FP) PO SCH (10:07)
[2020-04-05] MEDS: ABACAVIR/DOLUTEGRAVIR/LAMIVUDI (TRIUMEQ) TABLET -NF PO SCH (12:36)
--- NOTE | 2020-04-05 13:52 | PN ---
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, Physician Chief Complaint: Elevated LFT's Cholelithiasis Choledocholithiasis S/P Cholecystectomy History of Present Illness: NAD, pt is aphasic, nods his head yes and no S/P Open Cholecystectomy Wound dry, dressing dry and intact - Current Medication List Current Medications: Active Medications Abacavir/Dolutegravir/Lamivudine (Triumeq (Non-Formulary)) 1 each PO DAILY [facility] Last Admin: 04/05/20 12:36 Dose: 1 each Documented by: Atorvastatin Calcium (Lipitor -) 20 mg PO HS [facility] Last Admin: 04/04/20 22:08 Dose: 20 mg Documented by: Bacitracin (Bacitracin -) 1 applic TP DAILY [facility] Last Admin: 04/05/20 10:07 Dose: 1 applic Documented by: Budesonide/Formoterol Fumarate (Symbicort 80/4.5mcg -) 2 puff IH DAILY [facility] Last Admin: 04/05/20 10:07 Dose: 2 puff Documented by: Digoxin (Lanoxin -) 0.125 mg PO DAILY [facility] Last Admin: 04/05/20 10:06 Dose: 0.125 mg Documented by: Furosemide (Lasix -) 20 mg PO DAILY [facility] Last Admin: 04/05/20 10:07 Dose: 20 mg Documented by: Hydromorphone HCl (Dilaudid -) 2 mg PO Q8H PRN PRN Reason: PAIN LEVEL 7 - 10 Last Admin: 04/05/20 08:41 Dose: 2 mg Documented by: Piperacillin Sod/Tazobactam (Sod 3.375 gm/ Dextrose) 50 mls @ 100 mls/hr IVPB Q8H-IV [facility]; Protocol Last Admin: 04/05/20 10:05 Dose: 100 mls/hr Documented by: Insulin Aspart (Novolog Vial Sliding Scale -) 1 vial SQ ACHS [facility]; Protocol Last Admin: 04/05/20 12:36 Dose: 4 units Documented by: Levetiracetam (Keppra -) 500 mg PO BID [facility] Last Admin: 04/05/20 10:06 Dose: 500 mg Documented by: Metoprolol Succinate (Toprol Xl -) 25 mg PO BID [facility] Last Admin: 04/05/20 10:06 Dose: 25 mg Documented by: Ondansetron HCl (Zofran Injection) 4 mg IVPUSH Q6H PRN PRN Reason: NAUSEA AND/OR VOMITING Paroxetine HCl (Paxil -) 10 mg PO DAILY DUNIA Last Admin: 04/05/20 10:06 Dose: 10 mg Documented by: - Objective Vital Signs: Vital Signs Temperature 98.8 F 04/05/20 06:00 Pulse Rate 77 04/05/20 10:06 Respiratory Rate 18 04/05/20 06:00 Blood Pressure 134/76 04/05/20 06:00 O2 Sat by Pulse Oximetry (%) 96 04/05/20 06:00 Constitutional: Yes: Well Nourished, No Distress, Calm, Obese Cardiovascular: Yes: Regular Rate and Rhythm Respiratory: Yes: Regular, CTA Bilaterally Gastrointestinal: Yes: Normal Bowel Sounds, Soft, Abdomen, Obese Genitourinary: Yes: WNL Musculoskeletal: Yes: Muscle Weakness Extremities: Yes: WNL Edema: No Peripheral Pulses WNL: Yes Neurological: Yes: Alert Psychiatric: Yes: Alert Labs: CBC, BMP 04/05/20 08:30 04/05/20 08:30 INR, PTT INR 1.10 (0.83-1.09) H 03/30/20 07:10 Problem List - Problems (1) Anemia Assessment/Plan: -acute on chronic -Check Iron + thyroid profile, B12, Stool OB -Monitor trend Problems reviewed: Yes Code(s): D64.9 - ANEMIA, UNSPECIFIED (2) Biliary sepsis Assessment/Plan: -ID on board -On IV Zosyn -Afebrile -No Leukocytosis Problems reviewed: Yes Code(s): K83.09 - OTHER CHOLANGITIS (3) Choledocholithiasis Assessment/Plan: -Operative Date: 03/30/20 Pre-Operative Diagnosis: cholelithiasis and choledocholithiasis Operation: laparoscopic converted to open cholecystectomy Findings: contracted gallbladder w/overlying adhesions of omentum and transverse colon; abnormal appearing liver parenchyma. Post-Operative Diagnosis: Same as Pre-op Surgeon: Rohan Acosta Problems reviewed: Yes Code(s): K80.50 - CALCULUS OF BILE DUCT W/O CHOLANGITIS OR CHOLECYST W/O OBST (4) Elevated LFTs Assessment/Plan: -Resolved Problems reviewed: Yes Code(s): R79.89 - OTHER SPECIFIED ABNORMAL FINDINGS OF BLOOD CHEMISTRY (5) Diabetes Assessment/Plan: -Recheck A1c -BGM AC HS -ISS -Dysphagia puree diabetic low sodium diet Problems reviewed: Yes Code(s): E11.9 - TYPE 2 DIABETES MELLITUS WITHOUT COMPLICATIONS (6) Silent aspiration Assessment/Plan: -Seen by Speech pathology -Diet changed to dysphagia puree diabetic low sodium diet Problems reviewed: Yes Code(s): T17.900A - UNSP FB IN RESP TRACT, PART UNSP CAUSING ASPHYX, INIT Assessment/Plan See problem list
[2020-04-05] MEDS: POLYETHYLENE GLYCOL 3350 119 GM BTL PO SCH (15:26)
[2020-04-05] MEDS: ATORVASTATIN CA 20 MG TABLET (FP) PO SCH (21:48)
[2020-04-06] MEDS: HYDROmorphone HCL 2 MG TABLET PO PRN (00:34)
[2020-04-06] MEDS ORDERED: DEXTROSE 5%-WATER - 50 ML IVPB ONE ×3 (01:03→17:15)
[2020-04-06] MEDS ORDERED: PIPERACILLIN/TAZOBACTAM 3.375 GM VIAL IVPB ONE ×3 (01:03→17:15)
[2020-04-06] MEDS: PIPERACILLIN/TAZOB 3.375 GM 3.375 GM in DEXTROSE 5%-WATER - 50 ML IVPB SCH ×3 (01:16→18:29)
[2020-04-06] MEDS: INSULIN SLIDING SCALE (NOVOLOG) 1 VIAL SQ SCH ×4 (06:39→21:36)
[2020-04-06 09:13] LABS: BASO % 0.6 % (0-2.0); EOS % 1.8 % (0-4.5); HEMATOCRIT 32.5 % (35.4-49); HEMOGLOBIN 10.7 GM/dL (11.7-16.9); LYMPH % 14.5 % (8-40); MCHC 32.8 g/dl (32.0-35.9); MEAN CELL VOLUME 97.7 fl (80-96); MONO % 7.1 % (3.8-10.2); PLATELET COUNT 210 K/MM3 (134-434); RBC 3.33 M/mm3 (4.00-5.60); WHITE BLOOD COUNT 6.4 K/mm3 (4.0-10.0)
[2020-04-06 09:25] LABS: ALBUMIN 2.5 g/dl (3.4-5.0); BILIRUBIN,TOTAL 1.3 mg/dL (0.2-1); CREATININE 0.9 mg/dL (0.55-1.3); POTASSIUM 3.8 mmol/L (3.5-5.1)
[2020-04-06] MEDS ORDERED: PT OWN MED DRAWER 7, Y5N ONE ×2 (10:35→14:35)
[2020-04-06] MEDS: metoPROLOL SUCCINATE 25 MG TAB.SR.24H (FP) PO SCH ×2 (10:46→21:37)
[2020-04-06] MEDS: PARoxetine HCL 10 MG TABLET PO SCH (10:46)
[2020-04-06] MEDS: DIGOXIN 0.125 MG TABLET (FP) PO SCH (10:46)
[2020-04-06] MEDS: FUROSEMIDE 20 MG TABLET (FP) PO SCH (10:47)
[2020-04-06] MEDS: levETIRAcetam 500 MG TABLET (FP) PO SCH ×2 (10:47→21:35)
[2020-04-06] MEDS: ABACAVIR/DOLUTEGRAVIR/LAMIVUDI (TRIUMEQ) TABLET -NF PO SCH (10:50)
[2020-04-06] MEDS: BUDESONIDE/FORMETEROL FUMARATE 80/4.5 mcg INHALER IH SCH (10:51)
--- NOTE | 2020-04-06 11:05 | PN ---
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: Selected Entries 04/02/20 04/02/20 04/02/20 06:00 10:00 14:43 Breakfast 75% Diet Tolerated Fair Lunch 75% Supper Temperature 98.7 F 98.3 F 98.3 F Blood Pressure 138/77 152/85 115/76 04/02/20 04/02/20 04/03/20 18:00 22:00 06:00 Breakfast Diet Tolerated Well Lunch Supper 75% Temperature 98.1 F 98.4 F 98.4 F Blood Pressure 130/77 130/83 04/03/20 10:57 Breakfast Diet Tolerated Lunch Supper Temperature 98 F Blood Pressure Laboratory Tests 04/03/20 08:14 WBC 5.9 Selected Entries 04/04/20 04/04/20 04/04/20 10:00 14:00 18:00 Breakfast 50% 0 Diet Tolerated Fair Poor Fair Lunch 0 Supper 50% Temperature Blood Pressure O2 Sat by Pulse Oximetry (%) Oxygen Delivery Method 04/05/20 04/05/20 04/05/20 02:00 06:00 09:00 Breakfast Diet Tolerated Lunch Supper Temperature Blood Pressure O2 Sat by Pulse 96 96 97 Oximetry (%) Oxygen Delivery Room Air Method 04/05/20 04/05/20 04/05/20 14:00 18:11 21:00 Breakfast Diet Tolerated Fair Lunch Supper 75% Temperature Blood Pressure O2 Sat by Pulse 99 92 L 98 Oximetry (%) Oxygen Delivery Room Air Method 04/05/20 04/06/20 04/06/20 22:00 02:00 06:00 Breakfast Diet Tolerated Lunch Supper Temperature 99.3 F 97.9 F Blood Pressure 107/70 146/77 O2 Sat by Pulse 98 98 Oximetry (%) Oxygen Delivery Method 04/06/20 10:41 Breakfast Diet Tolerated Lunch Supper Temperature 98.5 F Blood Pressure 111/77 O2 Sat by Pulse 97 Oximetry (%) Oxygen Delivery Method Laboratory Tests 04/06/20 08:05 WBC 6.4 MBS completed- trace aspiration with heaD EXTENDED, WHILE FED Nursing notes report "wet cough" and "difficulty clearing secretions" over last couple of days. Refused to get OOB or participate in PT. When asked if he had pain, he nodded yes and poibnted to his abdomen. Nursing present and aware. CXR noted On puree/thin liquid COMPENSATORY SWALLOWING STRATEGIES- chin in neutral, never extended, ideally self feeding, oob in chair for meals.
[2020-04-06] MEDS: BACITRACIN 15 GM TUBE TOPICAL OINTMENT TP SCH (11:09)
[2020-04-06] MEDS: POLYETHYLENE GLYCOL 3350 119 GM BTL PO SCH (14:12)
--- NOTE | 2020-04-06 14:18 | PN ---
Physical Exam: SUBJECTIVE: Patient seen and examined, in mild distress due to abdominal pain, non verbal, but noding and signaling when answering questions OBJECTIVE: Vital Signs Period Temp Pulse Resp BP Sys/Barrientos Pulse Ox Last 24 Hr 97.9 F-99.3 F 60-63 18-20 107-146/69-77 92-98 GENERAL: The patient is awake, alert, and fully oriented, in no acute distress. HEAD: Normal with no signs of trauma. EYES: PERRL, extraocular movements intact, sclera anicteric, conjunctiva clear. No ptosis. ENT: Ears normal, nares patent, oropharynx clear without exudates, moist mucous membranes. NECK: Trachea midline, full range of motion, supple. LUNGS: Breath sounds equal, clear to auscultation bilaterally, no wheezes, no crackles, no accessory muscle use. HEART: Regular rate and rhythm, S1, S2 without murmur, rub or gallop. ABDOMEN: Soft, nontender, slightly distended, normoactive bowel sounds, no guarding, no rebound, no hepatosplenomegaly, no masses. surgical dressing in place, no oozing wounds EXTREMITIES: 2+ pulses, warm, well-perfused, no edema. NEUROLOGICAL: Cranial nerves II through XII grossly intact. Normal speech, gait not observed. PSYCH: Normal mood, normal affect. SKIN: Warm, dry, normal turgor, no rashes or lesions noted Laboratory Results - last 24 hr 04/05/20 04/05/20 04/05/20 08:30 08:30 16:28 WBC RBC Hgb Hct MCV MCH MCHC RDW Plt Count MPV Absolute Neuts (auto) Neutrophils % Lymphocytes % Monocytes % Eosinophils % Basophils % Nucleated RBC % Sodium 136 Potassium 3.7 Chloride 100 Carbon Dioxide 30 Anion Gap 6 L BUN 9.8 Creatinine 0.8 Est GFR (CKD-EPI)AfAm 108.65 Est GFR (CKD-EPI)NonAf 93.74 POC Glucometer 242 Random Glucose 210 H Hemoglobin A1c % 8.4 H Calcium 8.0 L Iron 35 L TIBC 220 L Iron Saturation 15 L Unsaturated IBC 185 L Ferritin 207.5 Total Bilirubin AST ALT Alkaline Phosphatase Total Protein Albumin Vitamin B12 500 TSH 0.86 D Free T4 1.47 H 04/05/20 04/06/20 04/06/20 21:43 06:38 08:05 WBC 6.4 RBC 3.33 L Hgb 10.7 L Hct 32.5 L MCV 97.7 H MCH 32.0 MCHC 32.8 RDW 15.0 Plt Count 210 MPV 8.0 Absolute Neuts (auto) 4.9 Neutrophils % 76.0 Lymphocytes % 14.5 D Monocytes % 7.1 Eosinophils % 1.8 D Basophils % 0.6 Nucleated RBC % 0 Sodium Potassium Chloride Carbon Dioxide Anion Gap BUN Creatinine Est GFR (CKD-EPI)AfAm Est GFR (CKD-EPI)NonAf POC Glucometer 145 191 Random Glucose Hemoglobin A1c % Calcium Iron TIBC Iron Saturation Unsaturated IBC Ferritin Total Bilirubin AST ALT Alkaline Phosphatase Total Protein Albumin Vitamin B12 TSH Free T4 04/06/20 04/06/20 08:05 11:59 WBC RBC Hgb Hct MCV MCH MCHC RDW Plt Count MPV Absolute Neuts (auto) Neutrophils % Lymphocytes % Monocytes % Eosinophils % Basophils % Nucleated RBC % Sodium 138 Potassium 3.8 Chloride 100 Carbon Dioxide 29 Anion Gap 8 BUN 9.0 Creatinine 0.9 Est GFR (CKD-EPI)AfAm 103.51 Est GFR (CKD-EPI)NonAf 89.31 POC Glucometer 221 Random Glucose 190 H Hemoglobin A1c % Calcium 8.0 L Iron TIBC Iron Saturation Unsaturated IBC Ferritin Total Bilirubin 1.3 H AST 46 H ALT 39 Alkaline Phosphatase 74 Total Protein 7.0 Albumin 2.5 L Vitamin B12 TSH Free T4 Active Medications Generic Name Dose Route Start Last Admin Trade Name Freq PRN Reason Stop Dose Admin Abacavir/Dolutegravir/Lamivudine 1 each 03/31/20 10:00 04/06/20 10:50 Triumeq (Non-Formulary) PO 1 each DAILY DUNIA Administration Atorvastatin Calcium 20 mg 03/30/20 22:00 04/05/20 21:48 Lipitor - PO 20 mg HS DUNIA Administration Bacitracin 1 applic 04/04/20 10:00 04/06/20 11:09 Bacitracin - TP 1 applic DAILY DUNIA Administration Budesonide/Formoterol Fumarate 2 puff 03/31/20 10:00 04/06/20 10:51 Symbicort 80/4.5mcg - IH 2 puff DAILY DUNIA Administration Digoxin 0.125 mg 04/02/20 10:00 04/06/20 10:46 Lanoxin - PO 0.125 mg DAILY DUNIA Administration Furosemide 20 mg 03/31/20 10:00 04/06/20 10:47 Lasix - PO 20 mg DAILY DUNIA Administration Hydromorphone HCl 2 mg 04/06/20 13:01 Dilaudid Vial - IVPB Q6H PRN PAIN LEVEL 6-10 Piperacillin Sod/Tazobactam 50 mls @ 100 mls/hr 04/04/20 12:00 04/06/20 10:48 Sod 3.375 gm/ Dextrose IVPB 100 mls/hr Q8H-IV DUNIA Administration Protocol Insulin Aspart 1 vial 03/30/20 22:00 04/06/20 12:01 Novolog Vial Sliding Scale - SQ 4 units ACHS DUNIA Administration Protocol Levetiracetam 500 mg 04/01/20 22:00 04/06/20 10:47 Keppra - PO 500 mg BID DUNIA Administration Metoprolol Succinate 25 mg 03/31/20 22:00 04/06/20 10:46 Toprol Xl - PO 25 mg BID DUNIA Administration Ondansetron HCl 4 mg 03/30/20 15:03 Zofran Injection IVPUSH Q6H PRN NAUSEA AND/OR VOMITING Paroxetine HCl 10 mg 03/31/20 10:00 04/06/20 10:46 Paxil - PO 10 mg DAILY DUNIA Administration Polyethylene Glycol 17 gm 04/05/20 14:00 04/05/20 15:26 Miralax (For Daily Use) - PO 17 grams DAILY DUNIA Administration ASSESSMENT/PLAN: 64 y/o male with a significant PMHx of HIV (CD4 152), HTN, DM, CVA (R-deficits, aphasic), Afib (no AC, s/p Pacemaker), who is presents to the ED from home by referral from ID doctor (Dr. Shields) for elevated LFTs, was found to have cho lelithiasis and now s/p open cholecystectomy # Biliary sepsis, s/p cholecystectomy, s/p ercp - passing flatus - on IVF and zosyn - afebrile, no leukocytosis, non tachy - on puree diet, evaluated by speech pathologist - Pain medications as indicated, Miralax added yesterday - encouraged to use incentive spirometry - will need to follow up with [facility] after discharge (dr. Alcon Carmichael, pt is aware) hiv continue triumeq AFib (on BB and digoxin) DM (BG 140s-200s, on ISS) CVA Surical consult appreciated ID consult appreciated Visit type - Emergency Visit Emergency Visit: Yes ED Registration Date: 03/25/20 Care time: The patient presented to the Emergency Department on the above date and was hospitalized for further evaluation of their emergent condition. - New Patient This patient is new to me today: Yes Date on this admission: 04/06/20 - Critical Care Critical Care patient: No - Discharge Referral Referred to [facility] No - Medication Review Med list reviewed for High Risk Meds patients 65 and older: Yes (reviewed)
[2020-04-06] MEDS: HYDROmorphone HCl 2 MG/ML VIAL IVPB PRN (14:36)
--- NOTE | 2020-04-06 14:42 | PN ---
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 (short form) - Note 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: laying flat no distress Vital Signs Period Temp Pulse Resp BP Sys/Barrientos Pulse Ox Last 24 Hr 97.9 F-99.3 F 60-63 18-20 107-146/69-77 92-98 cor-rrr lungs clear abd soft, ruq nidia intact, nontender +BS ext no edema CBC, BMP 04/06/20 08:05 04/06/20 08:05 Microbiology 04/04/20 14:15 Blood - Peripheral Venous Blood Culture - Preliminary NO GROWTH OBTAINED AFTER 24 HOURS, INCUBATION TO CONTINUE FOR 4 DAYS. 04/04/20 14:00 Blood - Peripheral Venous Blood Culture - Preliminary NO GROWTH OBTAINED AFTER 24 HOURS, INCUBATION TO CONTINUE FOR 4 DAYS. 03/25/20 15:10 Blood - Peripheral Venous Blood Culture - Final NO GROWTH AFTER 5 DAYS INCUBATION 03/25/20 15:10 Blood - Peripheral Venous Blood Culture - Final NO GROWTH AFTER 5 DAYS INCUBATION 03/27/20 22:00 Sputum - Expectorated Gram Stain - Final 03/27/20 22:00 Sputum - Expectorated Sputum Culture - Final NORMAL RESPIRATORY MERLINE 03/25/20 21:35 Urine - Urine Clean Catch Urine Culture - Final NO GROWTH OBTAINED 03/25/20 21:35 Urine - Urine Clean Catch Legionella Antigen - Final 03/25/20 21:35 Urine - Urine Clean Catch Streptococcus pneumoniae Antigen (M - Final imp/reccd s/p open choly started on zosyn day #3 for possible aspiration pneumonia- would d/c antibiotics in am -doing well, no fevers or cough or leukocytosis s/p ercp- will need f/u at [facility] with dr reese stable hiv- continue triumeq Problem List - Problems (1) Biliary sepsis Code(s): K83.09 - OTHER CHOLANGITIS (2) Choledocholithiasis Code(s): K80.50 - CALCULUS OF BILE DUCT W/O CHOLANGITIS OR CHOLECYST W/O OBST (3) HIV (human immunodeficiency virus infection) Code(s): B20 - HUMAN IMMUNODEFICIENCY VIRUS [HIV] DISEASE
[2020-04-06] MEDS ORDERED: HYDROmorphone HCl 2 MG/ML VIAL IVPB ONE (19:11)
[2020-04-06] MEDS: ATORVASTATIN CA 20 MG TABLET (FP) PO SCH (21:36)
[2020-04-07] MEDS ORDERED: DEXTROSE 5%-WATER - 50 ML IVPB ONE ×2 (01:17→09:09)
[2020-04-07] MEDS ORDERED: PIPERACILLIN/TAZOBACTAM 3.375 GM VIAL IVPB ONE ×2 (01:17→09:08)
[2020-04-07] MEDS: PIPERACILLIN/TAZOB 3.375 GM 3.375 GM in DEXTROSE 5%-WATER - 50 ML IVPB SCH ×2 (02:04→09:40)
[2020-04-07] MEDS: HYDROmorphone HCl 2 MG/ML VIAL IVPB PRN (06:05)
[2020-04-07] MEDS: INSULIN SLIDING SCALE (NOVOLOG) 1 VIAL SQ SCH ×3 (06:26→17:13)
[2020-04-07] MEDS ORDERED: PT OWN MED DRAWER 7, Y5N ONE ×2 (09:08→11:39)
[2020-04-07] MEDS: DIGOXIN 0.125 MG TABLET (FP) PO SCH (09:39)
[2020-04-07] MEDS: PARoxetine HCL 10 MG TABLET PO SCH (09:39)
[2020-04-07] MEDS: levETIRAcetam 500 MG TABLET (FP) PO SCH (09:39)
[2020-04-07] MEDS: metoPROLOL SUCCINATE 25 MG TAB.SR.24H (FP) PO SCH (09:39)
[2020-04-07] MEDS: BACITRACIN 15 GM TUBE TOPICAL OINTMENT TP SCH (09:40)
[2020-04-07] MEDS: FUROSEMIDE 20 MG TABLET (FP) PO SCH (09:41)
[2020-04-07] MEDS: BUDESONIDE/FORMETEROL FUMARATE 80/4.5 mcg INHALER IH SCH (09:41)
--- NOTE | 2020-04-07 10:12 | PN ---
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 (short form) - Note 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: SURGERY 64yo M s/p open cholecystectomy. Pt denies abd pain. Last Vital Signs Temp Pulse Resp BP Pulse Ox 98.1 F 64 21 H 131/81 97 04/07/20 10:00 04/07/20 10:00 04/07/20 10:00 04/07/20 10:00 04/07/20 10:00 CBC, BMP 04/06/20 08:05 04/06/20 08:05 PE: Gen: A&O Resp; breathing comfortably Abd; soft, nontender, nondistended, incisions clean with no erythema, nidia removed. Problem List - Problems (1) Biliary sepsis Assessment/Plan: Plan -nidia removed at bedside. -pt should follow up with Dr. Acosta as outpatient in 1 week. Pt discussed with Dr. Acosta who agrees with plan Code(s): K83.09 - OTHER CHOLANGITIS
--- NOTE | 2020-04-07 10:22 | PN ---
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
[2020-04-07] MEDS: ABACAVIR/DOLUTEGRAVIR/LAMIVUDI (TRIUMEQ) TABLET -NF PO SCH (12:31)
--- NOTE | 2020-04-07 13:13 | DS ---
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 Shields) for elevated LFTs. A ct scan abd/pelvis and ultrasound shows gall stones, CBD dilatation. Patient admitted for billiary sepsis. Patient is s/p laparoscopic converted to open cholecystectomy on 03/31/[address] Acosta. Post op developed increased congestive changes without shortness of breath or fevers and tolerating room air. covid PCR: negative as of 03/24/2020 (see outpatient emr). repeat covid negative imaging: CTAP- cholelithiasis, ?choledolcholithiasis Gallbladder US- cholelithiasis with no definitive choledocholithiasis. CBD dilatation 9mm MBS completed:Suggest puree/thin liquid with chin in neutral, never extended, ideally self feeding, oob in chair for meals. Vital Signs Period Temp Pulse Resp BP Sys/Barrientos Pulse Ox Last 24 Hr 97.4 F-99.0 F 60-64 16-21 99-131/69-81 96-98 PHYSICAL EXAM GENERAL: The patient is awake, alert, in no acute distress. non verbal at baseline. HEAD: Normal with no signs of trauma EYE: prosthetic left eye ENT: Ears normal, nares patent, oropharynx clear without exudates, moist mucous membranes. NECK: Trachea midline, full range of motion, supple. LUNGS: Breath sounds equal, clear to auscultation bilaterally - diminished at bases HEART: Regular rate and rhythm ABDOMEN: soft, non tender, non distended, bowel sounds + EXTREMITIES: hyperpigmentation of right lower leg, dry slough skin. left foot cool to touch, + pulses, seen by vascular. NEUROLOGICAL: right sided deficit. right arm contracted, right hand contracted LABS Laboratory Results - last 24 hr 04/06/20 04/06/20 04/07/20 16:55 21:23 06:14 POC Glucometer 220 149 190 04/07/20 12:33 POC Glucometer 224 HOSPITAL COURSE: Date of Admission:03/25/20 Date of Discharge: 04/07/20 Minutes to complete discharge: 60 Discharge Summary Problems reviewed: Yes Reason For Visit: HUMAN IMMUNODEFICIENCY VIRUS (HIV) INFECTION Current Active Problems Anemia (Acute) Biliary sepsis (Acute) CVA (cerebral vascular accident) (Acute) Choledocholithiasis (Acute) DVT prophylaxis (Acute) Dilated cbd, acquired (Acute) Elevated LFTs (Acute) Fever (Acute) Infiltrate of lung present on chest x-ray (Acute) Pneumonia (Acute) Sepsis (Acute) Silent aspiration (Acute) Condition: Stable - Instructions Diet, Activity, Other Instructions: Dr. Acosta Discharge Instructions Dear MARTI ROSALES, Post Operative Instructions Physical activity Resume your normal everyday activity as tolerated no heavy lifting or exercise until seen by your surgeon. You may walk unlimited amounts of and climb stairs. You may resume driving the car when you feel safe and comfortable behind the wheel. Wound care If you have a bandage, leave it on, and keep dry for 48 - 72 hours. After that time discard the outer bandage. If there are tapes on the skin under the outer bandage, leave them in place. They will peel off in the next 7 to 10 days. Do Not peel them off. You may shower 2 days after surgery. If there are tapes present on the skin, they can get wet. Diet There are no dietary restrictions. Eat healthy, high-fiber foods. Drink 6 to 8 glasses of liquid each day. This will assist in keeping your bowels are regular. Pain management You may take Tylenol or acetaminophen or Ibuprofen (for example, Motrin, Advil etc.) Any pain prescription medication ordered should be taken as prescribed for moderate to severe pain. Call Dr. Acosta for any of the following: Severe pain not relieved by medication Fever of 101 or higher Excessive bleeding or drainage on dressing Inability to urinate Call the office at [phone] for a post operative appointment in 7 - 10 days. ---- You have completed antibiotics DIET: Pureed diet with THIN liquids. SIT UP with each meal, do not lay down after eating, wait at least 2 hours NO STRAWS USE the incentive spirometer Please follow up with Dr Zack Carmichael at [facility] by calling his office for an appointment or [phone] Referrals: Tami Arce NP [Primary Care Provider] - Disposition: HOME - Home Medications Comprehensive Discharge Medication List: Ambulatory Orders Metformin HCl [Glucophage] 1,000 mg PO BID 04/05/18 Digoxin Oral Solution [Lanoxin Oral Solution -] 125 mcg PO DAILY #75 ml 06/21/18 Fluticasone/Salmeterol [Advair 250-50 Diskus] 1 each IH DAILY #30 blst.w.dev 06/21/18 Furosemide [Lasix] 20 mg PO DAILY #30 tablet 06/21/18 Metoprolol Succinate [Toprol XL -] 25 mg PO BID #60 tab.sr.24h 06/21/18 Glyburide 2.5 mg PO DAILY 03/28/19 levETIRAcetam [Keppra -] 500 mg PO BID 03/28/19 Aspirin [ASA -] 81 mg PEG DAILY #30 tab.chew 09/05/19 Atorvastatin Ca [Lipitor] 20 mg PO HS 10/21/19 Clotrimazole [Lotrimin -] 1 applic TP DAILY 10/21/19 Budesonide/Formeterol Fumarate [SYMBICORT 80/4.5mcg -] 2 puff IH DAILY inhaler 11/01/19 Albuterol Sulfate Inhaler - [Ventolin HFA Inhaler -] 1 - 2 inh PO QID #1 inhaler 12/11/19 Acetaminophen [Tylenol .Regular Strength -] 2 tab PO Q8H #100 tablet 12/25/19 Albuterol 0.083% Nebulizer Yazmin [Ventolin 0.083% Nebulizer Soln -] 1 neb NEB Q4H #1 box 12/25/19 Guaifenesin [Tussin Chest Congestion] 10 ml PO QID #1 liquid 01/02/20 Abacavir/Dolutegravir/Lamivudi [Triumeq 600-50-300 mg Tablet] 1 each PO DAILY #30 tablet 02/19/20 Lorazepam [Ativan] 0.5 mg PO AM #30 tablet MDD 1 03/26/20 Paroxetine HCl [Paxil -] 10 mg PO DAILY #30 tablet 03/26/20 Problem List - Problems (1) Infiltrate of lung present on chest x-ray Code(s): R91.8 - OTHER NONSPECIFIC ABNORMAL FINDING OF LUNG FIELD (2) Sepsis Code(s): A41.9 - SEPSIS, UNSPECIFIED ORGANISM (3) Choledocholithiasis Code(s): K80.50 - CALCULUS OF BILE DUCT W/O CHOLANGITIS OR CHOLECYST W/O OBST (4) Dilated cbd, acquired Code(s): K83.8 - OTHER SPECIFIED DISEASES OF BILIARY TRACT (5) Elevated LFTs Code(s): R79.89 - OTHER SPECIFIED ABNORMAL FINDINGS OF BLOOD CHEMISTRY (6) Fever Code(s): R50.9 - FEVER, UNSPECIFIED Qualifiers: Fever type: unspecified Qualified Code(s): R50.9 - Fever, unspecified (7) Dysphagia Code(s): R13.10 - DYSPHAGIA, UNSPECIFIED (8) Diabetes 1.5, managed as type 2 Code(s): E10.9 - TYPE 1 DIABETES MELLITUS WITHOUT COMPLICATIONS (9) HIV (human immunodeficiency virus infection) Code(s): B20 - HUMAN IMMUNODEFICIENCY VIRUS [HIV] DISEASE (10) CVA (cerebral vascular accident) Code(s): I63.9 - CEREBRAL INFARCTION, UNSPECIFIED (11) AF Atrial fibrillation Code(s): I48.91 - UNSPECIFIED ATRIAL FIBRILLATION (12) CVA (cerebral vascular accident) Code(s): I63.9 - CEREBRAL INFARCTION, UNSPECIFIED (13) Eye globe prosthesis Code(s): Z97.0 - PRESENCE OF ARTIFICIAL EYE (14) DVT prophylaxis Code(s): Z29.9 - ENCOUNTER FOR PROPHYLACTIC MEASURES, UNSPECIFIED This patient is new to me today: No Emergency Visit: Yes ED Registration Date: 03/25/20 Care time: The patient presented to the Emergency Department on the above date and was hospitalized for further evaluation of their emergent condition. Critical Care patient: No - Discharge Referral Referred to [facility] No
[2020-04-07 15:39] VITALS: BP 118/71; PULSE 60; TEMP 98.2
[2020-04-07] MEDS: POLYETHYLENE GLYCOL 3350 119 GM BTL PO SCH (17:02)
--- NOTE | 2020-04-13 15:00 | PATH ---
Surgical Pathology Report Patient Name: MARTI ROSALES Med. Rec. #: [id number] /Age/Gender: 1955 (Age: 64) / M Account: [id number] Location: [address] [place] [address]/[facility] Taken: 03/30/2020 Received: 03/31/2020 Reported: 04/01/2020 Physicians: Rohan Acosta MD Specimen(s) Received GALLBLADDER Clinical History Choledocholithiasis/ascending cholangitis, cholelithiasis Final Diagnosis GALLBLADDER WITH STONE, CHOLECYSTECTOMY: ACUTE SUPERIMPOSED ON CHRONIC CHOLECYSTITIS. CHOLELITHIASIS. Electronically Signed Radha Oconnor M.D. Gross Description Received in formalin labeled "gallbladder with stone," is a 3.5 x 2.4 x 1.1 cm du brown portion of gallbladder. There is no cystic duct margin identified. The outer surface is du brown with multifocal transmural defects. There is no bile present within the lumen. The mucosa is du-brown and focally eroded. The wall of the gallbladder averages 0.2 cm in thickness. Separately received within the same container is a 0.8 cm greatest dimension black, irregular cholelith. Enterprise Application Administrator sections of the gallbladder are submitted in one cassette. /03/31/2020 saudi03/31/2020
== END 2020-04-07 17:43 | disposition home or self-care (01) | DRG 710 ==
LOC: JER 13:45 → JERBED 18:28 → J5S 03-26 11:26
PROVIDERS: ADMIT Internal Medicine; ATTEND Nurse Practitioner Family
PROC: 0FJ44ZZ Inspection of Gallbladder, Percutaneous Endoscopic Approach (ICD-10-PCS; 2020-03-27)
PROC: 0DNU0ZZ Release Omentum, Open Approach (ICD-10-PCS; 2020-03-27)
PROC: 0DNL0ZZ Release Transverse Colon, Open Approach (ICD-10-PCS; 2020-03-27)
PROC: 0FC98ZZ Extirpation of Matter from Common Bile Duct, Via Natural or Artificial Opening Endoscopic (ICD-10-PCS; 2020-03-27)
PROC: 0F798DZ Dilation of Common Bile Duct with Intraluminal Device, Via Natural or Artificial Opening Endoscopic (ICD-10-PCS; 2020-03-27)
PROC: 0FT40ZZ Resection of Gallbladder, Open Approach (ICD-10-PCS; principal; 2020-03-27 11:00)
DX: A41.89 Other specified sepsis (principal); I48.91 Unspecified atrial fibrillation; J69.0 Pneumonitis due to inhalation of food and vomit; I10 Essential (primary) hypertension; E78.5 Hyperlipidemia, unspecified; Z21 Asymptomatic human immunodeficiency virus [HIV] infection status; J45.909 Unspecified asthma, uncomplicated; F41.9 Anxiety disorder, unspecified; E11.9 Type 2 diabetes mellitus without complications; G81.91 Hemiplegia, unspecified affecting right dominant side; R47.01 Aphasia; R16.1 Splenomegaly, not elsewhere classified; K76.0 Fatty (change of) liver, not elsewhere classified; R50.9 Fever, unspecified; H54.40 Blindness, one eye, unspecified eye; R56.9 Unspecified convulsions; G40.909 Epilepsy, unspecified, not intractable, without status epilepticus; K80.50 Calculus of bile duct without cholangitis or cholecystitis without obstruction; K83.8 Other specified diseases of biliary tract; D72.819 Decreased white blood cell count, unspecified; E87.6 Hypokalemia; D69.6 Thrombocytopenia, unspecified; T17.900A Unspecified foreign body in respiratory tract, part unspecified causing asphyxiation, initial encounter; R91.8 Other nonspecific abnormal finding of lung field; Z97.0 Presence of artificial eye; Z95.0 Presence of cardiac pacemaker
CPT/HCPCS: 36415; 71045-TC-FY; 71046-TC-FY; 74018-TC-FY; 74177-TC; 74230-TC-FY; 74330-TC; 76000-TC-FY; 76705-TC; 80048; 80053; 80162; 80177; 81003; 82150; 82248; 82550; 82553; 82607; 82728; 82962; 83036; 83540; 83550; 83690; 83735; 84439; 84443; 84484; 85025; 85610; 86140; 86850; 86900; 86901; 87040; 87070; 87086; 87205; 87899; 88304-TC; 92611-GN; 93005; 93010; 94010; 94760; 97116-GP; 97161-GP; 99285-25; J0131; Q9967; U0003

== ENCOUNTER 2020-04-14 15:48 | Inpatient (IN) | payer OTHER ==
[2020-04-14] MEDS ORDERED: CEFAZOLIN 1 GM in DEXTROSE 5%-WATER - 50 ML IVPB ONE (17:37)
[2020-04-14 18:12] LABS: BASO % 0.8 % (0-2.0); EOS % 2.2 % (0-4.5); HEMATOCRIT 31.7 % (35.4-49); HEMOGLOBIN 10.1 GM/dL (11.7-16.9); LYMPH % 28.6 % (8-40); MCH 30.4 pg (25.7-33.7); MCHC 31.8 g/dl (32.0-35.9); MEAN CELL VOLUME 95.7 fl (80-96); MEAN PLT VOLUME 7.6 fl (7.5-11.1); MONO % 8.7 % (3.8-10.2); NEUT % 59.7 % (42.8-82.8); PLATELET COUNT 190 K/MM3 (134-434); RBC 3.31 M/mm3 (4.00-5.60); RDW 14.9 % (11.9-15.9); WHITE BLOOD COUNT 4.3 K/mm3 (4.0-10.0)
[2020-04-14 18:29] LABS: INR 1.11 (0.83-1.09); PROTHROMBIN TIME (PATIENT) 13.1 SEC (9.7-13.0)
[2020-04-14 18:33] LABS: ALBUMIN 2.9 g/dl (3.4-5.0); BILIRUBIN,TOTAL 0.6 mg/dL (0.2-1); BLOOD UREA NITROGEN 11.6 mg/dL (7-18); CALCIUM 8.5 mg/dL (8.5-10.1); CREATININE 0.9 mg/dL (0.55-1.3); POTASSIUM 4.2 mmol/L (3.5-5.1); TOT PROT 7.8 g/dl (6.4-8.2)
[2020-04-14] MEDS ORDERED: CEFAZOLIN 1 GM/D5W 1 GM/50 ML BAG ONE (18:39)
[2020-04-15] MEDS ORDERED: HEPARIN NA (PORCINE) 5,000 UNITS/ML 1ML VIAL ONE (06:35)
[2020-04-15 06:36] LABS: BASO % 0.9 % (0-2.0); EOS % 2.9 % (0-4.5); HEMATOCRIT 31.1 % (35.4-49); HEMOGLOBIN 10.2 GM/dL (11.7-16.9); LYMPH % 33.3 % (8-40); MCH 30.7 pg (25.7-33.7); MCHC 32.6 g/dl (32.0-35.9); MEAN PLT VOLUME 7.5 fl (7.5-11.1); MONO % 8.7 % (3.8-10.2); NEUT % 54.2 % (42.8-82.8); PLATELET COUNT 189 K/MM3 (134-434); RBC 3.31 M/mm3 (4.00-5.60); RDW 14.8 % (11.9-15.9); WHITE BLOOD COUNT 4.7 K/mm3 (4.0-10.0)
[2020-04-15] MEDS: HEPARIN NA (PORCINE) 5,000 UNITS/ML 1ML VIAL SQ SCH ×3 (06:39→21:15)
[2020-04-15] MEDS ORDERED: LACTATED RINGERS SOLUTION 1,000 ML/1,000 ML INFUS.BAG IV SCH (06:45)
[2020-04-15 06:58] LABS: ALBUMIN 2.7 g/dl (3.4-5.0); BILIRUBIN,TOTAL 0.9 mg/dL (0.2-1); CALCIUM 8.4 mg/dL (8.5-10.1); CREATININE 0.8 mg/dL (0.55-1.3); MAGNESIUM 1.9 mg/dL (1.8-2.4); PHOSPHOROUS 4.1 mg/dL (2.5-4.9); POTASSIUM 3.8 mmol/L (3.5-5.1); TOT PROT 7.5 g/dl (6.4-8.2)
[2020-04-15] MEDS: INSULIN SLIDING SCALE (NOVOLOG) 1 VIAL SQ SCH ×4 (07:35→21:16)
[2020-04-15] MEDS ORDERED: guaiFENesin 200 MG/10 ML 10 ML UNIT-DOSE CUPS PO PRN (17:23)
[2020-04-15] MEDS ORDERED: guaiFENesin 200 MG/10 ML 10 ML UNIT-DOSE CUPS PO SCH (18:00)
[2020-04-15] MEDS ORDERED: ABACAVIR/DOLUTEGRAVIR/LAMIVUDI (TRIUMEQ) TABLET -NF PO SCH (18:22)
[2020-04-15] MEDS: ABACAVIR/DOLUTEGRAVIR/LAMIVUDI (TRIUMEQ) TABLET -NF PO SCH (20:53)
[2020-04-15] MEDS: ALBUTEROL SO4 HFA INHALER IH SCH (21:15)
[2020-04-15] MEDS: levETIRAcetam 500 MG TABLET (FP) PO SCH (21:15)
[2020-04-15] MEDS: BUDESONIDE/FORMETEROL FUMARATE 80/4.5 mcg INHALER IH SCH (21:16)
[2020-04-15] MEDS: ATORVASTATIN CA 20 MG TABLET (FP) PO SCH (21:16)
[2020-04-15] MEDS: metoPROLOL SUCCINATE 25 MG TAB.SR.24H (FP) PO SCH (21:16)
[2020-04-15] MEDS ORDERED: ACETAMINOPHEN 325 MG TABLET (FP) PO SCH (22:00)
[2020-04-16] MEDS: ALBUTEROL SO4 HFA INHALER IH SCH ×6 (03:13→21:26)
[2020-04-16] MEDS: HEPARIN NA (PORCINE) 5,000 UNITS/ML 1ML VIAL SQ SCH ×3 (06:24→21:23)
[2020-04-16] MEDS: LORazepam 0.5 MG TABLET PO SCH (06:24)
[2020-04-16] MEDS: INSULIN SLIDING SCALE (NOVOLOG) 1 VIAL SQ SCH ×4 (06:25→21:34)
[2020-04-16 08:06] LABS: BASO % 0.5 % (0-2.0); EOS % 2.5 % (0-4.5); HEMATOCRIT 31.5 % (35.4-49); HEMOGLOBIN 10.1 GM/dL (11.7-16.9); LYMPH % 29.6 % (8-40); MCH 30.4 pg (25.7-33.7); MEAN PLT VOLUME 7.7 fl (7.5-11.1); MONO % 8.7 % (3.8-10.2); NEUT % 58.7 % (42.8-82.8); PLATELET COUNT 188 K/MM3 (134-434); RBC 3.32 M/mm3 (4.00-5.60); RDW 14.9 % (11.9-15.9); WHITE BLOOD COUNT 4.5 K/mm3 (4.0-10.0)
[2020-04-16 08:18] LABS: ALBUMIN 2.8 g/dl (3.4-5.0); CALCIUM 8.7 mg/dL (8.5-10.1); CREATININE 0.9 mg/dL (0.55-1.3); MAGNESIUM 2.1 mg/dL (1.8-2.4); TOT PROT 7.8 g/dl (6.4-8.2)
[2020-04-16] MEDS ORDERED: PT OWN MED DRAWER 7, Y5N ONE (08:42)
[2020-04-16] MEDS: metoPROLOL SUCCINATE 25 MG TAB.SR.24H (FP) PO SCH ×2 (09:04→21:23)
[2020-04-16] MEDS: levETIRAcetam 500 MG TABLET (FP) PO SCH ×2 (09:04→21:23)
[2020-04-16] MEDS: PARoxetine HCL 10 MG TABLET PO SCH (09:04)
[2020-04-16] MEDS: ASPIRIN 81 MG CHEWABLE TABLETS PO SCH (09:04)
[2020-04-16] MEDS: FUROSEMIDE 20 MG TABLET (FP) PO SCH (09:04)
[2020-04-16] MEDS: ABACAVIR/DOLUTEGRAVIR/LAMIVUDI (TRIUMEQ) TABLET -NF PO SCH (09:05)
[2020-04-16] MEDS: DIGOXIN 0.125 MG TABLET (FP) PO SCH (09:07)
[2020-04-16] MEDS ORDERED: ABACAVIR/DOLUTEGRAVIR/LAMIVUDI (TRIUMEQ) TABLET -NF PO SCH (10:00)
[2020-04-16] MEDS ORDERED: ASPIRIN 81 MG CHEWABLE TABLETS PEG SCH (10:00)
[2020-04-16] MEDS ORDERED: BUDESONIDE/FORMETEROL FUMARATE 80/4.5 mcg INHALER IH SCH (10:00)
[2020-04-16] MEDS: BUDESONIDE/FORMETEROL FUMARATE 80/4.5 mcg INHALER IH SCH ×2 (10:33→21:26)
[2020-04-16] MEDS: CLOTRIMAZOLE 1% CREAM 15 GM TUBE TP SCH (14:14)
[2020-04-16] MEDS: ATORVASTATIN CA 20 MG TABLET (FP) PO SCH (21:23)
[2020-04-16] MEDS: POLYETHYLENE GLYCOL 3350 119 GM BTL PO SCH (21:36)
[2020-04-17] MEDS: ALBUTEROL SO4 HFA INHALER IH SCH ×5 (04:12→21:27)
[2020-04-17] MEDS: INSULIN SLIDING SCALE (NOVOLOG) 1 VIAL SQ SCH ×4 (06:29→23:00)
[2020-04-17] MEDS: HEPARIN NA (PORCINE) 5,000 UNITS/ML 1ML VIAL SQ SCH ×3 (06:50→21:27)
[2020-04-17] MEDS: LORazepam 0.5 MG TABLET PO SCH (06:50)
[2020-04-17 07:31] LABS: BASO % 0.4 % (0-2.0); EOS % 2.9 % (0-4.5); HEMATOCRIT 31.3 % (35.4-49); HEMOGLOBIN 10.1 GM/dL (11.7-16.9); LYMPH % 33.8 % (8-40); MCH 30.4 pg (25.7-33.7); MCHC 32.4 g/dl (32.0-35.9); MEAN PLT VOLUME 7.4 fl (7.5-11.1); NEUT % 53.9 % (42.8-82.8); PLATELET COUNT 183 K/MM3 (134-434); RBC 3.33 M/mm3 (4.00-5.60); RDW 14.5 % (11.9-15.9); WHITE BLOOD COUNT 4.5 K/mm3 (4.0-10.0)
[2020-04-17 07:54] LABS: BLOOD UREA NITROGEN 10.2 mg/dL (7-18); CREATININE 0.9 mg/dL (0.55-1.3)
[2020-04-17 07:55] LABS: ALBUMIN 2.7 g/dl (3.4-5.0); BILIRUBIN,TOTAL 1.1 mg/dL (0.2-1); CALCIUM 8.5 mg/dL (8.5-10.1); MAGNESIUM 2.1 mg/dL (1.8-2.4); POTASSIUM 4.4 mmol/L (3.5-5.1); TOT PROT 7.7 g/dl (6.4-8.2)
[2020-04-17] MEDS ORDERED: PT OWN MED DRAWER 7, Y5N ONE (10:38)
[2020-04-17] MEDS: levETIRAcetam 500 MG TABLET (FP) PO SCH ×2 (10:46→21:27)
[2020-04-17] MEDS: PARoxetine HCL 10 MG TABLET PO SCH (10:46)
[2020-04-17] MEDS: ASPIRIN 81 MG CHEWABLE TABLETS PO SCH (10:46)
[2020-04-17] MEDS: metoPROLOL SUCCINATE 25 MG TAB.SR.24H (FP) PO SCH ×2 (10:46→21:27)
[2020-04-17] MEDS: DIGOXIN 0.125 MG TABLET (FP) PO SCH (10:46)
[2020-04-17] MEDS: FUROSEMIDE 20 MG TABLET (FP) PO SCH (10:46)
[2020-04-17] MEDS: BUDESONIDE/FORMETEROL FUMARATE 80/4.5 mcg INHALER IH SCH ×2 (10:47→21:28)
[2020-04-17] MEDS: ABACAVIR/DOLUTEGRAVIR/LAMIVUDI (TRIUMEQ) TABLET -NF PO SCH (10:47)
[2020-04-17] MEDS: POLYETHYLENE GLYCOL 3350 119 GM BTL PO SCH ×2 (10:48→22:50)
[2020-04-17] MEDS: CLOTRIMAZOLE 1% CREAM 15 GM TUBE TP SCH (10:48)
[2020-04-17] MEDS: ATORVASTATIN CA 20 MG TABLET (FP) PO SCH (21:27)
[2020-04-18] MEDS: ALBUTEROL SO4 HFA INHALER IH SCH ×6 (02:00→20:45)
[2020-04-18] MEDS: HEPARIN NA (PORCINE) 5,000 UNITS/ML 1ML VIAL SQ SCH ×3 (05:06→22:42)
[2020-04-18] MEDS: LORazepam 0.5 MG TABLET PO SCH (06:08)
[2020-04-18] MEDS: INSULIN SLIDING SCALE (NOVOLOG) 1 VIAL SQ SCH ×4 (06:09→22:43)
[2020-04-18 08:10] LABS: BASO % 0.6 % (0-2.0); EOS % 3.8 % (0-4.5); HEMATOCRIT 30.8 % (35.4-49); HEMOGLOBIN 10.1 GM/dL (11.7-16.9); LYMPH % 31.7 % (8-40); MCH 31.1 pg (25.7-33.7); MCHC 32.8 g/dl (32.0-35.9); MEAN CELL VOLUME 94.6 fl (80-96); MEAN PLT VOLUME 7.6 fl (7.5-11.1); MONO % 8.3 % (3.8-10.2); NEUT % 55.6 % (42.8-82.8); PLATELET COUNT 174 K/MM3 (134-434); RBC 3.26 M/mm3 (4.00-5.60); RDW 14.6 % (11.9-15.9); WHITE BLOOD COUNT 4.2 K/mm3 (4.0-10.0)
[2020-04-18 08:11] LABS: ALBUMIN 2.8 g/dl (3.4-5.0); BILIRUBIN,TOTAL 0.7 mg/dL (0.2-1); BLOOD UREA NITROGEN 12.2 mg/dL (7-18); CALCIUM 8.7 mg/dL (8.5-10.1); CREATININE 0.9 mg/dL (0.55-1.3); MAGNESIUM 2.1 mg/dL (1.8-2.4); POTASSIUM 4.1 mmol/L (3.5-5.1); TOT PROT 7.9 g/dl (6.4-8.2)
[2020-04-18] MEDS ORDERED: PT OWN MED DRAWER 7, Y5N ONE (10:14)
[2020-04-18] MEDS: ABACAVIR/DOLUTEGRAVIR/LAMIVUDI (TRIUMEQ) TABLET -NF PO SCH (10:20)
[2020-04-18] MEDS: levETIRAcetam 500 MG TABLET (FP) PO SCH ×2 (10:20→22:42)
[2020-04-18] MEDS: PARoxetine HCL 10 MG TABLET PO SCH (10:20)
[2020-04-18] MEDS: DIGOXIN 0.125 MG TABLET (FP) PO SCH (10:20)
[2020-04-18] MEDS: FUROSEMIDE 20 MG TABLET (FP) PO SCH (10:20)
[2020-04-18] MEDS: metoPROLOL SUCCINATE 25 MG TAB.SR.24H (FP) PO SCH ×2 (10:20→22:43)
[2020-04-18] MEDS: ASPIRIN 81 MG CHEWABLE TABLETS PO SCH (10:20)
[2020-04-18] MEDS: BUDESONIDE/FORMETEROL FUMARATE 80/4.5 mcg INHALER IH SCH ×2 (10:21→22:44)
[2020-04-18] MEDS: CLOTRIMAZOLE 1% CREAM 15 GM TUBE TP SCH (10:21)
[2020-04-18] MEDS: POLYETHYLENE GLYCOL 3350 119 GM BTL PO SCH ×2 (10:21→22:43)
[2020-04-18] MEDS ORDERED: INSULIN (NOVOLOG) ASPART 100 UNITS/ML 10ML VIAL ONE (11:54)
[2020-04-18] MEDS: ATORVASTATIN CA 20 MG TABLET (FP) PO SCH (22:42)
[2020-04-19] MEDS: ALBUTEROL SO4 HFA INHALER IH SCH ×6 (04:30→20:40)
[2020-04-19] MEDS ORDERED: INSULIN (NOVOLOG) ASPART 100 UNITS/ML 10ML VIAL ONE ×3 (06:00→17:47)
[2020-04-19] MEDS: INSULIN SLIDING SCALE (NOVOLOG) 1 VIAL SQ SCH ×4 (06:39→21:41)
[2020-04-19] MEDS: LORazepam 0.5 MG TABLET PO SCH (06:43)
[2020-04-19] MEDS: HEPARIN NA (PORCINE) 5,000 UNITS/ML 1ML VIAL SQ SCH ×3 (06:45→21:37)
[2020-04-19] MEDS: PARoxetine HCL 10 MG TABLET PO SCH (10:08)
[2020-04-19] MEDS: ASPIRIN 81 MG CHEWABLE TABLETS PO SCH (10:08)
[2020-04-19] MEDS: levETIRAcetam 500 MG TABLET (FP) PO SCH ×2 (10:08→21:37)
[2020-04-19] MEDS: metoPROLOL SUCCINATE 25 MG TAB.SR.24H (FP) PO SCH ×2 (10:08→21:37)
[2020-04-19] MEDS: FUROSEMIDE 20 MG TABLET (FP) PO SCH (10:08)
[2020-04-19] MEDS: ABACAVIR/DOLUTEGRAVIR/LAMIVUDI (TRIUMEQ) TABLET -NF PO SCH (10:09)
[2020-04-19] MEDS: DIGOXIN 0.125 MG TABLET (FP) PO SCH (10:09)
[2020-04-19] MEDS: BUDESONIDE/FORMETEROL FUMARATE 80/4.5 mcg INHALER IH SCH ×2 (10:10→21:40)
[2020-04-19] MEDS: CLOTRIMAZOLE 1% CREAM 15 GM TUBE TP SCH (10:10)
[2020-04-19] MEDS: POLYETHYLENE GLYCOL 3350 119 GM BTL PO SCH ×2 (10:12→21:41)
[2020-04-19] MEDS: ACETAMINOPHEN 325 MG TABLET (FP) PO PRN (16:14)
[2020-04-19] MEDS: ATORVASTATIN CA 20 MG TABLET (FP) PO SCH (21:37)
[2020-04-20] MEDS: ALBUTEROL SO4 HFA INHALER IH SCH ×5 (06:36→22:00)
[2020-04-20] MEDS: HEPARIN NA (PORCINE) 5,000 UNITS/ML 1ML VIAL SQ SCH ×3 (06:36→21:08)
[2020-04-20] MEDS: LORazepam 0.5 MG TABLET PO SCH (06:38)
[2020-04-20] MEDS: INSULIN SLIDING SCALE (NOVOLOG) 1 VIAL SQ SCH ×4 (06:38→21:08)
[2020-04-20 06:53] LABS: BASO % 0.6 % (0-2.0); EOS % 3.9 % (0-4.5); HEMOGLOBIN 10.5 GM/dL (11.7-16.9); LYMPH % 34.6 % (8-40); MCHC 31.9 g/dl (32.0-35.9); MEAN CELL VOLUME 94.2 fl (80-96); MEAN PLT VOLUME 7.6 fl (7.5-11.1); MONO % 8.9 % (3.8-10.2); PLATELET COUNT 181 K/MM3 (134-434); RDW 14.8 % (11.9-15.9); WHITE BLOOD COUNT 4.2 K/mm3 (4.0-10.0)
[2020-04-20 07:13] LABS: BLOOD UREA NITROGEN 13.1 mg/dL (7-18); CALCIUM 8.7 mg/dL (8.5-10.1); CREATININE 0.9 mg/dL (0.55-1.3); MAGNESIUM 2.1 mg/dL (1.8-2.4); POTASSIUM 4.6 mmol/L (3.5-5.1)
[2020-04-20 07:15] LABS: BILIRUBIN,TOTAL 0.8 mg/dL (0.2-1); TOT PROT 8.1 g/dl (6.4-8.2)
[2020-04-20] MEDS: levETIRAcetam 500 MG TABLET (FP) PO SCH ×2 (09:10→21:08)
[2020-04-20] MEDS: PARoxetine HCL 10 MG TABLET PO SCH (09:10)
[2020-04-20] MEDS: DIGOXIN 0.125 MG TABLET (FP) PO SCH (09:10)
[2020-04-20] MEDS: FUROSEMIDE 20 MG TABLET (FP) PO SCH (09:10)
[2020-04-20] MEDS: ASPIRIN 81 MG CHEWABLE TABLETS PO SCH (09:10)
[2020-04-20] MEDS: metoPROLOL SUCCINATE 25 MG TAB.SR.24H (FP) PO SCH ×2 (09:10→21:09)
[2020-04-20] MEDS: ABACAVIR/DOLUTEGRAVIR/LAMIVUDI (TRIUMEQ) TABLET -NF PO SCH (09:11)
[2020-04-20] MEDS: POLYETHYLENE GLYCOL 3350 119 GM BTL PO SCH ×2 (09:11→21:08)
[2020-04-20] MEDS: CLOTRIMAZOLE 1% CREAM 15 GM TUBE TP SCH (09:13)
[2020-04-20] MEDS: BUDESONIDE/FORMETEROL FUMARATE 80/4.5 mcg INHALER IH SCH ×2 (09:13→21:08)
[2020-04-20] MEDS: ACETAMINOPHEN 325 MG TABLET (FP) PO PRN (16:19)
[2020-04-20] MEDS: DOCUSATE SODIUM 100 MG CAPSULE (FP) PO SCH (21:08)
[2020-04-20] MEDS: ATORVASTATIN CA 20 MG TABLET (FP) PO SCH (21:08)
[2020-04-21] MEDS: LORazepam 0.5 MG TABLET PO SCH (06:09)
[2020-04-21] MEDS: DOCUSATE SODIUM 100 MG CAPSULE (FP) PO SCH ×3 (06:09→21:24)
[2020-04-21] MEDS: HEPARIN NA (PORCINE) 5,000 UNITS/ML 1ML VIAL SQ SCH ×3 (06:09→21:24)
[2020-04-21] MEDS: ALBUTEROL SO4 HFA INHALER IH SCH ×6 (06:09→21:23)
[2020-04-21] MEDS: INSULIN SLIDING SCALE (NOVOLOG) 1 VIAL SQ SCH ×4 (06:10→21:24)
[2020-04-21] MEDS ORDERED: INSULIN (NOVOLOG) ASPART 100 UNITS/ML 10ML VIAL ONE ×2 (06:30→11:19)
[2020-04-21 07:30] LABS: BASO % 0.5 % (0-2.0); EOS % 4.2 % (0-4.5); HEMATOCRIT 33.2 % (35.4-49); HEMOGLOBIN 10.7 GM/dL (11.7-16.9); LYMPH % 36.7 % (8-40); MCH 30.2 pg (25.7-33.7); MCHC 32.3 g/dl (32.0-35.9); MEAN CELL VOLUME 93.6 fl (80-96); MEAN PLT VOLUME 7.7 fl (7.5-11.1); MONO % 9.6 % (3.8-10.2); PLATELET COUNT 189 K/MM3 (134-434); RBC 3.55 M/mm3 (4.00-5.60); RDW 14.5 % (11.9-15.9); WHITE BLOOD COUNT 4.4 K/mm3 (4.0-10.0)
[2020-04-21 07:34] LABS: BLOOD UREA NITROGEN 12.6 mg/dL (7-18); CALCIUM 8.9 mg/dL (8.5-10.1); CREATININE 0.9 mg/dL (0.55-1.3); POTASSIUM 4.4 mmol/L (3.5-5.1)
[2020-04-21] MEDS ORDERED: PT OWN MED DRAWER 7, Y5N ONE (08:23)
[2020-04-21] MEDS: FUROSEMIDE 20 MG TABLET (FP) PO SCH (09:57)
[2020-04-21] MEDS: levETIRAcetam 500 MG TABLET (FP) PO SCH ×2 (09:57→21:24)
[2020-04-21] MEDS: DIGOXIN 0.125 MG TABLET (FP) PO SCH (09:57)
[2020-04-21] MEDS: PARoxetine HCL 10 MG TABLET PO SCH (09:57)
[2020-04-21] MEDS: BUDESONIDE/FORMETEROL FUMARATE 80/4.5 mcg INHALER IH SCH ×2 (09:58→21:24)
[2020-04-21] MEDS: CLOTRIMAZOLE 1% CREAM 15 GM TUBE TP SCH (09:58)
[2020-04-21] MEDS: metoPROLOL SUCCINATE 25 MG TAB.SR.24H (FP) PO SCH ×2 (09:58→21:24)
[2020-04-21] MEDS: ASPIRIN 81 MG CHEWABLE TABLETS PO SCH (09:59)
[2020-04-21] MEDS: POLYETHYLENE GLYCOL 3350 119 GM BTL PO SCH ×2 (09:59→21:24)
[2020-04-21] MEDS: ABACAVIR/DOLUTEGRAVIR/LAMIVUDI (TRIUMEQ) TABLET -NF PO SCH (10:00)
[2020-04-21 14:55] VITALS: BMI 29.0
[2020-04-21] MEDS: AMINO ACIDS/PROTEIN HYDROLYS 30 ML LIQUID.PKT PO SCH (16:42)
[2020-04-21] MEDS: ACETAMINOPHEN 325 MG TABLET (FP) PO PRN (16:44)
[2020-04-21] MEDS: ATORVASTATIN CA 20 MG TABLET (FP) PO SCH (21:24)
[2020-04-22] MEDS: ALBUTEROL SO4 HFA INHALER IH SCH ×6 (04:00→21:46)
[2020-04-22] MEDS: LORazepam 0.5 MG TABLET PO SCH (06:09)
[2020-04-22] MEDS: HEPARIN NA (PORCINE) 5,000 UNITS/ML 1ML VIAL SQ SCH ×3 (06:12→21:48)
[2020-04-22] MEDS: INSULIN SLIDING SCALE (NOVOLOG) 1 VIAL SQ SCH ×4 (06:12→22:17)
[2020-04-22] MEDS: DOCUSATE SODIUM 100 MG CAPSULE (FP) PO SCH ×3 (06:12→21:48)
[2020-04-22 06:35] LABS: BASO % 0.4 % (0-2.0); EOS % 3.8 % (0-4.5); HEMATOCRIT 33.2 % (35.4-49); HEMOGLOBIN 10.7 GM/dL (11.7-16.9); MCH 30.2 pg (25.7-33.7); MCHC 32.3 g/dl (32.0-35.9); MEAN CELL VOLUME 93.6 fl (80-96); MEAN PLT VOLUME 7.5 fl (7.5-11.1); MONO % 8.6 % (3.8-10.2); NEUT % 56.2 % (42.8-82.8); PLATELET COUNT 182 K/MM3 (134-434); RBC 3.54 M/mm3 (4.00-5.60); RDW 14.7 % (11.9-15.9); WHITE BLOOD COUNT 4.6 K/mm3 (4.0-10.0)
[2020-04-22 06:45] LABS: BILIRUBIN,TOTAL 0.6 mg/dL (0.2-1); CALCIUM 8.7 mg/dL (8.5-10.1); MAGNESIUM 2.2 mg/dL (1.8-2.4); POTASSIUM 4.5 mmol/L (3.5-5.1); TOT PROT 8.2 g/dl (6.4-8.2)
[2020-04-22] MEDS ORDERED: PT OWN MED DRAWER 7, Y5N ONE (09:25)
[2020-04-22] MEDS: levETIRAcetam 500 MG TABLET (FP) PO SCH ×2 (09:27→21:47)
[2020-04-22] MEDS: DIGOXIN 0.125 MG TABLET (FP) PO SCH (09:27)
[2020-04-22] MEDS: AMINO ACIDS/PROTEIN HYDROLYS 30 ML LIQUID.PKT PO SCH ×2 (09:27→17:12)
[2020-04-22] MEDS: ASPIRIN 81 MG CHEWABLE TABLETS PO SCH (09:27)
[2020-04-22] MEDS: FUROSEMIDE 20 MG TABLET (FP) PO SCH (09:28)
[2020-04-22] MEDS: BUDESONIDE/FORMETEROL FUMARATE 80/4.5 mcg INHALER IH SCH ×2 (09:28→21:47)
[2020-04-22] MEDS: CLOTRIMAZOLE 1% CREAM 15 GM TUBE TP SCH (09:28)
[2020-04-22] MEDS: PARoxetine HCL 10 MG TABLET PO SCH (09:28)
[2020-04-22] MEDS: metoPROLOL SUCCINATE 25 MG TAB.SR.24H (FP) PO SCH ×2 (09:28→21:47)
[2020-04-22] MEDS: ABACAVIR/DOLUTEGRAVIR/LAMIVUDI (TRIUMEQ) TABLET -NF PO SCH (09:29)
[2020-04-22] MEDS: POLYETHYLENE GLYCOL 3350 119 GM BTL PO SCH ×2 (09:31→21:47)
[2020-04-22] MEDS ORDERED: INSULIN (NOVOLOG) ASPART 100 UNITS/ML 10ML VIAL ONE ×2 (17:00→21:21)
[2020-04-22] MEDS: ATORVASTATIN CA 20 MG TABLET (FP) PO SCH (21:48)
[2020-04-23] MEDS: LORazepam 0.5 MG TABLET PO SCH (06:20)
[2020-04-23] MEDS: ALBUTEROL SO4 HFA INHALER IH SCH ×5 (06:20→20:15)
[2020-04-23] MEDS: DOCUSATE SODIUM 100 MG CAPSULE (FP) PO SCH ×3 (06:20→21:17)
[2020-04-23] MEDS: HEPARIN NA (PORCINE) 5,000 UNITS/ML 1ML VIAL SQ SCH ×3 (06:21→21:17)
[2020-04-23] MEDS: INSULIN SLIDING SCALE (NOVOLOG) 1 VIAL SQ SCH ×4 (06:42→21:25)
[2020-04-23] MEDS: AMINO ACIDS/PROTEIN HYDROLYS 30 ML LIQUID.PKT PO SCH ×2 (09:31→16:30)
[2020-04-23] MEDS: levETIRAcetam 500 MG TABLET (FP) PO SCH ×2 (09:33→21:16)
[2020-04-23] MEDS: FUROSEMIDE 20 MG TABLET (FP) PO SCH (09:33)
[2020-04-23] MEDS: BUDESONIDE/FORMETEROL FUMARATE 80/4.5 mcg INHALER IH SCH ×2 (09:33→21:29)
[2020-04-23] MEDS: metoPROLOL SUCCINATE 25 MG TAB.SR.24H (FP) PO SCH ×2 (09:34→21:16)
[2020-04-23] MEDS: DIGOXIN 0.125 MG TABLET (FP) PO SCH (09:34)
[2020-04-23] MEDS: PARoxetine HCL 10 MG TABLET PO SCH (09:34)
[2020-04-23] MEDS: ASPIRIN 81 MG CHEWABLE TABLETS PO SCH (09:34)
[2020-04-23] MEDS: ABACAVIR/DOLUTEGRAVIR/LAMIVUDI (TRIUMEQ) TABLET -NF PO SCH (09:34)
[2020-04-23] MEDS: CLOTRIMAZOLE 1% CREAM 15 GM TUBE TP SCH (09:35)
[2020-04-23] MEDS: POLYETHYLENE GLYCOL 3350 119 GM BTL PO SCH ×2 (09:35→21:49)
[2020-04-23] MEDS ORDERED: INSULIN (NOVOLOG) ASPART 100 UNITS/ML 10ML VIAL ONE (13:19)
[2020-04-23] MEDS: ACETAMINOPHEN 325 MG TABLET (FP) PO PRN (17:38)
[2020-04-23] MEDS: ATORVASTATIN CA 20 MG TABLET (FP) PO SCH (21:17)
[2020-04-24] MEDS: ALBUTEROL SO4 HFA INHALER IH SCH ×6 (00:35→20:38)
[2020-04-24] MEDS: DOCUSATE SODIUM 100 MG CAPSULE (FP) PO SCH ×3 (05:37→21:38)
[2020-04-24] MEDS: HEPARIN NA (PORCINE) 5,000 UNITS/ML 1ML VIAL SQ SCH ×3 (05:37→21:39)
[2020-04-24] MEDS: LORazepam 0.5 MG TABLET PO SCH (06:40)
[2020-04-24] MEDS: INSULIN SLIDING SCALE (NOVOLOG) 1 VIAL SQ SCH ×4 (06:41→21:52)
[2020-04-24 07:40] LABS: BASO % 0.5 % (0-2.0); HEMATOCRIT 33.5 % (35.4-49); LYMPH % 34.6 % (8-40); MCH 30.4 pg (25.7-33.7); MCHC 32.7 g/dl (32.0-35.9); MEAN PLT VOLUME 7.9 fl (7.5-11.1); MONO % 8.4 % (3.8-10.2); NEUT % 52.5 % (42.8-82.8); PLATELET COUNT 171 K/MM3 (134-434); RDW 14.5 % (11.9-15.9); WHITE BLOOD COUNT 4.9 K/mm3 (4.0-10.0)
[2020-04-24 07:53] LABS: ALBUMIN 3.1 g/dl (3.4-5.0); BILIRUBIN,TOTAL 0.6 mg/dL (0.2-1); BLOOD UREA NITROGEN 21.2 mg/dL (7-18); CALCIUM 8.5 mg/dL (8.5-10.1); CREATININE 0.9 mg/dL (0.55-1.3); MAGNESIUM 2.2 mg/dL (1.8-2.4); POTASSIUM 4.3 mmol/L (3.5-5.1); TOT PROT 8.2 g/dl (6.4-8.2)
[2020-04-24] MEDS: AMINO ACIDS/PROTEIN HYDROLYS 30 ML LIQUID.PKT PO SCH ×2 (08:35→17:37)
[2020-04-24] MEDS ORDERED: PT OWN MED DRAWER 7, Y5N ONE (09:19)
[2020-04-24] MEDS: PARoxetine HCL 10 MG TABLET PO SCH (09:37)
[2020-04-24] MEDS: levETIRAcetam 500 MG TABLET (FP) PO SCH ×2 (09:37→21:38)
[2020-04-24] MEDS: DIGOXIN 0.125 MG TABLET (FP) PO SCH (09:37)
[2020-04-24] MEDS: FUROSEMIDE 20 MG TABLET (FP) PO SCH (09:37)
[2020-04-24] MEDS: metoPROLOL SUCCINATE 25 MG TAB.SR.24H (FP) PO SCH ×2 (09:37→21:40)
[2020-04-24] MEDS: ASPIRIN 81 MG CHEWABLE TABLETS PO SCH (09:37)
[2020-04-24] MEDS: ABACAVIR/DOLUTEGRAVIR/LAMIVUDI (TRIUMEQ) TABLET -NF PO SCH (09:38)
[2020-04-24] MEDS: BUDESONIDE/FORMETEROL FUMARATE 80/4.5 mcg INHALER IH SCH ×2 (09:39→21:39)
[2020-04-24] MEDS: CLOTRIMAZOLE 1% CREAM 15 GM TUBE TP SCH (09:39)
[2020-04-24] MEDS: POLYETHYLENE GLYCOL 3350 119 GM BTL PO SCH ×2 (09:51→21:39)
[2020-04-24] MEDS: ATORVASTATIN CA 20 MG TABLET (FP) PO SCH (21:38)
[2020-04-25] MEDS: ALBUTEROL SO4 HFA INHALER IH SCH ×6 (00:22→21:10)
[2020-04-25] MEDS: DOCUSATE SODIUM 100 MG CAPSULE (FP) PO SCH ×3 (06:23→21:11)
[2020-04-25] MEDS: LORazepam 0.5 MG TABLET PO SCH (06:23)
[2020-04-25] MEDS: HEPARIN NA (PORCINE) 5,000 UNITS/ML 1ML VIAL SQ SCH ×3 (06:23→21:10)
[2020-04-25] MEDS: INSULIN SLIDING SCALE (NOVOLOG) 1 VIAL SQ SCH ×4 (06:30→22:08)
[2020-04-25 09:12] LABS: BASO % 0.9 % (0-2.0); HEMATOCRIT 33.7 % (35.4-49); LYMPH % 32.9 % (8-40); MCH 30.7 pg (25.7-33.7); MCHC 32.7 g/dl (32.0-35.9); MEAN CELL VOLUME 93.7 fl (80-96); MEAN PLT VOLUME 7.9 fl (7.5-11.1); MONO % 7.9 % (3.8-10.2); NEUT % 54.3 % (42.8-82.8); PLATELET COUNT 153 K/MM3 (134-434); RBC 3.59 M/mm3 (4.00-5.60)
[2020-04-25] MEDS: ASPIRIN 81 MG CHEWABLE TABLETS PO SCH (09:41)
[2020-04-25] MEDS: levETIRAcetam 500 MG TABLET (FP) PO SCH ×2 (09:41→21:10)
[2020-04-25] MEDS: FUROSEMIDE 20 MG TABLET (FP) PO SCH (09:41)
[2020-04-25] MEDS: PARoxetine HCL 10 MG TABLET PO SCH (09:41)
[2020-04-25] MEDS: POLYETHYLENE GLYCOL 3350 119 GM BTL PO SCH ×2 (09:42→21:49)
[2020-04-25] MEDS: metoPROLOL SUCCINATE 25 MG TAB.SR.24H (FP) PO SCH ×2 (09:42→21:11)
[2020-04-25] MEDS: DIGOXIN 0.125 MG TABLET (FP) PO SCH (09:42)
[2020-04-25] MEDS: AMINO ACIDS/PROTEIN HYDROLYS 30 ML LIQUID.PKT PO SCH ×2 (09:42→16:55)
[2020-04-25] MEDS: ABACAVIR/DOLUTEGRAVIR/LAMIVUDI (TRIUMEQ) TABLET -NF PO SCH (09:43)
[2020-04-25 09:45] LABS: BILIRUBIN,TOTAL 0.8 mg/dL (0.2-1); BLOOD UREA NITROGEN 18.7 mg/dL (7-18); CALCIUM 8.6 mg/dL (8.5-10.1); CREATININE 0.9 mg/dL (0.55-1.3); MAGNESIUM 2.1 mg/dL (1.8-2.4); POTASSIUM 4.1 mmol/L (3.5-5.1); TOT PROT 7.9 g/dl (6.4-8.2)
[2020-04-25] MEDS: BUDESONIDE/FORMETEROL FUMARATE 80/4.5 mcg INHALER IH SCH ×2 (09:50→21:48)
[2020-04-25] MEDS: CLOTRIMAZOLE 1% CREAM 15 GM TUBE TP SCH (09:50)
[2020-04-25] MEDS: ACETAMINOPHEN 325 MG TABLET (FP) PO PRN (15:58)
[2020-04-25 18:10] LABS: BASO % 0.4 % (0-2.0); EOS % 2.2 % (0-4.5); HEMATOCRIT 35.5 % (35.4-49); HEMOGLOBIN 11.5 GM/dL (11.7-16.9); LYMPH % 27.6 % (8-40); MCH 30.8 pg (25.7-33.7); MCHC 32.5 g/dl (32.0-35.9); MEAN CELL VOLUME 94.9 fl (80-96); MEAN PLT VOLUME 8.6 fl (7.5-11.1); MONO % 7.9 % (3.8-10.2); NEUT % 61.9 % (42.8-82.8); PLATELET COUNT 176 K/MM3 (134-434); RBC 3.74 M/mm3 (4.00-5.60); WHITE BLOOD COUNT 4.8 K/mm3 (4.0-10.0)
[2020-04-25 18:48] LABS: ALBUMIN 3.2 g/dl (3.4-5.0); BILIRUBIN,TOTAL 0.6 mg/dL (0.2-1); BLOOD UREA NITROGEN 21.3 mg/dL (7-18); CALCIUM 8.9 mg/dL (8.5-10.1); CREATININE 0.8 mg/dL (0.55-1.3); POTASSIUM 4.9 mmol/L (3.5-5.1); TOT PROT 8.4 g/dl (6.4-8.2)
[2020-04-25] MEDS: ATORVASTATIN CA 20 MG TABLET (FP) PO SCH (21:11)
[2020-04-26] MEDS: ALBUTEROL SO4 HFA INHALER IH SCH ×6 (06:10→21:38)
[2020-04-26] MEDS: DOCUSATE SODIUM 100 MG CAPSULE (FP) PO SCH ×3 (06:11→21:38)
[2020-04-26] MEDS: HEPARIN NA (PORCINE) 5,000 UNITS/ML 1ML VIAL SQ SCH ×3 (06:11→21:37)
[2020-04-26] MEDS: LORazepam 0.5 MG TABLET PO SCH (06:11)
[2020-04-26] MEDS: INSULIN SLIDING SCALE (NOVOLOG) 1 VIAL SQ SCH ×4 (06:22→22:19)
[2020-04-26 08:55] LABS: BASO % 0.5 % (0-2.0); EOS % 3.9 % (0-4.5); HEMATOCRIT 36.5 % (35.4-49); MCH 30.8 pg (25.7-33.7); MCHC 32.8 g/dl (32.0-35.9); MEAN PLT VOLUME 7.9 fl (7.5-11.1); MONO % 8.7 % (3.8-10.2); NEUT % 53.9 % (42.8-82.8); PLATELET COUNT 191 K/MM3 (134-434); RBC 3.89 M/mm3 (4.00-5.60); RDW 14.9 % (11.9-15.9); WHITE BLOOD COUNT 5.4 K/mm3 (4.0-10.0)
[2020-04-26 09:20] LABS: ALBUMIN 3.3 g/dl (3.4-5.0); BILIRUBIN,TOTAL 0.7 mg/dL (0.2-1); BLOOD UREA NITROGEN 17.8 mg/dL (7-18); CALCIUM 8.9 mg/dL (8.5-10.1); CREATININE 0.9 mg/dL (0.55-1.3); MAGNESIUM 2.1 mg/dL (1.8-2.4); POTASSIUM 4.4 mmol/L (3.5-5.1); TOT PROT 8.8 g/dl (6.4-8.2)
[2020-04-26] MEDS: AMINO ACIDS/PROTEIN HYDROLYS 30 ML LIQUID.PKT PO SCH ×2 (09:24→16:30)
[2020-04-26] MEDS: DIGOXIN 0.125 MG TABLET (FP) PO SCH (09:24)
[2020-04-26] MEDS: metoPROLOL SUCCINATE 25 MG TAB.SR.24H (FP) PO SCH ×2 (09:25→21:38)
[2020-04-26] MEDS: FUROSEMIDE 20 MG TABLET (FP) PO SCH (09:25)
[2020-04-26] MEDS: ASPIRIN 81 MG CHEWABLE TABLETS PO SCH (09:25)
[2020-04-26] MEDS: PARoxetine HCL 10 MG TABLET PO SCH (09:25)
[2020-04-26] MEDS: POLYETHYLENE GLYCOL 3350 119 GM BTL PO SCH ×2 (09:26→21:37)
[2020-04-26] MEDS: levETIRAcetam 500 MG TABLET (FP) PO SCH ×2 (09:26→21:38)
[2020-04-26] MEDS: ABACAVIR/DOLUTEGRAVIR/LAMIVUDI (TRIUMEQ) TABLET -NF PO SCH (09:27)
[2020-04-26] MEDS: CLOTRIMAZOLE 1% CREAM 15 GM TUBE TP SCH (09:28)
[2020-04-26] MEDS: BUDESONIDE/FORMETEROL FUMARATE 80/4.5 mcg INHALER IH SCH ×2 (09:28→21:38)
[2020-04-26] MEDS: ACETAMINOPHEN 325 MG TABLET (FP) PO PRN (16:30)
[2020-04-26] MEDS: ATORVASTATIN CA 20 MG TABLET (FP) PO SCH (21:38)
[2020-04-27] MEDS: ALBUTEROL SO4 HFA INHALER IH SCH ×4 (06:18→13:24)
[2020-04-27] MEDS: DOCUSATE SODIUM 100 MG CAPSULE (FP) PO SCH ×2 (06:19→13:44)
[2020-04-27] MEDS: LORazepam 0.5 MG TABLET PO SCH (06:19)
[2020-04-27] MEDS: HEPARIN NA (PORCINE) 5,000 UNITS/ML 1ML VIAL SQ SCH ×2 (06:24→13:45)
[2020-04-27] MEDS: INSULIN SLIDING SCALE (NOVOLOG) 1 VIAL SQ SCH ×2 (06:33→10:36)
[2020-04-27 06:35] VITALS: PULSE 60
[2020-04-27 07:57] LABS: BASO % 0.7 % (0-2.0); EOS % 4.2 % (0-4.5); HEMATOCRIT 34.3 % (35.4-49); HEMOGLOBIN 10.9 GM/dL (11.7-16.9); LYMPH % 37.4 % (8-40); MCH 29.9 pg (25.7-33.7); MCHC 31.8 g/dl (32.0-35.9); MEAN PLT VOLUME 8.5 fl (7.5-11.1); MONO % 9.9 % (3.8-10.2); NEUT % 47.8 % (42.8-82.8); PLATELET COUNT 128 K/MM3 (134-434); RBC 3.65 M/mm3 (4.00-5.60); RDW 14.4 % (11.9-15.9)
[2020-04-27 08:27] LABS: ALBUMIN 3.1 g/dl (3.4-5.0); BILIRUBIN,TOTAL 0.8 mg/dL (0.2-1); BLOOD UREA NITROGEN 20.2 mg/dL (7-18); CALCIUM 8.6 mg/dL (8.5-10.1); CREATININE 0.9 mg/dL (0.55-1.3); MAGNESIUM 2.1 mg/dL (1.8-2.4); POTASSIUM 4.4 mmol/L (3.5-5.1)
[2020-04-27] MEDS: levETIRAcetam 500 MG TABLET (FP) PO SCH (09:42)
[2020-04-27] MEDS: PARoxetine HCL 10 MG TABLET PO SCH (09:42)
[2020-04-27] MEDS: BUDESONIDE/FORMETEROL FUMARATE 80/4.5 mcg INHALER IH SCH (09:42)
[2020-04-27] MEDS: ASPIRIN 81 MG CHEWABLE TABLETS PO SCH (09:42)
[2020-04-27] MEDS: FUROSEMIDE 20 MG TABLET (FP) PO SCH (09:42)
[2020-04-27] MEDS: AMINO ACIDS/PROTEIN HYDROLYS 30 ML LIQUID.PKT PO SCH (09:42)
[2020-04-27] MEDS: CLOTRIMAZOLE 1% CREAM 15 GM TUBE TP SCH (09:42)
[2020-04-27] MEDS: POLYETHYLENE GLYCOL 3350 119 GM BTL PO SCH (09:42)
[2020-04-27] MEDS: metoPROLOL SUCCINATE 25 MG TAB.SR.24H (FP) PO SCH (09:42)
[2020-04-27] MEDS: ABACAVIR/DOLUTEGRAVIR/LAMIVUDI (TRIUMEQ) TABLET -NF PO SCH (09:43)
[2020-04-27] MEDS: DIGOXIN 0.125 MG TABLET (FP) PO SCH (09:45)
[2020-04-27] MEDS ORDERED: INSULIN (NOVOLOG) ASPART 100 UNITS/ML 10ML VIAL ONE (10:37)
[2020-04-27 13:16] VITALS: BP 118/66; TEMP 98.6
== END 2020-04-27 16:56 | disposition home or self-care (01) | DRG 813 ==
LOC: JER 15:48 → JERBED 18:31 → J7W 04-15 11:15
PROVIDERS: ADMIT Internal Medicine; ATTEND Nurse Practitioner Family
PROC: 2W13X6Z Compression of Abdominal Wall using Pressure Dressing (ICD-10-PCS; principal; 2020-04-24)
DX: T81.32XA Disruption of internal operation (surgical) wound, not elsewhere classified, initial encounter (principal); S06.9X9A Unspecified intracranial injury with loss of consciousness of unspecified duration, initial encounter; Y83.9 Surgical procedure, unspecified as the cause of abnormal reaction of the patient, or of later complication, without mention of misadventure at the time of the procedure; E11.9 Type 2 diabetes mellitus without complications; Z21 Asymptomatic human immunodeficiency virus [HIV] infection status; I10 Essential (primary) hypertension; I69.351 Hemiplegia and hemiparesis following cerebral infarction affecting right dominant side; E77.8 Other disorders of glycoprotein metabolism; E78.5 Hyperlipidemia, unspecified; I48.91 Unspecified atrial fibrillation; J45.909 Unspecified asthma, uncomplicated; E66.9 Obesity, unspecified; Z68.29 Body mass index [BMI] 29.0-29.9, adult; I69.120 Aphasia following nontraumatic intracerebral hemorrhage; T14.90XA Injury, unspecified, initial encounter; X58.XXXA Exposure to other specified factors, initial encounter; Y93.9 Activity, unspecified; Y92.9 Unspecified place or not applicable; Y99.9 Unspecified external cause status
CPT/HCPCS: 36415; 71045-TC-FY; 80048; 80053; 80162; 80177; 82962; 83735; 84100; 85025; 85610; 86850; 86900; 86901; 87040; 93005; 93010; 97116-GP; 97161-GP; 99285-25; J1644; U0003